=== PATIENT | male | born 1970 | race Caucasian/White ===

== ENCOUNTER 2024-09-27 17:17 | Inpatient (IN) | payer BC, SELFPAY ==
[2024-09-27] VITALS (10 sets, daily range): BP systolic 102–143; BP diastolic 77–104; BMI 28.2
--- NOTE | 2024-09-27 17:26 | HPS.HSE ---
Family Physician
-
Family Physician: Beverley Marsh
Chief Complaint
-
chest pain
History of Present Illness
Pt is a very pleasant 54y/oM with PMH HTN who presented to [facility] yesterday with complaints of chest pain with associated shortness of breath while he was laying down playing with is dog. Upon eval at [facility] pt ruled in for NSTEMI with HS trops of
48-->67. He underwent LHC today which revealed MVCAD (report currently unavailable to me), and noted to have a significantly dilated aortic root. Pt was transferred here for evaluation for VSRR + CABG.
Pt arrived on heparin gtt at 1400u/hr, he is chest pain free, pleasant and conversant. TR band in place on his R radial with 4cc of air.
Medical History
Past Medical History
Past Medical History: Reports HTN
Past Surgical History: Reports None
Social History
Tobacco: Non-smoker (never)
Alcohol: Occasional (1-2/week)
Drug: None
Personal:
Living: With Family
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
Family History
Family History: Other (no sig FH CAD)
Allergies / Home Medications
Allergies reflects when Allergies were last updated in [facility].
Home Medications with original date entered in [facility]
Allergy/Medication List:
NKDA
Home meds:
lisinopril 30mg po daily
acyclolvir prn herpes outbreaks
multivitamin daily
Review of Systems
-
History Source: Patient
Constitutional: Reports No Symptoms
EENT: Reports No Symptoms
Respiratory: Reports Trouble Breathing
Cardiac: Reports Chest Pain; Denies Syncope
Abdomen/GI: Denies Nausea or Vomiting
: Reports No Symptoms
Musculoskeletal: Reports No Symptoms
Skin: Reports No Symptoms
Neurological: Reports No Symptoms
Endocrine: Reports No Symptoms
Hematologic/Lymphatic: Reports No Symptoms
Psych: Reports No Symptoms
Physical Exam
Vital Signs
Vital Signs
Temp Pulse Resp Pulse Ox
98.1 F 79 18 96
09/27/24 17:20 09/27/24 17:20 09/27/24 17:20 09/27/24 17:20
Physical Exam
General: Well Developed, Well Nourished and No Apparent Distress
HEENT: NormoCephalic and Anicteric
Respiratory: Clear; No Wheezes, Rales or Rhonchi
Cardiac: Regular Rhythm; No Murmur, Rub or Peripheral Edema
GI: Soft, Non Tender and Non Distended
Rectal: Deferred by Provider
Genito-urinary: Deferred by me
Musculoskeletal: No Cyanosis and No Edema
Skin: Warm, Dry and IV/Catheter Site (R radial TR band intact; hand warm, good cap refill)
Neuro: Nonfocal/grossly intact
Psych: Calm
Data Reviewed
-
CT Scan: Report Reviewed by me
Lab Data: Labs Reviewed by me
Impression/Plan
-
IMPRESSION:
NSTEMI
MVCAD
aortic root aneurysm with root measuring 5.4cm, mid ascending aorta 4.5cm
HTN
PLAN:
- admit for workup for VSRR + CABG-- US Carotids, panelipse, labs, type & screen-- seen in last few months by regular dentist at [facility]--will contact them tomorrow for clearance.
- consult cardiology for medical management-- will continue heparin protocol.
- pt started on ASA, atorvastatin & metoprolol tartrate at [facility]--will continue those as well. home lisinopril on hold for OR.
- full evaluation by attending to follow
[2024-09-27 18:04] LABS: APTT 75.5 Sec (23.4-35.0)
[2024-09-27] MEDS: LOPRESSOR 25 MG PO (18:04)
[2024-09-27] MEDS: LIPITOR 80 MG PO (18:04)
[2024-09-27] MEDS: HEPARIN 25000 UNITS/250 ML IV (18:05)
[2024-09-27 18:18] LABS: Troponin I 0.099 ng/ml
--- NOTE | 2024-09-27 18:37 | PTCARENOTE ---
Patient received from [facility] in anticipation for CABG workup. NSR via cm, SaO2 @ 96% on RA. R wrist procedural site stable. Family to bedside. Admission information obtained. Heparin gtt re-initiated. BRE Max to bedside during admission. Patient
and family updated to plan of care, in agreement. See work list for full assessment and interventions performed.
--- NOTE | 2024-09-27 20:30 | PTCARENOTE ---
Patient received resting in bed watching television. Family at bedside. Patient A+A+Ox3. No neurological deficits noted. No c/o headache, dizziness or lightheadedness. Patient with no c/o pain or discomfort. Room air. SpO2 95%. Sinus Rhythm.
Heart rate 60-70's. Occasional PAC. Patient with no c/o chest pain, pressure or discomfort. Normoactive bowel sounds. Bowel and bladder within normal limits. Patient ambulating to bathroom by self. IV Heparin infusing per protocol.
Assessment as documented.
--- NOTE | 2024-09-27 22:00 | PTCARENOTE ---
Patient transported by RN to Panelipse study via wheelchair. Patient transported without difficulty. Patient back in room resting in bed watching television. No c/o pain or discomfort. Panelipse - No evidence of Dental Abscess. No further
changes from previous assessment.
[2024-09-27] MEDS: OCEAN, SALINE MIST 1 SPRAYS NASAL (23:49)
[2024-09-28] VITALS (9 sets, daily range): BP systolic 111–149; BP diastolic 81–111; BMI 28.1
--- NOTE | 2024-09-28 00:30 | PTCARENOTE ---
PTT 78.8 - Therapeutic range - No changes - IV Heparin gtt remains at 1400 units/hr (14 ml/hr). Troponin 0.112. Patient NPO after midnight. Patient sleeping without difficulty. Assessment/Interventions as documented.
[2024-09-28 00:31] LABS: APTT 78.8 Sec (23.4-35.0)
[2024-09-28 00:44] LABS: Troponin I 0.112 ng/ml
--- NOTE | 2024-09-28 04:22 | W.PN.CT ---
Today's Communication / Plan
-
Plan:
-Cont. current meds (ASA, heparin gtt, Lopressor, Lipitor)
-Avoid KASSIDY-I/ARBs/CCB at least 48hrs prior to OR
-Cardiology consult
-Ongoing preop workup/evaluation (obtain CTA of chest/abd/pelvis; echo today)
-Dr. Zuñiga to see, for possible Aortic root replacement/CABG/RAHEEM clip
Assessment / Plan
-
Assessment:
-Multivessel CAD
-NSTEMI (High-sensitivity trop 67 @ [facility])
-USA
-Aortic root aneurysm (5.4 cm, mid ascending aorta 4.5 cm)
-HTN
-HLD
-Spermatocele/Hydrocele S/P b/l spermatocelectomies, 05/26/2015
-S/P LHC
-S/P Vasectomy, 2008
Discussed patient care with: Cardiology, Nursing, Respiratory Therapy, Pharmacy and Care Team
Subjective
-
Date of Service: September 28, 2024
No issues overnight. Denies CP/SOB
Objective Data
-
APTT 78.8 Sec (23.4-35.0) H 09/28/24 00:09
Vital Signs
Vital Signs
Temp Pulse Resp BP Pulse Ox
98.2 F 65 16 102/80 96
09/27/24 23:00 09/28/24 04:10 09/27/24 23:00 09/27/24 23:00 09/27/24 23:00
CT Intake/Output/Weight
09/27/24 09/27/24 09/28/24
06:59 18:59 06:59
Intake Total 250 / 870 620 / 870
Balance 250 / 870 620 / 870
SaO2: 96 (RA)
Physical Exam
-
General: Awake, Oriented and AOx3
Cardiovascular: Regular rate & rhythm, No Murmurs and No Gallop
Respiratory: Clear
Extremities: No Edema
Data Reviewed
-
Lab Results: Results Reviewed
Medications: Active Meds Reviewed
Chest X-Ray: Report Reviewed and Image Reviewed
ECG: Report Reviewed and Image Reviewed
--- NOTE | 2024-09-28 04:30 | PTCARENOTE ---
Patient A+A+Ox3. No neurological deficits noted. No c/o headache, dizziness or lightheadedness. IV Heparin gtt infusing without difficulty. Patient back to sleep. Assessment/Interventions as documented.
[2024-09-28 06:13] LABS: Hematocrit 42.1 % (39.0-52.0); Hemoglobin 14.4 g/dL (13.0-18.0); Mean Corp Hgb Conc. 34.2 g/dL (33.0-37.0); Mean Corpuscular Hgb 30.1 pg (27.0-31.0); Mean Corpuscular Volume 88.1 fL (80.0-94.0); Mean Platelet Volume 9.3 fL (7.4-10.4); Platelet Count 286 10^3/uL (130-400); Red Blood Cell Count 4.78 10^6/uL (4.70-6.10); Red Cell Dist. Width 12.7 % (11.5-14.5); White Blood Cell Count 7.9 10^3/uL (4.8-10.8)
[2024-09-28 06:18] LABS: INR 1.06; PT 14.1 Sec (11.4-14.6)
[2024-09-28 06:19] LABS: APTT 78.7 Sec (23.4-35.0)
[2024-09-28 06:39] LABS: ALT (SGPT) 19 U/L (0-50); AST (SGOT) 23 U/L (17-59); Albumin 4.3 g/dl (3.5-5.0); Alkaline Phosphatase 69 U/L (38-126); Blood Urea Nitrogen 23 mg/dl (9-20); Calcium 9.1 mg/dl (8.4-10.2); Carbon Dioxide 24 mmol/L (22-30); Chloride 103 mmol/L (98-107); Estimated Creatinine Clearance 109 ml/min; Glucose 103 mg/dl (70-99); HDL Cholesterol 61 mg/dl; LDL Cholesterol, Calculated 73 mg/dl; Magnesium 1.9 mg/dl (1.6-2.3); Sodium 137 mmol/L (135-145); Total Bilirubin 1.1 mg/dl (0.2-1.3); Total Cholesterol 147 mg/dl (50-199); Total Protein 6.5 g/dl (6.3-8.2); Triglyceride 65 mg/dl (10-149); Very Low Density Lipoprotein 13 mg/dl (0-30); eGFR > 60.00
--- NOTE | 2024-09-28 07:45 | CON.CAR ---
Addendum entered and electronically signed by Ramón Guerrero MD 09/28/24 14:19:
I saw and examined the patient.
The Application Chemist's note was reviewed and I agree with the note.
Comment:
GEN: No distress, awake, Ox3
HEENT: supple, anicteric, mmm
LUNGS: CTA, no wheezes/rales
CV: Reg, S1/S2, / syst LSB, no gallop
ABD: soft, BS+, NT/ND
EXT: No edema
NEURO: Gross non-focal
SKIN: No rash
Plan:
Data reviewed. He is found to have multivessel coronary artery disease and a dilated aortic root. Plan will be for CABG plus aortic root repair in AM.
Continue metoprolol, atorvastatin, aspirin, and heparin.
Check echocardiogram today.
Original Note:
Consultation
Consultation Request
Date/Time Consultation Requested: 09/27/24 at 1656
Date/Time Consultation Performed: 09/28/24 at 0748
Requesting Provider: Dr. Zuñiga
Performing Provider: Dr. Guerrero
Reason for Consultation: Chest pain, MV CAD, aortic root aneurysm
Medical History
-
History of Present Illness:
Patient came to [facility] as a transfer from [facility] yesterday for evaluation from CT surgery team for MV CAD and aortic root aneurysm and cardiology has been consulted. Patient sees his PCP mostly when he is sick, but had a physical within the last year.
Patient with known h/o HTN and takes losartan 25 mg daily. He does not check BP at home on a regular basis. 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 He was working last Friday night into
Friday morning and was taking a break and laying on a sofa when he had sudden onset chest pain that lasted for 10-15 minutes and seemed to get better when he sat up. Pain returned again when he returned home after working and he told his and
they made a plan to go to the hospital. Then, after walking up the stairs in his home the patient had recurrent chest pain that was the most intense pain he had experienced and pain persisted. Patient went to [facility] ER and Troponin was elevated
prompting a cath that revealed MV CAD. Patient had an echo that showed aortic root aneurysm and then patient had CT, but results not available. Patient was transferred to for CT surgery eval last evening.
PMH:
HTN
Past Medical History
Past Medical History: Other (in HPI)
Past Surgical History: None
Social History
Tobacco: Non-Smoker
Alcohol: Occasional (a drink or 2 on a weekend night only)
Drug: None
Personal:
Living: With Family
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
Family History
Family History: Other (younger brother at a young age and patient didn't specify why, patient did not know biological father, no known FH CAD or aneurysm, two children alive and well)
Allergies / Home Medications
Allergy/AdvReac Type Severity Reaction Status Date / Time
No Known Allergies Allergy Unverified 05/26/15 06:37
�Medication �Instructions �Recorded �Confirmed �Type
losartan 25 mg tablet 25 mg PO DAILY 09/27/24 09/27/24 History
Review of Systems
-
History Source: Patient
All other systems: Negative unless noted
Physical Exam
Vital Signs
Temp Pulse Resp BP Pulse Ox
98.6 F 92 16 122/99 96
09/28/24 04:20 09/28/24 06:10 09/28/24 04:20 09/28/24 04:20 09/28/24 04:24
GEN: NAD. AAOx3
HEENT: EOMI, MMM
LUNGS: RA. CTA B/L, no wheezes or rales
CV: SR on tele. Reg, S1/S2, no murmur
ABD: soft, BS+, NT, ND
EXT: No clubbing, cyanosis, lesions or edema B/L
NEURO: Gross non-focal
SKIN: Warm, dry and pink. No rash
Lab Results
09/28/24 05:51
09/28/24 05:51
Troponin I 0.112 ng/ml H* 09/28/24 00:09
Impression / Plan
-
PCP: Dr. Marsh
Cardiology: None prior to admission, seen by Dr. Chavarria at [facility]
Impression:
Admitted to [facility] with chest pain 09/25/[address] for [address] surgical evaluation 09/27/24
MV CAD by cath at [facility] 09/27/24
CAD s/p NSTEMI with peak Troponin 67 at [facility]
Aortic root aneurysm with root measuring 5.4cm, mid ascending aorta 4.5cm by [facility] imaging 09/27/24
HTN
Echo 09/28/24: Study pending
Plan:
-Patient came to [facility] as a transfer from [facility] yesterday for evaluation from CT surgery team for MV CAD and aortic root aneurysm and cardiology has been consulted. Patient sees his PCP mostly when he is sick, but had a physical within the last year.
Patient with known h/o HTN and takes losartan 25 mg daily. He does not check BP at home on a regular basis. 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 He was working last Friday night into
Friday morning and was taking a break and laying on a sofa when he had sudden onset chest pain that lasted for 10-15 minutes and seemed to get better when he sat up. Pain returned again when he returned home after working and he told his and
they made a plan to go to the hospital. Then, after walking up the stairs in his home the patient had recurrent chest pain that was the most intense pain he had experienced and pain persisted. Patient went to [facility] ER and Troponin was elevated
prompting a cath that revealed MV CAD. Patient had an echo that showed aortic root aneurysm and then patient had CT, but results not available. Patient was transferred to for CT surgery eval last evening.
-ECG reviewed by me is SR with nonspecific ST changes.
-Echo at pending
-Initial Troponin was 0.099 and then 0.112. Will check another Troponin in the AM
-No chest pain. Heparin gtt running.
-New to aspirin 81 mg daily
-LDL 73. New to atorvastatin 80 mg daily
-Outpatient dose of losartan 25 mg daily on hold. BP 130/108 this AM and Lopressor increased to 50 mg BID. Patient is new to Lopressor this admission.
[2024-09-28] MEDS: LOPRESSOR 25 MG PO ×2 (08:40→10:00)
[2024-09-28] MEDS: LOW STRENGTH ASPIRIN 81 MG PO (08:40)
[2024-09-28] MEDS: HEPARIN 25000 UNITS/250 ML IV (08:41)
--- NOTE | 2024-09-28 08:45 | PTCARENOTE ---
Assumed care of patient at 0700. Pt is awake, alert, and oriented. No complaints of pain. Pt SR with HR 70's - 80's. BP 149/111 MAP 123, repeat BP 130/[address] PA made aware of BP, Lopressor increased to 50mg. Pulse oximetry 95% on room air.
Pt NPO for CT scan. Voiding in bathroom without issue. Right radial site intact, palpable pulses. Pt remains on Heparin gtt.
[2024-09-28 08:56] LABS: Glycohemoglobin (HgbA1c) 5.6 % (4.0-5.6)
--- NOTE | 2024-09-28 12:15 | PTCARENOTE ---
Carotid US and CT Scan completed. ABO collected. Pt remains SR with HR 60's-70's. BP 130/93 MAP 105. Pulse oximetry 99% on room air. Pt remains on heparin gtt per order.
--- NOTE | 2024-09-28 12:50 | W.PN.UPDATE ---
Update Note
Progress Note Update
STS RISK SCORE
Procedure Type:�CABG + AVR
PERIOPERATIVE OUTCOME ESTIMATE %
Operative Mortality 1.02%
Morbidity & Mortality 6.71%
Stroke 1.39%
Renal Failure 0.869%
Reoperation 3.83%
Prolonged Ventilation 3.25%
Deep Sternal Wound Infection 0.111%
Long Hospital Stay (>14 days) 3.85%
Short Hospital Stay (<6 days)* 59.3%
Clinical Summary
Planned Surgery: CABG + AVR, Urgent, First cardiovascular surgery
Demographics: 54 year old, White, male, 99.7kg, 188cm, BMI: 28.2 kg/m�
Lab Values: Creatinine: 0.9 mg/dL, Hematocrit: 42.1%, WBC Count: 7.9 10�/�L, Platelet Count: 964288 cells/�L
Substance Abuse: Never smoker, Alcohol use: 2-7 drinks/week
Risk Factors / Comorbidities: Hypertension
Cardiac Status: NYHA Class II, Ejection Fraction = 50%
Coronary Artery Disease: 3 vessels diseased, Proximal LAD Stenosis >=70%, Non-ST Elevation NE, NE: 1 to 7 Days
Valve Disease: Mild MR
--- NOTE | 2024-09-28 13:15 | CM ---
Reviewed chart. Met with and Mrs. Fountain and their son to review discharge plans. He states prior to admission he resides with his spouse and son in a two story home with one step to enter. He states he has a to go up a full flight of
steps to get to bedroom/full bathroom. He states he has a powder room on the first floor. He states prior to admission he was independent with ambulation and adls. He states he does not have any DME in the home. He states he has a prescription
plan. He states his spouse will be home to assist in his care if needed. Medical work-up in progress. The discharge plan is to return home with his spouse and son with a home visit by the Transitional Care Nurse Nurse when medically stable.
We reviewed pre=op and post-op routines. Briefly reviewed the shower instructions. Gave him the Cardiothoracic Surgery Educational Booklet. We also reviewed restrictions including sternal precautions and driving restrictions. We discussed a
home visit by the Transitional Care Nurse. He is agreeable to a home visit. The plan is for CABG and AVR on Friday09/29/24.
--- NOTE | 2024-09-28 13:26 | W.PN.UPDATE ---
Update Note
Progress Note Update
I met with Mr. Nova at the bedside. 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 He has significant coronary disease involving the proximal LAD as well as the proximal to mid RCA. He
presented to the hospital with 3 episodes of chest pain and tightness and was found to have an NSTEMI. Additionally he is also newly diagnosed with a significant aortic root aneurysm measuring approximately 5.[address] angiogram. There is a mild
degree of aortic valve insufficiency by visualization but the echocardiogram did not perform a pressure half-time to quantify. His aortic valve appears to be tricuspid with mostly central leakage. We discussed his pathology and the plan going
forward. His STS risk was reviewed. The benefits of surgery were discussed. Shared decision making is to pursue a valve sparing root replacement with possible biological Bentall should the valve not work appropriately afterwards. He also needs
CABG x 2 with CEDILLO to LAD and reverse saphenous vein graft to RCA. Given the extent of his surgery and his NSTEMI, I believe he has an elevated [id number] score and so I will also be managing his left atrial appendage. Plan is for surgery with
me tomorrow. Will need to units of blood and platelets on hold for him. Consent was obtained. All questions were answered to best my ability.
Thank you for involving me in the care of this patient. Please feel free to contact me with any questions or concerns.
Britton Zuñiga MD, MS
Cardiothoracic Surgeon
[facility]
This dictation was created using the [employer] dictation system. Please excuse any grammatical, typographical, or 'sound alike' errors.
[2024-09-28 15:17] LABS: Urine Albumin Trace (Neg - Trace); Urine Bilirubin Negative (Negative); Urine Character Clear (Clear); Urine Color Yellow; Urine Glucose Negative (Negative); Urine Ketone Negative (Negative); Urine Leukocyte Negative (Negative); Urine Nitrite Negative (Negative); Urine Occult Blood Negative (Negative); Urine Specific Gravity 1.015 (<1.030); Urine Urobilinogen 1+ (Neg - 1+)
--- NOTE | 2024-09-28 16:55 | PTCARENOTE ---
Pt with no changes in assessment. Pt remains SR with HR 70's. BP 119/94 MAP 104. Pulse oximetry 99% on room air. Heparin gtt continues.
[2024-09-28] MEDS: LIPITOR 80 MG PO (17:02)
--- NOTE | 2024-09-28 20:00 | PTCARENOTE ---
Assumed care of patient at 1900. Patient found oob in chair at time of assessment. Patient is AOx4, follows commands appropriately, moves all extremities. Lung sounds are clear and equal bilaterally saO2 98% on RA. Heart sounds are audible, patient
is SR with PACs on the monitor, patient has normal palpable pulses and no observable edema. Patient has active BS in all four quadrants and is voiding in bathroom. Patient has R radial puncture from CC that is scabbed over SABINO. Patient has R FA PIV
receiving heparin @1400 units/hr, R AC and L AC PIV. No c/o pain. Call keyes within reach.
[2024-09-28] MEDS: LOPRESSOR 50 MG PO (21:01)
[2024-09-29] VITALS (10 sets, daily range): BP systolic 74–138; BP diastolic 65–97; BMI 28.1
--- NOTE | 2024-09-29 | PTCARENOTE ---
Patient reassessed. VSS. Remains SR on the monitor. Call keyes within reach.
--- NOTE | 2024-09-29 04:00 | PTCARENOTE ---
Patient reassessed. Remains SR on the monitor. AM labs obtained. Preop prep completed. Labs obtained.
[2024-09-29] MEDS: HEPARIN 25000 UNITS/250 ML IV (04:14)
[2024-09-29 04:23] LABS: Hematocrit 40.8 % (39.0-52.0); Hemoglobin 14.3 g/dL (13.0-18.0); Mean Corpuscular Hgb 30.6 pg (27.0-31.0); Mean Corpuscular Volume 87.4 fL (80.0-94.0); Mean Platelet Volume 9.6 fL (7.4-10.4); Platelet Count 293 10^3/uL (130-400); Red Blood Cell Count 4.67 10^6/uL (4.70-6.10); Red Cell Dist. Width 12.7 % (11.5-14.5); White Blood Cell Count 7.9 10^3/uL (4.8-10.8)
[2024-09-29 04:40] LABS: APTT 71.3 Sec (23.4-35.0)
--- NOTE | 2024-09-29 05:58 | W.PN.CT ---
Today's Communication / Plan
-
Plan:
-OR today, 2nd case for Dr. Zuñiga. Aortic root replacement/CABG/RAHEEM clip
-Cont.current meds (ASA, heparin gtt, Lopressor, Lipitor)
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
Assessment / Plan
-
Assessment:
-Multivessel CAD
-NSTEMI (High-sensitivity trop 67 @ [facility])
-USA
-Aortic root aneurysm (5.4 cm, mid ascending aorta 4.5 cm)
-HTN
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
-Spermatocele/Hydrocele S/P b/l spermatocelectomies, 05/26/2015
-S/P LHC
-S/P Vasectomy, 2008
Discussed patient care with: Cardiology, Nursing, Respiratory Therapy, Pharmacy and Care Team
Subjective
-
Date of Service: September 29, 2024
No issues overnight. Denies CP/SOB
Objective Data
-
Lab Results
09/29/24 04:09
09/28/24 05:51
PT 14.1 Sec (11.4-14.6) 09/28/24 05:51
INR 1.06 09/28/24 05:51
APTT 71.3 Sec (23.4-35.0) H 09/29/24 04:09
Vital Signs
Vital Signs
Temp Pulse Resp BP Pulse Ox
98.2 F 69 18 118/81 98
09/28/24 19:39 09/28/24 23:00 09/28/24 19:39 09/28/24 22:51 09/28/24 20:00
CT Intake/Output/Weight
09/28/24 09/28/24 09/29/24
06:59 18:59 06:59
Intake Total 648 / 912 168 / 168
Balance 648 168 / 168
SaO2: 98 (RA)
Physical Exam
-
General: Awake, Oriented and AOx3
Cardiovascular: Regular rate & rhythm and No Murmurs
Extremities: No Edema
Data Reviewed
-
Lab Results: Results Reviewed
Medications: Active Meds Reviewed
Chest X-Ray: Report Reviewed and Image Reviewed
ECG: Report Reviewed and Image Reviewed
--- NOTE | 2024-09-29 07:19 | W.CVOR.SURPR ---
CVOR Surgeon Immed Pre Op
-
I have examined this patient prior to performance of the scheduled procedure.
The patient's condition is unchanged from the time of the dictated/written History and
Physical and the patient is able to undergo the scheduled procedure.
Sternotomy CABG x 2 + VSRR +/- BioBentall + RAHEEM Clip
--- NOTE | 2024-09-29 09:03 | W.PN.UPDATE ---
Update Note
Progress Note Update
Radial arterial line placement
A time-out was completed verifying correct patient, procedure, site, patient positioning, and special equipment. Patient was monitored with continuous bedside EKG, blood pressure, pulse ox readings.
Doc's test was performed to ensure adequate perfusion. The patient's left wrist was prepped and draped in sterile fashion.
1% Lidocaine was used to anesthetize the area. Ultrasound was used in real time to localize the radial artery and guide introducer needle into the arterial lumen. The catheter was threaded over the guide wire and the needle was removed with
appropriate pulsatile blood return. The catheter was then secured in place to the skin and a biopatch and sterile dressing applied.
Perfusion to the extremity distal to the point of catheter insertion was checked and found to be unchanged.
Estimated Blood Loss: 0 mL
The patient tolerated the procedure well and there were no complications.
--- NOTE | 2024-09-29 09:08 | W.PN.UPDATE ---
Update Note
Progress Note Update
A time-out was completed verifying correct patient, procedure, site, patient positioning, and special equipment. Patient was monitored with continuous bedside EKG, blood pressure, pulse ox readings.
The patient was placed in a dependent position appropriate for central line placement based on the vein to be cannulated. The patient's left neck was prepped and draped in sterile fashion using chlorhexidine, maximum barrier precautions, sterile
gloves, Gown drapes and mask.
1% Lidocaine was used to anesthetize the surrounding skin area. Ultrasound was used in real time to localize vein and guide introducer needle. An introducer needle was placed into the left internal jugular vein using ultrasound guidance. A
guidewire was introduced without resistance. Under ultrasound guidance, confirmation of guidewire in vein was performed before dilation. Dilation was done over guidewire without complications. The cordis catheter as then threaded smoothly over the
guide wire and into the central venous system. The guidewire was removed and appropriate blood return was obtained. The catheter was then secured with a suture to the skin and a sterile occlusive dressing with Biopatch applied. An upright chest
film was obtained after the procedure to assess for complications of insertion.
Estimated blood loss: 0 mL
Patient tolerated procedure well. Remains in critical condition.
[2024-09-29] MEDS: LOPRESSOR 25 MG PO (09:16)
[2024-09-29] MEDS: XYLOCAINE 2% MDV 10 ML INFIL (09:16)
[2024-09-29] MEDS: MAGNESIUM OXIDE 500 MG PO (09:16)
[2024-09-29] MEDS: PROTONIX 40 MG PO (09:16)
[2024-09-29] MEDS: BACTROBAN 2% OINTMENT 1 APPLIC NASAL ×2 (09:16→20:25)
--- NOTE | 2024-09-29 09:30 | PTCARENOTE ---
Addendum entered by Balta Mackenzie RN 09/29/24 13:16:
Heparin gtt placed on hold per order prior to Cordis and Zahira placement.
Original Note:
Assumed care of patient at 0700. Pt is awake, alert, and oriented. No complaints of pain. Pt remains SR with HR 70's. BP 138/88 MAP 104 (right arm), 126/97 MAP 106 (left arm). Pulse oximetry 95% on room air. Pt voiding without issue. Pt had bowel
movement this AM. NPO since midnight. 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 CT CAN STRIPER, Zehra, to bedside placed left radial Zahira and right IJ cordis. Pt received pre-op medications. Awaiting OR. Family at bedside.
[2024-09-29] MEDS: LOPRESSOR PO (09:56)
[2024-09-29 11:20] LABS: ACT+ - POC 109 Seconds (82-134)
[2024-09-29 11:58] LABS: Urine Albumin Trace (Neg - Trace); Urine Bilirubin Negative (Negative); Urine Character Clear (Clear); Urine Color Yellow; Urine Glucose Negative (Negative); Urine Ketone Negative (Negative); Urine Leukocyte Negative (Negative); Urine Nitrite Negative (Negative); Urine Occult Blood 4+ (Negative); Urine Urobilinogen Negative (Neg - 1+)
[2024-09-29 12:28] LABS: ACT+ - POC 530 Seconds (82-134)
[2024-09-29 12:48] LABS: B.E. - POC -4.1 mmol/L; Glucose - POC 100 mg/dl (70-99); HCO3 - POC 20 mmol/L (21-28); Hematocrit - POC 41 % PCV (42-52); Hemodilution- POC No; Hemoglobin Calculated - POC 14.1; Ionized Calcium - POC 1.22 mmol/L (1.15-1.33); O2 Saturation %Calculated-POC 99.9 % (94-98); PCO2 - POC 34 mmHg (35-48); PO2 - POC 270 mmHg (83-108); POC Comment CPB; Potassium - POC 3.7 mmol/L (3.5-5.1); Sodium - POC 140 mmol/L (136-145); Specimen Type - POC Arterial; pH - POC 7.38 (7.35-7.45)
[2024-09-29 13:00] LABS: ACT+ - POC 531 Seconds (82-134)
[2024-09-29 13:20] LABS: B.E. - POC 0.8 mmol/L; Glucose - POC 97 mg/dl (70-99); HCO3 - POC 26 mmol/L (21-28); Hematocrit - POC 29 % PCV (42-52); Hemodilution- POC Yes; Hemoglobin Calculated - POC 9.9; Ionized Calcium - POC 1.08 mmol/L (1.15-1.33); O2 Saturation %Calculated-POC 99.9 % (94-98); PCO2 - POC 44 mmHg (35-48); PO2 - POC 326 mmHg (83-108); POC Comment CPB; Sodium - POC 136 mmol/L (136-145); Specimen Type - POC Arterial; pH - POC 7.38 (7.35-7.45)
[2024-09-29 13:29] LABS: ACT+ - POC 464 Seconds (82-134)
[2024-09-29 13:44] LABS: ACT+ - POC 562 Seconds (82-134)
[2024-09-29 13:50] LABS: B.E. - POC 0.8 mmol/L; Glucose - POC 152 mg/dl (70-99); HCO3 - POC 27 mmol/L (21-28); Hematocrit - POC 33 % PCV (42-52); Hemodilution- POC Yes; Hemoglobin Calculated - POC 11.2; Ionized Calcium - POC 1.14 mmol/L (1.15-1.33); O2 Saturation %Calculated-POC 99.4 % (94-98); PCO2 - POC 47 mmHg (35-48); PO2 - POC 163 mmHg (83-108); POC Comment CPB; Potassium - POC 4.9 mmol/L (3.5-5.1); Sodium - POC 136 mmol/L (136-145); Specimen Type - POC Arterial; pH - POC 7.36 (7.35-7.45)
[2024-09-29 13:57] LABS: Urine Bacteria Few (Negative); Urine Red Blood Cell >100 /HPF (0-2)
[2024-09-29 14:17] LABS: B.E. - POC -0.1 mmol/L; Glucose - POC 164 mg/dl (70-99); HCO3 - POC 26 mmol/L (21-28); Hematocrit - POC 33 % PCV (42-52); Hemodilution- POC Yes; Hemoglobin Calculated - POC 11.3; Ionized Calcium - POC 1.16 mmol/L (1.15-1.33); O2 Saturation %Calculated-POC 99.9 % (94-98); PCO2 - POC 46 mmHg (35-48); PO2 - POC 352 mmHg (83-108); POC Comment CPB; Sodium - POC 136 mmol/L (136-145); Specimen Type - POC Arterial; pH - POC 7.36 (7.35-7.45)
[2024-09-29 14:30] LABS: ACT+ - POC 532 Seconds (82-134)
[2024-09-29 15:05] LABS: Glucose - POC 183 mg/dl (70-99); HCO3 - POC 25 mmol/L (21-28); Hematocrit - POC 34 % PCV (42-52); Hemodilution- POC Yes; Hemoglobin Calculated - POC 11.4; Ionized Calcium - POC 1.17 mmol/L (1.15-1.33); O2 Saturation %Calculated-POC 99.9 % (94-98); PCO2 - POC 49 mmHg (35-48); PO2 - POC 294 mmHg (83-108); POC Comment CPB; Potassium - POC 5.2 mmol/L (3.5-5.1); Sodium - POC 135 mmol/L (136-145); Specimen Type - POC Arterial; pH - POC 7.33 (7.35-7.45)
[2024-09-29 15:13] LABS: ACT+ - POC 485 Seconds (82-134)
[2024-09-29 15:30] LABS: ACT+ - POC 618 Seconds (82-134)
[2024-09-29 15:36] LABS: Glucose - POC 140 mg/dl (70-99); HCO3 - POC 24 mmol/L (21-28); Hematocrit - POC 33 % PCV (42-52); Hemodilution- POC Yes; Hemoglobin Calculated - POC 11.4; Ionized Calcium - POC 1.19 mmol/L (1.15-1.33); O2 Saturation %Calculated-POC 99.8 % (94-98); PCO2 - POC 39 mmHg (35-48); PO2 - POC 217 mmHg (83-108); POC Comment CPB; Potassium - POC 4.1 mmol/L (3.5-5.1); Sodium - POC 138 mmol/L (136-145); Specimen Type - POC Arterial; pH - POC 7.39 (7.35-7.45)
--- NOTE | 2024-09-29 16:10 | CM ---
Reviewed chart. Mr. Fountain is in the operating room today. Prior to admission he resides with his spouse and son in a two story home with one step to enter. He has a full flight of steps to get to bedroom/full bathroom. He has a powder room on
the first floor. Prior to admission he was independent with ambulation and adls. He does not have any DME in the home. He has a prescription plan. His spouse will be home to assist in his care if needed. Medical work-up in progress. The
discharge plan is to return home with his spouse and son and a home visit by the Transitional Care Nurse when medically stable.
[2024-09-29 16:12] LABS: ACT+ - POC 486 Seconds (82-134)
[2024-09-29 16:26] LABS: B.E. - POC -3.5 mmol/L; Glucose - POC 121 mg/dl (70-99); HCO3 - POC 21 mmol/L (21-28); Hematocrit - POC 34 % PCV (42-52); Hemodilution- POC Yes; Hemoglobin Calculated - POC 11.4; Ionized Calcium - POC 1.18 mmol/L (1.15-1.33); PCO2 - POC 35 mmHg (35-48); PO2 - POC 373 mmHg (83-108); POC Comment WARM; Sodium - POC 139 mmol/L (136-145); Specimen Type - POC Arterial; pH - POC 7.39 (7.35-7.45)
[2024-09-29 16:29] LABS: ACT+ - POC 118 Seconds (82-134)
--- NOTE | 2024-09-29 17:24 | W.PN.CT.SURG ---
CT Surgery Operative Note
-
CARDIAC SURGERY OPERATIVE REPORT
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
Postoperative Diagnosis: Same
Procedure(s) Performed:
1. Standard sternotomy with aortic and right atrial cannulation
2. CABG x 2 [hamilton CEDILLO in situ to LAD, RSVG to proximal RCA]
3. Valve sparing aortic root replacement with reimplantation of hamilton aortic valve [Gregory Procedure]
4. Reimplantation of left and right coronary buttons into their respective neosinus
5. Left atrial appendage exclusion (35mm clip)
6. Placement of temporary atrial ventricular pacing wires
7. Transesophageal echocardiography
8. Endoscopic harvest of saphenous vein
Date of Surgery: 09/29/2024
Comorbidities:
1. Aortic root aneurysm measuring 5.8 cm
2. Mild aortic valve insufficiency, central
3. Hypertension
4. NSTEMI multivessel coronary artery disease
Attending Surgeon: Britton Zuñiga MD, MS
Assistants: Kadeem Ortiz MD (given the complexity of the case, two attending surgeons were required for the reimplantation of the hamilton aortic valve) & Yina Coreas PA-C (present and necessary to research assistant, retraction, suction, exposure,
suture management, and wound closure under my direction), Britton June PA-C (endo vein harvest)
Anesthesiology: Solomon Carbajal MD and Carly Joyner CRNA
Scrub and Circulating RNs: Tania Grayson RN, Kavin Brenner RN
Customer Support Assistant: Bienvenido Saavedra CCP
Anesthesia: GETA
EBL: per perfusion records
Products: 2 plts 2 ffp (in CVICU)
CPB Time: 218 minutes
Aortic Cross Clamp Time: 192 minutes
Indication(s) for Procedures: This is a 54-year-old male presenting with an NSTEMI with several episodes of chest pain. He was found to have significant proximal LAD disease with collateralization to the right which also diagonal ostial lesion. He
was also incidentally found to have a significant aortic root aneurysm with mild aortic valve insufficiency. His aneurysm measured approximately 5.8 cm from his greatest dimension. Given his NSTEMI, young age, approximately lesion, he is counseled
about surgical revascularization with concomitant management of his aortic root aneurysm.
Aortic Valve Description: Tricuspid aortic valve, no fenestrations, good coaptation height, estimated to be 1cm, no prolapse of the hamilton aortic leaflet tissue with testing the valve
Findings: His left ventricular ejection fraction preoperatively 60% with no significant regional wall motion abnormalities. He does have diastolic dysfunction with thick left ventricle. Following surgery his EF was the same with no significant
regional wall motion abnormalities aside from some paradoxical motion of his septum. He is aortic valve was spared and reimplanted inside of 32 mm cardio root Valsalva graft. This was done with 6 some annular sutures to reinforce his aorta
ventricular junction. His valve was then reimplanted and sewn into place with 5-0 Prolene. His left and right coronary ostia were then reimplanted into her neosinus. Suctioning the LV vent resulted in sealing of the aortic valve which appeared to
be competent. 2 bypasses were performed, in situ CEDILLO to his hamilton LAD and reverse saphenous vein graft to the proximal RCA. This was taken off the distal ascending aorta on hamilton aortic tissue. Following surgery, his AI that was initially mild
and central went to none. He had a mean gradient of 3 across his hamilton aortic valve with a good coaptation height. Due to the long clamp around, he was a little bit sluggish coming off of cardiopulmonary bypass but did not require any inotropic
support. His cardiac index was approximately 1.7 to on just a low-dose Levophed. 2 units of platelets were given intraoperatively and 2 FFP were planned to be given in the CVICU. He was in a junctional rhythm after the surgery and had diffuse ST
changes that are improved over time. I suspect there was some subendocardial ischemia given how thick his ventricle is and the long duration of his surgery. There is no residual flow into the left atrial appendage, and only a small residual stump
was visualized.
Specimen(s): Ascending aorta and aortic sinuses.
Prosthesis:
1. 35 mm clip, serial #[id number]
2. Cardio root Valsalva graft, 32 mm, serial number [id number].
3. Bovine pericardium, serial number [id number]
4. Peripheral leak sealant, serial number [id number]
Description of Procedure: The patient was taken to the operating room. Their identity and procedure to be performed were verified and they were positioned supine on the operating table. Induction via general anesthesia with endotracheal intubation
was performed and central venous access and arterial monitoring were inserted. A preoperative transesophageal echocardiogram was performed to assess cardiac function and valvular function. The patient was then prepped and draped from chin to feet in
a sterile fashion. A preoperative time-out was performed with all members of the team present. A midline chest incision was performed along with median sternotomy. Simultaneous access to the right lower extremity for endoscopic harvest of the
saphenous vein graft was performed. 5000 units of heparin was also given. The Rultract was placed and the left hemisternum was elevated and the mammary was harvested in a skeletonized fashion. This line was then transected and there was good
visual flow. The distal end was then clipped and the mammary was placed into a papaverine soaked Ray-Madiha and replaced back into the left hemithorax. The Rultract retractor was then replaced with a median sternotomy retractor. The innominate vein
was isolated. Full heparinization was given (a total of 65,000 units). We created a pericardial well. The aortic cannulation site was chosen where it was soft, pliable, and free of calcium in the proximal arch. Cannulation was performed with an
arterial cannula and a triple-stage venous cannula through the right atrial appendage. The arterial cannula line had an appropriate bounce and correlating pressures with test dosing. The pulmonary artery was away from the aorta to
facilitate a clamp site and aortotomy. Next, a root vent/antegrade cannula was inserted into the ascending aorta. The ACT was confirmed to be over 400 and retrograde autologous priming was performed before commencing cardiopulmonary bypass. A left
ventricular vent was placed at the right superior pulmonary vein and secured. The aortic cross-clamp was placed after decreasing the flow on the bypass and mean arterial pressure. A total of 1.2L initial dose of antegrade Del-Nido cardioplegia
solution was given and planned for re-dosing every 75 minutes as necessary. There was rapid electro-mechanical arrest of the heart at 400 cc of cardioplegia. The left ventricle was observed for distention on echocardiogram and manual palpation. Cold
slush was placed into a sponge and topically on the RV while we systemically cooled to 34 degrees centigrade. Once the heart was fully arrested, it was rotated medially and the left atrial appendage was sized to a 35 mm clip which was deployed
flush to the base.
I then isolated the proximal RCA and dissected down to the level of coronary. A small coronary arteriotomy was created with an eye knife and enlarged with Han scissors. The vein was then beveled accordingly and end-to-side anastomosis was
created with 7-0 Prolene. Test dosing of antegrade down the vein graft demonstrated excellent flow at 80 cc a minute at a pressure of 80 mmHg. I also confirmed hemostasis. Next the LAD was identified dissected with a [place] blade. A small
coronary arteriotomy was created in a similar fashion and enlarged with Han scissors. The CEDILLO was then retrieved from the left hemithorax after creating a small pericardial window being cognizant of the phrenic nerve course. The distal end of
the CEDILLO graft was beveled accordingly. And a side anastomosis was created with 7-0 Prolene in a running fashion. Removal of the bulldog clamp demonstrated excellent flow in the LAD territory. There was also appropriate hemostasis. The bulldog
was then replaced back on the mammary vessel for the duration of the case.
Carbon dioxide was used to flood the field. The location of both left and right coronary vessels were visualized in the root. The aorta was fully transected above the STJ. I then cut down towards each commissure and placed a 5-0 Prolene pledgeted
suture there for later resuspension. The root was then circumferentially dissected down to the aorta ventricular junction. The right coronary button was then harvested and a retraction stitch was placed at the 12 o'clock position. The left
coronary button was harvested in a similar fashion with also retraction stitch at the 12 o'clock position. I then continued the dissection down deep into the root below each coronary ostia. Next the aortic sinus tissue was then transected leaving
approximately 5 mm of hamilton aortic tissue along the commissures and valve. 6 pledgeted 2 Ethibond sutures were placed at the subvalvular ring 1 at each commissure and 1 in each hitesh of the leaflet. Using the left-non height, I sized the
patient's root to a 32 mm Valsalva graft. The 2 Ethibond sutures were then placed through the lower cuff of the graft and the commissures were brought inside the graft which was then parachuted down over the hamilton aortic valve. The 6 Ethibond
sutures were then tied circumferentially by hand. The commissures were then resuspended accordingly to produce a symmetrical 120/120/120 degree appearing valve. Traction on the commissures yielded good coaptation height of the hamilton aortic valve
leaflets. With the LV vent turned on, there was good sealing of the hamilton aortic tissue with a coaptation height of approximately 1 cm. Starting each hitesh, 5-0 Prolene was used to sew in the aortic valve effectively reimplanting inside of
Valsalva graft. These were secured to the commissural stitches. Once completed, I inspected to make sure there were no folds, any folds were then reinforced with [place] pledgeted 5-0 Prolene in order to flatten out the fold to promote
hemostasis. The left coronary ostia was then reimplanted into the knee of sinus using 5-0 Prolene in a running fashion. The same was done with the right coronary ostia after filling the heart to estimate the appropriate height on the neosinus.
Bovine pericardium was used for both coronary ostia as a gasket. The ascending aorta was then resected and the valved conduit was trimmed accordingly. The distal anastomosis was performed with a running 4-0 Prolene in a single layer using bovine
pericardium as a gasket. Absorbable topical sealant was then placed around the suture lines. We had enough hamilton aortic tissue in order to perform a small aortotomy which was enlarged with a 4.0 millimeter punch. The proximal end of the vein was
then beveled accordingly and with 6-0 Prolene the proximal anastomosis was greater than a running fashion
De-airing maneuvers were performed and temporary bipolar ventricular pacing wires were placed on the base of the right ventricle and temporary atrial pacing wires at the SVC/Atrial junction. The patient was placed in a Trendelenburg position and
flows on bypass were lowered. The aortic cross clamp was removed and flows were slowly brought back up. The suture lines appeared hemostatic. The bulldog clamp was removed off the mammary. A few reinforcement sutures were placed along the distal
aortic anastomosis transesophageal echocardiography revealed no AI and appropriate leaflet coaptation height with a mean gradient of 3 across the hamilton aortic valve. Once de-airing was satisfactory, the left ventricular vent was removed. After
verifying acceptable parameters, we initiated weaning from cardiopulmonary bypass. Once we were off cardiopulmonary bypass, the venous cannula was clamped and removed. A test dose of protamine was administered and the patient was monitored for any
adverse reaction before resuming protamine. Once half of the protamine dose was delivered, pump suckers were turned off and the systolic blood pressure was lowered for aortic decannulation. The aortic cannula was removed and pursestrings were tied
down. All cannulation sites were oversewn with a 4-0 prolene. The suture lines were inspected and hemostasis was confirmed. Mediastinal hemostasis was obtained. Two 24Fr Connor drains were placed within the pericardium with additional 19 [place] Connor
drain placed in the left hemithorax. The sternum was approximated with 4 #7 single and 3 #8 double stainless steel wires. Fascia was approximated with #1 vicryl suture. The subcutaneous, dermis and epidermis were closed in layers in a running
fashion. The skin wound was cleansed and dressed.
All instrument, sponge, and needle counts were confirmed to be correct x 2 at the end of the operation. The patient was transferred to the cardiac intensive care unit in critical but stable condition.
I, Dr. Britton Zuñiga, was present, scrubbed for, and performed all critical elements of this procedure.
Britton Zuñiga MD, MS
Cardiothoracic Surgeon
[facility]
This dictation was created using the [employer] dictation system. Please excuse any grammatical, typographical, or 'sound alike' errors
[2024-09-29 17:31] LABS: B.E. - POC -1.7 mmol/L; Glucose - POC 119 mg/dl (70-99); HCO3 - POC 23 mmol/L (21-28); Hematocrit - POC 32 % PCV (42-52); Hemodilution- POC Yes; Hemoglobin Calculated - POC 10.8; Ionized Calcium - POC 1.37 mmol/L (1.15-1.33); O2 Saturation %Calculated-POC 97.9 % (94-98); PCO2 - POC 39 mmHg (35-48); PO2 - POC 103 mmHg (83-108); POC Comment POST; Sodium - POC 138 mmol/L (136-145); Specimen Type - POC Arterial; pH - POC 7.38 (7.35-7.45)
--- NOTE | 2024-09-29 17:38 | PTCARENOTE ---
Pt received from [facility] intubated and sedated on precedex gtt. POX 100% SIMV 14 550 5/5 40%. Lungs diminished anteriorly. Mediastinal chest tubes x2 y-sited to 1 atrium to -20cm suction draining red fluid. Left pleural chest tube to -20cm suction
draining red fluid. No air leaks tidaling, crepitus noted. Heart sounds audible. SR with frequent PVCs. Bilateral radial pulses palpable. bilateral DP pulses present via doppler. No edema noted. PA pressures 28/18 CVP 14. Epicardial AV wires to box,
turned off. Per, CT SOLDER SPRAYER, not tested and box turned off. Abdomen soft, round, nontender. Hypoactive BS. Maki catheter intact draining pink tinged urine, adequate amounts. Sternal incision approximated with skin glue, SABINO. Right SVG harvest site
covered with KASSIDY-CDI. Right groin puncture site approximated with skin glue, [employer]ARD. Left radial ojssie positional, but appropriate waveform. Right IJ cordis with swan floated to 48cm. All lines flushed, leveled, and zeroed. Right forearm 20g PIV x2.
Left forearm 20g PIV intact.
--- NOTE | 2024-09-29 17:51 | PTCARENOTE ---
Significant amount of ectopy noted. CT [employer], CT PA, and Dr. Zuñiga at bedside. At 175 Attempting to change epicardial A and V polarity of the leads when patient had R on T and went into Torsades. CPR started immediately. Pt defibrillated at 200J x1,
regained SR with pulse but was hypotensive, restarted CPR as per Dr. Zuñiga. BP improved, CPR stopped per Dr. Zuñiga. 175, pt in torsades again, CPR restarted, pt defibrillated at 300J x1. CPR resumed. Pt noted to have rhythm on monitor with pulse.
Meds: 1mg Epi, 300mg Amio & Amio gtt started at 1mg/min, 1g Mag. 100mL Sodium Bicarb. 3g CaCl. 2units FFP administered. All orders per verbal order Dr. Zuñiga, at bedside. Bedside echo performed by anesthesia. ABG ran by perfusion. CXR obtained.
[2024-09-29 17:54] LABS: B.E. -1.7 mmol/L; HCO3 22.1 mmol/L (21-28); Ionized Calcium 1.15 mMOL/L (1.15-1.33); PCO2 34 mmHg (35-48); PO2 91 mmHg (83-108); Potassium 3.8 mMOL/L (3.5-5.1); Sodium 136 mMOL/L (136-145); pH 7.42 (7.35-7.45)
[2024-09-29 17:57] LABS: Glucose - Point of Care 127 mg/dl (70-99)
[2024-09-29 18:04] LABS: Hematocrit 31.2 % (39.0-52.0); Hemoglobin 11.2 g/dL (13.0-18.0); Platelet Count 192 10^3/uL (130-400)
[2024-09-29 18:12] LABS: INR 1.55; PT 19.1 Sec (11.4-14.6)
[2024-09-29 18:13] LABS: APTT 31.2 Sec (23.4-35.0)
[2024-09-29 18:14] LABS: Blood Urea Nitrogen 22 mg/dl (9-20); Estimated Creatinine Clearance 89 ml/min; Glucose 119 mg/dl (70-99); Magnesium 2.6 mg/dl (1.6-2.3)
--- NOTE | 2024-09-29 18:18 | W.PN.ANES ---
Anesthesia Note
- -
09/29/24 18:18
Transesophageal Echo:
Probe placed easily in CVICU while pt still intubated. Findings:
Overall LVEF approx. 55% with mild septal wall motion hypokinesis. This appears better than what it appeared in the OR. Other wall segments appear to move normally. LV cavity is small but appears adequately filled.
No pericardial effusion noted.
Trace MR. Improved from mild in the OR.
TV and PV function normal.
AV function is normal.
No change in the aortic scan.
Small PFO with left to right flow.
[2024-09-29 18:22] LABS: B.E. - POC 1.5 mmol/L; Glucose - POC 184 mg/dl (70-99); HCO3 - POC 26 mmol/L (21-28); Hematocrit - POC 31 % PCV (42-52); Hemodilution- POC Yes; Hemoglobin Calculated - POC 10.6; Ionized Calcium - POC 1.82 mmol/L (1.15-1.33); O2 Saturation %Calculated-POC 90.4 % (94-98); PCO2 - POC 39 mmHg (35-48); PO2 - POC 58 mmHg (83-108); POC Comment POST OP CODE; Potassium - POC 3.6 mmol/L (3.5-5.1); Sodium - POC 142 mmol/L (136-145); Specimen Type - POC Arterial; pH - POC 7.43 (7.35-7.45)
[2024-09-29 18:23] LABS: Glucose - Point of Care 105 mg/dl (70-99)
[2024-09-29] MEDS: DILAUDID 0.5 MG IV (18:31)
[2024-09-29] MEDS: ANCEF 10 IV ×2 (18:33)
[2024-09-29] MEDS: NOVOLOG FLEXPEN SC (18:33)
[2024-09-29] MEDS: NEURONTIN PO ×2 (18:33→22:12)
[2024-09-29] MEDS: TYLENOL PO ×2 (18:33→22:12)
[2024-09-29] MEDS: LIPITOR PO (18:33)
[2024-09-29] MEDS: PACERONE PO ×2 (18:34→22:12)
[2024-09-29] MEDS: CORDARONE 518 MG IV (18:34)
[2024-09-29] MEDS: NSS 500 IV (18:34)
[2024-09-29] MEDS: DEMEROL 12.5 MG IV (18:45)
--- NOTE | 2024-09-29 19:00 | PTCARENOTE ---
bedside report received from previous RN. pt intubated and sedated on precedex gtt @ 0.5mcg. heart tones clear. SR on monitor, HR 70s. bilateral radial and DP pulses palpable. no edema noted. POX 97%, vent set to SIMV 14 550 5/5 40%. bilateral
breath sounds present. CT x3 intact to -20cm wall suction, drainage WNL, no air leak present. Right IJ cordis with swan floated to 48cm, KVOs infusing. PA pressures 30s/20s, CVP ~14. Epicardial AV wires intact, pacer box off. hypoactive bowel sounds
present. Insulin gtt infusing per glycemic protocol. hawkins catheter intact draining pink tinged urine, UO adequate. all surgical sites stable. Left radial jossie positional, but appropriate waveform. Levo gtt infusing @ 10mcg. Amio gtt infusing @
1mg. see worklist for full assessment, VS, and interventions.
[2024-09-29 19:05] LABS: Glucose - Point of Care 160 mg/dl (70-99)
[2024-09-29 19:23] LABS: B.E. 0.5 mmol/L; HCO3 24.6 mmol/L (21-28); Ionized Calcium 1.42 mMOL/L (1.15-1.33); PCO2 37 mmHg (35-48); PO2 106 mmHg (83-108); pH 7.43 (7.35-7.45)
[2024-09-29 20:17] LABS: Glucose - Point of Care 190 mg/dl (70-99)
[2024-09-29] MEDS: SENOKOT-S PO (20:25)
[2024-09-29] MEDS: LR 500 IV (20:52)
[2024-09-29] MEDS: LR 1000 IV (20:52)
[2024-09-29 21:03] LABS: Hematocrit 31.9 % (39.0-52.0); Hemoglobin 11.5 g/dL (13.0-18.0); Platelet Count 239 10^3/uL (130-400)
[2024-09-29 21:08] LABS: Glucose - Point of Care 161 mg/dl (70-99)
[2024-09-29 21:32] LABS: Mixed Venous O2 Saturation 44.3 %
[2024-09-29] MEDS: ALBUMIN 5% 250 IV (21:53)
[2024-09-29] MEDS: ASPIRIN 300 MG RECTAL (21:54)
[2024-09-29 21:57] LABS: Glucose - Point of Care 142 mg/dl (70-99)
[2024-09-29 22:13] LABS: B.E. 0.6 mmol/L; HCO3 24.3 mmol/L (21-28); Ionized Calcium 1.33 mMOL/L (1.15-1.33); O2 Saturation % 99.9 % (94-98); PCO2 35 mmHg (35-48); PO2 135 mmHg (83-108); Potassium 4.1 mMOL/L (3.5-5.1); pH 7.45 (7.35-7.45)
[2024-09-29 22:27] LABS: Magnesium 2.6 mg/dl (1.6-2.3)
[2024-09-29] MEDS: LEVOPHED 250 IV (22:35)
--- NOTE | 2024-09-29 23:00 | PTCARENOTE ---
no acute changes. pt more awake. vent placed on SBT by RT. POX 98%. pt follows commands, COOPER equally. SR on monitor, occasional PVCs, HR 70s. Levo gtt remains @ 10mg. Amio gtt remains @ 1mg. CTPA Tsilina aware of CI and MvO2 values. CT output and UO
WNL. Insulin gtt maintained per protocol. all surgical sites stable. pt resting between care.
[2024-09-29 23:01] LABS: Glucose - Point of Care 133 mg/dl (70-99)
[2024-09-29 23:29] LABS: B.E. 0.8 mmol/L; HCO3 23.6 mmol/L (21-28); PCO2 31 mmHg (35-48); PO2 132 mmHg (83-108); pH 7.49 (7.35-7.45)
[2024-09-29] MEDS: ANCEF 5 IV (23:55)
[2024-09-29] MEDS: OFIRMEV 100 IV (23:55)
[2024-09-30] VITALS (29 sets, daily range): BP systolic 88–114; BP diastolic 58–87; BMI 28.7
--- NOTE | 2024-09-30 | PTCARENOTE ---
pt extubated by RT @ 2345 to 6LNC without incident. no wheezing or stridor present. POX 100%.
[2024-09-30] MEDS: ZOFRAN 4 MG IV ×2 (00:02→13:33)
[2024-09-30 00:36] LABS: Glucose - Point of Care 135 mg/dl (70-99)
[2024-09-30 00:41] LABS: Mixed Venous O2 Saturation 55.3 %
[2024-09-30] MEDS: ALBUMIN 5% 250 IV (01:05)
[2024-09-30] MEDS: DILAUDID 0.5 MG IV ×3 (01:09→09:25)
--- NOTE | 2024-09-30 01:37 | PTCARENOTE ---
pt had run of vtach on monitor. Amio increased back to 1mg from 0.5mg per CT PA.
[2024-09-30 02:02] LABS: Glucose - Point of Care 130 mg/dl (70-99)
[2024-09-30] MEDS: DOBUTREX 500 MG 250 IV (02:37)
--- NOTE | 2024-09-30 03:00 | PTCARENOTE ---
no changes in assessment. SR w PVCs on monitor, HR 70s. Levo gtt infusing @ 12. Amio gtt infusing @ 1mg. Dobut gtt started @ 0230, infusing @ 0.5mcg. CT output and UO WNL. POX 99% on 2LNC. Insulin gtt maintained per protocol. all surgical sites
stable.
[2024-09-30 03:23] LABS: B.E. -0.8 mmol/L; HCO3 23.4 mmol/L (21-28); Ionized Calcium 1.29 mMOL/L (1.15-1.33); O2 Saturation % 98.9 % (94-98); PCO2 36 mmHg (35-48); PO2 121 mmHg (83-108); Potassium 4.2 mMOL/L (3.5-5.1); pH 7.42 (7.35-7.45)
[2024-09-30 03:30] LABS: Mixed Venous O2 Saturation 44.5 %
[2024-09-30 03:48] LABS: Hematocrit 30.4 % (39.0-52.0); Hemoglobin 10.8 g/dL (13.0-18.0); Mean Corp Hgb Conc. 35.5 g/dL (33.0-37.0); Mean Corpuscular Hgb 30.9 pg (27.0-31.0); Mean Corpuscular Volume 87.1 fL (80.0-94.0); Platelet Count 245 10^3/uL (130-400); Red Blood Cell Count 3.49 10^6/uL (4.70-6.10); White Blood Cell Count 14.4 10^3/uL (4.8-10.8)
[2024-09-30 03:57] LABS: Glucose - Point of Care 139 mg/dl (70-99)
[2024-09-30 04:08] LABS: Blood Urea Nitrogen 28 mg/dl (9-20); Calcium 9.3 mg/dl (8.4-10.2); Carbon Dioxide 25 mmol/L (22-30); Chloride 103 mmol/L (98-107); Estimated Creatinine Clearance 82 ml/min; Glucose 134 mg/dl (70-99); Magnesium 2.5 mg/dl (1.6-2.3); Potassium 4.3 mmol/L (3.5-5.1); Sodium 135 mmol/L (135-145); eGFR > 60.00
--- NOTE | 2024-09-30 04:37 | W.PN.CT ---
Documented by User: Vanesa Aguirre PA-C 09/30/24 05:00
Today's Communication / Plan
-
-pod #1
-extubated uneventfully @ 11:45 pm. Pt is A&O x4, follows commands, moves all extremities
-several runs of NSVT upto 13 beats longest and 7-8 beats AIVR overnight (before starting Dobutamine).
-by Indu, CI 1.57, CO 3.55. mVO2 44.5 (measured CI 1.27/CO 2.88, SVR 1943)
-drips: Dobut 0.5, Levo 8, LR 75 cc/hr, Amio 1, Insulin
-CT outputs: L pleur 95/110, 2 meds 185/260 in 12/24 hrs
-will hold BB while on Dobut
-follow Cr - 1.2 today (1.1 yesterday postop and 0.9 preop)
-review ECG with Cardiology
-encourage IS, OOB as able
Assessment / Plan
-
Assessment:
-Multivessel CAD/Ao aneurysm - s/p Valve sparing aortic root replacement with reimplantation of nikolai aortic valve [Gregory Procedure]; Reimplantation of left and right coronary buttons into their respective neosinus; CABG x 2 [nikolai CEDILLO in situ to
LAD, RSVG to proximal RCA]; Left atrial appendage exclusion (35mm clip) by Dr. Zuñiga on 09/29/24, pod #1
-Intraop ROBERTA: LVEF preoperatively 60% with no significant regional wall motion abnormalities. He does have diastolic dysfunction with thick left ventricle. Following surgery his EF was the same with no significant regional wall motion
abnormalities aside from some paradoxical motion of his septum. He is aortic valve was spared and reimplanted inside of 32 mm cardio root Valsalva graft. Following surgery, his AI that was initially mild and central went to none. He had a mean
gradient of 3 across his nikolai aortic valve with a good coaptation height. Due to the long clamp around, he was a little bit sluggish coming off of cardiopulmonary bypass but did not require any inotropic support. His cardiac index was
approximately 1.7 to on just a low-dose Levophed. There is no residual flow into the left atrial appendage, and only a small residual stump was visualized.
-NSTEMI (High-sensitivity trop 67 @ [facility])
-[place]
-Aortic root aneurysm (5.8 cm, mid ascending aorta 4.5 cm)
-HTN
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
-Spermatocele/Hydrocele S/P b/l spermatocelectomies, 05/26/2015
-S/P LHC
-S/P Vasectomy, 2008
-Acute postop ventricular bigeminy/ R on T phenomenon with v-fib arrest X2 - s/p shocks x2, CPR, low-dose Epi, Amio 300 mg bolus and drip- Rosc achieved. Pt woke up post code and followed commands
-Bedside ROBERTA revealed no pericardial effusion, valves ok. Lateral wall had some stunning
-Acute postop hypovolemia
-Acute postop cardiogenic shock
-Acute postop atelectasis
-Acute postop blood loss anemia - stable, no transfusion
-Acute postop coagulopathy - s/p 2 FFPs and 2 unit platelets
-ROBERTA
Discussed patient care with: Nursing and Care Team
Subjective
-
Date of Service: September 30, 2024
Objective Data
-
PT 19.1 Sec (11.4-14.6) H 09/29/24 17:48
INR 1.55 09/29/24 17:48
APTT 31.2 Sec (23.4-35.0) 09/29/24 17:48
Vital Signs
Vital Signs
Temp Pulse Resp BP Pulse Ox
99.2 F 76 25 93/76 99
09/30/24 01:00 09/30/24 01:00 09/30/24 01:00 09/30/24 01:00 09/29/24 23:45
CT Intake/Output/Weight
09/29/24 09/29/24 09/30/24
06:59 18:59 06:59
Intake Total 213.3 / 1824.3 1611.0 / 1824.3
Output Total 195 / 745 550 / 745
Balance 18.3 / 1079.3 1061.0 / 1079.3
SaO2: 99
Physical Exam
-
General: AOx3 and Other (somnolent, easily arousable to voice, follows commands)
Cardiovascular: Regular rate & rhythm, No Murmurs and Rub
Respiratory: Decreased Breath Sounds
Sternum: Stable
Incision: Clean, Dry and Intact
Extremities: No Edema (DPs by Doppler b/l)
Data Reviewed
-
Lab Results: Results Reviewed
Medications: Active Meds Reviewed
Chest X-Ray: Report Reviewed and Image Reviewed
ECG: Report Reviewed and Image Reviewed

Documented by User: Yina Coreas PA-C 09/30/24 15:34
Today's Communication / Plan
-
Response to query:
post operative shock liver, due to acute post operative cardiogenic shock.
-pod #1
-extubated uneventfully @ 11:45 pm. Pt is A&O x4, follows commands, moves all extremities
-several runs of NSVT upto 13 beats longest and 7-8 beats AIVR overnight (before starting Dobutamine).
-by Indu, CI 1.57, CO 3.55. mVO2 44.5 (measured CI 1.27/CO 2.88, SVR 1943)
-drips: Dobut 0.5, Levo 8, LR 75 cc/hr, Amio 1, Insulin
-CT outputs: L pleur 95/110, 2 meds 185/260 in 12/24 hrs
-will hold BB while on Dobut
-follow Cr - 1.2 today (1.1 yesterday postop and 0.9 preop)
-review ECG with Cardiology
-encourage IS, OOB as able
Subjective
-
Date of Service: September 30, 2024
Response to query:
post operative shock liver, due to acute post operative cardiogenic shock.
[2024-09-30 04:48] LABS: Glucose - Point of Care 135 mg/dl (70-99)
[2024-09-30 05:38] LABS: Mixed Venous O2 Saturation 44.1 %
[2024-09-30 06:16] LABS: Glucose - Point of Care 99 mg/dl (70-99)
[2024-09-30] MEDS: TYLENOL PO (06:18)
[2024-09-30 07:05] LABS: Glucose - Point of Care 98 mg/dl (70-99)
--- NOTE | 2024-09-30 07:17 | CON.INTV ---
Consultation
Consultation Request
Date/Time Consultation Requested: 09/29/24
Date/Time Consultation Performed: 09/30/24
Performing Provider: Daria
Reason for Consultation: CVICU
Medical History
-
History of Present Illness:
Patient is a 54-year-old male with previous history of hypertension presenting to [facility] on 09/26/2024 for complaints of chest pain with shortness of breath. He was ruled in for NSTEMI with elevated troponins and underwent left heart
catheterization demonstrating multivessel CAD. He was transferred from [place] to [facility] for evaluation of CABG. He underwent CABG x 2 on 09/29/2024 without complication and perioperatively transferred to CVICU for further management.
Past Medical History
Past Medical History: Other (see list below)
Social History
Tobacco: Non-smoker
Alcohol: None
Drug: None
Family History
Family History: Reviewed & Not Pertinent
Allergies / Home Medications
Allergies
Allergy/AdvReac Type Severity Reaction Status Date / Time
No Known Allergies Allergy Unverified 05/26/15 06:37
Home Medications
�Medication �Instructions �Recorded �Confirmed �Last Taken �Type
losartan 25 mg tablet 25 mg PO DAILY 09/27/24 09/27/24 09/26/24 03:00 History
Review of Systems
-
History Source: Patient
All other systems: Negative unless noted
Vitals / Labs / Diagnostic Testing
Vital Signs
Temp Pulse Resp BP Pulse Ox
97.7 F 76 14 100/81 98
09/30/24 07:00 09/30/24 07:00 09/30/24 07:00 09/30/24 07:00 09/30/24 07:00
Lab Data
09/30/24 03:07
09/30/24 03:07
Laboratory Results
09/29/24 09/29/24 09/29/24
17:48 18:05 19:18
PT 19.1 H
INR 1.55
APTT 31.2
pH 7.42 Cancelled 7.43
pCO2 34 L Cancelled 37
pO2 91 Cancelled 106
HCO3 22.1 Cancelled 24.6
O2 Delivery Level Cancelled
09/29/24 09/29/24 09/30/24
22:06 23:25 03:07
PT
INR
APTT
pH 7.45 7.49 H 7.42
pCO2 35 31 L 36
pO2 135 H 132 H 121 H
HCO3 24.3 23.6 23.4
O2 Delivery Level
Microbiology
09/28/24 12:16 Nose MRSA Screen - Final
No Methicillin Resistant Staphylococcus aureus isolated.
Diagnostic Testing:
Physical Exam
-
HEENT: Normocephalic, Anicteric and Moist Mucous Membranes
Cardiovascular: S1/S2 and Regular Rhythm
Respiratory: Clear, Non-Labored Respirations and Other (chest tube)
GI: Soft, Non Distended and Non Tender
Neurology: Awake, Alert and Oriented
Skin: Warm, Dry and Good Color
General: Comfortable, Poor Appetite (nausea) and Other (NAD)
Assessment
-
Patient is a 54-year-old male with previous history of hypertension presenting to [facility] on 09/26/2024 for complaints of chest pain with shortness of breath. He was ruled in for NSTEMI with elevated troponins and underwent left heart
catheterization demonstrating multivessel CAD. He was transferred from [place] to [facility] for evaluation of CABG. He underwent CABG x 2 on 09/29/2024 without complication and perioperatively transferred to CVICU for further management.
MV CAD status post CABG x 2 09/29/2024
NSTEMI with elevated troponins
Chest pain and shortness of breath
Perioperative mechanical ventilation
Mild anemia, postoperative
Stage II DD on ECHO
Severe conc LVH
Conditions present prior to admission
Hypertension
Plan
S/p CAB POD #1
Titrating off pressors per protocol, still on low dose levo
ECHO reviewed with normal function, stage II DD
PA catheter readings reviewed
Management of chest tubes per primary service
Pain control
RASS goal of 0 to -1
Intubated for procedure, extubated overnight and doing well
ABG(s) reviewed/adequate
CXR with stable postop changes
Maintain supplement oxygen as needed
No prior history of pulmonary disease, nonsmoker
No Prior PFTs for review
Can add nebulizers if needed
Aspiration precautions
Encouraged incentive spirometry, OOB/ambulation/early mobility
Advance diet as tolerated following extubation
Nausea management
GI prophylaxis if indicated for mechanical ventilation >48 hours
Monitor critical I/O's
Maki/chest tube output
Hb/platelets postoperatively stable
Trend CBC for now
Can transfuse if indicated for Hb <7, plt <50 in surgical patients
DVT prophylaxis including SCDs
Insulin protocol initiated and ongoing
Transition to SQ/off as indicated per team
We will follow
Diagnostic Data
Chest X-Ray: 09/29/24- New postoperative changes as detailed above.
Small left pleural effusion with underlying retrocardiac atelectasis
CT Scan: CAP 09/28/24- 1. Ascending aortic aneurysm measuring up to 5.8 cm at the sinotubular junction.
2. Severe atherosclerotic disease of the left anterior descending with high-grade stenosis proximally secondary to probably noncalcified plaque. There is additional calcified plaque within the mid/distal vessel.
3.There is submucosal fatty deposition within the terminal ileum, sigmoid colon and rectum which is nonspecific however can be seen with sequelae of chronic inflammation.
Echo: ROBERTA 09/29/24- Overall LVEF is approximately 55% with no RWMA. Severe concentric left ventricular hypertrophy. Stage II Diastolic dysfunction. Mild mitral regurgitation. Mild aortic insufficiency.
AI jet is central due to ST junction and sinus of Valsalva distortion. Sinus of Valsalva is aneurysmal measuring 4.6 cm. Sinotubular junction measures 4.3 cm. Mid ascending aorta is dilated measuring 4.0 cm at the level of the RPA. Mild sessile
atheroma seen in the descending aorta.
PFT's:
Reports and relevant images were personally reviewed.
Critical Care time 51 mins -- The patient is admitted for acute critical illness for the treatment of vital organ failure and/or prevention of further life-threatening conditions. Total care includes time spent in review of history, physical exam,
medications, hemodynamic/ventilator parameters, laboratory data, imaging and discussion with house staff, pharmacy, respiratory therapy, health care manager, and nursing.
--- NOTE | 2024-09-30 07:19 | W.PN.ANS.POP ---
Anesthesia Post Operative
- Anesthesia Post Op Note
Vital Signs Stable-See Nursing Note: Yes
Airway Patent: Yes
Adequate Pain Control: Yes
Change in Mental Status: No
Current Postoperative Nausea & Vomiting: Yes (Mild on Zofran)
Anesthesia Complications: No
General Anesthetic Recall: No
Unplanned Admission: No
Post Op Hydration Adequate: Yes
--- NOTE | 2024-09-30 07:48 | W.PN.CARDCBS ---
Addendum entered and electronically signed by Ramón Guerrero MD 09/30/24 12:18:
I saw and examined the patient.
The Chair's note was reviewed and I agree with the note.
Comment:
GEN: No distress, awake, Ox3
HEENT: supple, anicteric, mmm
LUNGS: CTA, no wheezes/rales
CV: Reg, S1/S2, 1/6 syst LSB, no rub
ABD: soft, BS+, NT/ND
EXT: No edema
NEURO: Gross non-focal
SKIN: sternotomy
Plan:
Events of yesterday noted. VT has been improved on 1 mg/min of IV amiodarone.
In 6 hours will decrease amiodarone drip to 0.5 while initiating oral amiodarone 200 mg p.o. 3 times daily.
Patient now extubated and on low-dose Levophed. Wean as tolerated.
Continue aspirin and Plavix.
Discussed case with Dr. Zuñiga. Will hold off on further evaluation for coronary ischemia at this time. However if has further VT would be reasonable to consider diagnostic heart cath to look at coronary anatomy.
Check echocardiogram 10/01/2023
Original Note:
Today's Communication / Plan
-
SR on tele now and amio gtt to stay running at 1 mg/min
Impression / Plan
-
PCP: Dr. Marsh
Cardiology: None prior to admission, seen by Dr. Chavarria at [facility]
Impression:
Admitted to [facility] with chest pain 09/25/[address] surgical evaluation 09/27/24
CAD
NSTEMI peak Troponin 67 and MV CAD by cath at [facility] 09/27/24
s/p CABG with CEDILLO to LAD and SVG to prox RCA 09/29/24
h/o aortic root aneurysm
root measuring 5.4cm, mid ascending aorta 4.5cm by [facility] imaging 09/27/24
s/p valve sparing aortic root replacement with reimplantation of [place] aortic valve (Gregory Procedure) 09/29/24
HTN
Acute post-op ventricular bigeminy with R on T and VF arrest x2 09/29/24
treated with successful shock x2, CPR, amio and Epi with ROSC
Intraoperative ROBERTA 09/29/24: Postop findings, EF 50 to 55% with new septal wall hypokinesis, anterior and lateral wall motion appear normal, no AI, the LA appendage has been clipped with a 0.5 cm residual base noted
Bedside ROBERTA 09/29/24: Postop in the room, EF 55% with mild septal wall hypokinesis that appears better than what it appeared in the OR, no pericardial effusion, trace MR, AV function normal
Plan:
-Patient successfully extubated overnight and is AAO x3 09/30/24 AM.
-Amiodarone running at 1 mg/min, nursing reports that when amio gtt rate was lowered to 0.5 mg/min that ectopy burden increased.
-Dobutamine running at 1 mcg/kg/min
-Levophed running at 4 mcg/min
-Tele reviewed by me was SR throughout time in room with patient. Overnight events noted.
-Troponin up to 67 at [facility] prior to transfer
-New to aspirin and Plavix this admission
-LDL 73. New to atorvastatin 80 mg daily
-Outpatient dose of losartan 25 mg daily on hold.
-New to Lopressor earlier this admission, on hold post-op due to hypotension.
HPI: Patient came to [facility] as a transfer from [facility] yesterday for evaluation from CT surgery team for MV CAD and aortic root aneurysm and cardiology has been consulted. Patient sees his PCP mostly when he is sick, but had a physical within the last
year. Patient with known h/o HTN and takes losartan 25 mg daily. He does not check BP at home on a regular basis. 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 He was working last Friday
night into Friday morning and was taking a break and laying on a sofa when he had sudden onset chest pain that lasted for 10-15 minutes and seemed to get better when he sat up. Pain returned again when he returned home after working and he told
his and they made a plan to go to the hospital. Then, after walking up the stairs in his home the patient had recurrent chest pain that was the most intense pain he had experienced and pain persisted. Patient went to [facility] ER and Troponin was
elevated prompting a cath that revealed MV CAD. Patient had an echo that showed aortic root aneurysm and then patient had CT, but results not available. Patient was transferred to for CT surgery eval last evening.
Progress Note - Catcher Helper
Subjective
Date of Service: September 30, 2024
Nauseous 09/30/24 AM, no chest pain
Objective
Labs:
09/30/24 03:07
09/30/24 03:07
Labs
Hgb 10.8 g/dL (13.0-18.0) L 09/30/24 03:07
Hct 30.4 % (39.0-52.0) L 09/30/24 03:07
Plt Count 245 10^3/uL (130-400) 09/30/24 03:07
PT 19.1 Sec (11.4-14.6) H 09/29/24 17:48
INR 1.55 09/29/24 17:48
APTT 31.2 Sec (23.4-35.0) 09/29/24 17:48
Sodium 135 mmol/L (135-145) 09/30/24 03:07
Potassium 4.3 mmol/L (3.5-5.1) 09/30/24 03:07
BUN 28 mg/dl (9-20) H 09/30/24 03:07
Creatinine 1.2 mg/dL (0.7-1.3) 09/30/24 03:07
Glucose 134 mg/dl (70-99) H 09/30/24 03:07
Troponins
09/27/24 09/28/24
17:36 00:09
Troponin I 0.099 H* 0.112 H*
Vital Signs and I&O:
Vital Signs
Temp Pulse Resp BP Pulse Ox
97.7 F 76 14 100/81 98
09/30/24 07:00 09/30/24 07:00 09/30/24 07:00 09/30/24 07:00 09/30/24 07:00
Vital Signs
Temp Pulse Resp BP Pulse Ox
97.7 F 76 14 100/81 98
09/30/24 07:00 09/30/24 07:00 09/30/24 07:00 09/30/24 07:00 09/30/24 07:00
Intake & Output
09/28/24 09/29/24 09/30/24 10/01/24
06:59 06:59 06:59 06:59
Intake Total 898 / 912 168 / 183 3169.3 / 3283.7 114.4 / 114.4
Output Total 1040 / 1080 40 / 40
Balance 898 / 912 168 / 183 2129.3 / 2203.7 74.4 / 74.4
Physical Exam
Physical Exam
GEN: AAOx3
HEENT: MMM
LUNGS: 2 L NC. No audible wheeze
CV: SR on tele. Reg, no murmur
ABD: ND
EXT: No edema B/L
NEURO: Gross non-focal
SKIN: No rash
[2024-09-30] MEDS: FLEXERIL 5 MG PO (07:54)
[2024-09-30] MEDS: REGLAN 10 MG IV ×2 (08:00→15:57)
--- NOTE | 2024-09-30 08:00 | PTCARENOTE ---
patient received from [facility] RN @ 0700. Patient lying in bed with pain 11/01. Patient assessed. VSS BP 96/73 HR 76 POX 96% 2L NC. AOx3, heart NSR AV wires present, unplugged from temp pacer box, but turned on to DDD 50/10, CI 1.29, CT ICT SECURITY SPECIALIST
aware. PA 34/19, CVP 14. Lungs diminished in the bases, Bowel sounds hypoactive in all 4 quadrants, Intermittent nausea noted. Maki voiding clear Thais urine, radial and pedal pulses palpable bilaterally. No edema noted. Left pleural and 2
mediastinal set to -20 mmHg draining serosanguineous fluid WNL. No air leak, tidaling, crepitus noted. RIJ cordis KVO. dobutamine in VIP 3mL/hr, Insulin 1.1 mL/hr right forearm PIV, Amiodarone RIJ cordis 33.3 mL/hr, Levo 15mL/hr in VIP, NSS
10mL/hr VIP KVO. R antecubital IV patent and intact. A-line patent and intact. Right IJ cordis intact with swan floated 52cm. All lines flushed, leveled, zeroed with appropriate waveform. sternal incision approximated with skin glue, SABINO. Chest
tube dressing CDI. Right groin puncture site approximated, TRANSPORT AIRCREWMAN. Right SVG harvest with KASSIDY, CDI.
[2024-09-30 08:08] LABS: B.E. 0.1 mmol/L; HCO3 24.7 mmol/L (21-28); Ionized Calcium 1.29 mMOL/L (1.15-1.33); O2 Saturation % 98.8 % (94-98); PCO2 39 mmHg (35-48); PO2 98 mmHg (83-108); Potassium 4.1 mMOL/L (3.5-5.1); Sodium 137 mMOL/L (136-145); pH 7.41 (7.35-7.45)
[2024-09-30 08:12] LABS: Mixed Venous O2 Saturation 47.2 %
[2024-09-30 08:14] LABS: Lactic Acid 1.8 mmol/L (0.7-2.0)
[2024-09-30 08:15] LABS: Glucose - Point of Care 97 mg/dl (70-99)
[2024-09-30] MEDS: ANCEF 5 IV ×2 (08:49→16:21)
[2024-09-30] MEDS: FLEXBUMIN 100 IV ×2 (08:49→16:21)
[2024-09-30] MEDS: VITAMIN C 500 MG PO (08:51)
[2024-09-30] MEDS: PLAVIX 75 MG PO (08:51)
[2024-09-30] MEDS: MAGNESIUM OXIDE 500 MG PO ×2 (08:51→22:42)
[2024-09-30] MEDS: PROTONIX 40 MG PO (08:51)
[2024-09-30] MEDS: NEURONTIN 100 MG PO ×3 (08:51→21:48)
[2024-09-30] MEDS: SENOKOT-S 1 TABLET PO ×2 (08:51→21:13)
[2024-09-30] MEDS: PACERONE 200 MG PO ×3 (08:52→21:48)
[2024-09-30] MEDS: LOW STRENGTH ASPIRIN 81 MG PO (08:52)
[2024-09-30] MEDS: LIDOCAINE 4% PATCH 1 PATCH TOPICAL ×2 (08:53→10:22)
[2024-09-30] MEDS: ROXICODONE 5 MG PO ×3 (09:08→21:48)
[2024-09-30] MEDS: BACTROBAN 2% OINTMENT 1 APPLIC NASAL ×2 (09:21→21:13)
--- NOTE | 2024-09-30 10:15 | W.PN.UPDATE ---
Update Note
Progress Note Update
Patient was seen at the bedside last evening and discussion with team this morning reviewing the patient's postoperative course and tachyarrhythmias. Discussion with my rounding team, CT surgery team, bedside nursing regarding events of overnight.
Overall ventricular rhythm is have improved over the last 12 hours and mechanism of ventricular tachycardia fibrillation last evening appeared to be a combination of postoperative ischemia and R-on-T phenomenon from the pacing wire. Currently the
epicardial wires remain in place but not plugged into the box and could theoretically be used for acute changes in AV conduction. The AR interval was reviewed dated day and is stable slightly prolonged today at 240 ms. Overall rory of
ventricular rhythm is is improving on IV and p.o. amiodarone with stable conduction. Discussed with CT surgery team continuing IV amiodarone at 1 mg a minute for 6 more hours and then can lowered to 0.5 mg a minute in 6 hours with overlapping p.o.
amiodarone 200 mg 3 times daily as we have to be relatively careful also for AV conduction disease given the patient's recent bruit replacement�CABG.
Will follow with you
Please see full note from our rounding team
[2024-09-30 10:16] LABS: Glucose - Point of Care 156 mg/dl (70-99)
[2024-09-30] MEDS: NOVOLOG FLEXPEN 4 UNITS SC ×2 (10:46→18:54)
[2024-09-30 10:48] LABS: ALT (SGPT) 655 U/L (0-50); AST (SGOT) 1393 U/L (17-59); Albumin 3.7 g/dl (3.5-5.0); Alkaline Phosphatase 51 U/L (38-126); Direct Bilirubin 0.5 mg/dl (0.0-0.4); Total Bilirubin 2.1 mg/dl (0.2-1.3); Total Protein 5.5 g/dl (6.3-8.2)
[2024-09-30 12:14] LABS: Glucose - Point of Care 166 mg/dl (70-99)
[2024-09-30] MEDS: CORDARONE 518 MG IV (12:18)
[2024-09-30 12:27] LABS: B.E. -1.5 mmol/L; HCO3 22.8 mmol/L (21-28); Ionized Calcium 1.27 mMOL/L (1.15-1.33); O2 Saturation % 96.6 % (94-98); PCO2 36 mmHg (35-48); PO2 78 mmHg (83-108); Potassium 3.9 mMOL/L (3.5-5.1); Sodium 135 mMOL/L (136-145); pH 7.41 (7.35-7.45)
[2024-09-30 12:35] LABS: Mixed Venous O2 Saturation 45.4 %
--- NOTE | 2024-09-30 13:00 | PTCARENOTE ---
Assessment unchanged. VSS NSR with PAC and PVC BP 94/70, supported with leovphed HR 92, POX 96% RA. patients pain 5/10, see NOV. Maki draining salvador urine, chest tube output WNL, Insulin 3 units/hr per glycemic protocol, levo at 3 mcg/min.
--- NOTE | 2024-09-30 13:34 | PN.CDI ---
CDI
- -
CDI:
Physician Documentation Request
Admit Date: 09/27/24 17:[address] team,
Please review the following and provide your response in the progress notes.
Clinical Indicators:
Pt admitted with NSTEMI, for CABG, aortic root replacement and RAHEEM clip.
09/30 CT Note: 'Acute postop ventricular bigeminy/ R on T phenomenon with v-fib arrest X2 - s/p shocks x2, CPR, low-dose Epi....
Acute postop hypovolemia-Acute postop cardiogenic shock-ROBERTA.'
Selected Entries
09/29/24
17:47 09/29/24
17:52
Arterial Systolic Pressure 82 61
MAP (S-Sadi-Hkrgkgq Monitor) 61 35
Laboratory Tests
09/28/24 09/30/24
05:51 03:07
AST 23 1393 H*
ALT 19 655 H*
Based on the above, could you clarify in the progress notes, the appropriate diagnosis, if significant, that supports the above abnormalities and additional evaluation, monitoring and/or treatment rendered:
Shock Liver
Elevated LFT's
Other
Use of terms such as suspected, likely, concern for, or probable (associated with a specific diagnosis that is being evaluated, monitored, or treated as if it exists) are acceptable and can be coded in the inpatient setting, when documented at the
time of discharge.
Thank you,
Lauren Garcia RN, BSN
CDI Specialist
Available via [facility] [employer]
Please use your independent medical judgment in providing your response.
[2024-09-30] MEDS: TORADOL 15 MG IV (13:44)
[2024-09-30 14:17] LABS: Glucose - Point of Care 109 mg/dl (70-99)
[2024-09-30] MEDS: FERRLECIT 110 MG IV (14:18)
[2024-09-30] MEDS: TYLENOL 1000 MG PO (14:18)
[2024-09-30] MEDS: NOVOLIN R INSULIN INFUSION 100 IV (15:36)
--- NOTE | 2024-09-30 15:40 | CM ---
Reviewed chart. Briefly met with Mrs. Fountain, Mr. Fountain sleeping most of the day. Will try to see tomorrow to review discharge plans. Prior to admission he resides with his spouse andson in a two story home with one step to enter. He has
a full fight of steps to get to bedroom/full bathroom. He has a powder room on the first floor. Prior to admission he was independent with ambulation and adls. He does not have any DME in the home. His spouse will be home to assist in his care
if needed. Medical work-up in progress. The discharge plan is to return home with his spouse and son and a home visit by the Transitional Care Nurse when medically stable.
[2024-09-30 16:02] LABS: Glucose - Point of Care 109 mg/dl (70-99)
[2024-09-30 16:18] LABS: B.E. -1.9 mmol/L; HCO3 21.9 mmol/L (21-28); Ionized Calcium 1.23 mMOL/L (1.15-1.33); O2 Saturation % 94.9 % (94-98); PCO2 33 mmHg (35-48); PO2 72 mmHg (83-108); Potassium 3.6 mMOL/L (3.5-5.1); Sodium 135 mMOL/L (136-145); pH 7.43 (7.35-7.45)
[2024-09-30] MEDS: NOVOLOG FLEXPEN SC (16:22)
[2024-09-30 16:23] LABS: Mixed Venous O2 Saturation 38.9 %
[2024-09-30 16:29] LABS: Mixed Venous O2 Saturation 38.5 %
[2024-09-30] MEDS: NSS IV (16:29)
--- NOTE | 2024-09-30 17:00 | PTCARENOTE ---
assessment unchanged. NSR occasional PAC's and PVC's VSS BP supported with levo POX 95% RA. Insulin 3 units/hr per glycemic protocol. Amiodarone and dobutamine infusing see Worklist. mediastinal chest tubes draining WNL. Left pleural chest tube
removed, patient tolerating. Intermittent nausea continues. Labs obtained. CT AIR FILLER at bedside which ordered dobutamine to 3 mcg/kg/min. UO 20 per hour and CI 1.52, CT AIR FILLER aware. at bedside
[2024-09-30 18:14] LABS: Glucose - Point of Care 99 mg/dl (70-99)
[2024-09-30] MEDS: LIPITOR 80 MG PO (18:15)
[2024-09-30 18:16] LABS: Mixed Venous O2 Saturation 46.5 %
[2024-09-30 20:21] LABS: Glucose - Point of Care 171 mg/dl (70-99)
[2024-09-30 20:40] LABS: B.E. -1.3 mmol/L; HCO3 22.4 mmol/L (21-28); Ionized Calcium 1.18 mMOL/L (1.15-1.33); O2 Saturation % 98.2 % (94-98); PCO2 33 mmHg (35-48); PO2 96 mmHg (83-108); Potassium 3.4 mMOL/L (3.5-5.1); Sodium 131 mMOL/L (136-145); pH 7.44 (7.35-7.45)
[2024-09-30 20:43] LABS: Mixed Venous O2 Saturation 49.3 %
[2024-09-30 20:52] LABS: Lactic Acid 2.1 mmol/L (0.7-2.0)
--- NOTE | 2024-09-30 21:00 | PTCARENOTE ---
Report received from GALEN Senior. Walking rounds done. Pt awake, alert, oriented x 4. Speech clear. Moves all extremities equally x 4. Pt on room air. Sats 92-93%. O2 at 1L/NC applied. BBS present. Decreased to B bases. CDB encouraged.
Pt in SR, + pericardial rub. Pt on Dobutamine 3 mcg/kg/min, Levophed 1 mcg/min, Amio gtt at 0.5 mg/min, Insulin gtt per glycemic protocol.
CI 1.85. MVO2 49.3, JOCELYNN method calculation 1.8. K 3.4. KCL 20 meQ over 1 hr x 2. Ca Gluconate 2 GM IV given over 1 hr. Magnesium level 2.2. Lactic acid level 2.1. All labs shared with BRE Alexis. Maintaining MAP > 65. AV wires not attached to temp
PM site per instruction of Dr Zuñiga. Yet cables remain of wires for emergency access if needed. Defib pads remain on pt. Attached to defibrillator for emergency precautions. CT x 2 to -20 cm suction. Belly soft, nontender. Hypoactive bs x 4. Maki
draining yellow urine. Sediment noted. Q [address] outputs recorded. Roxicodone 5 mg given for 5/10 sternal pain at 2148.
[2024-09-30] MEDS: KCL 50 IV ×2 (21:12→22:14)
[2024-09-30] MEDS: CALCIUM GLUCONATE 100 IV (21:12)
[2024-09-30 22:02] LABS: Glucose - Point of Care 122 mg/dl (70-99)
[2024-09-30 22:41] LABS: Magnesium 2.2 mg/dl (1.6-2.3)
[2024-10-01] VITALS (39 sets, daily range): BP systolic 75–110; BP diastolic 53–80; PULSE 2–107; BMI 30.4; BMI 30.3
[2024-10-01] MEDS: FLEXBUMIN 100 IV (00:37)
[2024-10-01 00:49] LABS: Glucose - Point of Care 92 mg/dl (70-99)
[2024-10-01 01:00] LABS: B.E. 1.2 mmol/L; HCO3 24.7 mmol/L (21-28); Ionized Calcium 1.24 mMOL/L (1.15-1.33); O2 Saturation % 96.5 % (94-98); PCO2 34 mmHg (35-48); PO2 76 mmHg (83-108); Potassium 3.8 mMOL/L (3.5-5.1); Sodium 132 mMOL/L (136-145); pH 7.47 (7.35-7.45)
--- NOTE | 2024-10-01 01:00 | PTCARENOTE ---
Labs drawn and sent. CI 1.74. Lab results showing MVO2 46.2. Indu method calculated: CI 1.7. All labs shared with BRE Alexis. Pt c/o nausea. Zofran 4 mg IV given (see MAR). Pt c/o pain 5/10 to sternum. Dilaudid 0.25 mg IV given for pain. Dobut
remains at 3 mcg/kg/min. Levo gtt remains at 1 mcg/min. Amio gtt remains at 0.5 mg/min. Pt in SR with occasional PVCs. O2 increased to 2L/NC for pO2 on ABG of 76. Repeat labs at 0400. Ongoing plan of care.
[2024-10-01 01:03] LABS: O2 Therapy nasal cannula
[2024-10-01 01:04] LABS: Mixed Venous O2 Saturation 46.2 %
[2024-10-01] MEDS: ZOFRAN 4 MG IV ×2 (01:12→11:34)
[2024-10-01 01:13] LABS: Lactic Acid 1.7 mmol/L (0.7-2.0)
[2024-10-01] MEDS: DILAUDID 0.25 MG IV ×2 (01:22→04:49)
[2024-10-01 02:14] LABS: Glucose - Point of Care 97 mg/dl (70-99)
[2024-10-01 04:02] LABS: Glucose - Point of Care 138 mg/dl (70-99)
[2024-10-01] MEDS: REGLAN 10 MG IV ×2 (04:05→11:56)
[2024-10-01 04:26] LABS: B.E. -0.1 mmol/L; HCO3 23.5 mmol/L (21-28); Ionized Calcium 1.19 mMOL/L (1.15-1.33); O2 Saturation % 95.8 % (94-98); PCO2 33 mmHg (35-48); PO2 72 mmHg (83-108); Sodium 131 mMOL/L (136-145); pH 7.46 (7.35-7.45)
[2024-10-01] MEDS: ROXICODONE 5 MG PO ×3 (04:32→17:19)
[2024-10-01 04:36] LABS: O2 Therapy nasal cannula
[2024-10-01 04:39] LABS: Mixed Venous O2 Saturation 37.7 %
[2024-10-01 04:47] LABS: Hematocrit 25.3 % (39.0-52.0); Hemoglobin 8.8 g/dL (13.0-18.0); Mean Corp Hgb Conc. 34.8 g/dL (33.0-37.0); Mean Corpuscular Hgb 30.6 pg (27.0-31.0); Mean Corpuscular Volume 87.8 fL (80.0-94.0); Platelet Count 135 10^3/uL (130-400); Red Blood Cell Count 2.88 10^6/uL (4.70-6.10); Red Cell Dist. Width 13.1 % (11.5-14.5); White Blood Cell Count 13.7 10^3/uL (4.8-10.8)
[2024-10-01 04:53] LABS: Lactic Acid 1.8 mmol/L (0.7-2.0)
[2024-10-01 05:00] LABS: Alkaline Phosphatase 58 U/L (38-126); Blood Urea Nitrogen 34 mg/dl (9-20); Carbon Dioxide 23 mmol/L (22-30); Chloride 99 mmol/L (98-107); Direct Bilirubin 0.3 mg/dl (0.0-0.4); Estimated Creatinine Clearance 89 ml/min; Glucose 119 mg/dl (70-99); Magnesium 2.2 mg/dl (1.6-2.3); Potassium 4.1 mmol/L (3.5-5.1); Sodium 132 mmol/L (135-145); Total Bilirubin 1.6 mg/dl (0.2-1.3); Total Protein 5.8 g/dl (6.3-8.2); eGFR > 60.00
--- NOTE | 2024-10-01 05:00 | PTCARENOTE ---
Labs drawn and sent. CI 1.85. MVO2 37.7. Hgb down to 8.8. Orders given to give 1 unit of PRBC. Started at 0540, per protocol on TAR. Pt remains in SR with PVCs. Dobut at 3 mcg, Levo at 1 mcg, Amio at 0.5 mg/min. O2 up to 3L/NC for pO2 72. PA aware
of all labs and hemodynamics, UO and CT output.
[2024-10-01 05:15] LABS: ALT (SGPT) 1005 U/L (0-50); AST (SGOT) 1259 U/L (17-59)
[2024-10-01 05:57] LABS: Glucose - Point of Care 118 mg/dl (70-99)
--- NOTE | 2024-10-01 07:23 | W.PN.CT ---
Today's Communication / Plan
-
-pod #2
-no issues overnight
-nsr with PVCs - repleted K and Ca. Keep K >4 and Mg >2
-by Indu, CI 1.8, CO 4.1. mVO2 37.7
-Hg 8.8 (down from 10.8)- gave 1 pRBC this am
-plan to diurese with 20 iv Lasix after the transfusion
-drips: Dobut 3, Levo 1, Amio 0.5 for PVCs/NSVT, Insulin
-CT outputs: 2 meds 220/470 in 12/24 hrs
-will hold BB while on Dobut
-holding Tylenol d/t elevated LFTs - follow
-follow Cr - 1.1 stable today (1.2 on 09/30, 1.1 on 09/29 and 0.9 preop)
-encourage IS, OOB as able
Assessment / Plan
-
Assessment:
-Multivessel CAD/Ao aneurysm - s/p Valve sparing aortic root replacement with reimplantation of [place] aortic valve [Gregory Procedure]; Reimplantation of left and right coronary buttons into their respective neosinus; CABG x 2 [[place] CEDILLO in situ to
LAD, RSVG to proximal RCA]; Left atrial appendage exclusion (35mm clip) by Dr. Zuñiga on 09/29/24, pod #2
-Intraop ROBERTA: LVEF preoperatively 60% with no significant regional wall motion abnormalities. He does have diastolic dysfunction with thick left ventricle. Following surgery his EF was the same with no significant regional wall motion
abnormalities aside from some paradoxical motion of his septum. He is aortic valve was spared and reimplanted inside of 32 mm cardio root Valsalva graft. Following surgery, his AI that was initially mild and central went to none. He had a mean
gradient of 3 across his [place] aortic valve with a good coaptation height. Due to the long clamp around, he was a little bit sluggish coming off of cardiopulmonary bypass but did not require any inotropic support. His cardiac index was
approximately 1.7 to on just a low-dose Levophed. There is no residual flow into the left atrial appendage, and only a small residual stump was visualized.
-NSTEMI (High-sensitivity trop 67 @ [facility])
-[place]
-Aortic root aneurysm (5.8 cm, mid ascending aorta 4.5 cm)
-HTN
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
-Spermatocele/Hydrocele S/P b/l spermatocelectomies, 05/26/2015
-S/P LHC
-S/P Vasectomy, 2008
-Acute postop ventricular bigeminy/ R on T phenomenon with v-fib arrest X2 - s/p shocks x2, CPR, low-dose Epi, Amio 300 mg bolus and drip- Rosc achieved. Pt woke up post code and followed commands
-NSVTs
-Bedside ROBERTA revealed no pericardial effusion, valves ok. Lateral wall had some stunning
-Acute postop hypovolemia
-Acute postop cardiogenic shock
-Acute postop atelectasis
-Acute postop blood loss anemia - stable, no transfusion
-Acute postop coagulopathy - s/p 2 FFPs and 2 unit platelets
-ROBERTA
-Shock liver - holding Tylenol - follow
Discussed patient care with: Nursing and Care Team
Subjective
-
Date of Service: October 01, 2024
Objective Data
-
PT 19.1 Sec (11.4-14.6) H 09/29/24 17:48
INR 1.55 09/29/24 17:48
APTT 31.2 Sec (23.4-35.0) 09/29/24 17:48
Vital Signs
Vital Signs
Temp Pulse Resp BP Pulse Ox
98.9 F 92 15 89/68 95
10/01/24 01:00 10/01/24 01:00 10/01/24 01:00 10/01/24 01:00 10/01/24 01:00
CT Intake/Output/Weight
09/30/24 09/30/24 10/01/24
06:59 18:59 06:59
Intake Total 2956.0 / 3283.7 1476.4 / 2316.7 840.3 / 2316.7
Output Total 845 / 1080 800 / 1190 390 / 1190
Balance 2111.0 / 2203.7 676.4 / 1126.7 450.3 / 1126.7
SaO2: 95
Physical Exam
-
General: AOx3 and Other (somnolent, easily arousable to voice, follows commands)
Cardiovascular: Regular rate & rhythm, No Murmurs and Rub
Respiratory: Decreased Breath Sounds
Sternum: Stable
Incision: Clean, Dry and Intact
Extremities: No Edema (DPs by Doppler b/l)
Data Reviewed
-
Lab Results: Results Reviewed
Medications: Active Meds Reviewed
Chest X-Ray: Report Reviewed and Image Reviewed
ECG: Report Reviewed and Image Reviewed
--- NOTE | 2024-10-01 07:34 | W.PN.INTV ---
Today's Communication / Plan
Recommendations
Returned to animal laboratory technician, resumed on diuresis
Remains on pressors as well
Follow IOs, follow lactates
Follow labs overnight
Can continue bipap PRN and nightly
Possible impella placement per team
Assessment
-
Patient is a 54-year-old male with previous history of hypertension presenting to [facility] on 09/26/2024 for complaints of chest pain with shortness of breath. He was ruled in for NSTEMI with elevated troponins and underwent left heart
catheterization demonstrating multivessel CAD. He was transferred from [place] to [place] for evaluation of CABG. He underwent CABG x 2 on 09/29/2024 without complication and perioperatively transferred to CVICU for further management.
MV CAD status post CABG x 2 09/29/2024
s/p LHC 10/01/24
NSTEMI with elevated troponins
Chest pain and shortness of breath
Perioperative mechanical ventilation
Mild anemia, postoperative
Stage II DD on ECHO
Severe conc LVH
Conditions present prior to admission
Hypertension
Plan
S/p CAB POD #2
Titrating off pressors per protocol, still on levo/dobutamine gtt
ECHO reviewed with normal function, stage II DD
PA catheter readings reviewed
Management of chest tubes per primary service
Pain control
RASS goal of 0 to -1
Intubated for procedure, extubated overnight and doing well
ABG(s) reviewed/adequate
CXR with stable postop changes
Maintain supplement oxygen as needed, BIPAP PRN
No prior history of pulmonary disease, nonsmoker
No Prior PFTs for review
Can add nebulizers if needed
Aspiration precautions
Encouraged incentive spirometry, OOB/ambulation/early mobility
Advance diet as tolerated following extubation
Nausea management
GI prophylaxis if indicated for mechanical ventilation >48 hours
Monitor critical I/O's
Maki/chest tube output
Hb/platelets postoperatively stable
Trend CBC for now
Can transfuse if indicated for Hb <7, plt <50 in surgical patients
DVT prophylaxis including SCDs
Insulin protocol initiated and ongoing
Transition to SQ/off as indicated per team
Diagnostic Data
Chest X-Ray: 09/29/24- New postoperative changes as detailed above.
Small left pleural effusion with underlying retrocardiac atelectasis
CT Scan: CAP 09/28/24- 1. Ascending aortic aneurysm measuring up to 5.8 cm at the sinotubular junction.
2. Severe atherosclerotic disease of the left anterior descending with high-grade stenosis proximally secondary to probably noncalcified plaque. There is additional calcified plaque within the mid/distal vessel.
3.There is submucosal fatty deposition within the terminal ileum, sigmoid colon and rectum which is nonspecific however can be seen with sequelae of chronic inflammation.
Echo: ROBERTA 09/29/24- Overall LVEF is approximately 55% with no RWMA. Severe concentric left ventricular hypertrophy. Stage II Diastolic dysfunction. Mild mitral regurgitation. Mild aortic insufficiency.
AI jet is central due to ST junction and sinus of Valsalva distortion. Sinus of Valsalva is aneurysmal measuring 4.6 cm. Sinotubular junction measures 4.3 cm. Mid ascending aorta is dilated measuring 4.0 cm at the level of the RPA. Mild sessile
atheroma seen in the descending aorta.
PFT's:
Reports and relevant images were personally reviewed.
Critical Care time 40 mins -- The patient is admitted for acute critical illness for the treatment of vital organ failure and/or prevention of further life-threatening conditions. Total care includes time spent in review of history, physical exam,
medications, hemodynamic/ventilator parameters, laboratory data, imaging and discussion with house staff, pharmacy, respiratory therapy, conductor road freight, and nursing.
Subjective Dataa
Subjective Data
Date of Service:
Date of Service: October 01, 2024
Chief Complaint: Resume Specialist Follow Up
Subjective:
Events this AM noted, on pressors
Returned to cath, which was normal
Remains on pressors now, no new complaints
UO improving
Objective Data
Data Reviewed
Vital Signs / I&O / Oxygen:
Vital Signs
Temp Pulse Resp BP Pulse Ox
99 F 90 15 90/63 96
10/01/24 06:00 10/01/24 06:30 10/01/24 06:30 10/01/24 06:00 10/01/24 06:30
Intake and Output
09/30/24 10/01/24 10/02/24
06:59 06:59 06:59
Intake Total 3169.3 / 3283.7 2618.4 / 2618.4
Output Total 1040 / 1080 1420 / 1420
Balance 2129.3 / 2203.7 1198.4 / 1198.4
SaO2 [SIMV] 99
SaO2 96
Nasal Cannula flow liters per 3
minute
Physical Exam
General: Comfortable and Other (NAD)
HEENT: Normocephalic, Anicteric and Moist Mucous Membranes
Cardiovascular: S1-S2 and Regular Rhythm
Respiratory: Clear, Non-Labored Respirations, Chest Tube and Other (PA Cath in place)
GI: Soft, Non Distended and Non Tender
Neurology: Awake, Alert, Oriented and No Motor Deficits
Skin: Warm and Good Color
Labs/Micro/Reports
Lab Data
10/01/24 03:44
10/01/24 03:44
Laboratory Results
09/30/24 09/30/24 09/30/24
07:51 12:17 16:05
pH 7.41 7.41 7.43
pCO2 39 36 33 L
pO2 98 78 L 72 L
HCO3 24.7 22.8 21.9
O2 Delivery Level
09/30/24 10/01/24 10/01/24
20:20 00:34 03:44
pH 7.44 7.47 H 7.46 H
pCO2 33 L 34 L 33 L
pO2 96 76 L 72 L
HCO3 22.4 24.7 23.5
O2 Delivery Level nasal cannula nasal cannula
Microbiology
09/28/24 12:16 Nose MRSA Screen - Final
No Methicillin Resistant Staphylococcus aureus isolated.
--- NOTE | 2024-10-01 07:44 | PTCARENOTE ---
Report given to GALEN Rubio. Walking rounds done. Blood completed. Documented on TAR.
[2024-10-01] MEDS: DILAUDID 0.5 MG IV ×4 (08:07→22:50)
[2024-10-01] MEDS: LASIX 20 MG IV (08:13)
[2024-10-01 08:31] LABS: Glucose - Point of Care 102 mg/dl (70-99)
[2024-10-01] MEDS: TORADOL 15 MG IV ×2 (08:34→17:46)
[2024-10-01] MEDS: NEURONTIN 100 MG PO ×2 (08:36→17:19)
[2024-10-01] MEDS: SENOKOT-S 1 TABLET PO (08:37)
[2024-10-01] MEDS: PROTONIX 40 MG PO (08:37)
[2024-10-01] MEDS: VITAMIN C 500 MG PO (08:37)
[2024-10-01] MEDS: PACERONE 200 MG PO ×2 (08:37→17:19)
[2024-10-01] MEDS: PLAVIX 75 MG PO (08:37)
[2024-10-01] MEDS: LOW STRENGTH ASPIRIN 81 MG PO (08:37)
[2024-10-01] MEDS: MAGNESIUM OXIDE 500 MG PO (08:38)
[2024-10-01] MEDS: BACTROBAN 2% OINTMENT 1 APPLIC NASAL (08:38)
[2024-10-01 08:41] LABS: B.E. -0.1 mmol/L; HCO3 23.8 mmol/L (21-28); Ionized Calcium 1.21 mMOL/L (1.15-1.33); O2 Saturation % 96.5 % (94-98); PCO2 35 mmHg (35-48); PO2 75 mmHg (83-108); Potassium 3.8 mMOL/L (3.5-5.1); Sodium 131 mMOL/L (136-145); pH 7.44 (7.35-7.45)
[2024-10-01 08:43] LABS: Mixed Venous O2 Saturation 42.4 %
[2024-10-01 10:24] LABS: Glucose - Point of Care 117 mg/dl (70-99)
[2024-10-01] MEDS: KCL 50 IV (10:24)
[2024-10-01 10:48] LABS: Lactic Acid 2.1 mmol/L (0.7-2.0)
--- NOTE | 2024-10-01 11:37 | W.PN.CARDCBS ---
Today's Communication / Plan
-
Echo today pending
Agree with gentle IV diuresis
Increase dobutamine to 2 mcg/kg/min and wean as tolerated
Complete current IV amiodarone and continue oral load of 200 mg 3 times daily
Monitor and trend QT
Impression / Plan
-
PCP: Dr. Marsh
Cardiology: None prior to admission, seen by Dr. Chavarria at [facility]
Impression:
Admitted to [facility] with chest pain 09/25/[address] to for [address] surgical evaluation 09/27/24
CAD
NSTEMI peak Troponin 67 and MV CAD by cath at [facility] 09/27/24
s/p CABG with CEDILLO to LAD and SVG to prox RCA 09/29/24
h/o aortic root aneurysm
root measuring 5.4cm, mid ascending aorta 4.5cm by [facility] imaging 09/27/24
s/p valve sparing aortic root replacement with reimplantation of tazlina aortic valve (Gregory Procedure) 09/29/24
HTN
Acute post-op ventricular bigeminy with R on T and VF arrest x2 09/29/24
treated with successful shock x2, CPR, amio and Epi with ROSC
Abnormal LFTs
Intraoperative ROBERTA 09/29/24: Postop findings, EF 50 to 55% with new septal wall hypokinesis, anterior and lateral wall motion appear normal, no AI, the LA appendage has been clipped with a 0.5 cm residual base noted
Bedside ROBERTA 09/29/24: Postop in the room, EF 55% with mild septal wall hypokinesis that appears better than what it appeared in the OR, no pericardial effusion, trace MR, AV function normal
Echo 10/01/2024: Pending
Plan:
-s/p valve sparing aortic root replacement with reimplantation of tazlina aortic valve (Gregory Procedure) 09/29/24, Dr. Zuñiga
-Status post VF arrest x 2 on 09/29/2024-most likely secondary a combination of postoperative ischemia and R-on-T phenomenon from the pacing wire.
-Per personal review of telemetry ventricular ectopy significantly improved with IV and oral amiodarone. Continue completion of current bag of IV amiodarone at 0.5 mg a minute. Patient also being loaded with amiodarone 200 mg 3 times daily.
-QTc stable at 495 ms
-Blood pressure continues to remain hypotensive. Reduced urine output.
-Dobutamine increased to 2 mcg/kg/min in a.m. of 10/01/2024 with slight increase in urine output. Continue to monitor.
-Levophed has been weaned off
-Weight trending up. Patient did get dose of IV Lasix 20 mg this morning. Continue to monitor and trend response.
-Troponin up to 67 at [facility] prior to transfer; improved to 0.112 here. Repeated morning of 10/01/2024 now found to be 79.6. Most likely secondary to V-fib arrest with shock x 2 and ongoing hypotension/shock requiring inotropes. Echo 10/01/2023 pending
-Continue aspirin and Plavix given NSTEMI
-Prestatin LDL 73. New to atorvastatin 80 mg daily
-Outpatient dose of losartan 25 mg daily remains on hold.
-New to Lopressor earlier this admission, on hold post-op due to hypotension. Eventual resumption when blood pressure improves.
-Pain control and usual postop management per CT surgery
HPI: Patient came to [facility] as a transfer from [facility] yesterday for evaluation from CT surgery team for MV CAD and aortic root aneurysm and cardiology has been consulted. Patient sees his PCP mostly when he is sick, but had a physical within the last
year. Patient with known h/o HTN and takes losartan 25 mg daily. He does not check BP at home on a regular basis. 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 He was working last Friday
night into Friday morning and was taking a break and laying on a sofa when he had sudden onset chest pain that lasted for 10-15 minutes and seemed to get better when he sat up. Pain returned again when he returned home after working and he told
his and they made a plan to go to the hospital. Then, after walking up the stairs in his home the patient had recurrent chest pain that was the most intense pain he had experienced and pain persisted. Patient went to [facility] ER and Troponin was
elevated prompting a cath that revealed MV CAD. Patient had an echo that showed aortic root aneurysm and then patient had CT, but results not available. Patient was transferred to for CT surgery eval last evening.
Progress Note - Photographic Press Screwmaker
Subjective
Date of Service: October 01, 2024
Patient seen and examined. Patient resting comfortably in bed. He does note sternal discomfort and feels very tired/worn out. Does feel some mild abdominal bloating but denies chest pain, shortness of breath, dizziness, orthopnea or PND
Objective
Labs:
10/01/24 03:44
10/01/24 03:44
Labs
Hgb 8.8 g/dL (13.0-18.0) L 10/01/24 03:44
Hct 25.3 % (39.0-52.0) L 10/01/24 03:44
Plt Count 135 10^3/uL (130-400) D 10/01/24 03:44
PT 19.1 Sec (11.4-14.6) H 09/29/24 17:48
INR 1.55 09/29/24 17:48
APTT 31.2 Sec (23.4-35.0) 09/29/24 17:48
Sodium 132 mmol/L (135-145) L 10/01/24 03:44
Potassium 4.1 mmol/L (3.5-5.1) 10/01/24 03:44
BUN 34 mg/dl (9-20) H 10/01/24 03:44
Creatinine 1.1 mg/dL (0.7-1.3) 10/01/24 03:44
Glucose 119 mg/dl (70-99) H 10/01/24 03:44
Troponins
10/01/24
08:23
Troponin I 79.600 H*
Vital Signs and I&O:
Vital Signs
Temp Pulse Resp BP Pulse Ox
98.1 F 101 20 96 94
10/01/24 11:09 10/01/24 11:00 10/01/24 11:09 10/01/24 10:05 10/01/24 10:07
Vital Signs
Temp Pulse Resp BP Pulse Ox
98.1 F 101 20 96 94
10/01/24 11:09 10/01/24 11:00 10/01/24 11:09 10/01/24 10:05 10/01/24 10:07
Intake & Output
09/29/24 09/30/24 10/01/24 10/02/24
06:59 06:59 06:59 06:59
Intake Total 168 / 183 3169.3 / 3283.7 2618.4 / 2618.4 494.8 / 494.8
Output Total 1040 / 1080 1420 / 1420 240 / 240
Balance 168 / 183 2129.3 / 2203.7 1198.4 / 1198.4 254.8 / 254.8
Physical Exam
Physical Exam
GEN: No distress, awake, Ox3, lying in bed
HEENT: supple, anicteric, mmm
Chest: Sternotomy stable and well-approximated
LUNGS: CTA anteriorly, no wheezes/rales; currently wearing oxygen
CV: Reg, S1/S2, 1/6 syst LSB, no murmur
ABD: soft, BS+, NT/ND
: Indwelling Maki
EXT: No edema, clubbing or cyanosis
NEURO: Gross non-focal
SKIN: No rash, warm, dry, pink
[2024-10-01] MEDS: NOVOLOG FLEXPEN SC (12:05)
[2024-10-01 12:17] LABS: Glucose - Point of Care 112 mg/dl (70-99)
[2024-10-01] MEDS: DOBUTREX 500 MG 250 IV (12:23)
[2024-10-01] MEDS: LEVOPHED 250 IV (12:25)
[2024-10-01] MEDS: NOVOLOG FLEXPEN-MODERATE RESISTANCE SC (12:26)
[2024-10-01] MEDS: LIDOCAINE 4% PATCH TOPICAL ×2 (12:26)
--- NOTE | 2024-10-01 12:28 | PTCARENOTE ---
Rec'd pt this shift awake and alert. Pt with Rt IJ swan and left radial jossie. Pt on IV levo at 2mcg/min, Dobutamine at 3 mcg/kg/min, Amiodarone at 0.5mcg/min and Insulin drip. 20mg IV lasix given this am with no increase in urine output. ABG and MV
sent as ordered this am. Pt extremities cold, poor cap refill, difficult to obtain pulse ox. CI 1.6 this am. ECHO done at bedside. TEXTILE MACHINE MAINTENANCE MECHANIC, Zehra aware of urine output. Dobutamine increased to 5mcg/kg/min at 10am. CI increased to 1.9 after Dobutamine
increased. Dilaudid, oxy given for pain. Dr. Zuñiga aware of pts weight this am. Pt reweighed in bed for confirmation. Pt remains on 3l n/c oxygen. Pt denies feeling SOB but feeling some pain in abdomen. Pt stated his abdomen feels more distended than
normal. Pt with hypoactive BS, was tolerating ice chip, sips of water and jello. See worklist for VS/I and O and assessments.
--- NOTE | 2024-10-01 13:30 | PTCARENOTE ---
Pt sent to tanbark laborer at 1300. Levo begun at 2mcg/min to keep SBP >100. Pts family at bedside.
[2024-10-01 15:07] LABS: B.E. -3.8 mmol/L; HCO3 20.4 mmol/L (21-28); Ionized Calcium 1.18 mMOL/L (1.15-1.33); PCO2 33 mmHg (35-48); Potassium 4.2 mMOL/L (3.5-5.1); Sodium 129 mMOL/L (136-145)
[2024-10-01] MEDS: BUMEX 50 IV (15:07)
[2024-10-01 15:08] LABS: Hematocrit 27.4 % (39.0-52.0); Hemoglobin 9.5 g/dL (13.0-18.0); Mean Corp Hgb Conc. 34.7 g/dL (33.0-37.0); Mean Corpuscular Hgb 30.5 pg (27.0-31.0); Mean Corpuscular Volume 88.1 fL (80.0-94.0); Platelet Count 143 10^3/uL (130-400); Red Blood Cell Count 3.11 10^6/uL (4.70-6.10); White Blood Cell Count 18.4 10^3/uL (4.8-10.8)
[2024-10-01 15:09] LABS: PO2 56 mmHg (83-108)
[2024-10-01] MEDS: PRIMACOR 20 MG 100 IV ×2 (15:17→23:31)
[2024-10-01 15:25] LABS: INR 1.99; PT 22.8 Sec (11.4-14.6)
[2024-10-01 15:26] LABS: APTT 37.3 Sec (23.4-35.0)
[2024-10-01 15:28] LABS: Albumin 3.8 g/dl (3.5-5.0); Alkaline Phosphatase 99 U/L (38-126); Blood Urea Nitrogen 38 mg/dl (9-20); Calcium 8.5 mg/dl (8.4-10.2); Carbon Dioxide 20 mmol/L (22-30); Chloride 95 mmol/L (98-107); Estimated Creatinine Clearance 92 ml/min; Glucose 191 mg/dl (70-99); Lactic Acid 3.8 mmol/L (0.7-2.0); Magnesium 2.3 mg/dl (1.6-2.3); Potassium 4.2 mmol/L (3.5-5.1); Sodium 129 mmol/L (135-145); Total Bilirubin 2.5 mg/dl (0.2-1.3); Total Protein 5.5 g/dl (6.3-8.2); eGFR > 60.00
[2024-10-01] MEDS: BUMEX 2 MG IV (15:32)
[2024-10-01] MEDS: FERRLECIT 110 MG IV (15:35)
[2024-10-01 15:44] LABS: ALT (SGPT) 1329 U/L (0-50); AST (SGOT) 1340 U/L (17-59)
--- NOTE | 2024-10-01 16:49 | CM ---
Reviewed chart. Mr. Wheeler went to the Cardiac veterinary laboratory diagnostician today. Briefly met with . Prior to admission he reside with his spouse and son in a two story home two story home with one step to enter. He has a full flight of steps to get
to bedroom/full bathroom. He has a powder room on the first floor. Prior to admission he was independent with ambulation and adls. He does not have any DME in the home. His spouse will be home to assist in his care if needed. Will need to see his
current functional level to see if he will have any skilled care needs. Medical work-up in progress. The discharge plan is to return home with his spouse and son and a home visit by the Transitional Care Nurse when medically stable.
[2024-10-01 16:55] LABS: Glucose - Point of Care 223 mg/dl (70-99)
--- NOTE | 2024-10-01 17:05 | PTCARENOTE ---
Pt returned from quality assurance qa lab technician, awake but sleepy. Pt with Rt groin dsg intact, no bleeding, no hematoma. Bumex 2mg given. Bumex drip begun at 1mg/hr. Milrinone begun at 0.375mcg/kg/min. Dobutamine remains at 5mcg/kg/min and Levo at 2 mcg/min. labs sent
as ordered. Pt NSR-Stach initially. EKG done. Pt converted to Afib. EKG done. Pt placed on BIPAP 15/5. Pt tolerated about an hour and then could not tolerate. Extremities cold and clammy, unable to get pulse ox.
[2024-10-01 17:08] LABS: B.E. 0.5 mmol/L; HCO3 24.3 mmol/L (21-28); Ionized Calcium 1.18 mMOL/L (1.15-1.33); O2 Saturation % 93.4 % (94-98); PCO2 35 mmHg (35-48); PO2 63 mmHg (83-108); Potassium 4.4 mMOL/L (3.5-5.1); Sodium 129 mMOL/L (136-145); pH 7.45 (7.35-7.45)
[2024-10-01] MEDS: NOVOLOG FLEXPEN-MODERATE RESISTANCE 3 UNITS SC (17:11)
[2024-10-01 17:13] LABS: Mixed Venous O2 Saturation 33.4 %
[2024-10-01] MEDS: LIPITOR 80 MG PO (17:19)
[2024-10-01 17:27] LABS: Lactic Acid 3.9 mmol/L (0.7-2.0)
--- NOTE | 2024-10-01 18:07 | PTCARENOTE ---
Pt placed on 1005 High flow N/C at this time. Pulse ox 88%. Levo increaed to 14 mcg/min.
[2024-10-01] MEDS: VELETRI 50 ML INH (18:30)
[2024-10-01] MEDS: VELETRI 50 MCG INH (18:30)
[2024-10-01] MEDS: PITRESSIN 100 IV (18:42)
--- NOTE | 2024-10-01 18:45 | W.PN.UPDATE ---
Update Note
Progress Note Update
Asked to evaluate the patient at the bedside by CT surgical team. Of note he went into atrial fibrillation this afternoon but is relatively rate controlled. He did have a slight dip in his blood pressures with the onset of atrial fibrillation.
Coming up to speed on the events of the day, a trial of diuresis has been entertained given his oxygenation and I reviewed the events of the day at the bedside. Currently his right heart numbers demonstrate a CVP of 22, PA 42/27 without a wedge
pressure, and a cardiac index of 1.7 on dobutamine. I personally reviewed and interpreted his echocardiogram which demonstrates an ejection fraction of 40 to 45% with a relatively stiff and underfilled left ventricle and mild to moderately reduced
right ventricular function and inferior wall motion abnormality on the LV. He is conversant and does not have apparent increased work of breathing despite his 100% FiO2 through nasal prong. I reviewed his chest x-ray which to me does not represent
any overt congestive heart failure from this morning. He has been anuric for approximately 2 hours. ECG demonstrates modest ST elevations with Q wave in the inferior leads and the left heart catheterization results performed today are reviewed.
He is tolerating dobutamine 5 mics with a systemic pressure of 90/50.
Recommendations: His physiology seems consistent with inferior wall infarction with possible RV involvement.
- RV infarcts are typically responsive to inotrope and volume as initial steps and would suggest a volume challenge of 250 to 500 cc as a wide-open bolus as I am hopeful that it would not affect his oxygenation and we can see if his blood pressures
improved with fluid challenge.
-Could consider nephrology consultation as he is starting to become anuric but would defer to primary team.
- I did ask the team to place the patient back on 0.5 mg a minute of IV amiodarone to see if he will chemically convert over a few hours. I would be a little worried with giving sedation for cardioversion as this may vasodilated him and worsen his
RV function acutely despite the potential positive effects of cardioversion.
Discussed recommendations with primary team and are available to help in any way that is needed. Could also consider RV Impella support if medical intervention is not improving the situation but hopefully he will improve day-to-day
[2024-10-01 18:50] LABS: B.E. -7.4 mmol/L; HCO3 17.3 mmol/L (21-28); PCO2 32 mmHg (35-48); PO2 83 mmHg (83-108); pH 7.34 (7.35-7.45)
[2024-10-01 18:54] LABS: O2 Saturation % 95.4 % (94-98)
[2024-10-01] MEDS: NSS IV (19:25)
--- NOTE | 2024-10-01 19:28 | PTCARENOTE ---
250ml LR bolus given. Vasopressin begun at .02 units/hr. Amiodarone resumed at 0.5mcg/min. ABG sent on 100% high flow. Levo increased to 16mcg/min to keep SBP>90.
--- NOTE | 2024-10-01 19:30 | PTCARENOTE ---
ELIER wrote paper orders for Impella VAD and provided them to this RN. RN unable to enter orders into computer. Paper orders will be followed and given to CVICU trouble clerk in AM.
--- NOTE | 2024-10-01 19:33 | ITS.CL.CATH ---
Parking Enforcement Specialist - Catheterization
Cardiac Catheterization
Procedure Report:
LEFT HEART CATHETERIZATION
Date of Procedure: October 01, 2024
Referring: Dr. Britton Zuñiga
PROCEDURES:
1. Left heart catheterization with coronary and single-plane left ventriculography
2. Selective saphenous vein graft and MARLA angiography
INDICATION: This is a 54-year-old gentleman who underwent median sternotomy with coronary artery bypass grafting x 2 with a CEDILLO-LAD and SVG-RCA as well as valve sparing aortic root replacement with reimplantation of the asa'carsarmiut aortic valve and
coronary arteries. A left atrial appendage clip was also placed. His postprocedural course was complicated with ventricular fibrillation requiring shocks x 2 and pressor support. His postoperative electrocardiograms were notable for inferior ST
segment elevation and his troponin this morning returned at 79.6 ng/mL. He continued to require pressor support and is now referred for coronary and graft angiography.
ACCESS: Right common femoral artery, 6 Chadian sheath
HEMODYNAMICS : (mmHg)
AO (s/d) : 96/74
LV (s/d) : 101/20
LVEDP : 30
CORONARY ANGIOGRAPHY
Dominance: Right
LEFT MAIN: The left main was cannulated with a JL 5 diagnostic catheter. Minor irregularities are noted
LEFT ANTERIOR DESCENDING: There is a 95% stenosis at the ostium of the LAD with competitive flow noted from a patent MARLA graft as described below
CIRCUMFLEX: The circumflex is a medium caliber nondominant vessel that supplies a single sizable obtuse marginal branch with only minor luminal irregularities. The OM1 bifurcates distally.
RIGHT CORONARY ARTERY: The asa'carsarmiut right coronary artery was cannulated with an AL-1 diagnostic catheter. The right coronary artery has diffuse luminal irregularities over its course but no focal obstructive stenosis. The PDA is patent. The
saphenous vein graft to the mid right coronary artery is patent as well
GRAFT ANGIOGRAPHY:
1. CEDILLO-LAD: The CEDILLO graft to the mid LAD is widely patent with antegrade and retrograde filling of the LAD. There is a 50% stenosis in the LAD just beyond the MARLA touchdown with KATIE-3 flow distally. There is retrograde filling to the proximal
LAD including a moderate-sized diagonal branch
2. SVG-mid RCA: The saphenous vein graft is anastomosed to the mid RCA. There is an anatomic kink in the mid portion of the vein graft but good distal flow to the distal RCA.
LEFT VENTRICULOGRAPHY: Left ventriculography was performed in ARREAGA projection. The digital single-plane left ventricular ejection fraction is estimated at 60% with focal diaphragmatic inferior hypokinesis
RADIATION SUMMARY: Fluoro Time (min): 8.8, Dose (mGy): 1241, DAP (Gy.cm2) : 92.6
Closure Device: 6 Chadian Angio-Seal RFA
CONCLUSION
1. Patent CEDILLO-LAD and patent asa'carsarmiut RCA and SVG-RCA as described above
2. Preserved LV systolic function
Copy to: Dr. Britton Zuñiga
[2024-10-01 19:38] LABS: Hematocrit 25.9 % (39.0-52.0); Mean Corp Hgb Conc. 34.7 g/dL (33.0-37.0); Mean Corpuscular Hgb 30.6 pg (27.0-31.0); Mean Corpuscular Volume 88.1 fL (80.0-94.0); Mean Platelet Volume 11.3 fL (7.4-10.4); Platelet Count 140 10^3/uL (130-400); Red Blood Cell Count 2.94 10^6/uL (4.70-6.10); Red Cell Dist. Width 13.9 % (11.5-14.5); White Blood Cell Count 19.4 10^3/uL (4.8-10.8)
[2024-10-01 19:48] LABS: Albumin 3.6 g/dl (3.5-5.0); Alkaline Phosphatase 96 U/L (38-126); Blood Urea Nitrogen 39 mg/dl (9-20); Carbon Dioxide 20 mmol/L (22-30); Chloride 95 mmol/L (98-107); Estimated Creatinine Clearance 79 ml/min; Glucose 231 mg/dl (70-99); Magnesium 2.3 mg/dl (1.6-2.3); Potassium 4.3 mmol/L (3.5-5.1); Sodium 129 mmol/L (135-145); Total Bilirubin 2.4 mg/dl (0.2-1.3); Total Protein 5.1 g/dl (6.3-8.2); eGFR 59.73
[2024-10-01 19:58] LABS: ALT (SGPT) 1275 U/L (0-50); AST (SGOT) 1180 U/L (17-59)
--- NOTE | 2024-10-01 19:59 | W.PN.UPDATE ---
Update Note
Progress Note Update
Patient returned from the track laborer. He was started on milrinone at 0.375 mcg/kg/min, continued on dobutamine 5mcg/kg/hr, levophed @ 3mg/hr and was diuresed with 2mg of bumex IVP and gtt at 1mg/hr. Initially his MAP 80s, PAp was 43/26, and CVP 26.
patient responded well to diureses. About an hour later, patient converted to a rate controlled atrial fibrillation in the 80s. Pressor requirements increased to 7mg/hr. The UOP this hour was slightly decreased. Patient continued to be in a rate
controlled afib but patient continued to have increased pressor requirements. Milrinone was decreased to 0.25. Urine output continued to decrease and vasopressin was added for support. Inhaled flolan was also started. Repeat PAP 38/22, CVP 18, Sheng
0.88. Case was discussed with Dr. Zuñiga, cardiology, and interventional cardiology and the decision was made to place an impella RP. Family was updated. Appropriate orders were placed.
[2024-10-01] MEDS: SODIUM BICARBONATE 50 MEQ IV ×3 (20:08→23:35)
[2024-10-01] MEDS: CALCIUM CHLORIDE 10% SYRINGE 1000 MG IV (20:09)
--- NOTE | 2024-10-01 20:30 | PTCARENOTE ---
Received pt from [facility]. pt is s/p Cx3 and post code on 09/29. Pt is resting in bed, complains of 7/10 pain see NOV. pt is AAOx4, moves all extremities. Afib on monitor. heart sounds audible, radial and DP pulses palpable, trace generalized edema,
temp epicardial wire present and unplugged from pacing box. pt is on 100% high flow NC with inhaled Flolan, spo2 96%, lungs diminished at b/l bases, x2 MS CT to -20 wall suction, no air leaks, no tidaling, no crepitus. hypoactive BS x4 quadrants,
abdomen soft non-tender, abdomen round, pt reports passing gas. pt voiding clear yellow urine via hawkins catheter. surgical site maintained. right IJ cordis/swan, left radial A-line, and x2 PIV maintained, leveled, and zeroed. amio, levo, bumex,
milrinone, dobutamine, vaso, and LR infusing. labs drawn. x2 bicarb given and calcium chloride 1000mg given. pt is being taken to parking lot laborer for placement of impella device. report given to parking lot laborer.
--- NOTE | 2024-10-01 21:44 | ITS.CL.CATH ---
Automatic Bandsaw Tender - Catheterization
Cardiac Catheterization
Procedure Report:
RIGHT VENTRICULAR IMPELLA
Date: October 01, 2024
Healthcare Economics Consultant: Dr. Gregory Maddox
Indication: Right ventricular failure with SHARON of 0.8 and increasing pressor demands
Procedure: Right common femoral venous access was obtained using ultrasound guidance with placement of a 6 Fr. femoral venous sheath. The right common femoral vein was serially dilated with 12 Fr and 16 Fr dilators ari a stiff 0.035' wire. The 22
Fr. Impella sheath was then inserted. 5000 units of intravenous heparin were given with a goal ACT of 250 sec. The Impella device was prepared while waiting for the ACT to become therapeutic. The introducer was removed and an ACT returned at 270
seconds.
A 6 Fr. balloon tipped PA catheter was advanced to the pulmonary artery under fluoroscopic guidance. A 0.027' wire was advanced distally in the pulmonary artery. The Impella RP was advanced over the 0.027' wire and into the main pulmonary artery.
The wire was removed and the device activated with improved hemodynamics noted.
RADIATION SUMMARY: Fluoro Time (min): 5.1, Dose (mGy): 149, DAP (Gy.cm2) : 18.4
[2024-10-01 22:31] LABS: ACT-LR - POC 190 Seconds (116-155)
[2024-10-01 22:50] LABS: B.E. -3.8 mmol/L; HCO3 20.6 mmol/L (21-28); Ionized Calcium 1.21 mMOL/L (1.15-1.33); O2 Saturation % 93.4 % (94-98); PCO2 34 mmHg (35-48); PO2 67 mmHg (83-108); Potassium 4.2 mMOL/L (3.5-5.1); Sodium 129 mMOL/L (136-145); pH 7.39 (7.35-7.45)
[2024-10-01 22:57] LABS: % Basophils 0.1 % (0-2); % Eosinophils 0.4 % (0-6); % Immature Granulocytes 0.8 % (0-0.5); % Lymphocytes 5.7 % (20.5-51.1); % Monocytes 8.2 % (1.7-9.3); % Neutrophils 84.8 % (42.2-75.2); Absolute Eosinophils 0.1 10^3/uL (0-0.7); Absolute Immature Granulocytes 0.2 10^3/uL (0-0.05); Absolute Lymphocytes 1.3 10^3/uL (1.2-3.4); Absolute Monocytes 1.9 10^3/uL (0.1-0.6); Absolute Neutrophils 19.3 10^3/uL (1.4-6.5); Hematocrit 26.7 % (39.0-52.0); Hemoglobin 9.2 g/dL (13.0-18.0); Mean Corp Hgb Conc. 34.5 g/dL (33.0-37.0); Mean Corpuscular Hgb 30.1 pg (27.0-31.0); Mean Corpuscular Volume 87.3 fL (80.0-94.0); Mean Platelet Volume 11.4 fL (7.4-10.4); Nucleated Red Blood Cells % 0 % (-); Platelet Count 149 10^3/uL (130-400); Red Blood Cell Count 3.06 10^6/uL (4.70-6.10); Red Cell Dist. Width 13.7 % (11.5-14.5); White Blood Cell Count 22.8 10^3/uL (4.8-10.8)
--- NOTE | 2024-10-01 23:00 | PTCARENOTE ---
Pt returned from chemical lab technician @ 2230 with new impella RV placed in right femoral vein. pt is AAOx4, complains of pain 05/01, see MAR. pt assessment unchanged. Impella rep explained setting. labs drawn and sent, ACT obtained, lines leveled and zeroed, VS
taken, xray obtained.
[2024-10-01 23:08] LABS: Lactic Acid 5.8 mmol/L (0.7-2.0)
[2024-10-01 23:17] LABS: ACT-LR - POC 178 Seconds (116-155)
[2024-10-01 23:23] LABS: INR 2.29; PT 25.3 Sec (11.4-14.6)
[2024-10-01 23:24] LABS: Albumin 3.6 g/dl (3.5-5.0); Alkaline Phosphatase 96 U/L (38-126); Blood Urea Nitrogen 41 mg/dl (9-20); Calcium 8.3 mg/dl (8.4-10.2); Carbon Dioxide 21 mmol/L (22-30); Chloride 95 mmol/L (98-107); Estimated Creatinine Clearance 85 ml/min; Glucose 239 mg/dl (70-99); Magnesium 2.2 mg/dl (1.6-2.3); Potassium 4.1 mmol/L (3.5-5.1); Sodium 128 mmol/L (135-145); Total Bilirubin 2.3 mg/dl (0.2-1.3); Total Protein 5.3 g/dl (6.3-8.2); eGFR > 60.00
[2024-10-01 23:26] LABS: D-Dimer 2.31 ug/mlFEU (0.00-0.50); Fibrinogen 330 MG/DL (199-459)
[2024-10-01] MEDS: MAGNESIUM OXIDE PO (23:32)
[2024-10-01] MEDS: BACTROBAN 2% OINTMENT NASAL (23:32)
[2024-10-01] MEDS: SENOKOT-S PO (23:34)
[2024-10-01] MEDS: NEURONTIN PO (23:35)
[2024-10-01] MEDS: PACERONE PO (23:36)
[2024-10-01 23:38] LABS: APTT 152.6 Sec (23.4-35.0)
[2024-10-01 23:39] LABS: ALT (SGPT) 1362 U/L (0-50); AST (SGOT) 1121 U/L (17-59)
[2024-10-01 23:58] LABS: ACT-LR - POC 158 Seconds (116-155)
[2024-10-02] VITALS (28 sets, daily range): BP systolic 83–144; BP diastolic 64–107; BMI 31.4
[2024-10-02 00:12] LABS: LDH 2123 U/L (120-246)
[2024-10-02] MEDS: ZOFRAN 4 MG IV ×3 (00:30→17:46)
--- NOTE | 2024-10-02 00:30 | PTCARENOTE ---
ACT performed on pt's arrival back to room from label fuser tender. ACT goal is < 160. ACT @2230-190, 2300- 178, 2330- 158. PTT was also drawn and resulted 152.6, heparin protocol and orders followed, see wordlist.
[2024-10-02] MEDS: VELETRI 50 MCG INH ×4 (00:36→16:44)
[2024-10-02] MEDS: VELETRI 50 ML INH ×4 (00:36→16:44)
[2024-10-02 01:09] LABS: Lactic Acid 4.6 mmol/L (0.7-2.0)
[2024-10-02] MEDS: REGLAN 10 MG IV ×2 (01:45→12:03)
[2024-10-02] MEDS: ROXICODONE 5 MG PO ×2 (01:45→23:08)
--- NOTE | 2024-10-02 02:15 | PTCARENOTE ---
at 0158 pt had run of VTach, hr 137. CVPA at bed side. pt AAOx4 during event. pt soon returned to Afib. Impella's numbers did not changed significantly during episode of VTach. BP remained stable. New labs drawn. EKG obtained which showed A-fib.
will continue to monitor.
[2024-10-02 02:27] LABS: Mixed Venous O2 Saturation 43.2 %
[2024-10-02 02:30] LABS: B.E. -1.4 mmol/L; HCO3 22.7 mmol/L (21-28); O2 Saturation % 97.7 % (94-98); PCO2 35 mmHg (35-48); PO2 90 mmHg (83-108); pH 7.42 (7.35-7.45)
[2024-10-02 02:33] LABS: Hematocrit 25.8 % (39.0-52.0); Mean Corp Hgb Conc. 34.9 g/dL (33.0-37.0); Mean Corpuscular Hgb 30.3 pg (27.0-31.0); Mean Corpuscular Volume 86.9 fL (80.0-94.0); Mean Platelet Volume 11.5 fL (7.4-10.4); Platelet Count 133 10^3/uL (130-400); Red Blood Cell Count 2.97 10^6/uL (4.70-6.10); Red Cell Dist. Width 13.7 % (11.5-14.5)
[2024-10-02] MEDS: LEVOPHED 250 IV (02:43)
[2024-10-02 02:48] LABS: Blood Urea Nitrogen 42 mg/dl (9-20); Calcium 8.1 mg/dl (8.4-10.2); Carbon Dioxide 25 mmol/L (22-30); Chloride 94 mmol/L (98-107); Estimated Creatinine Clearance 85 ml/min; Glucose 238 mg/dl (70-99); Magnesium 2.1 mg/dl (1.6-2.3); Potassium 4.4 mmol/L (3.5-5.1); Sodium 130 mmol/L (135-145); eGFR > 60.00
[2024-10-02] MEDS: DOBUTREX 500 MG 250 IV ×2 (02:58→20:58)
--- NOTE | 2024-10-02 03:04 | W.PN.CT ---
Addendum entered and electronically signed by Kadeem Ortiz MD 10/02/24 09:33:
I saw and examined the patient.
The PA's note was reviewed and I agree with the note.
Comment:
Bo Nova
POD 3 s/p CABG, s/p valve-sparing aortic root replacement, s/p ELAA
POD 1 s/p cardiac catheterization; placement of Impella RP
N: intact, intermittent oxy/diludid prn
CV: HR 109 sinus tachcardia w/ PVCs; 86/56; CVP: 12; Impella RP (P-7): 3.3L/min; MvO2: 43.2. GTTS: dobutamine 5, milrinone 0.125, bumex 1 (OFF levo/vaso as of this AM). CT: 260/340mL. Maintain CTs today. Maintain Impella RP today. Continue
heparin gtt. Levo prn for MAPs > 65. Continue milrinone and dobutamine, trend MvO2. Pt. w/ 20 beats on VT overnight; spontaneously converted; resume amiodarone (LFTs unchanged from yesterday).
P: High flow O2 via NC @ 50L/min/flolan. 7.42/35/90/22.7/-1.4. CXR: No effusions, RP in unchanged position, minor pulmonary edema
GI: LFTs stable (AST/ALT: 1203/1494; Tbil 1.9 [down from 2.3]; lactate 3.3 [down from 4.6]
: Creat 1.2 [from 1.3]; UO 1420/2080 - decrease bumex gtt to 0.5
HEME: Hgb 9.2 (9.0 yesterday); check LDH/haptoglobin; PLT 121
ID: WBC 20. Afebrile. No cultures
ENDO: BS, stable on insulin gtt
FEN: Na 131, K 4.1. ADAT
PROPH: protonix, SCDs, heparin gtt
LINES: RIJ cordis/SGC; R CFV RP impella; Radial A-line; hawkins
DISPO: ICU/full code
Original Note:
Today's Communication / Plan
-
-pod #3
-a-fib rate of 80's, amio stopped due to elevated LFT's
-20-30 second run of self-limited v-tach overnight
-Impella at P7
-mVO2 43.2
-Hg 9.2, plts 121, stable
-drips: Dobut 5, Levo 12-16, Vaso 0.02, Milrinone 0.25, Insulin
-CT outputs: 2 meds 260/340 in 12/24 hrs
-will hold BB while on Dobut
-holding Tylenol d/t elevated LFTs - follow
-follow Cr - 1.2 stable today (1.1 on 10/01, 1.2 on 09/30, 1.1 on 09/29 and 0.9 preop)
-Ca repleated
Assessment / Plan
-
Assessment:
-Multivessel CAD/Ao aneurysm - s/p Valve sparing aortic root replacement with reimplantation of [place] aortic valve [Gregory Procedure]; Reimplantation of left and right coronary buttons into their respective neosinus; CABG x 2 [[place] CEDILLO in situ to
LAD, RSVG to proximal RCA]; Left atrial appendage exclusion (35mm clip) by Dr. Zuñiga on 09/29/24, pod #3
-Intraop ROBERTA: LVEF preoperatively 60% with no significant regional wall motion abnormalities. He does have diastolic dysfunction with thick left ventricle. Following surgery his EF was the same with no significant regional wall motion
abnormalities aside from some paradoxical motion of his septum. He is aortic valve was spared and reimplanted inside of 32 mm cardio root Valsalva graft. Following surgery, his AI that was initially mild and central went to none. He had a mean
gradient of 3 across his [place] aortic valve with a good coaptation height. Due to the long clamp around, he was a little bit sluggish coming off of cardiopulmonary bypass but did not require any inotropic support. His cardiac index was
approximately 1.7 to on just a low-dose Levophed. There is no residual flow into the left atrial appendage, and only a small residual stump was visualized.
s/p Impellla RP placed 10/01/24
-NSTEMI (High-sensitivity trop 67 @ [facility])
-[place]
-Aortic root aneurysm (5.8 cm, mid ascending aorta 4.5 cm)
-HTN
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
-Spermatocele/Hydrocele S/P b/l spermatocelectomies, 05/26/2015
-S/P LHC
-S/P Vasectomy, 2008
-Acute postop ventricular bigeminy/ R on T phenomenon with v-fib arrest X2 - s/p shocks x2, CPR, low-dose Epi, Amio 300 mg bolus and drip- Rosc achieved. Pt woke up post code and followed commands
-NSVTs
-Bedside ROBERTA revealed no pericardial effusion, valves ok. Lateral wall had some stunning
-Acute postop hypovolemia
-Acute postop cardiogenic shock
-Acute postop atelectasis
-Acute postop blood loss anemia - stable, no transfusion
-Acute postop coagulopathy - s/p 2 FFPs and 2 unit platelets
-ROBERTA
-Shock liver - holding Tylenol - follow
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
Subjective
-
Date of Service: October 02, 2024
Objective Data
-
Lab Results
10/02/24 05:27
10/02/24 05:27
PT 25.3 Sec (11.4-14.6) H 10/01/24 22:42
INR 2.29 10/01/24 22:42
APTT 43.3 Sec (23.4-35.0) H 10/02/24 05:27
Vital Signs
Vital Signs
Temp Pulse Resp BP Pulse Ox
98.8 F 82 19 110/72 96
10/02/24 02:00 10/02/24 02:00 10/02/24 02:00 10/02/24 02:00 10/02/24 02:00
CT Intake/Output/Weight
10/01/24 10/01/24 10/02/24
06:59 18:59 06:59
Intake Total 1142.0 / 2618.4 1110.2 / 2187.2 1077.0 / 2187.2
Output Total 620 / 1420 740 / 1560 820 / 1560
Balance 522.0 / 1198.4 370.2 / 627.2 257.0 / 627.2
SaO2: 96
Physical Exam
-
General: Awake and AOx3
Cardiovascular: Regular rate & rhythm
Respiratory: Decreased Breath Sounds
Sternum: Stable
Incision: Dressing Intact
[2024-10-02] MEDS: CALCIUM CHLORIDE 10% SYRINGE 1000 MG IV (03:31)
[2024-10-02] MEDS: BUMEX 50 IV (03:33)
[2024-10-02] MEDS: DILAUDID 0.5 MG IV ×5 (05:12→21:13)
[2024-10-02 05:55] LABS: APTT 43.3 Sec (23.4-35.0); Albumin 3.5 g/dl (3.5-5.0); Alkaline Phosphatase 101 U/L (38-126); Blood Urea Nitrogen 40 mg/dl (9-20); Calcium 8.6 mg/dl (8.4-10.2); Carbon Dioxide 29 mmol/L (22-30); Chloride 93 mmol/L (98-107); Direct Bilirubin 0.3 mg/dl (0.0-0.4); Estimated Creatinine Clearance 92 ml/min; Glucose 200 mg/dl (70-99); Potassium 4.1 mmol/L (3.5-5.1); Sodium 131 mmol/L (135-145); Total Bilirubin 1.9 mg/dl (0.2-1.3); Total Protein 5.2 g/dl (6.3-8.2); eGFR > 60.00
[2024-10-02 06:03] LABS: ALT (SGPT) 1494 U/L (0-50); AST (SGOT) 1203 U/L (17-59)
[2024-10-02 06:06] LABS: Hematocrit 26.5 % (39.0-52.0); Hemoglobin 9.2 g/dL (13.0-18.0); Mean Corp Hgb Conc. 34.7 g/dL (33.0-37.0); Mean Corpuscular Hgb 30.7 pg (27.0-31.0); Mean Corpuscular Volume 88.3 fL (80.0-94.0); Mean Platelet Volume 11.6 fL (7.4-10.4); Platelet Count 121 10^3/uL (130-400); Red Cell Dist. Width 13.6 % (11.5-14.5)
[2024-10-02 06:07] LABS: Lactic Acid 3.3 mmol/L (0.7-2.0)
--- NOTE | 2024-10-02 06:30 | PTCARENOTE ---
Pt's urine output has improved. Levo currently at 10mcg/min. per Dr Zuñiga, Milrinone was brought down to 0.125mcg/kg/min. ongoing pain management throughout the night. scant amount of drainage noted on impella dressing. CVPA made aware and drainage
marked with sharpy.
--- NOTE | 2024-10-02 07:24 | W.PN.INTV ---
Today's Communication / Plan
Recommendations
Remains on pressors, ionotropes--CO/CI remains low
PAP appears adequate - can consider weaning down epo/HFNC
Volume overload contributing, check probnp--remains on bumex gtt
Can consider renal eval for CRRT if UO not responsive to efforts
Further postop care per team
Assessment
-
Patient is a 54-year-old male with previous history of hypertension presenting to [facility] on 09/26/2024 for complaints of chest pain with shortness of breath. He was ruled in for NSTEMI with elevated troponins and underwent left heart
catheterization demonstrating multivessel CAD. He was transferred from [place] to [place] for evaluation of CABG. He underwent CABG x 2 on 09/29/2024 without complication and perioperatively transferred to CVICU for further management.
MV CAD status post CABG x 2 09/29/2024
s/p LHC 10/01/24
s/p impelle placement 10/01/24
Cardiogenic shock on pressors/inotropes
NSTEMI with elevated troponins
Chest pain and shortness of breath
Perioperative mechanical ventilation
Mild anemia, postoperative
Stage II DD on ECHO
Severe conc LVH
Conditions present prior to admission
Hypertension
Plan
S/p CAB POD #3
Titrating off pressors per protocol, still on pressors: levo/dobumtamine/milrinone/vasopressin
Other gtts: amio, bumex gtt, epoprostenol, heparin
Weight: 99kg -> 107 -> 110
UO: 1040ml, 1420mL, 2420mL
PAS/D: 35/20, 32/18, 34/19
ECHO reviewed with normal function, stage II DD
PA catheter readings reviewed
Management of chest tubes per primary service
Pain control
RASS goal of 0 to -1
Intubated for procedure, extubated overnight and doing well
HFNC placed for low PaO2: 67 now 90--could start weaning
ABG(s) reviewed/adequate
CXR with stable postop changes
Maintain supplement oxygen as needed, BIPAP PRN
No prior history of pulmonary disease, nonsmoker
No Prior PFTs for review
Can add nebulizers if needed
Aspiration precautions
Encouraged incentive spirometry, OOB/ambulation/early mobility
Advance diet as tolerated following extubation
Nausea management
GI prophylaxis if indicated for mechanical ventilation >48 hours
Monitor critical I/O's
Maki/chest tube output
Volume overload likely the cause, check proBNP
May consider renal consult for early CRRT eval
Hb/platelets postoperatively stable
Trend CBC for now
Can transfuse if indicated for Hb <7, plt <50 in surgical patients
DVT prophylaxis including SCDs
Insulin protocol initiated and ongoing
Transition to SQ/off as indicated per team
Diagnostic Data
Chest X-Ray: 09/29/24- New postoperative changes as detailed above.
Small left pleural effusion with underlying retrocardiac atelectasis
CT Scan: CAP 09/28/24- 1. Ascending aortic aneurysm measuring up to 5.8 cm at the sinotubular junction.
2. Severe atherosclerotic disease of the left anterior descending with high-grade stenosis proximally secondary to probably noncalcified plaque. There is additional calcified plaque within the mid/distal vessel.
3.There is submucosal fatty deposition within the terminal ileum, sigmoid colon and rectum which is nonspecific however can be seen with sequelae of chronic inflammation.
Echo: ROBERTA 09/29/24- Overall LVEF is approximately 55% with no RWMA. Severe concentric left ventricular hypertrophy. Stage II Diastolic dysfunction. Mild mitral regurgitation. Mild aortic insufficiency.
AI jet is central due to ST junction and sinus of Valsalva distortion. Sinus of Valsalva is aneurysmal measuring 4.6 cm. Sinotubular junction measures 4.3 cm. Mid ascending aorta is dilated measuring 4.0 cm at the level of the RPA. Mild sessile
atheroma seen in the descending aorta.
PFT's:
Reports and relevant images were personally reviewed.
Critical Care time 40 mins -- The patient is admitted for acute critical illness for the treatment of vital organ failure and/or prevention of further life-threatening conditions. Total care includes time spent in review of history, physical exam,
medications, hemodynamic/ventilator parameters, laboratory data, imaging and discussion with house staff, pharmacy, respiratory therapy, low altitude air defense officer, and nursing.
Subjective Dataa
Subjective Data
Date of Service:
Date of Service: October 02, 2024
Chief Complaint: Buffer Inflated Pad Follow Up
Subjective:
no new events ON, but placed on HFNC --satting 100%
remains on pressors, amio, bumex gtt, epoprostenol, heparin
s/p impella overnight
Objective Data
Data Reviewed
Vital Signs / I&O / Oxygen:
Vital Signs
Temp Pulse Resp BP Pulse Ox
99.1 F 87 18 113/79 100
10/02/24 05:56 10/02/24 06:00 10/02/24 06:00 10/02/24 06:00 10/02/24 06:37
Intake and Output
10/01/24 10/02/24 10/03/24
06:59 06:59 06:59
Intake Total 2618.4 / 2618.4 2572.4 / 2572.4
Output Total 1420 / 1420 2420 / 2420
Balance 1198.4 / 1198.4 152.4 / 152.4
SaO2 [SIMV] 99
SaO2 100
Nasal Cannula flow liters per 50
minute
Physical Exam
General: Comfortable and Other (NAD)
HEENT: Normocephalic, Anicteric and Moist Mucous Membranes
Cardiovascular: S1-S2 and Regular Rhythm
Respiratory: Clear, Non-Labored Respirations, Chest Tube and Other (PA Cath in place)
GI: Soft, Non Distended and Non Tender
Neurology: Awake, Alert, Oriented and No Motor Deficits
Skin: Warm and Good Color
Labs/Micro/Reports
Lab Data
10/02/24 05:27
10/02/24 05:27
Laboratory Results
10/01/24 10/01/24 10/01/24
08:23 15:00 15:01
PT 22.8 H
INR 1.99
APTT 37.3 H
pH 7.44 7.40
pCO2 35 33 L
pO2 75 L 56 L*
HCO3 23.8 20.4 L
O2 Delivery Level
10/01/24 10/01/24 10/01/24
16:42 18:42 22:42
PT 25.3 H
INR 2.29
APTT 152.6 H*
pH 7.45 7.34 L 7.39
pCO2 35 32 L 34 L
pO2 63 L 83 67 L
HCO3 24.3 17.3 L 20.6 L
O2 Delivery Level
10/02/24 10/02/24 10/02/24
02:04 05:27 10:00
PT
INR
APTT 43.3 H Cancelled
pH 7.42
pCO2 35
pO2 90
HCO3 22.7
O2 Delivery Level
Microbiology
09/28/24 12:16 Nose MRSA Screen - Final
No Methicillin Resistant Staphylococcus aureus isolated.
--- NOTE | 2024-10-02 07:30 | PTCARENOTE ---
Pt received at change of shift, pt s/p rt groin Impella placement last night P-7 With bicarb purge, Rt IJ cordis [place] @52, Lt Radial [place], on multiple gtts, amio/levo/vaso/heparin/bumex/dobut. Pt on HFNC 100% & Flolan sat 100%, aaox4, lethargic,
responsive, AV wires not connect to pacer box, MSCT x2, hawkins.
[2024-10-02 07:55] LABS: Glucose - Point of Care 170 mg/dl (70-99)
[2024-10-02] MEDS: PROTONIX 40 MG PO (08:35)
[2024-10-02] MEDS: NEURONTIN 100 MG PO ×3 (08:35→21:13)
[2024-10-02] MEDS: VITAMIN C 500 MG PO (08:35)
[2024-10-02] MEDS: LOW STRENGTH ASPIRIN 81 MG PO (08:36)
[2024-10-02] MEDS: LIDOCAINE 4% PATCH TOPICAL ×2 (08:36)
[2024-10-02] MEDS: MAGNESIUM OXIDE 500 MG PO ×2 (08:36→20:28)
[2024-10-02] MEDS: SENOKOT-S 1 TABLET PO ×2 (08:36→20:28)
[2024-10-02] MEDS: PLAVIX 75 MG PO (08:36)
[2024-10-02] MEDS: BACTROBAN 2% OINTMENT NASAL (08:37)
[2024-10-02] MEDS: NOVOLOG FLEXPEN-MODERATE RESISTANCE 1 UNITS SC ×2 (08:37→16:23)
--- NOTE | 2024-10-02 09:13 | W.PN.CARDCBS ---
Today's Communication / Plan
-
RV hemodynamic support with Impella
I suspect he will require 24 to 48 hours of offloading given his physiology consistent with RV infarct
Would try to wean to 1 inotrope
Would try to wean Levophed to allow lower SVR and forward flow
He is making urine again which is a positive development and agree with Bumex drip now that he is RV is offloaded
I suspect his liver function should improve with hemodynamic unloading of the right heart
Ideally would want to resume either IV or p.o. amiodarone once liver function improves given his ventricular arrhythmias
Weaning inotrope he should also reduce or mitigate risk for ventricular arrhythmias
Follow labs
Impression / Plan
-
PCP: Dr. Marsh
Cardiology: None prior to admission, seen by Dr. Chavarria at [facility]
Impression:
Admitted to [facility] with chest pain 09/25/[address] to for CT surgical evaluation 09/27/24
CAD
NSTEMI peak Troponin 67 and MV CAD by cath at [facility] 09/27/24
s/p CABG with CEDILLO to LAD and SVG to prox RCA 09/29/24
h/o aortic root aneurysm
root measuring 5.4cm, mid ascending aorta 4.5cm by [facility] imaging 09/27/24
s/p valve sparing aortic root replacement with reimplantation of [place] aortic valve (Gregory Procedure) 09/29/24. A left atrial appendage clip was also placed during surgery
HTN
Acute post-op ventricular bigeminy with R on T and VF arrest x2 09/29/24
treated with successful shock x2, CPR, amio and Epi with ROSC
Abnormal LFTs
Postoperative hypotension
Elevated troponin-likely combination of ischemia and RV strain
Status post RV Impella
Physiology consistent with RV infarction
Inotrope dependent hypotension
Ventricular tachycardia
Postoperative atrial fibrillation
Diminished urine output
Intraoperative ROBERTA 09/29/24: Postop findings, EF 50 to 55% with new septal wall hypokinesis, anterior and lateral wall motion appear normal, no AI, the LA appendage has been clipped with a 0.5 cm residual base noted
Bedside ROBERTA 09/29/24: Postop in the room, EF 55% with mild septal wall hypokinesis that appears better than what it appeared in the OR, no pericardial effusion, trace MR, AV function normal
Echo 10/01/2024: Pending
Plan:
-s/p valve sparing aortic root replacement with reimplantation of [place] aortic valve (Gregory Procedure) 09/29/24, Dr. Zuñiga
-Status post VF arrest x 2 on 09/29/2024-most likely secondary a combination of postoperative ischemia and R-on-T phenomenon from the pacing wire.
-Ideally would like for him to get some amiodarone but understand given his acute liver abnormalities that this could worsen his liver function. If his liver function starts to improve would consider reinitiation of IV amiodarone as he is still
having some ventricular arrhythmias. He does appear to be in sinus tachycardia with PVCs this morning although this morning ECG suggest atrial fibrillation with controlled rates.
-Follow daily ECG
-His hemodynamics appear markedly improved after placement of right ventricular assist last evening. He is now making urine. I would consider trying to get him off one of the vasopressors and leave him on 1 inotrope given the ventricular
arrhythmias. He will respond better to low SVR state for forward flow and should be able to tolerate 1 inotrope only which hopefully will mitigate his risk for ventricular arrhythmias. Would suggest wean dobutamine to off and to attempt weaning of
Levophed if possible.
-IV Bumex drip is noted. Appreciate nephrology input.
-Continue aspirin and Plavix given NSTEMI. With ongoing atrial fibrillation oral anticoagulation at discharge would be recommended and would defer to CT surgery timing and appropriate antiplatelet and oral anticoagulation regimen given increased
risk of bleeding with triple therapy. He also does have a left atrial appendage clip which theoretically should mitigate his risk for stroke.
-Try to avoid any liver toxic medications
-Outpatient antihypertensive are on hold
-Beta-blockers being held due to to be to mean use currently
-Pain control and usual postop management per CT surgery
-Appreciate excellent CT surgery care and on balance he appears better today than he was yesterday.
HPI: Patient came to [facility] a transfer from [facility] yesterday for evaluation from CT surgery team for MV CAD and aortic root aneurysm and cardiology has been consulted. Patient sees his PCP mostly when he is sick, but had a physical within the last
year. Patient with known h/o HTN and takes losartan 25 mg daily. He does not check BP at home on a regular basis. 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 He was working last Friday
night into Friday morning and was taking a break and laying on a sofa when he had sudden onset chest pain that lasted for 10-15 minutes and seemed to get better when he sat up. Pain returned again when he returned home after working and he told
his and they made a plan to go to the hospital. Then, after walking up the stairs in his home the patient had recurrent chest pain that was the most intense pain he had experienced and pain persisted. Patient went to [facility] ER and Troponin was
elevated prompting a cath that revealed MV CAD. Patient had an echo that showed aortic root aneurysm and then patient had CT, but results not available. Patient was transferred to for CT surgery eval last evening.
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
Subjective
Date of Service: October 02, 2024
Events noted
Objective
Labs:
10/02/24 05:27
10/02/24 05:27
Labs
Hgb 9.2 g/dL (13.0-18.0) L 10/02/24 05:27
Hct 26.5 % (39.0-52.0) L 10/02/24 05:27
Plt Count 121 10^3/uL (130-400) L 10/02/24 05:27
PT 25.3 Sec (11.4-14.6) H 10/01/24 22:42
INR 2.29 10/01/24 22:42
APTT Cancelled 10/02/24 10:00
Sodium 131 mmol/L (135-145) L 10/02/24 05:27
Potassium 4.1 mmol/L (3.5-5.1) 10/02/24 05:27
BUN 40 mg/dl (9-20) H 10/02/24 05:27
Creatinine 1.2 mg/dL (0.7-1.3) 10/02/24 05:27
Glucose 200 mg/dl (70-99) H 10/02/24 05:27
Troponins
10/01/24 10/01/24
08:23 13:41
Troponin I 79.600 H* 68.900 H*
Vital Signs and I&O:
Vital Signs
Temp Pulse Resp BP Pulse Ox
99.2 F 110 18 129/86 100
10/02/24 08:00 10/02/24 08:38 10/02/24 08:38 10/02/24 08:38 10/02/24 08:20
Vital Signs
Temp Pulse Resp BP Pulse Ox
99.2 F 110 18 129/86 100
10/02/24 08:00 10/02/24 08:38 10/02/24 08:38 10/02/24 08:38 10/02/24 08:20
Intake & Output
09/30/24 10/01/24 10/02/24 10/03/24
06:59 06:59 06:59 06:59
Intake Total 3169.3 / 3283.7 2618.4 / 2618.4 2572.4 / 2642.0 259.9 / 259.9
Output Total 1040 / 1080 1420 / 1420 2420 / 2770 750 / 750
Balance 2129.3 / 2203.7 1198.4 / 1198.4 152.4 / -128.0 -490.1 / -490.1
Physical Exam
Physical Exam
Physical Exam
General: Mild respiratory distress. Nasal prongs in place. He appears in less distress than yesterday. He appears less mottled than yesterday.
Neck: supple. no meningeal signs. normal psoterior pharynx
Right groin Impella in place
Heart: s1/s2 regular rate and rhythm when examined, no murmur. equal radial pulses.
Lungs: Diminished bilaterally
Abdomen: normal bowel sounds. not tender. no CVAT
Neuro: alert and oriented. no focal neurological deficits
Skin: no rash
Psychiatric: well kept. interactive and cooperative
Extremities: Trace extremity edema
[2024-10-02 10:11] LABS: NT-proBNP 5470 pg/ml
[2024-10-02 12:00] LABS: Glucose - Point of Care 171 mg/dl (70-99)
--- NOTE | 2024-10-02 12:00 | PTCARENOTE ---
Reassessment unchanged from previous, vss, aaox4, HFNC 75% 50L, pt went into afib will give amio bolus and remain on maintance dose, levo restarted due to hypotension, dced milrilone, bumex wean down 1mg--> 0.5mg, vaso off, heparin gtt, rt groin
impella on P7, hawkins continuing great u/o,
[2024-10-02] MEDS: NOVOLOG FLEXPEN-MODERATE RESISTANCE SC (12:05)
[2024-10-02] MEDS: CORDARONE 518 MG IV (12:16)
[2024-10-02 12:25] LABS: APTT 48.2 Sec (23.4-35.0); Lactic Acid 1.8 mmol/L (0.7-2.0)
[2024-10-02] MEDS: CORDARONE 103 MG IV (13:21)
[2024-10-02] MEDS: FERRLECIT 110 MG IV (13:22)
--- NOTE | 2024-10-02 14:11 | PTCARENOTE ---
Stat xray for impella placement, flow number steady decreasing, requiring more pressure support. Placement checked with Impella rep present, advance by 1cm by BRE Baum, repeat Xray post catheter advancement, rep recalibrate and zeroed the impella.
--- NOTE | 2024-10-02 14:16 | PTCARENOTE ---
Pt converted to NSR @ 1330.
--- NOTE | 2024-10-02 14:20 | W.PN.UPDATE ---
Update Note
Progress Note Update
Impella Repositioning Procedure Note
Procedure: Repositioning of a percutaneous right ventricular assist device (Impella RP) under imaging guidance at a separate and distinct session from initial insertion (CPT code 81107)
The patient became acutely hypotensive requiring escalating pressor requirements. CXR showed a suboptimally positioned impella RP. I decided to advance the impella under CXR guidance.
Device unlocked and advanced 2 cm. Repeat CXR confirmed improved positioning of the device. It was again locked and secured. Knee immobilizer placed by RN.
Patient tolerated the procedure well with improvement in hemodynamics. Attending updated.
[2024-10-02 15:13] LABS: Venous Blood Gas B.E. 7.4 mmol/L (-4 to +4); Venous Blood Gas HCO3 31.2 mmol/L (22-27); Venous Blood Gas O2 Sat % 99.9 %; Venous Blood Gas pCO2 40 mmHg (35-48); Venous Blood Gas pO2 270 mmHg (30-50)
[2024-10-02 15:23] LABS: Hematocrit 25.4 % (39.0-52.0); Hemoglobin 8.8 g/dL (13.0-18.0); Mean Corp Hgb Conc. 34.6 g/dL (33.0-37.0); Mean Corpuscular Hgb 30.6 pg (27.0-31.0); Mean Corpuscular Volume 88.2 fL (80.0-94.0); Mean Platelet Volume 11.5 fL (7.4-10.4); Platelet Count 105 10^3/uL (130-400); Red Blood Cell Count 2.88 10^6/uL (4.70-6.10); Red Cell Dist. Width 13.6 % (11.5-14.5); White Blood Cell Count 15.5 10^3/uL (4.8-10.8)
[2024-10-02 15:27] LABS: Mixed Venous O2 Saturation 48.9 %
[2024-10-02 15:34] LABS: Albumin 3.4 g/dl (3.5-5.0); Alkaline Phosphatase 97 U/L (38-126); Blood Urea Nitrogen 36 mg/dl (9-20); Calcium 7.6 mg/dl (8.4-10.2); Carbon Dioxide 32 mmol/L (22-30); Chloride 89 mmol/L (98-107); Estimated Creatinine Clearance 102 ml/min; Glucose 194 mg/dl (70-99); Potassium 3.3 mmol/L (3.5-5.1); Sodium 128 mmol/L (135-145); Total Bilirubin 1.9 mg/dl (0.2-1.3); Total Protein 5.1 g/dl (6.3-8.2); eGFR > 60.00
--- NOTE | 2024-10-02 16:00 | PTCARENOTE ---
Pt reassessment unchanged, pt wean off levo and vaso again, Impella in good placement, remain on bumex/dobut/amio/heparin/flolan/ O2 wean down 70%/50L HFNC, NSR, Lt radial [place], Rt IJ cordis/swan, MSCT x2, hawkins, Rt Groin impella RP Flex @ P7.
[2024-10-02 16:05] LABS: LDH 1917 U/L (120-246)
[2024-10-02 16:10] LABS: ALT (SGPT) 1353 U/L (0-50); AST (SGOT) 1087 U/L (17-59)
[2024-10-02 16:20] LABS: Glucose - Point of Care 193 mg/dl (70-99)
[2024-10-02] MEDS: KCL 50 IV (16:23)
[2024-10-02] MEDS: NSS 500 IV (16:24)
[2024-10-02 16:28] LABS: Ionized Calcium 1.02 mMOL/L (1.15-1.33)
[2024-10-02] MEDS: CALCIUM CHLORIDE 10% SYRINGE 60 MG IV (17:18)
[2024-10-02] MEDS: LIPITOR 80 MG PO (17:47)
[2024-10-02 18:14] LABS: APTT 57.1 Sec (23.4-35.0)
[2024-10-02] MEDS: BACTROBAN 2% OINTMENT 1 APPLIC NASAL (20:27)
--- NOTE | 2024-10-02 21:30 | PTCARENOTE ---
Assumed care of pt from lauryn AARON. Pt AAOx3. Sinus tach on the tele monitor. HR low 100s. Temporary epicardial A/V wires intact and disconnected from box. BP 90-100s/60-70s. B/L radial pulses palpable. B/L pedal pulses weak. Pt on high flow NC at
80% and 40 L. POX 93-98%. Mediastinal CTx2 to -20 suction, no airleak noted at this time, and output WNL. Abdomen round. Hypoactive BS. Pt intermittently nauseous. Maki catheter C/D/I and draining yellow urine. All surgical sites stable. Right PIV
x2 and right IJ cordis w/ swan @52 cm C/D/I. Left radial a-line positional. All lines leveled, zeroed, and flushed. Right groin RP flex Impella at P7 and positioned at 75 cm is intact. Right leg immobilizer in place. Dobutamine, Amio, and heparin
infusing as this time. Pt repositioned in bed. See MAR for pain medication administration. See worklist for full nursing assessment and interventions. Call keyes within reach and pt ringing appropriately.
[2024-10-03] VITALS (29 sets, daily range): BP systolic 79–126; BP diastolic 53–90; BMI 32.2
[2024-10-03] MEDS: REGLAN 10 MG IV ×2 (00:22→13:13)
[2024-10-03] MEDS: DILAUDID 0.5 MG IV ×5 (00:22→19:51)
--- NOTE | 2024-10-03 00:30 | PTCARENOTE ---
Pt reassessed. Pt remains Sinus tach on the tele monitor. HR low 100s. BP stable at 90-100s/60s. PAPs 30-40s/20s. CVP 16-18. Impella RP in place. Impella setting lowered from P-7 to P-6 by CTNP ~2330. Device was frequently showing a suction alarm.
Alarms resolved with lowering of P level. Pt on high flow NC at 50% and 40 L. POX 98%. Mediastinal CT assessment unchanged. Output minimal. Pt experiencing nausea - see MAR. Maki catheter C/D/I and draining yellow urine at well over 30 ml/hr. Right
IJ cordis and [place] C/D/I. All lines leveled, zeroed, and flushed. Dobutamine, heparin, and Amio infusing as ordered. All surgical sites stable. See MAR for pain medication administration. PTT drawn and sent. Call keyes within reach.
[2024-10-03 00:38] LABS: APTT 60.3 Sec (23.4-35.0)
[2024-10-03] MEDS: TYLENOL 650 MG PO ×2 (01:53→08:28)
[2024-10-03 03:45] LABS: B.E. 8.8 mmol/L; HCO3 32.8 mmol/L (21-28); Ionized Calcium 1.09 mMOL/L (1.15-1.33); O2 Saturation % 99.8 % (94-98); O2 Therapy HFNC; PCO2 42 mmHg (35-48); PO2 151 mmHg (83-108)
[2024-10-03 03:47] LABS: Mixed Venous O2 Saturation 53.9 %
[2024-10-03 03:51] LABS: Hemoglobin 8.6 g/dL (13.0-18.0); Mean Corp Hgb Conc. 34.4 g/dL (33.0-37.0); Mean Corpuscular Hgb 30.7 pg (27.0-31.0); Mean Corpuscular Volume 89.3 fL (80.0-94.0); Mean Platelet Volume 11.3 fL (7.4-10.4); Platelet Count 106 10^3/uL (130-400); Red Cell Dist. Width 13.9 % (11.5-14.5); White Blood Cell Count 16.8 10^3/uL (4.8-10.8)
[2024-10-03 04:15] LABS: Lactic Acid 1.7 mmol/L (0.7-2.0)
[2024-10-03] MEDS: CALCIUM GLUCONATE 100 IV (04:23)
[2024-10-03 04:27] LABS: AST (SGOT) 657 U/L (17-59); Albumin 3.2 g/dl (3.5-5.0); Alkaline Phosphatase 106 U/L (38-126); Blood Urea Nitrogen 34 mg/dl (9-20); Calcium 7.6 mg/dl (8.4-10.2); Carbon Dioxide 34 mmol/L (22-30); Chloride 89 mmol/L (98-107); Estimated Creatinine Clearance 112 ml/min; Glucose 133 mg/dl (70-99); Potassium 3.8 mmol/L (3.5-5.1); Sodium 128 mmol/L (135-145); Total Bilirubin 1.9 mg/dl (0.2-1.3); Total Protein 4.9 g/dl (6.3-8.2); eGFR > 60.00
[2024-10-03 04:28] LABS: ALT (SGPT) 1113 U/L (0-50); LDH 1604 U/L (120-246)
--- NOTE | 2024-10-03 04:36 | PTCARENOTE ---
Pt reassessed. Pt SR to sinus tach on the tele monitor. HR 90-100s. BP 90-100s/60s. CVP ~17. PAP 30s/20s. Impella RP intact at P-6. Pt 100% on high flow NC 40L/35%. Mediastinal CTx2 assessment unchanged. Maki catheter C/D/I and draining yellow
urine. All surgical sites stable. All lines leveled, zeroed, and flushed. Labs drawn and sent. EKG obtained. See MAR for pain medication administration. Calcium gluconate hung per protocol. Call keyes within reach.
[2024-10-03] MEDS: ZOFRAN 4 MG IV ×3 (05:16→17:45)
[2024-10-03] MEDS: MAGNESIUM SULFATE 50 IV (05:25)
[2024-10-03] MEDS: KCL 50 IV (05:32)
[2024-10-03] MEDS: XYLOCAINE BOLUS 100 MG IV (05:39)
--- NOTE | 2024-10-03 05:47 | PTCARENOTE ---
Pt going in/out of Vtach on tele monitor. CTNP at bedside. 2 g magnesium sulfate, 100 mg Lidocaine bolus, and dobutamine dropped to 4. Levo required for SBP's in the 70s. Pt awake, alert, and oriented throughout Vtach episodes. Lidocaine drip and
echo ordered. Pt currently SR in the 80s. BP 90s/50s. Low dose levo infusing. CVP 20. PAP 40s/20s. No change in Impella settings.
[2024-10-03] MEDS: VELETRI 50 MCG INH ×3 (06:23→16:42)
[2024-10-03] MEDS: VELETRI 50 ML INH ×3 (06:23→16:42)
--- NOTE | 2024-10-03 06:27 | W.PN.CT ---
Addendum entered and electronically signed by Kadeem Ortiz MD 10/03/24 08:51:
I saw and examined the patient.
The PA's note was reviewed and I agree with the note.
Comment:
[facility] [place] - POD#4 s/p CABG x2, valve sparing aortic root replacement, ELAA; POD#2 s/p Impella RP
Overnight pt w/ suction alarms on Impella RP w/ episodes of wide-complex tachycardia. Impella decreased to P-6, D/C bumex gtt, and decreased dobutamine to 2.5. Pt. w/ hypotension to SBPs in 70s following decrease of dobutamine - subsequently
increased to 4 w/ improvement.
N: Intact
CV: 103 sinus tachycardia; 108/73. 41/26. CVP 19. Impella RP @ P6 w/ 3.3L/min flow. GTTS: dobutamine 4, levophed 5, amiodarone 0.5, flolan, insulin. ECHO this AM w/ underfilled LV w/ normal wall motion, ? slightly improved RV function. Given
suction events overnight and echo in setting of excellent response to diuresis - pt appears intravascularly dry. CT 01/24. - remove CTs today. Trend MvO2.
P: 96% on high-flow NC 70% @ 40L/min. CXR: significantly improved, no effusion, [id number] pulmonary edema, no cardiomegaly, impella in good position
GI: Tolerating PO
: Creat 1.0; 1285/4400 last 24 hours; continue to hold bumex gtt
HEME: Hgb 8.6 - Transfuse 1U PRBC
ID: WBC 16.8 (down from 20 yesterday AM), afebrile, no cultures, no ABX
ENDO: BS controlled on insulin gtt
FEN: stable hypnatremia with Na 128 (128-131), K 3.8 (replace), iCal 1.09 (replace)
LINES: RIJ cordis SGC, radial A-line, hawkins
PROPH: protonix, heparin gtt (last PTT 68)
Original Note:
Today's Communication / Plan
-
-pod #4
Yesterday we were able to stop his vaso, milrinone, and vaso. RP at 7, noted to have acute decompensation 2/2 catheter migration which improved after advancing 2 cm. knee immobilizer in place. Bumex off at change of shift. remained on amio,
heparin, dobutamine at 5. had a low suction alarm later in the evening, noted to void 4.4 L, reduced to P6 with resolution of alarm. This morning he went into a WCT x7 lasting between 30 and 60 seconds. as he already has ~750 mg amio boluses 100
mg IV lidocaine given and gtt started at 1 mcg. WCT resolved, BP dropped and levophed restarted. PCXR obtained, impella inlet in similar position to earlier CXR, heart projection not enlarged compared to prior, no PTX, PA catheter distal tip
slightly migrated. After contacting cardiology and CT surgery attempted to wean dobutamine to 2.5 mg but BP dropped further and pt became nauseated. Currently on levo 5, dobutamine 4, heparin 800, amio 0.5, lidocaine 1, impella flow 3.4 L/min at
P6, BP 96/63, CVP 16, PA 42/23. SvO2 48.9->53.9, repeat after event pending. Shortly after pt went into a rate controlled afib
Plan:
N: pain mgt
CV: stat echo ordered, repeat SvO2, gtts/impella RP as above. 2M CT 5/5 cc out in 12/24 hrs (confirmed with RN). diuresis plan pending. Afib noted.
P: HFNC, keep flow for ventilation 70%/45L, epoprostenol 0.05, ABG this AM 7.5/42/151/32.8
GI: LFTs downtrending, continue to trend, lactate cleared, PRN antiemetics
: Cr stable, UOP 1335/4460 cc out in 12/24 hrs. metabolic alkalosis noted.
Heme: plt stable 106, LDH 1917->1604, hapto pending, heparin gtt continued
ID: no fever
Endo: insulin gtt
Assessment / Plan
-
Assessment:
-Multivessel CAD/Ao aneurysm - s/p Valve sparing aortic root replacement with reimplantation of [place] aortic valve [Gregory Procedure]; Reimplantation of left and right coronary buttons into their respective neosinus; CABG x 2 [hoonah CEDILLO in situ to
LAD, RSVG to proximal RCA]; Left atrial appendage exclusion (35mm clip) by Dr. Zuñiga on 09/29/24, pod #3
-Intraop ROBERTA: LVEF preoperatively 60% with no significant regional wall motion abnormalities. He does have diastolic dysfunction with thick left ventricle. Following surgery his EF was the same with no significant regional wall motion
abnormalities aside from some paradoxical motion of his septum. He is aortic valve was spared and reimplanted inside of 32 mm cardio root Valsalva graft. Following surgery, his AI that was initially mild and central went to none. He had a mean
gradient of 3 across his [place] aortic valve with a good coaptation height. Due to the long clamp around, he was a little bit sluggish coming off of cardiopulmonary bypass but did not require any inotropic support. His cardiac index was
approximately 1.7 to on just a low-dose Levophed. There is no residual flow into the left atrial appendage, and only a small residual stump was visualized.
s/p Impellla RP placed 10/01/24
-NSTEMI (High-sensitivity trop 67 @ [facility])
-[place]
-Aortic root aneurysm (5.8 cm, mid ascending aorta 4.5 cm)
-HTN
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
-Spermatocele/Hydrocele S/P b/l spermatocelectomies, 05/26/2015
-S/P LHC
-S/P Vasectomy, 2008
-Acute postop ventricular bigeminy/ R on T phenomenon with v-fib arrest X2 - s/p shocks x2, CPR, low-dose Epi, Amio 300 mg bolus and drip- Rosc achieved. Pt woke up post code and followed commands
-NSVTs
-Bedside ROBERTA revealed no pericardial effusion, valves ok. Lateral wall had some stunning
-Acute postop hypovolemia
-Acute postop cardiogenic shock
-Acute postop atelectasis
-Acute postop blood loss anemia - stable, no transfusion
-Acute postop coagulopathy - s/p 2 FFPs and 2 unit platelets
-ROBERTA
-Shock liver - holding Tylenol - follow
-postop RV failure, taken to lab rn for angiography (grafts patent), Impella RP placed
Subjective
-
Date of Service: October 03, 2024
Objective Data
-
Lab Results
10/03/24 03:39
10/03/24 03:39
PT 25.3 Sec (11.4-14.6) H 10/01/24 22:42
INR 2.29 10/01/24 22:42
APTT 60.3 Sec (23.4-35.0) H 10/03/24 00:13
Vital Signs
Vital Signs
Temp Pulse Resp BP Pulse Ox
98.9 F 78 14 87/62 99
10/03/24 06:00 10/03/24 06:00 10/03/24 06:00 10/03/24 06:00 10/03/24 06:00
CT Intake/Output/Weight
10/02/24 10/02/24 10/03/24
06:59 18:59 06:59
Intake Total 1462.2 / 2642.0 1783.70 / 2500.90 717.2 / 2500.90
Output Total 1680 / 2770 3000 / 4465 1465 / 4465
Balance -217.8 / -128.0 -1216.30 / -1964.10 -747.8 / -1964.10
SaO2: 99
Physical Exam
-
General: Awake and Oriented
Cardiovascular: Irregular rate & rhythm and Rub
Respiratory: Clear and Decreased Breath Sounds
Sternum: Stable
Incision: Clean, Dry and Intact
Extremities: Edema +1
Data Reviewed
-
Lab Results: Results Reviewed
Medications: Active Meds Reviewed
Chest X-Ray: Report Reviewed
ECG: Report Reviewed
[2024-10-03 06:34] LABS: APTT 68.2 Sec (23.4-35.0)
[2024-10-03 06:53] LABS: Mixed Venous O2 Saturation 40.7 %
[2024-10-03] MEDS: NOVOLOG FLEXPEN-MODERATE RESISTANCE SC ×3 (07:00→16:59)
--- NOTE | 2024-10-03 07:25 | W.PN.INTV ---
Today's Communication / Plan
Recommendations
Remains on pressors, inhaled epo via HFNC, amio/heparin/bumex
Could transition off vasodilators/O2 given paO2 and PH numbers
Transitioned off insulin gtt
Follow UO/daily weights
Chest pain noted, no sign change in imaging this AM
Pain control
Assessment
-
Patient is a 54-year-old male with previous history of hypertension presenting to [facility] on 09/26/2024 for complaints of chest pain with shortness of breath. He was ruled in for NSTEMI with elevated troponins and underwent left heart
catheterization demonstrating multivessel CAD. He was transferred from [place] to [place] for evaluation of CABG. He underwent CABG x 2 on 09/29/2024 without complication and perioperatively transferred to CVICU for further management.
MV CAD status post CABG x 2 09/29/2024
s/p LHC 10/01/24
s/p impelle placement 10/01/24
Cardiogenic shock on pressors/inotropes
NSTEMI with elevated troponins
Chest pain and shortness of breath
Perioperative mechanical ventilation
Mild anemia, postoperative
Stage II DD on ECHO
Severe conc LVH
Conditions present prior to admission
Hypertension
Plan
S/p CAB POD #4
Titrating off pressors per protocol, still on pressors: levo/dobutamine/vasopressin, off milrinone
Other gtts: amio, bumex gtt, heparin, transitioned off insulin IV
Inh: epoprostenol via HFNC
Weight: 99kg -> 107 -> 110
UO: 1040ml, 1420mL, 2420mL
PAS/D: 35/20, 32/18, 34/19
ECHO reviewed with normal function, stage II DD
PA catheter readings reviewed
Management of chest tubes per primary service
Pain control
RASS goal of 0 to -1
Intubated for procedure, extubated overnight and doing well
HFNC placed for low PaO2: 67-> 90 -> 153--could start weaning
ABG(s) reviewed/adequate
CXR with stable postop changes, repeat this AM stable
Maintain supplement oxygen as needed, BIPAP PRN
No prior history of pulmonary disease, nonsmoker
No Prior PFTs for review
Can add nebulizers if needed
Aspiration precautions
Encouraged incentive spirometry, OOB/ambulation/early mobility
Advance diet as tolerated following extubation
Nausea management
GI prophylaxis if indicated for mechanical ventilation >48 hours
Monitor critical I/O's
Maki/chest tube output
Volume overload likely the cause, check proBNP
May consider renal consult for early CRRT eval
Hb/platelets postoperatively stable
Trend CBC for now
Can transfuse if indicated for Hb <7, plt <50 in surgical patients
DVT prophylaxis including SCDs
Insulin protocol weaned to off
Transitioned to SQ as indicated per team
Diagnostic Data
CXR 10/03/24- No significant interval change in lines and tubes. As described, bilateral parenchymal opacities highly suggestive of pulmonary edema pattern. Slight improvement in atelectasis in the medial left base.
Chest X-Ray: 09/29/24- New postoperative changes as detailed above. Small left pleural effusion with underlying retrocardiac atelectasis
CT Scan: CAP 09/28/24- 1. Ascending aortic aneurysm measuring up to 5.8 cm at the sinotubular junction.
2. Severe atherosclerotic disease of the left anterior descending with high-grade stenosis proximally secondary to probably noncalcified plaque. There is additional calcified plaque within the mid/distal vessel.
3.There is submucosal fatty deposition within the terminal ileum, sigmoid colon and rectum which is nonspecific however can be seen with sequelae of chronic inflammation.
Echo: ROBERTA 09/29/24- Overall LVEF is approximately 55% with no RWMA. Severe concentric left ventricular hypertrophy. Stage II Diastolic dysfunction. Mild mitral regurgitation. Mild aortic insufficiency.
AI jet is central due to ST junction and sinus of Valsalva distortion. Sinus of Valsalva is aneurysmal measuring 4.6 cm. Sinotubular junction measures 4.3 cm. Mid ascending aorta is dilated measuring 4.0 cm at the level of the RPA. Mild sessile
atheroma seen in the descending aorta.
PFT's:
Reports and relevant images were personally reviewed.
Critical Care time 38 mins -- The patient is admitted for acute critical illness for the treatment of vital organ failure and/or prevention of further life-threatening conditions. Total care includes time spent in review of history, physical exam,
medications, hemodynamic/ventilator parameters, laboratory data, imaging and discussion with house staff, pharmacy, respiratory therapy, door to door salesman, and nursing.
Subjective Dataa
Subjective Data
Date of Service:
Date of Service: October 03, 2024
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
Subjective:
Having chest pain this AM, feels lousy
Remains on drips/epo/HFNC
Objective Data
Data Reviewed
Vital Signs / I&O / Oxygen:
Vital Signs
Temp Pulse Resp BP Pulse Ox
98.9 F 78 14 87/62 99
10/03/24 06:00 10/03/24 06:00 10/03/24 06:00 10/03/24 06:00 10/03/24 06:41
Intake and Output
10/02/24 10/03/24 10/04/24
06:59 06:59 06:59
Intake Total 2572.4 / 2642.0 2500.90 / 2500.90
Output Total 2420 / 2770 4465 / 4465
Balance 152.4 / -128.0 -1964.10 / -1964.10
SaO2 [SIMV] 99
SaO2 99
Nasal Cannula flow liters per 40
minute
Physical Exam
General: Comfortable and Other (NAD)
HEENT: Normocephalic, Anicteric and Moist Mucous Membranes
Cardiovascular: S1-S2 and Regular Rhythm
Respiratory: Clear, Non-Labored Respirations, Chest Tube and Other (PA Cath in place)
GI: Soft, Non Distended and Non Tender
Neurology: Awake, Alert, Oriented and No Motor Deficits
Skin: Warm and Good Color
Labs/Micro/Reports
Lab Data
10/03/24 03:39
10/03/24 03:39
Laboratory Results
10/02/24 10/02/24 10/03/24
11:58 17:47 00:13
APTT 48.2 H 57.1 H 60.3 H
pH
pCO2
pO2
HCO3
O2 Delivery Level
10/03/24 10/03/24
03:39 06:14
APTT 68.2 H
pH 7.50 H
pCO2 42
pO2 151 H
HCO3 32.8 H
O2 Delivery Level Hfnc
[2024-10-03] MEDS: HEPARIN 25000 UNITS/250 ML IV (07:39)
--- NOTE | 2024-10-03 07:55 | W.PN.CARDCBS ---
Today's Communication / Plan
-
Continue supportive care
He may be dry, would favor IV bolus.
Wean dobutamine as possible.
Can switch amiodarone to oral.
Impression / Plan
-
PCP: Dr. Marsh
Cardiology: None prior to admission, seen by Dr. Chvaarria at [facility]
Impression:
Admitted to [facility] with chest pain 09/25/[address] surgical evaluation 09/27/24
CAD
NSTEMI peak Troponin 67 and MV CAD by cath at [facility] 09/27/24
s/p CABG with CEDILLO to LAD and SVG to prox RCA 09/29/24
h/o aortic root aneurysm
root measuring 5.4cm, mid ascending aorta 4.5cm by [facility] imaging 09/27/24
s/p valve sparing aortic root replacement with reimplantation of barrow aortic valve (Gregory Procedure) 09/29/24. A left atrial appendage clip was also placed during surgery
HTN
Acute post-op ventricular bigeminy with R on T and VF arrest x2 09/29/24
treated with successful shock x2, CPR, amio and Epi with ROSC
Abnormal LFTs
Postoperative hypotension
Elevated troponin-likely combination of ischemia and RV strain
Status post RV Impella
Physiology consistent with RV infarction
Inotrope dependent hypotension
Ventricular tachycardia
Postoperative atrial fibrillation
Diminished urine output
Intraoperative ROBERTA 09/29/24: Postop findings, EF 50 to 55% with new septal wall hypokinesis, anterior and lateral wall motion appear normal, no AI, the LA appendage has been clipped with a 0.5 cm residual base noted
Bedside ROBERTA 09/29/24: Postop in the room, EF 55% with mild septal wall hypokinesis that appears better than what it appeared in the OR, no pericardial effusion, trace MR, AV function normal
Echo 10/01/2024: Pending
Plan:
He remains tenuous with RV Impella in place.
Episodes of nonsustained VT earlier today. He received a lidocaine bolus, now back on amiodarone. If CT surgery agrees, switch to oral amiodarone. I would not restart lidocaine at this time.
His echocardiogram this morning is overall reassuring without obvious mechanical complications of myocardial infarction. His left ventricle is small, implying he may benefit from volume.
Would favor fluid bolus or blood transfusion, but patient may be intravascularly relatively dry. Hemodynamics are difficult to interpret with Impella in place. Cardiac index appears to be low, may respond to volume.
Wean pressors as possible.
HPI: Patient came to [facility] as a transfer from [facility] yesterday for evaluation from CT surgery team for MV CAD and aortic root aneurysm and cardiology has been consulted. Patient sees his PCP mostly when he is sick, but had a physical within the last
year. Patient with known h/o HTN and takes losartan 25 mg daily. He does not check BP at home on a regular basis. 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 He was working last Friday
night into Friday morning and was taking a break and laying on a sofa when he had sudden onset chest pain that lasted for 10-15 minutes and seemed to get better when he sat up. Pain returned again when he returned home after working and he told
his and they made a plan to go to the hospital. Then, after walking up the stairs in his home the patient had recurrent chest pain that was the most intense pain he had experienced and pain persisted. Patient went to [facility] ER and Troponin was
elevated prompting a cath that revealed MV CAD. Patient had an echo that showed aortic root aneurysm and then patient had CT, but results not available. Patient was transferred to for CT surgery eval last evening.
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
Subjective
Date of Service: October 03, 2024:
Patient with several runs of ventricular tachycardia up to 20 beats earlier today. Received a lidocaine bolus, drip ordered but not started. Currently off vasopressin, on dobutamine, norepinephrine recently added, on heparin, on IV amiodarone,
receiving potassium and magnesium. IV Bumex currently on hold. He complains of thirst.
He was in sinus rhythm this morning, with ectopy, may have been in A-fib transiently earlier this morning
RV Impella still in place, intermittent suction alarming, decreased to 6.
Echocardiogram at this time shows relatively preserved LV function, small ventricle, some mitral regurgitation but not severe, pulmonary pressures difficult to measure, no pericardial effusion, uncertain whether there may be some pericardial
thrombus, no obvious mechanical complications of myocardial infarction
Pulmonary artery diastolic in the 20s but uncertain whether this is reliable. Saturations are close to 100%. CVP is 19 chest x-ray shows improvement in aeration in bases, pulmonary vascularity probably modestly improved, still prominent. Heart
size may be smaller.
BUN and creatinine are 34 and 1.0, sodium is 128, potassium is 3.8, hemoglobin is 8.6. LDH is 1600, AST is 657, ALT is 1113, bilirubin is 1.9, lactic acid is 1.7, sodium is 128
EKG this morning was normal sinus rhythm with first-degree AV block, inferior UT, nonspecific ST and T changes
Objective
Labs:
10/03/24 03:39
10/03/24 03:39
Labs
Hgb 8.6 g/dL (13.0-18.0) L 10/03/24 03:39
Hct 25.0 % (39.0-52.0) L 10/03/24 03:39
Plt Count 106 10^3/uL (130-400) L 10/03/24 03:39
PT 25.3 Sec (11.4-14.6) H 10/01/24 22:42
INR 2.29 10/01/24 22:42
APTT 68.2 Sec (23.4-35.0) H 10/03/24 06:14
Sodium 128 mmol/L (135-145) L 10/03/24 03:39
Potassium 3.8 mmol/L (3.5-5.1) 10/03/24 03:39
BUN 34 mg/dl (9-20) H 10/03/24 03:39
Creatinine 1.0 mg/dL (0.7-1.3) 10/03/24 03:39
Glucose 133 mg/dl (70-99) H 10/03/24 03:39
Troponins
10/01/24 10/01/24
08:23 13:41
Troponin I 79.600 H* 68.900 H*
Vital Signs and I&O:
Vital Signs
Temp Pulse Resp BP Pulse Ox
37.0 C 79 22 90/68 99
10/03/24 07:00 10/03/24 07:30 10/03/24 07:30 10/03/24 07:00 10/03/24 06:41
Vital Signs
Temp Pulse Resp BP Pulse Ox
37.0 C 79 22 90/68 99
10/03/24 07:00 10/03/24 07:30 10/03/24 07:30 10/03/24 07:00 10/03/24 06:41
Intake & Output
09/30/24 10/01/24 10/02/24 10/03/24
07:59 07:59 07:59 07:59
Intake Total 3268.7 / 3371.1 2803.1 / 2803.1 2342.9 / 2533.2 2488.90 / 2488.90
Output Total 1080 / 1185 1420 / 1420 2730 / 3130 4175 / 4175
Balance 2188.7 / 2186.1 1383.1 / 1383.1 -387.1 / -596.8 -1686.10 / -1686.10
Physical Exam
Physical Exam
Diminished breath sounds, RV Impella audible, no obvious murmurs, JVD difficult to assess, right leg appears intact, incisions intact
--- NOTE | 2024-10-03 08:00 | PTCARENOTE ---
Resumed care of patient from prev RN. Pt AAOx3. Sinus tach/AFIB on monitor. HR low 70-100s. A/V wires present but disconnected from box. VSS on 6mcg levo. pulses weakly palpable. Trace generalized edema. Limbs cool. CTx2 to -20 wall suction. high
flow on 40% and 40 L. POX 94%. Hypoactive BS. passing gas. reports bloating, and intermittent nausea. Maki catheter and draining yellow urine. All surgical sites stable. All lines leveled, zeroed, and flushed. Impella at P6 and positioned at 75 cm
in R groin. all surgical sites stable. levo, dobut, amio, and hep infusing at ordered rates. will continue to monitor.
[2024-10-03] MEDS: CALCIUM CHLORIDE 10% SYRINGE 60 MG IV (08:28)
[2024-10-03] MEDS: PROTONIX 40 MG PO (08:29)
[2024-10-03] MEDS: PLAVIX 75 MG PO (08:29)
[2024-10-03] MEDS: LOW STRENGTH ASPIRIN 81 MG PO (08:30)
[2024-10-03] MEDS: NEURONTIN 100 MG PO ×3 (08:30→21:21)
[2024-10-03] MEDS: MAGNESIUM OXIDE 500 MG PO ×2 (08:30→19:50)
[2024-10-03] MEDS: LIDOCAINE 4% PATCH 1 PATCH TOPICAL (08:32)
[2024-10-03] MEDS: LIDOCAINE 4% PATCH TOPICAL (08:32)
[2024-10-03] MEDS: SENOKOT-S 1 TABLET PO ×2 (08:33→19:50)
[2024-10-03] MEDS: VITAMIN C 500 MG PO (08:33)
[2024-10-03] MEDS: BACTROBAN 2% OINTMENT 1 APPLIC NASAL (08:37)
[2024-10-03 08:57] LABS: HCO3 29.1 mmol/L (21-28); O2 Saturation % 99.8 % (94-98); PCO2 40 mmHg (35-48); PO2 153 mmHg (83-108); pH 7.47 (7.35-7.45)
[2024-10-03 12:40] LABS: Glucose - Point of Care 107 mg/dl (70-99)
[2024-10-03] MEDS: ROXICODONE 5 MG PO (13:12)
[2024-10-03] MEDS: LEVOPHED 250 IV ×2 (13:54→23:03)
--- NOTE | 2024-10-03 14:00 | PTCARENOTE ---
d/c chest tubes without incident.
[2024-10-03] MEDS: NSS IV (16:01)
[2024-10-03] MEDS: XYLOCAINE 1% WITH EPINEPHRINE 10 ML INFIL (16:14)
[2024-10-03 16:23] LABS: % Basophils 0.1 % (0-2); % Immature Granulocytes 1.5 % (0-0.5); % Lymphocytes 8.5 % (20.5-51.1); % Monocytes 9.5 % (1.7-9.3); % Neutrophils 80.4 % (42.2-75.2); Absolute Immature Granulocytes 0.3 10^3/uL (0-0.05); Absolute Lymphocytes 1.9 10^3/uL (1.2-3.4); Absolute Monocytes 2.2 10^3/uL (0.1-0.6); Absolute Neutrophils 18.2 10^3/uL (1.4-6.5); Hematocrit 27.4 % (39.0-52.0); Hemoglobin 9.4 g/dL (13.0-18.0); Mean Corp Hgb Conc. 34.3 g/dL (33.0-37.0); Mean Corpuscular Hgb 30.5 pg (27.0-31.0); Mean Platelet Volume 12.4 fL (7.4-10.4); Nucleated Red Blood Cells % 3.3 % (-); Platelet Count 100 10^3/uL (130-400); Red Blood Cell Count 3.08 10^6/uL (4.70-6.10); Red Cell Dist. Width 14.2 % (11.5-14.5); White Blood Cell Count 22.7 10^3/uL (4.8-10.8)
--- NOTE | 2024-10-03 16:24 | W.PN.UPDATE ---
Update Note
Progress Note Update
Noted continuous oozing from a previous IV site on the right antecubital fossa. This persisted for an hour despite multiple attempts at holding pressure for 10-15 minutes at a time. Would rather not hold systemic a/c in this high risk bed-ridden
patient on mechanical support unless absolutely necessary.
Area prepped and draped. Infiltrated with 1% lidocaine with epi. Single 2-0 figure of eight stitch placed at the site. Hemostasis achieved. Site monitored for several more minutes for developing hematoma and none was appreciated.
If there is continued oozing from the site later or a hematoma develops, will hold systemic heparin.
Patient tolerated well.
--- NOTE | 2024-10-03 17:00 | PTCARENOTE ---
R AC PIV bleeding profusely. removed iv site and held pressure. redressed with pressure dressing. bled through multiple times. PA made aware and he then applied a stitch to the area when he was unable to stop the bleeding as well. will continue to
monitor.
[2024-10-03] MEDS: LIPITOR 80 MG PO (17:14)
[2024-10-03] MEDS: MYLICON 80 MG PO ×2 (17:46→21:21)
[2024-10-03] MEDS: DOBUTREX 500 MG 250 IV (18:22)
[2024-10-03 19:42] LABS: APTT 56.8 Sec (23.4-35.0)
[2024-10-03] MEDS: CORDARONE 518 MG IV (19:50)
[2024-10-03] MEDS: NSS 500 IV (20:49)
[2024-10-03] MEDS: PITRESSIN 100 IV (21:38)
[2024-10-03 21:40] LABS: B.E. 3.9 mmol/L; HCO3 27.4 mmol/L (21-28); O2 Saturation % 93.6 % (94-98); PCO2 36 mmHg (35-48); PO2 64 mmHg (83-108); pH 7.49 (7.35-7.45)
--- NOTE | 2024-10-03 22:23 | PTCARENOTE ---
Assumed care of pt from dayshift RN. Walking rounds completed. Pt is AAOx3. SR to sinus tach on the tele monitor. HR 90-100s. Pt occasionally in A-fib - when in a-fib HR 60-70s. Temporary epicardial A/V wires intact and insulated. BP 90s/60s. CVP
~25. PAPs 40s/30s. Trace edema. B/L radial pulses palpable. B/L DP pulses weak. Extremities pale and cool. Pt on high flow NC 40L and 40%. Hard to get a POX read. Extremity POX 88-90%. ABG POX 93%. Pt c/o belly pain. Abdomen does not appear
distended and is soft. +BS and gas. CTPA aware - will order xray for AM. Simethicone administered. Pt states some relief. Maki catheter C/D/I and draining yellow urine. All surgical sites stable. CT dressing C/D/I. Right IJ cordis w/ swan and left
radial a-line leveled, zeroed, and flushed. Impella RP secured and set to P-5. Right leg immobilizer in place. Heparin, dobutamine, levo, and Amio infusing upon start of shift. Vaso started for low BPs per CTPA. See worklist for full nursing
assessment and interventions. Call keyes within reach.
[2024-10-03] MEDS: ATIVAN 0.5 MG IV (22:45)
[2024-10-03] MEDS: FLEXBUMIN 100 IV (23:09)
[2024-10-03] MEDS: CORDARONE 103 MG IV (23:10)
[2024-10-03 23:24] LABS: Mixed Venous O2 Saturation 21.4 %
[2024-10-03 23:28] LABS: Ionized Calcium 1.07 mMOL/L (1.15-1.33)
[2024-10-03 23:42] LABS: B.E. -4.5 mmol/L; HCO3 20.2 mmol/L (21-28); O2 Saturation % 88.5 % (94-98); PCO2 35 mmHg (35-48); PO2 60 mmHg (83-108); pH 7.37 (7.35-7.45)
[2024-10-03 23:44] LABS: O2 Therapy high flow 50L 5%
[2024-10-03 23:46] LABS: Lactic Acid 7.6 mmol/L (0.7-2.0)
[2024-10-03 23:53] LABS: Blood Urea Nitrogen 43 mg/dl (9-20); Carbon Dioxide 22 mmol/L (22-30); Chloride 84 mmol/L (98-107); Estimated Creatinine Clearance 71 ml/min; Glucose 164 mg/dl (70-99); Magnesium 2.7 mg/dl (1.6-2.3); Sodium 120 mmol/L (135-145); eGFR 50.88
[2024-10-04] VITALS (21 sets, daily range): BP systolic 40–124; BP diastolic 20–83; BMI 33.0
[2024-10-04] MEDS: SODIUM BICARBONATE 50 MEQ IV
[2024-10-04] MEDS: BUMEX 2 MG IV (00:19)
[2024-10-04] MEDS: VERSED 2 MG IV ×7 (00:24→21:38)
[2024-10-04] MEDS: SUBLIMAZE 100 MCG IV (00:27)
[2024-10-04] MEDS: SUBLIMAZE 100 IV ×4 (00:30→22:29)
--- NOTE | 2024-10-04 00:34 | W.PN.ANESINT ---
Anesthesia Intubation Note
- Intubation Note
Intubation Note:
Diagnosis: respiratory distress
Blade: glidescope 4
Tube Size: 8.0 HiLo
Depth: 23cm
Side Taped: center
Drugs Used: 60g etomidate, 50mg rocuronium
Grade View: grade 1 view
EtCO2 Present: ETCO2 color change present
Atraumatic: atraumatic
Attempts: 1 attempt
Insertion Start and Stop Time:0010 start 0012 end
SaO2 Pre: unable to assess
SaO2 Post: unable to assess
Glidescope Used: glidescope used
Other Airway Adjustments: none required
Pre-Oxygenated: patient was on facemask prior to intubation
Portable Chest X-Ray: ordered
RSI: no
Suctioned: no
Bilateral Breath Sounds Confirmed: bilateral breath sounds confirmed, no sounds over abdomen
Vent Settings:
Settings per __X_Attending Physician
Marylou Roberson CRNA
--- NOTE | 2024-10-04 00:38 | W.PN.UPDATE ---
Update Note
Progress Note Update
CARDIAC SURGERY ATTENDING:
I was called by the covering physician mobile sales assistant and informed that patient's status had acutely worsened with escalating vasoactive infusion requirements and worsening hypotension. I arrived at bedside to find patient's infusions have been
uptitrated to levo @ 18, vaso @ 0.04, dobutamine @ 3. His Impella RP was at P6. Flolan had been weaned throughout the day. By my arrival, his systolic blood pressure had recovered into the 80s/90s, but per report had been transiently down into
the 60s. His pulmonary pressures were in the 50s/30s, and his CVP was also in the high 20s/low 30s.
His work of breathing was notably increased and he was having periods of agitation and confusion. I called for a stat chest x-ray, echocardiographic assessment, and notified the covering MANAGER LINE for the potential need for reintubation. I increased
his dobutamine to 4 and asked for his flolan to be uptitrated. His chest x-ray showed worsening pulmonary edema in the setting of an unchanged Impella position. His cardiomediastinal silhouette was unchanged. He required additional acute IV fluid
boluses to maintain his blood pressure as arrangements were made for airway management. His ABG @ 2336 hrs was 7.3 7/35/60/20 0.2/-4.5/88.5. His mixed venous O2 was 21.4. His lactate had increased to 7.6 from 1.7. His creatinine had increased to
1.6 from 1.0 with concurrent significant decrease in his urine output.
The patient was reintubated at bedside without issue. Post this reintubation, his hemodynamics improved allowing for weaning of his vaso to 0.02 and continued weaning of his levo infusion. His post intubation chest film demonstrated continued
worsening of his bilateral pulmonary edema. IV fluids were limited, a 2mg push of Bumex was administered and a Bumex drip ordered. Preintubation echocardiographic assessment had confirmed no pericardial effusion. A thorough post intubation
echocardiographic assessment demonstrated good/hyperdynamic left ventricular function with a hypokinetic, but functional, right ventricle. He had slightly more TR than prior, but there was no other valvular issues or evidence of new VSD.
Current hemodynamics include a heart rate at 103 bpm alternating between sinus and intermittent atrial fibrillation, 118/82, 55/41, CVP 30. His Impella RP is at P7 and generating 3.3 L/min. He is currently on levo @ 14, vaso @ 0.02, dobutamine @
4. His amiodarone gtt was discontinued. His bumex, fentanyl, and versed gtts are pending.
I telephoned the patient's and updated her on the changes in his clinical status and the need for reintubation. Repeat laboratory assessments are pending.
Thank you.
Kadeem Ortiz M.D.
[phone]
[2024-10-04 00:50] LABS: B.E. -0.8 mmol/L; HCO3 25.3 mmol/L (21-28); O2 Saturation % 90.3 % (94-98); PCO2 48 mmHg (35-48); PO2 65 mmHg (83-108); pH 7.33 (7.35-7.45)
[2024-10-04 00:52] LABS: O2 Therapy VENT
[2024-10-04 01:12] LABS: APTT 50.8 Sec (23.4-35.0)
[2024-10-04] MEDS: SUBLIMAZE 50 MCG IV ×6 (01:12→22:23)
[2024-10-04] MEDS: VERSED 50 IV ×2 (01:47→10:13)
[2024-10-04] MEDS: VELETRI 50 ML INH ×3 (02:07→17:29)
[2024-10-04] MEDS: VELETRI 50 MCG INH ×3 (02:07→17:29)
--- NOTE | 2024-10-04 02:19 | PTCARENOTE ---
~2220 pt into a-fib and became increasingly anxious. CTPA at bedside. Pt tachypneic, disoriented, and BP's decreasing requiring pressor support. Vaso initiated and Levo titrated up. PAP 50s/40s. CVP 30s. Amio bolus and 25% albumin administered - see
NOV. BP's remained low. 1g calcium push and 250 LR bolus. Labs drawn and sent. EKG completed. MVO2 21.4. CT surgeon, anesthesia, cardiology, ICU ELECTRICAL PROSPECTOR, and corporate physical security supervisor made aware of pt's decline and at the bedside. STAT echo/x-ray and Impella RP to P-7.
Pt restless and having trouble breathing. ABG POX 88 and PO2 60. Pt then intubated at the bedside. See worklist for vent settings. Fentanyl/versed initiated - see NOV. UO decreased. Bumex push and drip started - see NOV.
Pt currently intubated and sedated. Pt going between a-fib and sinus tach on the tele monitor. Hr 90-100s. BP 110s/70s. CVP~24. PAPs 40s/30s. Amio infusion paused per Dr. Ortiz. Bumex, versed, fentanyl, levo, vaso, heparin, and dobutamine infusing
at this time. UO improving. Impella RP at P-7. Q2 labwork ordered. Dr. Ortiz updated pt family.
[2024-10-04 02:20] LABS: B.E. 3.3 mmol/L; HCO3 27.8 mmol/L (21-28); O2 Saturation % 99.3 % (94-98); O2 Therapy 100%; PCO2 41 mmHg (35-48); PO2 220 mmHg (83-108); pH 7.44 (7.35-7.45)
[2024-10-04 02:22] LABS: Mixed Venous O2 Saturation 58.2 %
[2024-10-04 02:57] LABS: Lactic Acid 4.1 mmol/L (0.7-2.0)
[2024-10-04] MEDS: LEVOPHED 250 IV ×4 (03:14→20:17)
[2024-10-04] MEDS: FLEXBUMIN 50 IV (03:19)
--- NOTE | 2024-10-04 03:37 | W.PN.CT ---
Today's Communication / Plan
-
POD#4
Prolonged bout of AF which precipitated hypotension and acute decompensation. His Vaso and Levo had been weaned off erarlier in the day, Flolan was down to 0.01, and impella weaned to P5 prior to this event. Support was agein increased as below.
See Dr. Ortiz's note for more details.
N: fentanyl and Versed drips for sedation.
CV: on Levo at 18, Vaso at 0.02, Flolan 0.02, Impella at P7 Afib noted.
P: Intubated, epoprostenol 0.02
GI: LFTs downtrending, continue to trend, lactatte with acute increase and is now coming down again
: Cr bumped, UOP decreased and he was placed back on Bumex drip.
Heme: Hgb 9.4 after PRBC's today, plt stable at 100,heparin gtt continued
ID: no fever
Endo: insulin gtt
Assessment / Plan
-
Assessment:
-Multivessel CAD/Ao aneurysm - s/p Valve sparing aortic root replacement with reimplantation of [place] aortic valve [Gregory Procedure]; Reimplantation of left and right coronary buttons into their respective neosinus; CABG x 2 [[place] CEDILLO in situ to
LAD, RSVG to proximal RCA]; Left atrial appendage exclusion (35mm clip) by Dr. Zuñiga on 09/29/24, pod #5
-Intraop ROBERTA: LVEF preoperatively 60% with no significant regional wall motion abnormalities. He does have diastolic dysfunction with thick left ventricle. Following surgery his EF was the same with no significant regional wall motion
abnormalities aside from some paradoxical motion of his septum. He is aortic valve was spared and reimplanted inside of 32 mm cardio root Valsalva graft. Following surgery, his AI that was initially mild and central went to none. He had a mean
gradient of 3 across his [place] aortic valve with a good coaptation height. Due to the long clamp around, he was a little bit sluggish coming off of cardiopulmonary bypass but did not require any inotropic support. His cardiac index was
approximately 1.7 to on just a low-dose Levophed. There is no residual flow into the left atrial appendage, and only a small residual stump was visualized.
s/p Impellla RP placed 10/01/24
-NSTEMI (High-sensitivity trop 67 @ [facility])
-[place]
-Aortic root aneurysm (5.8 cm, mid ascending aorta 4.5 cm)
-HTN
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
-Spermatocele/Hydrocele S/P b/l spermatocelectomies, 05/26/2015
-S/P LHC
-S/P Vasectomy, 2008
-Acute postop ventricular bigeminy/ R on T phenomenon with v-fib arrest X2 - s/p shocks x2, CPR, low-dose Epi, Amio 300 mg bolus and drip- Rosc achieved. Pt woke up post code and followed commands
-NSVTs
-Bedside ROBERTA revealed no pericardial effusion, valves ok. Lateral wall had some stunning
-Acute postop hypovolemia
-Acute postop cardiogenic shock
-Acute postop atelectasis
-Acute postop blood loss anemia - stable, no transfusion
-Acute postop coagulopathy - s/p 2 FFPs and 2 unit platelets
-ROBERTA
-Shock liver - holding Tylenol - follow
-postop RV failure, taken to lab animal technician for angiography (grafts patent), Impella RP placed
Subjective
Procedure
s/p Valve sparing aortic root replacement with reimplantation of [place] aortic valve [Gregory Procedure]; Reimplantation of left and right coronary buttons into their respective neosinus; CABG x 2 [[place] CEDILLO in situ to LAD, RSVG to proximal RCA];
Left atrial appendage exclusion (35mm clip) by Dr. Zuñiga on 09/29/24
s/p Impellla RP placed 10/01/24
-
Date of Service: October 04, 2024
Objective Data
-
PT 25.3 Sec (11.4-14.6) H 10/01/24 22:42
INR 2.29 10/01/24 22:42
APTT 50.8 Sec (23.4-35.0) H 10/04/24 00:43
Vital Signs
Vital Signs
Temp Pulse Resp BP Pulse Ox
99 F 67 16 79/58 99
10/04/24 03:00 10/04/24 03:30 10/04/24 03:30 10/03/24 23:00 10/04/24 03:00
CT Intake/Output/Weight
10/03/24 10/03/24 10/04/24
06:59 18:59 06:59
Intake Total 717.2 / 2558.50 1161.6 / 2802.3 1640.7 / 2802.3
Output Total 1465 / 4525 520 / 925 405 / 925
Balance -747.8 / -1966.50 641.6 / 1877.3 1235.7 / 1877.3
SaO2: 99
Physical Exam
-
General: Other (Sedated, intubated)
Cardiovascular: Irregular rate & rhythm
Respiratory: Rales
Sternum: Stable
Incision: Clean, Dry and Intact
Extremities: Edema +1
[2024-10-04 04:15] LABS: B.E. 2.8 mmol/L; HCO3 27.2 mmol/L (21-28); O2 Saturation % 99.6 % (94-98); PCO2 40 mmHg (35-48); PO2 233 mmHg (83-108); pH 7.44 (7.35-7.45)
[2024-10-04 04:19] LABS: Mixed Venous O2 Saturation 51.7 %
[2024-10-04 04:25] LABS: O2 Therapy 100%
--- NOTE | 2024-10-04 05:17 | PTCARENOTE ---
Pt reassessed. Pt intubated and sedated. Fentanyl and Versed infusing as ordered. Fent/versed boluses administered as needed. Pt waking up agitated and attempting to remove tube. B/L wrist restraints. Pt going between a-fib and sinus tach. BP's
significantly lower while in a-fib and pt requires more BP support via pressors. Pt is currently Sinus tach. HR 90s. BPs 110s/80s. Levo and vaso infusing. PAPs 40s/30s. CVP ~23. Difficult to get peripheral POX on patient. ABG Q2. Last POX on ABG was
99%. FiO2 100%. See worklist for full vent settings. Maki catheter intact. Urine salvador. UO increased. Bumex drip infusing as ordered. All surgical sites stable. [place] and a-line leveled, zeroed, and flushed. Impella RP remains at P-7. Heparin and
dobutamine infusing as ordered/per protocol. See worklist for full nursing interventions. See MAR for medication administration.
[2024-10-04 06:31] LABS: B.E. 9.9 mmol/L; HCO3 33.3 mmol/L (21-28); O2 Saturation % 99.3 % (94-98); PCO2 39 mmHg (35-48); PO2 238 mmHg (83-108); pH 7.54 (7.35-7.45)
[2024-10-04 06:32] LABS: O2 Therapy 100%
[2024-10-04 06:33] LABS: Hematocrit 22.7 % (39.0-52.0); Hemoglobin 7.8 g/dL (13.0-18.0); Mean Corp Hgb Conc. 34.4 g/dL (33.0-37.0); Mean Corpuscular Hgb 30.6 pg (27.0-31.0); Mean Platelet Volume 12.3 fL (7.4-10.4); Platelet Count 75 10^3/uL (130-400); Red Blood Cell Count 2.55 10^6/uL (4.70-6.10); Red Cell Dist. Width 14.1 % (11.5-14.5); White Blood Cell Count 18.1 10^3/uL (4.8-10.8)
[2024-10-04 06:35] LABS: Mixed Venous O2 Saturation 52.8 %
[2024-10-04] MEDS: BUMEX 50 IV ×2 (06:39→17:34)
[2024-10-04 06:41] LABS: APTT 48.4 Sec (23.4-35.0)
[2024-10-04] MEDS: SOLU-CORTEF 150 MG IV (06:49)
[2024-10-04] MEDS: PITRESSIN 100 IV ×2 (06:55→14:02)
[2024-10-04 06:56] LABS: Lactic Acid 2.9 mmol/L (0.7-2.0)
[2024-10-04 06:58] LABS: Albumin 3.2 g/dl (3.5-5.0); Alkaline Phosphatase 109 U/L (38-126); Blood Urea Nitrogen 43 mg/dl (9-20); Calcium 7.7 mg/dl (8.4-10.2); Carbon Dioxide 30 mmol/L (22-30); Chloride 85 mmol/L (98-107); Estimated Creatinine Clearance 82 ml/min; Glucose 135 mg/dl (70-99); Potassium 4.2 mmol/L (3.5-5.1); Sodium 124 mmol/L (135-145); Total Protein 4.9 g/dl (6.3-8.2); eGFR 59.73
[2024-10-04] MEDS: CALCIUM GLUCONATE 100 IV ×5 (07:28→22:28)
[2024-10-04 07:31] LABS: ALT (SGPT) 3364 U/L (0-50); AST (SGOT) 5416 U/L (17-59); LDH 9523 U/L (120-246)
--- NOTE | 2024-10-04 07:41 | W.PN.INTV ---
Today's Communication / Plan
Recommendations
Ventilator settings reviewed
ABG reviewed-ventilator adjusted
Follow ABG
Wean FiO2
Follow chest x-ray
Diuresis as tolerated
Impella continues
Follow LFTs
Continue pressors and Flolan
Assessment
-
Patient is a 54-year-old male with previous history of hypertension presenting to [facility] on 09/26/2024 for complaints of chest pain with shortness of breath. He was ruled in for NSTEMI with elevated troponins and underwent left heart
catheterization demonstrating multivessel CAD. He was transferred from [place] to [place] for evaluation of CABG. He underwent CABG x 2 on 09/29/2024 without complication and perioperatively transferred to CVICU for further management.
MV CAD status post CABG x 2, status post valve sparing aortic root replacement and reimplantation 09/29/2024-Dr. Zuñiga
s/p LHC 10/01/24-no critical stenosis
s/p impelle placement 10/01/24
Ventilator dependent respiratory failure
Reintubated 10/04/2024
Extubated
RV infarct suspected
Cardiogenic shock on pressors/inotropes
NSTEMI with elevated troponins
Chest pain and shortness of breath
Perioperative mechanical ventilation
Mild anemia, postoperative
Stage II DD on ECHO
Severe conc LVH
Conditions present prior to admission:
Hypertension
Plan
S/p CAB POD #5
Titrating off pressors per protocol, still on pressors: levo/dobutamine/vasopressin, off milrinone
Other gtts: amio, bumex gtt, heparin, transitioned off insulin IV
Inh: epoprostenol via HFNC
Weight: 99kg -> 107 -> 110-now 116 kg
UO: 1040ml, 1420mL, 2420mL
PAS/D: 35/20, 32/18, 34/19
ECHO reviewed with normal function, stage II DD
PA catheter readings reviewed
Management of chest tubes per primary service
Pain control
RASS goal of 0 to -1
Intubated-ventilator settings reviewed
ABG reviewed-decrease minute ventilation-reviewed with critical care nursing and respiratory
VAP prevention protocol
Spontaneous breathing trial once medically stabilized
Follow ABG
Follow chest x-ray
Consider nutrition in the next 24-48 hours
Nausea management
GI prophylaxis is indicated for mechanical ventilation >48 hours-currently on pantoprazole
Monitor critical I/O's
Maki/chest tube output
Diuresis as tolerated
Monitor renal function, electrolytes, intake/output, lower extremity edema and weight
Replace electrolytes as needed
May consider renal consult for early CRRT eval
Follow hemoglobin and platelet count
Transfuse if needed
Monitor blood sugar
Insulin supplementation as needed
DVT prophylaxis-mechanical
GI prophylaxis-on PPI
Nutrition
Bedside range of motion
Critical care statement: A total of 44 minutes of critical care time was provided for this patient today. This includes management of unstable vital signs, evaluation of the patient at bedside, reviewing the patient's pertinent medical records
including radiographs, ventilator management, arterial blood gas management, spontaneous breathing trial management, pressor management, microbiology, laboratory evaluations, and discussion with primary team, consultants, pharmacy, nutrition,
physical therapy, case management, charge nurse, critical care nursing, and respiratory therapy.
Diagnostic Data
CXR 10/03/24- No significant interval change in lines and tubes. As described, bilateral parenchymal opacities highly suggestive of pulmonary edema pattern. Slight improvement in atelectasis in the medial left base.
Chest X-Ray: 09/29/24- New postoperative changes as detailed above. Small left pleural effusion with underlying retrocardiac atelectasis
CT Scan: CAP 09/28/24- 1. Ascending aortic aneurysm measuring up to 5.8 cm at the sinotubular junction.
2. Severe atherosclerotic disease of the left anterior descending with high-grade stenosis proximally secondary to probably noncalcified plaque. There is additional calcified plaque within the mid/distal vessel.
3.There is submucosal fatty deposition within the terminal ileum, sigmoid colon and rectum which is nonspecific however can be seen with sequelae of chronic inflammation.
Echo: ROBERTA 09/29/24- Overall LVEF is approximately 55% with no RWMA. Severe concentric left ventricular hypertrophy. Stage II Diastolic dysfunction. Mild mitral regurgitation. Mild aortic insufficiency.
AI jet is central due to ST junction and sinus of Valsalva distortion. Sinus of Valsalva is aneurysmal measuring 4.6 cm. Sinotubular junction measures 4.3 cm. Mid ascending aorta is dilated measuring 4.0 cm at the level of the RPA. Mild sessile
atheroma seen in the descending aorta.
PFT's:
Reports and relevant images were personally reviewed.
Subjective Dataa
Subjective Data
Date of Service:
Date of Service: October 04, 2024
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
Subjective:
Events overnight noted, intubated, continues on Flolan, Impella, and pressors-sedated on a ventilator and review of systems was unobtainable, no increased secretions
Review of Systems
General: Other (Per HPI)
Objective Data
Data Reviewed
Vital Signs / I&O / Oxygen:
Vital Signs
Temp Pulse Resp BP Pulse Ox
99.1 F 94 16 79/58 99
10/04/24 05:00 10/04/24 06:00 10/04/24 06:00 10/03/24 23:00 10/04/24 05:00
Intake and Output
10/03/24 10/04/24 10/05/24
06:59 06:59 06:59
Intake Total 2500.90 / 2558.50 3201.0 / 3323.9 122.9 / 122.9
Output Total 4465 / 4525 1350 / 1550 200 / 200
Balance -1964.10 / -1966.50 1851.0 / 1773.9 -77.1 / -77.1
SaO2 [A/C] 90
SaO2 [SIMV] 99
SaO2 99
Nasal Cannula flow liters per 50
minute
Physical Exam
General: Respiratory Distress (n), Comfortable and Other (NAD)
HEENT: Normocephalic, Anicteric and Moist Mucous Membranes
Cardiovascular: Regular Rhythm
Respiratory: Clear, Non-Labored Respirations, ET Tube, Chest Tube and Other (PA Cath in place)
GI: Soft, Non Distended and Non Tender
Neurology: No Motor Deficits and Other (Sedated on a ventilator)
Skin: Warm, Good Color and Cyanosis (n)
Labs/Micro/Reports
Lab Data
10/04/24 06:22
10/04/24 06:22
Laboratory Results
10/03/24 10/03/24 10/03/24
08:43 12:29 19:19
APTT 52.0 H 56.8 H
pH 7.47 H
pCO2 40
pO2 153 H
HCO3 29.1 H
O2 Delivery Level
10/03/24 10/03/24 10/04/24
21:34 23:36 00:43
APTT 50.8 H
pH 7.49 H 7.37 7.33 L
pCO2 36 35 48
pO2 64 L 60 L 65 L
HCO3 27.4 20.2 L 25.3
O2 Delivery Level high flow 50l 5% Vent
10/04/24 10/04/24 10/04/24
02:14 04:08 06:14
APTT 48.4 H
pH 7.44 7.44
pCO2 41 40
pO2 220 H 233 H
HCO3 27.8 27.2
O2 Delivery Level 100% 100%
10/04/24
06:22
APTT
pH 7.54 H
pCO2 39
pO2 238 H
HCO3 33.3 H
O2 Delivery Level 100%
[2024-10-04] MEDS: NOVOLOG FLEXPEN-MODERATE RESISTANCE SC ×2 (08:14→12:45)
[2024-10-04] MEDS: SENOKOT-S PO ×2 (08:15→19:45)
[2024-10-04] MEDS: MAGNESIUM OXIDE PO ×2 (08:15→19:45)
[2024-10-04] MEDS: NEURONTIN PO (08:15)
[2024-10-04] MEDS: LIDOCAINE 4% PATCH TOPICAL ×2 (08:15)
[2024-10-04] MEDS: VITAMIN C PO (08:16)
--- NOTE | 2024-10-04 08:23 | W.PN.CARDCBS ---
Addendum entered and electronically signed by Yolanda More PA-C 10/04/24 14:45:
Back in to reassess filling pressures, CO and mechanical support settings. 33 min in critical care time.
Addendum entered and electronically signed by Merissa Jean-Baptiste MD 10/04/24 14:25:
I saw and examined the patient.
The Gynecological Assistant's note was reviewed and I agree with the note.
Comment: Patient seen at bedside midmorning, late entry note. Overnight events noted in regards to A-fib with RVR, hypotension, further decompensation needing increasing pressors, need for reintubation overnight. Limited echocardiogram overnight
with overall stable LV, mildly worsened TR than before. RV Impella support increased to P7 from P5 with addition of IV diuretics.
Overnight patient since the acute events appear stable. Urine output has been steady. Sheng based on bedside pulmonary pressures 0.6-0.7. RV Impella with cardiac output of about 3.3 L/min. RA pressure at 19, PA of 45/33. Lactate at 2.7, ROBERTA and
ALI noted. Continued amiodarone along with Levophed at 12 mcg, vasopressin at 0.04 mcg and dobutamine at 5 mcg along with fentanyl Versed and IV unfractionated heparin drip. Bumex drip at 1 mg. Chest x-ray reviewed showing good placement of RV
Impella. Flolan is also ongoing.
On exam, Patient is intubated and sedated, irregularly irregular heart rhythm, normal S1 and S2, RV Impella in place, abdomen is soft, nontender, nondistended, hypoactive bowel sounds, decreased breath sounds anteriorly, warm extremities without
significant edema.
Recommendations:
1. Continue ongoing cardiac support for likely RV infarction postoperatively. Discussed with CT surgical PA, discussions were had with advanced heart failure/mechanical technician support association at [facility] regarding patient's clinical
status and they agree with current treatment and plan.
2. Continue aggressive IV diuresis as tolerated and trending acute kidney or liver injury. RV Impella support for now with close monitoring for signs and symptoms of hemolysis.
3. Blood transfusion as noted by CT surgery for ongoing anemia.
4. Continue amiodarone drip for now for postoperative atrial fibrillation. Overall well rate controlled.
5. Wean pressors and ventilator as tolerated.
6. Overall, guarded prognosis.
Merissa Jean-Baptiste MD, [facility], [facility]
Original Note:
Today's Communication / Plan
-
Remains on pressors as noted
Amio running at 0.5
LFTs increased
Impella RP at P7
Impression / Plan
-
PCP: Dr. Marsh
Cardiology: None prior to admission, seen by Dr. Chavarria at [facility]
Impression:
Admitted to [facility] with chest pain 09/25/[address] surgical evaluation 09/27/24
CAD
NSTEMI peak Troponin 67 and MV CAD by cath at [facility] 09/27/24
s/p CABG with CEDILLO to LAD and SVG to prox RCA 09/29/24
s/p LHC with widely patent CEDILLO to LAD, 50% stenosis in the LAD just beyond the MARLA touchdown with KATIE III flow distally, retrograde filling of proximal LAD via moderate size diagonal branch, SVG is anastomosed to the mid RCA, anatomic kink in the
midportion of the vein graft but good distal flow to the distal RCA, [place] RCA with diffuse luminal irregularities, but no focal obstructive stenosis 10/01/2024
h/o aortic root aneurysm
root measuring 5.4cm, mid ascending aorta 4.5cm by [facility] imaging 09/27/24
s/p valve sparing aortic root replacement with reimplantation of [place] aortic valve (Gregory Procedure) 09/29/24. A left atrial appendage clip was also placed during surgery
HTN
Acute post-op ventricular bigeminy with R on T and VF arrest x2 09/29/24
treated with successful shock x2, CPR, amio and Epi with ROSC
RV Impella placed 10/01/2024
Physiology consistent with RV infarction
Elevated troponin-likely combination of ischemia and RV strain
Inotrope dependent hypotension
Abnormal LFTs
Postoperative hypotension
Ventricular tachycardia
Postoperative atrial fibrillation
Diminished urine output
Intraoperative ROBERTA 09/29/24: Postop findings, EF 50 to 55% with new septal wall hypokinesis, anterior and lateral wall motion appear normal, no AI, the LA appendage has been clipped with a 0.5 cm residual base noted
Bedside ROBERTA 09/29/24: Postop in the room, EF 55% with mild septal wall hypokinesis that appears better than what it appeared in the OR, no pericardial effusion, trace MR, AV function normal
Echo 10/01/24: EF 40 to 45%, inferior wall and inferoseptum appear hypokinetic from base to midportion, moderate concentric LVH, mild to moderately reduced RV systolic function, mild to moderate MR
Echo 10/03/24: EF 50 to 55%, basal and mid inferior hypokinesis, RV hypokinesis with normal RV size, Impella and [place] catheter in place, mild TR
Plan:
-Overnight events noted. Patient with recurrence of Afib 10/03/24 leading to hypotension with uptitration of pressors. Increasing hypoxia, patient intubated 10/04/24 early AM and remains on the vent with Flolan 0.05 mcg/kg/min.
-Levo at 12
-Dobutamine at 5
-Vaso at 0.04
-Amio at 0.5, ECG from 10/04/24 reviewed by me looks like rate controlled Afib. Heparin gtt running
-Impella RP placed 10/01/24 and running at P7
-Labs reviewed by me. LFTs trending up 10/04/24 AM AST increased from 657 to 5416 and the ALT increased from 1113 to 3364
-Lactic acid level peaked at 7.6 on 1 12:25 PM and is now trending down to 2.5 on 10/04/24 AM
HPI: Patient came to [facility] as a transfer from [facility] yesterday for evaluation from CT surgery team for MV CAD and aortic root aneurysm and cardiology has been consulted. Patient sees his PCP mostly when he is sick, but had a physical within the last
year. Patient with known h/o HTN and takes losartan 25 mg daily. He does not check BP at home on a regular basis. 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 He was working last Friday
night into Friday morning and was taking a break and laying on a sofa when he had sudden onset chest pain that lasted for 10-15 minutes and seemed to get better when he sat up. Pain returned again when he returned home after working and he told
his and they made a plan to go to the hospital. Then, after walking up the stairs in his home the patient had recurrent chest pain that was the most intense pain he had experienced and pain persisted. Patient went to [facility] ER and Troponin was
elevated prompting a cath that revealed MV CAD. Patient had an echo that showed aortic root aneurysm and then patient had CT, but results not available. Patient was transferred to for CT surgery eval last evening.
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
Subjective
Date of Service: October 04, 2024
Intubated and sedated
Objective
Labs:
10/04/24 06:22
10/04/24 06:22
Labs
Hgb 7.8 g/dL (13.0-18.0) L 10/04/24 06:22
Hct 22.7 % (39.0-52.0) L 10/04/24 06:22
Plt Count 75 10^3/uL (130-400) L D 10/04/24 06:22
PT 25.3 Sec (11.4-14.6) H 10/01/24 22:42
INR 2.29 10/01/24 22:42
APTT 48.4 Sec (23.4-35.0) H 10/04/24 06:14
Sodium 124 mmol/L (135-145) L 10/04/24 06:22
Potassium 4.2 mmol/L (3.5-5.1) 10/04/24 06:22
BUN 43 mg/dl (9-20) H 10/04/24 06:22
Creatinine 1.4 mg/dL (0.7-1.3) H 10/04/24 06:22
Glucose 135 mg/dl (70-99) H 10/04/24 06:22
Troponins
10/01/24 10/01/24
08:23 13:41
Troponin I 79.600 H* 68.900 H*
Vital Signs and I&O:
Vital Signs
Temp Pulse Resp BP Pulse Ox
99.6 F 70 16 79/58 100
10/04/24 08:00 10/04/24 08:00 10/04/24 08:00 10/03/24 23:00 10/04/24 08:00
Vital Signs
Temp Pulse Resp BP Pulse Ox
99.6 F 70 16 79/58 100
10/04/24 08:00 10/04/24 08:00 10/04/24 08:00 10/03/24 23:00 10/04/24 08:00
Intake & Output
10/02/24 10/03/24 10/04/24 10/05/24
06:59 06:59 06:59 06:59
Intake Total 2572.4 / 2642.0 2500.90 / 2558.50 3201.0 / 3323.9 232.8 / 232.8
Output Total 2420 / 2770 4465 / 4525 1350 / 1550 310 / 310
Balance 152.4 / -128.0 -1964.10 / -1966.50 1851.0 / 1773.9 -77.2 / -77.2
Physical Exam
Physical Exam
GEN: Intubated and sedated.
HEENT: MMM
LUNGS: Intubated and on the vent with inhaled Flolan. Coarse BS throughout, no wheeze
CV: Afib on tele.
ABD: ND
EXT: No edema B/L
NEURO: Gross non-focal
SKIN: No rash
[2024-10-04 08:24] LABS: B.E. 6.2 mmol/L; HCO3 29.1 mmol/L (21-28); O2 Saturation % 99.5 % (94-98); PCO2 34 mmHg (35-48); PO2 190 mmHg (83-108); pH 7.54 (7.35-7.45)
[2024-10-04 08:30] LABS: Mixed Venous O2 Saturation 46.4 %
[2024-10-04 08:37] LABS: Lactic Acid 2.5 mmol/L (0.7-2.0)
[2024-10-04 08:38] LABS: Direct Bilirubin 1.5 mg/dl (0.0-0.4)
[2024-10-04] MEDS: PROTONIX PO (08:41)
[2024-10-04] MEDS: SODIUM BICARBONATE 1025 MEQ INF CATH (09:06)
[2024-10-04] MEDS: LOW STRENGTH ASPIRIN PO (09:21)
--- NOTE | 2024-10-04 09:52 | PTCARENOTE ---
Patient received from previous shift resting in bed, intubated and sedated. RIJ Cordis/[place] catheter. L radial arterial lines present - leveled, flushed, and calibrated w/good waveforms returned. Afib via cm, SaO2 @ 97% on ventilator, titrating
FiO2 as able. Epicardial A+V wires to pulse generator, noted to be w/out appropriate capture - Dr. Zuñiga to bedside, updated, pacing wire disconnected from box. Impella RP present via R groin at P7. Maki catheter to gravity. All procedural sites
stable. See work list for full assessment, interventions performed, and intravenous infusions and titrations.
[2024-10-04 10:13] LABS: Mixed Venous O2 Saturation 51.8 %
[2024-10-04 10:15] LABS: B.E. 5.4 mmol/L; HCO3 28.7 mmol/L (21-28); O2 Saturation % 99.1 % (94-98); PCO2 36 mmHg (35-48); PO2 184 mmHg (83-108); pH 7.51 (7.35-7.45)
[2024-10-04 10:26] LABS: Hematocrit 24.4 % (39.0-52.0); Hemoglobin 8.3 g/dL (13.0-18.0); Mean Corpuscular Hgb 29.9 pg (27.0-31.0); Mean Corpuscular Volume 87.8 fL (80.0-94.0); Red Blood Cell Count 2.78 10^6/uL (4.70-6.10); Red Cell Dist. Width 14.1 % (11.5-14.5); White Blood Cell Count 19.3 10^3/uL (4.8-10.8)
[2024-10-04 10:37] LABS: Platelet Count 74 10^3/uL (130-400)
[2024-10-04 10:53] LABS: Albumin 3.3 g/dl (3.5-5.0); Alkaline Phosphatase 133 U/L (38-126); Blood Urea Nitrogen 44 mg/dl (9-20); Calcium 7.7 mg/dl (8.4-10.2); Carbon Dioxide 31 mmol/L (22-30); Chloride 85 mmol/L (98-107); Direct Bilirubin 1.6 mg/dl (0.0-0.4); Estimated Creatinine Clearance 95 ml/min; Glucose 138 mg/dl (70-99); Potassium 4.3 mmol/L (3.5-5.1); Sodium 123 mmol/L (135-145); Total Bilirubin 4.5 mg/dl (0.2-1.3); Total Protein 5.1 g/dl (6.3-8.2); eGFR > 60.00
[2024-10-04] MEDS: ASPIRIN 300 MG RECTAL (11:18)
[2024-10-04] MEDS: PLAVIX 75 MG PO (11:18)
[2024-10-04 11:30] LABS: ALT (SGPT) 3579 U/L (0-50); AST (SGOT) 5668 U/L (17-59)
--- NOTE | 2024-10-04 11:42 | W.PN.UPDATE ---
Update Note
Progress Note Update
Radial arterial line placement
A time-out was completed verifying correct patient, procedure, site, patient positioning, and special equipment. Patient was monitored with continuous bedside EKG, blood pressure, pulse ox readings.
Doc's test was performed to ensure adequate perfusion. The patient's right wrist was prepped and draped in sterile fashion.
1% Lidocaine was used to anesthetize the area. Ultrasound was used in real time to localize the radial artery and guide introducer needle into the arterial lumen. The catheter was threaded over the guide wire and the needle was removed with
appropriate pulsatile blood return. The catheter was then secured in place to the skin and a biopatch and sterile dressing applied.
Perfusion to the extremity distal to the point of catheter insertion was checked and found to be unchanged.
Estimated Blood Loss: 0 mL
The patient tolerated the procedure well and there were no complications.
Remains in critical condition.
CPT: 49406
[2024-10-04 12:19] LABS: B.E. 4.4 mmol/L; HCO3 29.2 mmol/L (21-28); O2 Saturation % 99.2 % (94-98); PCO2 44 mmHg (35-48); PO2 119 mmHg (83-108); pH 7.43 (7.35-7.45)
[2024-10-04 12:21] LABS: Mixed Venous O2 Saturation 51.8 %
[2024-10-04 12:27] LABS: Hematocrit 25.1 % (39.0-52.0); Hemoglobin 8.7 g/dL (13.0-18.0); Mean Corp Hgb Conc. 34.7 g/dL (33.0-37.0); Mean Corpuscular Hgb 30.4 pg (27.0-31.0); Mean Corpuscular Volume 87.8 fL (80.0-94.0); Mean Platelet Volume 12.3 fL (7.4-10.4); Platelet Count 77 10^3/uL (130-400); Red Blood Cell Count 2.86 10^6/uL (4.70-6.10); Red Cell Dist. Width 14.4 % (11.5-14.5); White Blood Cell Count 19.8 10^3/uL (4.8-10.8)
[2024-10-04 12:32] LABS: Lactic Acid 2.5 mmol/L (0.7-2.0)
[2024-10-04 12:34] LABS: Albumin 3.3 g/dl (3.5-5.0); Alkaline Phosphatase 132 U/L (38-126); Blood Urea Nitrogen 43 mg/dl (9-20); Calcium 7.8 mg/dl (8.4-10.2); Carbon Dioxide 33 mmol/L (22-30); Chloride 85 mmol/L (98-107); Direct Bilirubin 1.7 mg/dl (0.0-0.4); Estimated Creatinine Clearance 82 ml/min; Glucose 149 mg/dl (70-99); Potassium 4.1 mmol/L (3.5-5.1); Sodium 124 mmol/L (135-145); Total Bilirubin 4.7 mg/dl (0.2-1.3); eGFR 59.73
[2024-10-04 12:37] LABS: INR 2.76; PT 29.2 Sec (11.4-14.6)
[2024-10-04 12:38] LABS: APTT 52.1 Sec (23.4-35.0)
[2024-10-04 13:24] LABS: ALT (SGPT) 3609 U/L (0-50); AST (SGOT) 5866 U/L (17-59)
--- NOTE | 2024-10-04 13:33 | PTCARENOTE ---
Lab results conveyed INR 2.76. Per Dr. Zuñiga, heparin gtt to 1300units/hr, continue with protocol.
[2024-10-04 13:39] LABS: LDH 269 U/L (120-246)
[2024-10-04] MEDS: SOLU-CORTEF 50 MG IV (13:51)
[2024-10-04 14:09] LABS: B.E. 6.4 mmol/L; HCO3 30.5 mmol/L (21-28); O2 Saturation % 99.3 % (94-98); PCO2 41 mmHg (35-48); PO2 161 mmHg (83-108); pH 7.48 (7.35-7.45)
[2024-10-04 14:13] LABS: Mixed Venous O2 Saturation 60.9 %
[2024-10-04 14:24] LABS: Hematocrit 25.1 % (39.0-52.0); Hemoglobin 8.6 g/dL (13.0-18.0); Mean Corp Hgb Conc. 34.3 g/dL (33.0-37.0); Mean Corpuscular Hgb 30.1 pg (27.0-31.0); Mean Corpuscular Volume 87.8 fL (80.0-94.0); Mean Platelet Volume 12.1 fL (7.4-10.4); Platelet Count 86 10^3/uL (130-400); Red Blood Cell Count 2.86 10^6/uL (4.70-6.10); Red Cell Dist. Width 14.5 % (11.5-14.5); White Blood Cell Count 18.8 10^3/uL (4.8-10.8)
[2024-10-04] MEDS: DOBUTREX 500 MG 250 IV (14:36)
--- NOTE | 2024-10-04 14:45 | W.PN.UPDATE ---
Update Note
Progress Note Update
Back in to reassess filling pressures, CO and mechanical support settings. 33 min in critical care time.
[2024-10-04 14:49] LABS: ACT-LR - POC 276 Seconds (116-155)
[2024-10-04 14:49] LABS: Albumin 3.4 g/dl (3.5-5.0); Alkaline Phosphatase 147 U/L (38-126); Blood Urea Nitrogen 43 mg/dl (9-20); Calcium 7.9 mg/dl (8.4-10.2); Carbon Dioxide 33 mmol/L (22-30); Chloride 84 mmol/L (98-107); Direct Bilirubin 1.8 mg/dl (0.0-0.4); Estimated Creatinine Clearance 82 ml/min; Glucose 150 mg/dl (70-99); Lactic Acid 1.9 mmol/L (0.7-2.0); Potassium 4.1 mmol/L (3.5-5.1); Sodium 123 mmol/L (135-145); Total Bilirubin 4.8 mg/dl (0.2-1.3); Total Protein 5.2 g/dl (6.3-8.2); eGFR 59.73
--- NOTE | 2024-10-04 15:17 | CM ---
Reviewed chart. Following his progress. Will need to see his functional level when medically stable. Prior to admission he resides with his spouse and son in a two story home with one step to enter. He has a full flight of steps to get to
bedroom/full bathroom. He has a powder room on the first floor. Prior to admission he was independent with ambulation and adls. He does not have any DME in the home. He has a prescription plan. Medical work-up in progress. The discharge plan is
undetermined at this time.
--- NOTE | 2024-10-04 15:39 | PTCARENOTE ---
JUAN ANTONIO Ravi updated to status - b/l toes appear dusky. DP palp, extremities warm.
[2024-10-04 15:44] LABS: ALT (SGPT) 3617 U/L (0-50); AST (SGOT) 6034 U/L (17-59)
[2024-10-04] MEDS: SOLU-CORTEF IV (15:44)
[2024-10-04 15:46] LABS: LDH 261 U/L (120-246)
[2024-10-04] MEDS: NSS (PRESERVATIVE FREE) 10 ML IV (15:51)
[2024-10-04] MEDS: PROTONIX IV 40 MG IV (15:51)
[2024-10-04 15:55] LABS: Fibrinogen 286 MG/DL (199-459)
[2024-10-04 16:21] LABS: B.E. 6.9 mmol/L; HCO3 31.3 mmol/L (21-28); O2 Saturation % 98.9 % (94-98); PCO2 43 mmHg (35-48); PO2 111 mmHg (83-108); pH 7.47 (7.35-7.45)
[2024-10-04 16:22] LABS: O2 Therapy 100
[2024-10-04 16:23] LABS: Hematocrit 25.1 % (39.0-52.0); Hemoglobin 8.8 g/dL (13.0-18.0); Mean Corp Hgb Conc. 35.1 g/dL (33.0-37.0); Mean Corpuscular Hgb 30.8 pg (27.0-31.0); Mean Corpuscular Volume 87.8 fL (80.0-94.0); Mean Platelet Volume 12.2 fL (7.4-10.4); Platelet Count 90 10^3/uL (130-400); Red Blood Cell Count 2.86 10^6/uL (4.70-6.10); Red Cell Dist. Width 14.5 % (11.5-14.5); White Blood Cell Count 19.4 10^3/uL (4.8-10.8)
[2024-10-04 16:26] LABS: Lactic Acid 1.8 mmol/L (0.7-2.0); Mixed Venous O2 Saturation 57.9 %
[2024-10-04 16:35] LABS: Albumin 3.3 g/dl (3.5-5.0); Alkaline Phosphatase 142 U/L (38-126); Blood Urea Nitrogen 43 mg/dl (9-20); Calcium 7.6 mg/dl (8.4-10.2); Carbon Dioxide 35 mmol/L (22-30); Chloride 83 mmol/L (98-107); Direct Bilirubin 1.9 mg/dl (0.0-0.4); Estimated Creatinine Clearance 82 ml/min; Glucose 152 mg/dl (70-99); Potassium 4.1 mmol/L (3.5-5.1); Sodium 123 mmol/L (135-145); Total Protein 5.1 g/dl (6.3-8.2); eGFR 59.73
[2024-10-04 17:00] LABS: ALT (SGPT) 3415 U/L (0-50)
[2024-10-04 17:05] LABS: AST (SGOT) 5337 U/L (17-59); LDH 7657 U/L (120-246)
[2024-10-04] MEDS: NITRO-BID 1 INCH TOPICAL (17:46)
[2024-10-04 18:10] LABS: Mixed Venous O2 Saturation 54.8 %
[2024-10-04 18:12] LABS: B.E. 6.3 mmol/L; HCO3 30.6 mmol/L (21-28); O2 Saturation % 99.2 % (94-98); PCO2 42 mmHg (35-48); PO2 124 mmHg (83-108); pH 7.47 (7.35-7.45)
[2024-10-04 18:13] LABS: O2 Therapy %Oxygen/Room Air 100
[2024-10-04 18:15] LABS: Hematocrit 25.1 % (39.0-52.0); Hemoglobin 8.7 g/dL (13.0-18.0); Mean Corp Hgb Conc. 34.7 g/dL (33.0-37.0); Mean Corpuscular Hgb 30.5 pg (27.0-31.0); Mean Corpuscular Volume 88.1 fL (80.0-94.0); Mean Platelet Volume 11.4 fL (7.4-10.4); Platelet Count 98 10^3/uL (130-400); Red Blood Cell Count 2.85 10^6/uL (4.70-6.10); Red Cell Dist. Width 14.6 % (11.5-14.5); White Blood Cell Count 19.3 10^3/uL (4.8-10.8)
[2024-10-04] MEDS: NOVOLOG FLEXPEN-MODERATE RESISTANCE 1 UNITS SC (18:19)
[2024-10-04 18:20] LABS: Glucose - Point of Care 165 mg/dl (70-99)
[2024-10-04 18:21] LABS: PT 26.2 Sec (11.4-14.6)
[2024-10-04 18:22] LABS: APTT 50.2 Sec (23.4-35.0)
[2024-10-04 18:28] LABS: Albumin 3.3 g/dl (3.5-5.0); Alkaline Phosphatase 146 U/L (38-126); Blood Urea Nitrogen 43 mg/dl (9-20); Calcium 7.4 mg/dl (8.4-10.2); Carbon Dioxide 35 mmol/L (22-30); Chloride 83 mmol/L (98-107); Direct Bilirubin 1.9 mg/dl (0.0-0.4); Estimated Creatinine Clearance 82 ml/min; Glucose 157 mg/dl (70-99); Potassium 3.9 mmol/L (3.5-5.1); Sodium 123 mmol/L (135-145); eGFR 59.73
--- NOTE | 2024-10-04 18:30 | W.PN.UPDATE ---
Update Note
Progress Note Update
Patient remains with right RP Impella at P7 with flow at 3.7 L minute.
Drips as follows:
Bumex decreased from 1.5 as patient diuresed 2700 cc as of 1730
Now at 100
Versed at 2
Vaso at 0.04
Heparin at 1300 units/h. Plan to keep this dose Per Dr. Zuñiga as INR 2.4 and PTT 50.2 at 1800. Plan to transfuse 1 FFP.
Levophed at 10
Dobutamine at 5
Flow at 0.03
Labs checked every 2 hours throughout the shift. Creatinine remained stable at 1.4. Lactate trending down but total and direct bilirubin levels elevated with normal ultrasound of the abdomen. Fibrinogen levels within normal range. Platelets low
but slowly improving. LDH down x 2, now rising again. Will decrease lab draws to q6h starting @ 1800. Sheng 0.8>1.
[2024-10-04 19:37] LABS: ALT (SGPT) 3410 U/L (0-50)
[2024-10-04 20:24] LABS: AST (SGOT) 5123 U/L (17-59)
--- NOTE | 2024-10-04 20:27 | PTCARENOTE ---
1 u FFP transfused. No s/s of transfusion reaction.
[2024-10-04 20:35] LABS: Haptoglobin 89 mg/dL (30-200)
[2024-10-04 20:39] LABS: LDH 6932 U/L (120-246)
--- NOTE | 2024-10-04 20:44 | PTCARENOTE ---
Assumed care of patient at 1900. Patient found intubated and sedated in bed at time of assessment. Patient is arousable to verbal and tactile stimulation pupils are 3mm sluggish, but equal and reactive to light. Lung sounds have crackles in the
bases, patient is on ventilator with ac settings of 12bpm/550 TV/5 PEEP/40% FiO2 with saO2 at 94%. Patient has 8.0 ETT sitting 23cm on the lip. Heart sounds are audible but irregular apical rate. Patient has normal palpable radial pulses and
dorsalis pedis pulses with +1 generalized anasarca. There is a RP impella device in place accessed via the R femoral vein with flow rate of 3.1. Patient has hypoactive BS throughout all four quadrants of soft nontender abdomen with an NGT in place
with intermittent suction with brown blood tinged drainage. There is a hawkins in place draining clear yellow urine. 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
for impella device, ABD dressing over CT wounds that is CDI and R AC puncture site for previous PIV site with suture present 4x4 dressing with some sanguineous drainage present. Patient has R IJ cordis with swan at 52cm, R FA PIV receiving heparin,
and R upper arm PIV receiving Bumex. Patient has the following additional gtts infusing via the VIP: Fentanyl@125, Levo@10, Dobut@5, Vaso@0.004, Versed@2. The R fem venous sheath is receiving KVO as well as the Cordis/VIP. Vital signs as follows:
T-99.7 P-107 BP-124/83 RR-13 CVP-17 PAP-42/25.
--- NOTE | 2024-10-04 21:55 | PTCARENOTE ---
while performing oral care patient released large amount of bright red blood in ETT and became agitated and restless attempting to pull out tube get oob. Fentanyl and versed bolus administered gtts increased per protocol. Successful sedation. CT PA
and RT at bedside to treat and assess blood in ETT
--- NOTE | 2024-10-04 22:08 | RESPNOTE ---
pt is experiencing hemoptysis, covering physician made aware that veletri is contraindicated
[2024-10-04 22:30] LABS: B.E. 3.6 mmol/L; HCO3 29.5 mmol/L (21-28); Ionized Calcium 1.13 mMOL/L (1.15-1.33); O2 Saturation % 84.5 % (94-98); PCO2 51 mmHg (35-48); pH 7.37 (7.35-7.45)
[2024-10-04] MEDS: HEPARIN 25000 UNITS/250 ML IV (22:31)
[2024-10-04 22:33] LABS: PO2 53 mmHg (83-108)
[2024-10-04 22:34] LABS: Mixed Venous O2 Saturation 40.4 %
[2024-10-04 22:40] LABS: Hematocrit 24.7 % (39.0-52.0); Hemoglobin 8.3 g/dL (13.0-18.0); Mean Corp Hgb Conc. 33.6 g/dL (33.0-37.0); Mean Corpuscular Hgb 30.3 pg (27.0-31.0); Mean Corpuscular Volume 90.1 fL (80.0-94.0); Mean Platelet Volume 12.2 fL (7.4-10.4); Platelet Count 89 10^3/uL (130-400); Red Blood Cell Count 2.74 10^6/uL (4.70-6.10); Red Cell Dist. Width 14.7 % (11.5-14.5); White Blood Cell Count 21.7 10^3/uL (4.8-10.8)
[2024-10-04 22:41] LABS: PT 25.3 Sec (11.4-14.6)
[2024-10-04 22:42] LABS: APTT 52.6 Sec (23.4-35.0)
[2024-10-04 22:46] LABS: Albumin 3.4 g/dl (3.5-5.0); Alkaline Phosphatase 133 U/L (38-126); Blood Urea Nitrogen 44 mg/dl (9-20); Calcium 7.7 mg/dl (8.4-10.2); Carbon Dioxide 34 mmol/L (22-30); Chloride 82 mmol/L (98-107); Direct Bilirubin 1.9 mg/dl (0.0-0.4); Estimated Creatinine Clearance 76 ml/min; Glucose 152 mg/dl (70-99); Lactic Acid 4.8 mmol/L (0.7-2.0); Potassium 3.8 mmol/L (3.5-5.1); Sodium 125 mmol/L (135-145); Total Bilirubin 4.9 mg/dl (0.2-1.3); Total Protein 5.2 g/dl (6.3-8.2); eGFR 54.98
--- NOTE | 2024-10-04 23:01 | PTCARENOTE ---
Labs obtained. pO2 noted to be low and lactic acid elevated. CT PA notified. Flolan to be dc'd by RT. 2u FFP and [address] PA. Pending CXR. FiO2 increased to 60%.
[2024-10-04 23:16] LABS: ALT (SGPT) 3198 U/L (0-50); AST (SGOT) 4255 U/L (17-59)
[2024-10-04 23:46] LABS: LDH 5615 U/L (120-246)
--- NOTE | 2024-10-04 23:48 | PTCARENOTE ---
Patient noted to be hypotensive and continues to have hemoptysis along with low saO2 values 89%. CT PA notified and per PA adjusted FiO2 to 80%, deep suctioning performed, heparin to be shut off, Fentanyl lowered to 125.
[2024-10-05] VITALS (19 sets, daily range): BP systolic 95–115; BP diastolic 63–79; BMI 33.1
[2024-10-05] MEDS: VERSED 50 IV ×2 (00:07→08:16)
[2024-10-05] MEDS: NITRO-BID 1 INCH TOPICAL ×4 (00:28→17:34)
[2024-10-05] MEDS: SOLU-CORTEF 50 MG IV (00:31)
[2024-10-05] MEDS: NOVOLOG FLEXPEN-MODERATE RESISTANCE SC ×4 (00:34→18:04)
[2024-10-05 00:35] LABS: Glucose - Point of Care 148 mg/dl (70-99)
--- NOTE | 2024-10-05 00:49 | PTCARENOTE ---
Due to suspected bleeding in the airway will avoid moving patient and oral care for now until patient's coagulation improves
--- NOTE | 2024-10-05 01:28 | RESPNOTE ---
10/04/2024 23:05, called to bedside for O2 change, and was told the vent circuit was full of blood. PA at bedside suctioning pt at this time as well. Flolan was stopped, Circuit, filters and flow sensor was changed on the vent. Asked the PA if he
was going to contact the surgeon about the amount of blood the he was suctioning, and that the flolan was stopped, he stated he has surgery to do in the A.M. and did not want to wake him, and would let him know in the A.M.
--- NOTE | 2024-10-05 03:46 | W.PN.CT ---
Addendum entered and electronically signed by KIT Jo 10/05/24 14:24:
CDI QUERY RESPONSE
-hyponatremia
Original Note:
Today's Communication / Plan
-
Plan:
-Pt is currently sedated and intubated
-On fentanyl gtt @ 125, Versed gtt @ 2.5, Levophed weaned off, Vasopressin @ 0.04, dobutamine @ 5, Bumex gtt @ 0.5 mg overnight, increased to 1 this AM, Impella is @ P7. Heparin gtt and Flolan weaned off last night @ 2345
-Became agitated with attempt of mouth care by nurse and was noted to have significant amount of bright red blood through ET tube
-Flolan was d/c'd d/t contraindication with hemoptysis
-D/C'd Heparin gtt d/t active bleed through ET tube. Pt required frequent suctioning.
-Pt was coagulopathic with INR of 2.76-> 2.4-> 2.3-> 1.85 this AM. Did received a total of 3u FFPs overnight
-Pt received 1u PRBC last night and currently receiving an additional unit of PRBC now
-Vent settings: A/C, TV 550, R 15, PEEP 8, FIO2 80%. AM ABG improved, will attempt to wean FIO2 and PEEP
-Will consider nutritional intake as Prealbumin is noted to be 8.2 this AM
-Will wean off of Vasopressin
-Monitor PA pressure
-Keep A-line
-Keep hawkins, 24hr u/o 5345 mL
-Continuous to make slow progress
Assessment / Plan
-
Assessment:
-Multivessel CAD/Ao aneurysm - s/p Valve sparing aortic root replacement with reimplantation of united [place]ub[place] aortic valve [Gregory Procedure]; Reimplantation of left and right coronary buttons into their respective neosinus; CABG x 2 [united auburn CEDILLO in situ to
LAD, RSVG to proximal RCA]; Left atrial appendage exclusion (35mm clip) by Dr. Zuñiga on 09/29/24, pod #6
-Intraop ROBERTA: LVEF preoperatively 60% with no significant regional wall motion abnormalities. He does have diastolic dysfunction with thick left ventricle. Following surgery his EF was the same with no significant regional wall motion
abnormalities aside from some paradoxical motion of his septum. He is aortic valve was spared and reimplanted inside of 32 mm cardio root Valsalva graft. Following surgery, his AI that was initially mild and central went to none. He had a mean
gradient of 3 across his united [place] aortic valve with a good coaptation height. Due to the long clamp around, he was a little bit sluggish coming off of cardiopulmonary bypass but did not require any inotropic support. His cardiac index was
approximately 1.7 to on just a low-dose Levophed. There is no residual flow into the left atrial appendage, and only a small residual stump was visualized.
s/p Impellla RP placed 10/01/24
-NSTEMI (High-sensitivity trop 67 @ [facility])
-[place]
-Aortic root aneurysm (5.8 cm, mid ascending aorta 4.5 cm)
-HTN
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
-Spermatocele/Hydrocele S/P b/l spermatocelectomies, 05/26/2015
-S/P LHC
-S/P Vasectomy, 2008
-Acute postop ventricular bigeminy/ R on T phenomenon with v-fib arrest X2 - s/p shocks x2, CPR, low-dose Epi, Amio 300 mg bolus and drip- Rosc achieved. Pt woke up post code and followed commands
-NSVTs
-Bedside ROBERTA revealed no pericardial effusion, valves ok. Lateral wall had some stunning
-Acute postop hypovolemia
-Acute postop cardiogenic shock
-Acute postop atelectasis
-Acute postop blood loss anemia - stable, no transfusion
-Acute postop coagulopathy - s/p 2 FFPs and 2 unit platelets
-ROBERTA
-Shock liver - holding Tylenol - follow
-postop RV failure, taken to crime lab analyst for angiography (grafts patent), Impella RP placed
Discussed patient care with: Cardiology, Nursing, Respiratory Therapy, Pharmacy and Care Team
Subjective
Procedure
s/p Valve sparing aortic root replacement with reimplantation of united [place]ub[place] aortic valve [Gregory Procedure]; Reimplantation of left and right coronary buttons into their respective neosinus; CABG x 2 [united auburn CEDILLO in situ to LAD, RSVG to proximal RCA];
Left atrial appendage exclusion (35mm clip) by Dr. Zuñiga on 09/29/24
s/p Impellla RP placed 10/01/24
-
Date of Service: October 05, 2024
Pt remains intubated and sedated. Became agitated with attempt of mouth care causing hemoptysis
Objective Data
-
Lab Results
10/05/24 00:00
PT 25.3 Sec (11.4-14.6) H 10/04/24 22:21
INR 2.30 10/04/24 22:21
APTT Cancelled 10/05/24 00:01
Vital Signs
Vital Signs
Temp Pulse Resp BP Pulse Ox
99.9 F 107 13 99/69 92
10/05/24 03:34 10/05/24 03:34 10/05/24 03:34 10/05/24 03:34 10/05/24 03:[address]
CT Intake/Output/Weight
10/04/24 10/04/24 10/05/24
06:59 18:59 06:59
Intake Total 2039.4 / 3323.9 1776.3 / 4564.4 2788.1 / 4564.4
Output Total 830 / 1550 2960 / 5000 2040 / 5000
Balance 1209.4 / 1773.9 -1183.7 / -435.6 748.1 / -435.6
SaO2: 92 (A/C, 550, 15, 8, 80% )
Physical Exam
-
General: Other (sedated and intubated )
Cardiovascular: Regular rate & rhythm
Respiratory: Decreased Breath Sounds (coarse)
Sternum: Stable
Incision: Clean, Dry, Intact and Dressing Intact
Extremities: Other (+trace edema)
Data Reviewed
-
Lab Results: Results Reviewed
Medications: Active Meds Reviewed
Chest X-Ray: Report Reviewed and Image Reviewed
ECG: Report Reviewed and Image Reviewed
[2024-10-05 04:02] LABS: B.E. 6.3 mmol/L; HCO3 31.2 mmol/L (21-28); O2 Saturation % 97.9 % (94-98); PCO2 46 mmHg (35-48); PO2 80 mmHg (83-108); pH 7.44 (7.35-7.45)
[2024-10-05 04:06] LABS: Mixed Venous O2 Saturation 39.1 %
[2024-10-05 04:32] LABS: Lactic Acid 1.9 mmol/L (0.7-2.0)
[2024-10-05 04:32] LABS: Albumin 3.4 g/dl (3.5-5.0); Alkaline Phosphatase 142 U/L (38-126); Blood Urea Nitrogen 45 mg/dl (9-20); Calcium 7.6 mg/dl (8.4-10.2); Carbon Dioxide 39 mmol/L (22-30); Chloride 84 mmol/L (98-107); Direct Bilirubin 2.2 mg/dl (0.0-0.4); Estimated Creatinine Clearance 82 ml/min; Glucose 138 mg/dl (70-99); Magnesium 1.9 mg/dl (1.6-2.3); Potassium 3.9 mmol/L (3.5-5.1); Sodium 127 mmol/L (135-145); Total Bilirubin 5.1 mg/dl (0.2-1.3); Total Protein 5.4 g/dl (6.3-8.2); eGFR 59.73
[2024-10-05 04:36] LABS: Hemoglobin 8.2 g/dL (13.0-18.0); Mean Corp Hgb Conc. 34.2 g/dL (33.0-37.0); Mean Corpuscular Hgb 30.3 pg (27.0-31.0); Mean Corpuscular Volume 88.6 fL (80.0-94.0); Mean Platelet Volume 11.6 fL (7.4-10.4); Platelet Count 86 10^3/uL (130-400); Red Blood Cell Count 2.71 10^6/uL (4.70-6.10); Red Cell Dist. Width 14.6 % (11.5-14.5); White Blood Cell Count 16.8 10^3/uL (4.8-10.8)
[2024-10-05 04:38] LABS: Prealbumin (Transthyretin) 8.2 mg/dl (17.6-36.0)
[2024-10-05] MEDS: KCL 50 IV ×7 (04:47→20:50)
--- NOTE | 2024-10-05 04:51 | PTCARENOTE ---
Patient reassessed. Levo tapered to 4. 2 u FFP and 1 u PRBC administered. AM hygiene care provided. AM labs obtained. K and Ca to be repleted. Rass at -3 adequate sedation and pain management per orders.
[2024-10-05 04:56] LABS: ALT (SGPT) 2852 U/L (0-50); AST (SGOT) 3210 U/L (17-59); INR 1.85; PT 21.5 Sec (11.4-14.6)
[2024-10-05 04:57] LABS: APTT 35.9 Sec (23.4-35.0)
[2024-10-05 05:01] LABS: Fibrinogen 320 MG/DL (199-459)
[2024-10-05 05:12] LABS: LDH 3879 U/L (120-246)
[2024-10-05] MEDS: CALCIUM GLUCONATE 290 MG IV (05:44)
--- NOTE | 2024-10-05 06:19 | PTCARENOTE ---
Per Dr. Zuñiga increase Bumex to 1, additional 1 u PRBC to be transfused, PEEP increased to 8
[2024-10-05 06:41] LABS: Glucose - Point of Care 132 mg/dl (70-99)
[2024-10-05] MEDS: DIAMOX 250 MG PO (06:43)
[2024-10-05 07:20] LABS: Mixed Venous O2 Saturation 47.1 %
[2024-10-05] MEDS: DOBUTREX 500 MG 250 IV ×2 (07:22→22:52)
[2024-10-05 07:23] LABS: B.E. 9.1 mmol/L; HCO3 32.7 mmol/L (21-28); O2 Saturation % 99.5 % (94-98); PCO2 40 mmHg (35-48); PO2 163 mmHg (83-108); pH 7.52 (7.35-7.45)
--- NOTE | 2024-10-05 07:42 | W.PN.INTV ---
Today's Communication / Plan
Recommendations
Monitor hemoptysis
Wean FiO2
Consider additional Diamox with contraction alkalosis
Pressors and inotropes continue
Diuresis as tolerated
Assessment
-
Patient is a 54-year-old male with previous history of hypertension presenting to [facility] on 09/26/2024 for complaints of chest pain with shortness of breath. He was ruled in for NSTEMI with elevated troponins and underwent left heart
catheterization demonstrating multivessel CAD. He was transferred from [place] to [place] for evaluation of CABG. He underwent CABG x 2 on 09/29/2024 without complication and perioperatively transferred to CVICU for further management.
MV CAD status post CABG x 2, status post valve sparing aortic root replacement and reimplantation 09/29/2024-Dr. Zuñiga
s/p LHC 10/01/24-no critical stenosis
s/p impelle placement 10/01/24
Ventilator dependent respiratory failure
Reintubated 10/04/2024
Extubated
RV infarct suspected
Cardiogenic shock on pressors/inotropes
NSTEMI with elevated troponins
Chest pain and shortness of breath
Perioperative mechanical ventilation
Mild anemia, postoperative
Stage II DD on ECHO
Severe conc LVH
Conditions present prior to admission:
Hypertension
Plan
Remains critically ill sedated on the ventilator with Impella and pressors
Hemoptysis noted-appears to have resolved-Flolan discontinued due to contraindication with hemoptysis
Monitor hemoptysis
Heparin drip also discontinued
FFP given overnight
S/p CAB POD #6
Titrating off pressors per protocol, still on pressors: levo/dobutamine/vasopressin, off milrinone
Other gtts: amio, bumex gtt, heparin, transitioned off insulin IV
Inh: epoprostenol discontinued
Weight: 99kg -> 107 -> 110-now 116 0.9 kg
UO: 1040ml, 1420mL, 2420mL
PAS/D: 35/20, 32/18, 34/19
ECHO reviewed with normal function, stage II DD
PA catheter readings reviewed
Management of chest tubes per primary service
Pain control
RASS goal of 0 to -1
Intubated-ventilator settings reviewed
ABGs reviewed-oxygenation improved, some alkalosis
Diamox provided once-might require for 48 hours for contraction alkalosis
VAP prevention protocol
Spontaneous breathing trial once medically stabilized
Follow ABG
Follow chest x-ray
Consider nutrition in the next 24 hours
GI prophylaxis is indicated for mechanical ventilation >48 hours-currently on pantoprazole
Monitor critical I/O's
Maki/chest tube output
Diuresis continues as tolerated
Monitor renal function, electrolytes, intake/output, lower extremity edema and weight
Replace electrolytes as needed
May consider renal consult for early CRRT eval
Monitor leukocytosis
Follow temperature curve
Continue to follow hemoglobin and platelet count
Transfuse if needed
Follow blood sugar
Insulin supplementation as needed
DVT [id number]-[id number] discontinued with hemoptysis
GI prophylaxis-on PPI
Nutrition
Bedside range of motion
Critical care statement: A total of 45 minutes of critical care time was provided for this patient today. This includes management of unstable vital signs, evaluation of the patient at bedside, reviewing the patient's pertinent medical records
including radiographs, ventilator management, arterial blood gas management, spontaneous breathing trial management, pressor management, microbiology, laboratory evaluations, and discussion with primary team, consultants, pharmacy, nutrition,
physical therapy, case management, charge nurse, critical care nursing, and respiratory therapy.
Diagnostic Data
CXR 10/03/24- No significant interval change in lines and tubes. As described, bilateral parenchymal opacities highly suggestive of pulmonary edema pattern. Slight improvement in atelectasis in the medial left base.
Chest X-Ray: 09/29/24- New postoperative changes as detailed above. Small left pleural effusion with underlying retrocardiac atelectasis
CT Scan: CAP 09/28/24- 1. Ascending aortic aneurysm measuring up to 5.8 cm at the sinotubular junction.
2. Severe atherosclerotic disease of the left anterior descending with high-grade stenosis proximally secondary to probably noncalcified plaque. There is additional calcified plaque within the mid/distal vessel.
3.There is submucosal fatty deposition within the terminal ileum, sigmoid colon and rectum which is nonspecific however can be seen with sequelae of chronic inflammation.
Echo: ROBERTA 09/29/24- Overall LVEF is approximately 55% with no RWMA. Severe concentric left ventricular hypertrophy. Stage II Diastolic dysfunction. Mild mitral regurgitation. Mild aortic insufficiency.
AI jet is central due to ST junction and sinus of Valsalva distortion. Sinus of Valsalva is aneurysmal measuring 4.6 cm. Sinotubular junction measures 4.3 cm. Mid ascending aorta is dilated measuring 4.0 cm at the level of the RPA. Mild sessile
atheroma seen in the descending aorta.
Reports and relevant images were personally reviewed.
Subjective Dataa
Subjective Data
Date of Service:
Date of Service: October 05, 2024
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
Subjective:
Events from overnight noted, some questionable hemoptysis, currently no bleeding, Flolan discontinued, some alkalosis, currently sedated on fentanyl and Versed and review of systems unobtainable
Review of Systems
General: Other (Per HPI)
Objective Data
Data Reviewed
Vital Signs / I&O / Oxygen:
Vital Signs
Temp Pulse Resp BP Pulse Ox
100.0 F 103 16 115/79 100
10/05/24 07:28 10/05/24 07:28 10/05/24 07:28 10/05/24 07:28 10/05/24 07:28
Intake and Output
10/04/24 10/05/24 10/06/24
06:59 06:59 06:59
Intake Total 3201.0 / 3323.9 5483.1 / 5483.1 250 / 250
Output Total 1350 / 1550 5795 / 5795
Balance 1851.0 / 1773.9 -311.9 / -311.9 250 / 250
SaO2 [A/C] 93
SaO2 [SIMV] 99
SaO2 100
Nasal Cannula flow liters per 50
minute
Physical Exam
General: Respiratory Distress (n), Comfortable and Other (NAD)
HEENT: Normocephalic, Anicteric and Moist Mucous Membranes
Cardiovascular: Regular Rhythm
Respiratory: Clear, Non-Labored Respirations, ET Tube, Chest Tube and Other (PA Cath in place)
GI: Soft, Non Distended and Non Tender
Neurology: No Motor Deficits and Other (Sedated on a ventilator)
Skin: Warm, Good Color and Cyanosis (n)
Labs/Micro/Reports
Lab Data
10/05/24 04:12
10/05/24 03:54
Laboratory Results
10/04/24 10/04/24 10/04/24
08:00 08:12 10:05
PT
INR
APTT
pH Cancelled 7.54 H 7.51 H
pCO2 Cancelled 34 L 36
pO2 Cancelled 190 H 184 H
HCO3 Cancelled 29.1 H 28.7 H
O2 Delivery Level Cancelled
10/04/24 10/04/24 10/04/24
12:00 14:00 16:01
PT 29.2 H
INR 2.76
APTT 52.1 H
pH 7.43 7.48 H 7.47 H
pCO2 44 41 43
pO2 119 H 161 H 111 H
HCO3 29.2 H 30.5 H 31.3 H
O2 Delivery Level 100
10/04/24 10/04/24 10/04/24
18:04 20:00 22:00
PT 26.2 H
INR 2.40
APTT 50.2 H
pH 7.47 H Cancelled Cancelled
pCO2 42 Cancelled Cancelled
pO2 124 H Cancelled Cancelled
HCO3 30.6 H Cancelled Cancelled
O2 Delivery Level %oxygen/room air 100 Cancelled Cancelled
10/04/24 10/04/24 10/05/24
22:20 22:21 00:00
PT 25.3 H
INR 2.30
APTT 52.6 H
pH 7.37 Cancelled
pCO2 51 H Cancelled
pO2 53 L* Cancelled
HCO3 29.5 H Cancelled
O2 Delivery Level Cancelled
10/05/24 10/05/24 10/05/24
00:01 03:52 03:54
PT 21.5 H
INR 1.85
APTT Cancelled 35.9 H
pH 7.44
pCO2 46
pO2 80 L
HCO3 31.2 H
O2 Delivery Level A/c, 550, 15, 5, 80%
10/05/24
07:15
PT
INR
APTT
pH 7.52 H
pCO2 40
pO2 163 H
HCO3 32.7 H
O2 Delivery Level
[2024-10-05] MEDS: PITRESSIN 100 IV ×3 (07:44→22:54)
--- NOTE | 2024-10-05 08:00 | PTCARENOTE ---
Received pt from mold shifter RN; pt intubated and sedated; Pupils 2mm and reactive; A-Fib on monitor and VSS; Epicardial A/V wires in place and box off; Foreign Murray floated to 52, Right A-line and PIV x2, all lines leveled and zeroed; Levo,
Dobutamine, Vaso, Bumex, Fentanyl and Versed infusing see flow sheet for details; Impella tape marking @ 75 via Right groin see flow sheet for details, Dr Zuñiga at bedside and changed settings from P7 pt on P8; Dressing C/D/I; Lungs Coarse and
Diminished; ETT 8 and 23 @ lip; Vent setting A/C 80%/8/550/15; RT at bedside and FiO2 dropped to 60% from new ABG results; Next ABG and mixed venous at 0900; hypoactive bowel sounds; NG tube in right nare draining brown/blood tinged liquid; Maki
catheter draining yellow urine and Maki care given; +1 generalized edema noted; Present Doppler pulses in lower extremities and palpable pulses in radials; all surgical sites C/D/I; B/L wrist restraints on per order; pacing pad in place; see
nursing documentation for further details.
[2024-10-05] MEDS: LIDOCAINE 4% PATCH TOPICAL ×2 (08:17)
[2024-10-05] MEDS: SUBLIMAZE 100 IV ×2 (08:28→17:02)
[2024-10-05] MEDS: PROTONIX IV 40 MG IV (08:33)
[2024-10-05] MEDS: NSS (PRESERVATIVE FREE) 10 ML IV (08:33)
[2024-10-05] MEDS: ASPIRIN 325 MG TUBE (09:13)
[2024-10-05] MEDS: MAGNESIUM OXIDE 500 MG PO ×2 (09:13→22:07)
[2024-10-05] MEDS: VITAMIN C PO (09:13)
[2024-10-05] MEDS: SENOKOT-S PO (09:13)
[2024-10-05 09:16] LABS: Mixed Venous O2 Saturation 52.8 %
[2024-10-05 09:25] LABS: HCO3 33.9 mmol/L (21-28); O2 Saturation % 98.9 % (94-98); PCO2 37 mmHg (35-48); PO2 141 mmHg (83-108); pH 7.57 (7.35-7.45)
--- NOTE | 2024-10-05 11:20 | PTCARENOTE ---
Tube Feedings stated per order; jevity 1.5, 10mls/hr with 25mls/hr water flush.
[2024-10-05] MEDS: BUMEX 50 IV (11:54)
[2024-10-05 12:10] LABS: Glucose - Point of Care 138 mg/dl (70-99)
--- NOTE | 2024-10-05 12:15 | PTCARENOTE ---
Assessment unchanged; A-fib on monitor and VSS; Dobutamine, Vaso, Bumex, Fentanyl and Versed infusing see flow sheet for details; Impella remains see flow sheet for details; Tube feedings infusing without difficulties; labs sent; family at bedside
and updated.
[2024-10-05 12:36] LABS: Hemoglobin 9.2 g/dL (13.0-18.0); Mean Corp Hgb Conc. 35.4 g/dL (33.0-37.0); Mean Corpuscular Hgb 30.6 pg (27.0-31.0); Mean Corpuscular Volume 86.4 fL (80.0-94.0); Mean Platelet Volume 11.9 fL (7.4-10.4); Platelet Count 76 10^3/uL (130-400); Red Blood Cell Count 3.01 10^6/uL (4.70-6.10); Red Cell Dist. Width 15.2 % (11.5-14.5); White Blood Cell Count 14.4 10^3/uL (4.8-10.8)
[2024-10-05 12:36] LABS: Mixed Venous O2 Saturation 57.5 %
[2024-10-05 12:39] LABS: HCO3 33.9 mmol/L (21-28); PCO2 37 mmHg (35-48); PO2 120 mmHg (83-108); pH 7.57 (7.35-7.45)
[2024-10-05 12:39] LABS: INR 1.85; PT 21.5 Sec (11.4-14.6)
[2024-10-05 12:52] LABS: Albumin 3.4 g/dl (3.5-5.0); Alkaline Phosphatase 160 U/L (38-126); Blood Urea Nitrogen 42 mg/dl (9-20); Calcium 8.4 mg/dl (8.4-10.2); Carbon Dioxide 37 mmol/L (22-30); Chloride 84 mmol/L (98-107); Estimated Creatinine Clearance 77 ml/min; Glucose 123 mg/dl (70-99); Sodium 127 mmol/L (135-145); Total Bilirubin 5.8 mg/dl (0.2-1.3); Total Protein 5.4 g/dl (6.3-8.2); eGFR 54.98
[2024-10-05 13:19] LABS: ALT (SGPT) 2430 U/L (0-50); AST (SGOT) 2242 U/L (17-59)
--- NOTE | 2024-10-05 14:13 | PN.CDI ---
CDI
- -
CDI:
Physician Documentation Request
Admit Date: 09/27/24 17:[address] Team,
Please review the following and provide your response in the progress notes.
Clinical Indicators:
Pt admitted for CAD status post CABG x 2, status post valve sparing aortic root replacement and reimplantation.
Laboratory Tests
10/03/24 10/04/24 10/04/24
23:11 10:05 22:20
Sodium 120 L D 123 L 125 L
10/05/24
03:54
Sodium 127 L
Based on the above, could you clarify in the progress notes, the appropriate diagnosis, that supports the above lab abnormalities and additional evaluation, monitoring and/or treatment rendered:
Hyponatremia
Insignificant abnormal lab values
Other
Use of terms such as suspected, likely, concern for, or probable (associated with a specific diagnosis that is being evaluated, monitored, or treated as if it exists) are acceptable and can be coded in the inpatient setting, when documented at the
time of discharge.
Thank you,
Lauren Garcia RN, BSN
CDI Specialist
Available via [place] [employer]
Please use your independent medical judgment in providing your response.
[2024-10-05] MEDS: FLEXBUMIN 50 IV (15:17)
--- NOTE | 2024-10-05 16:04 | CM ---
Reviewed chart. Following Mr. Fountain progress for discharge planning. Prior to admiission he resides withhis spouse and son in a two story home with one step to enter. He has to go up a full flight of steps to get to bedroom/full bathroom. He
has a powder room on the first floor. Prior to admission he was independent with ambulation and adls. He does not have any DME in the home. He has a prescription plan. Will need to see his functinal level to see if he will have any skilled care
needs. Medical work-up in progress. The discahrge plan is undetermined at this time.
[2024-10-05] MEDS: REGLAN 10 MG TUBE (16:26)
--- NOTE | 2024-10-05 16:41 | PTCARENOTE ---
Assessment unchanged and family at bedside; Impella in place see flow sheet for details; Sinus Tachycardia on monitor and VSS: Levo, Dobutamine, Vaso,Fentanyl and Versed infusing see flow sheet for details; pt Q2 turned.
[2024-10-05] MEDS: VERSED 100 IV (16:58)
[2024-10-05 17:27] LABS: Mixed Venous O2 Saturation 48.3 %
[2024-10-05 17:32] LABS: Hematocrit 26.3 % (39.0-52.0); Hemoglobin 8.9 g/dL (13.0-18.0); Mean Corp Hgb Conc. 33.8 g/dL (33.0-37.0); Mean Corpuscular Hgb 29.6 pg (27.0-31.0); Mean Corpuscular Volume 87.4 fL (80.0-94.0); Mean Platelet Volume 10.8 fL (7.4-10.4); Platelet Count 80 10^3/uL (130-400); Red Blood Cell Count 3.01 10^6/uL (4.70-6.10); Red Cell Dist. Width 15.3 % (11.5-14.5); White Blood Cell Count 14.3 10^3/uL (4.8-10.8)
[2024-10-05] MEDS: NSS 500 IV (17:35)
[2024-10-05 17:38] LABS: INR 1.79
[2024-10-05 17:46] LABS: Albumin 3.4 g/dl (3.5-5.0); Alkaline Phosphatase 158 U/L (38-126); Blood Urea Nitrogen 43 mg/dl (9-20); Calcium 8.1 mg/dl (8.4-10.2); Carbon Dioxide 38 mmol/L (22-30); Chloride 85 mmol/L (98-107); Estimated Creatinine Clearance 72 ml/min; Glucose 135 mg/dl (70-99); Potassium 3.7 mmol/L (3.5-5.1); Sodium 127 mmol/L (135-145); Total Bilirubin 6.4 mg/dl (0.2-1.3); Total Protein 5.4 g/dl (6.3-8.2); eGFR 50.88
--- NOTE | 2024-10-05 17:49 | W.PN.CARDCBS ---
Today's Communication / Plan
-
Plan:
-Overnight events noted, patient noted to have a large amount of BRB in the ETT during oral care. Heparin gtt was stopped. Patient was given 2 units of FFP and 1 unit PRBCs.
-Bumex gtt increased to 1 mg an hour 10/05/24 AM
-Levophed stopped at 08 100 on 10/05/2024
-Impella RP increased to P8. As noted above the heparin gtt has been stopped
-Dobutamine gtt at 5
-Vaso at 0.04, being weaned off
-Tube feeds initiated. Lactate has normalized. LFTs and renal function stable/improved. Continues to have good urine output.
-Flolan discontinued in the setting of hemoptysis.
-Continue supportive care. Discussed with nursing and at bedside.
-Patient with recurrence of Afib 10/03/24 leading to hypotension with uptitration of pressors. Increasing hypoxia, patient intubated 10/04/24 early AM and remains on the vent with Flolan 0.05 mcg/kg/min.
Impression / Plan
-
PCP: Dr. Marsh
Cardiology: None prior to admission, seen by Dr. Chavarria at [facility]
Impression:
Admitted to [facility] with chest pain 09/25/[address] for [address] surgical evaluation 09/27/24
CAD
NSTEMI peak Troponin 67 and MV CAD by cath at [facility] 09/27/24
s/p CABG with CEDILLO to LAD and SVG to prox RCA 09/29/24
s/p LHC with widely patent CEDILLO to LAD, 50% stenosis in the LAD just beyond the MARLA touchdown with KATIE III flow distally, retrograde filling of proximal LAD via moderate size diagonal branch, SVG is anastomosed to the mid RCA, anatomic kink in the
midportion of the vein graft but good distal flow to the distal RCA, [place] RCA with diffuse luminal irregularities, but no focal obstructive stenosis 10/01/2024
h/o aortic root aneurysm
root measuring 5.4cm, mid ascending aorta 4.5cm by [facility] imaging 09/27/24
s/p valve sparing aortic root replacement with reimplantation of [place] aortic valve (Gregory Procedure) 09/29/24. A left atrial appendage clip was also placed during surgery
HTN
Acute post-op ventricular bigeminy with R on T and VF arrest x2 09/29/24
treated with successful shock x2, CPR, amio and Epi with ROSC
RV Impella placed 10/01/2024
Physiology consistent with RV infarction
Elevated troponin-likely combination of ischemia and RV strain
Inotrope dependent hypotension
Abnormal LFTs
Postoperative hypotension
Ventricular tachycardia
Postoperative atrial fibrillation
Diminished urine output
Intraoperative ROBERTA 09/29/24: Postop findings, EF 50 to 55% with new septal wall hypokinesis, anterior and lateral wall motion appear normal, no AI, the LA appendage has been clipped with a 0.5 cm residual base noted
Bedside ROBERTA 09/29/24: Postop in the room, EF 55% with mild septal wall hypokinesis that appears better than what it appeared in the OR, no pericardial effusion, trace MR, AV function normal
Echo 10/01/24: EF 40 to 45%, inferior wall and inferoseptum appear hypokinetic from base to midportion, moderate concentric LVH, mild to moderately reduced RV systolic function, mild to moderate MR
Echo 10/03/24: EF 50 to 55%, basal and mid inferior hypokinesis, RV hypokinesis with normal RV size, Impella and Throckmorton-John catheter in place, mild TR
Plan:
-Overnight events noted, patient noted to have a large amount of BRB in the ETT during oral care. Heparin gtt was stopped. Patient was given 2 units of FFP and 1 unit PRBCs.
-Bumex gtt increased to 1 mg an hour 10/05/24 AM
-Levophed stopped at 08 100 on 10/05/2024
-Impella RP increased to P8. As noted above the heparin gtt has been stopped
-Dobutamine gtt at 5
-Vaso at 0.04, being weaned off
-Tube feeds initiated. Lactate has normalized. LFTs and renal function stable/improved. Continues to have good urine output.
-Flolan discontinued in the setting of hemoptysis.
-Continue supportive care. Discussed with nursing and at bedside.
-Patient with recurrence of Afib 10/03/24 leading to hypotension with uptitration of pressors. Increasing hypoxia, patient intubated 10/04/24 early AM and remains on the vent with Flolan 0.05 mcg/kg/min.
HPI: [facility] transfer from [facility] yesterday for evaluation from CT surgery team for MV CAD and aortic root aneurysm and cardiology has been consulted. Patient sees his PCP mostly when he is sick, but had a physical within the last
year. Patient with known h/o HTN and takes losartan 25 mg daily. He does not check BP at home on a regular basis. 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 He was working last Friday
night into Friday morning and was taking a break and laying on a sofa when he had sudden onset chest pain that lasted for 10-15 minutes and seemed to get better when he sat up. Pain returned again when he returned home after working and he told
his and they made a plan to go to the hospital. Then, after walking up the stairs in his home the patient had recurrent chest pain that was the most intense pain he had experienced and pain persisted. Patient went to [facility] ER and Troponin was
elevated prompting a cath that revealed MV CAD. Patient had an echo that showed aortic root aneurysm and then patient had CT, but results not available. Patient was transferred to for CT surgery eval last evening.
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
Subjective
Date of Service: October 05, 2024
Overnight events notes.
Objective
Labs:
10/05/24 17:19
10/05/24 17:19
Labs
Hgb 8.9 g/dL (13.0-18.0) L 10/05/24 17:19
Hct 26.3 % (39.0-52.0) L 10/05/24 17:19
Plt Count 80 10^3/uL (130-400) L 10/05/24 17:19
PT 21.0 Sec (11.4-14.6) H 10/05/24 17:19
INR 1.79 10/05/24 17:19
APTT 35.9 Sec (23.4-35.0) H 10/05/24 03:54
Sodium 127 mmol/L (135-145) L 10/05/24 17:19
Potassium 3.7 mmol/L (3.5-5.1) 10/05/24 17:19
BUN 43 mg/dl (9-20) H 10/05/24 17:19
Creatinine 1.6 mg/dL (0.7-1.3) H 10/05/24 17:19
Glucose 135 mg/dl (70-99) H 10/05/24 17:19
Troponins
10/04/24
16:25
Troponin I 38.400 H*
Vital Signs and I&O:
Vital Signs
Temp Pulse Resp BP Pulse Ox
100 F 112 16 100/68 96
10/05/24 17:00 10/05/24 17:34 10/05/24 17:00 10/05/24 17:34 10/05/24 17:00
Vital Signs
Temp Pulse Resp BP Pulse Ox
100 F 112 16 100/68 96
10/05/24 17:00 10/05/24 17:34 10/05/24 17:00 10/05/24 17:34 10/05/24 17:00
Intake & Output
10/03/24 10/04/24 10/05/24 10/06/24
06:59 06:59 06:59 06:59
Intake Total 2500.90 / 2558.50 3201.0 / 3323.9 5483.1 / 5559.0 1342.4 / 1342.4
Output Total 4465 / 4525 1350 / 1550 5795 / 5795 3900 / 3900
Balance -1964.10 / -1966.50 1851.0 / 1773.9 -311.9 / -236.0 -2557.6 / -2557.6
Physical Exam
Physical Exam
GEN: Intubated and sedated.
HEENT: MMM
LUNGS: Intubated and on the vent with inhaled Flolan. Coarse BS throughout, no wheeze
CV: Afib on tele.
ABD: ND
EXT: No edema B/L
NEURO: Gross non-focal
SKIN: No rash
[2024-10-05 17:57] LABS: ALT (SGPT) 2181 U/L (0-50)
[2024-10-05 18:07] LABS: AST (SGOT) 1866 U/L (17-59)
[2024-10-05] MEDS: MAGNESIUM SULFATE 100 IV (18:49)
[2024-10-05] MEDS: CORDARONE 106 MG IV (19:00)
[2024-10-05 19:01] LABS: Phosphorus 1.6 mg/dl (2.5-4.5)
[2024-10-05] MEDS: CORDARONE 518 MG IV (19:07)
--- NOTE | 2024-10-05 19:30 | PTCARENOTE ---
assumed care of patient @ 1900. received pt laying in bed, Intubated sedated. pupils equal round and reactive. Had runs of VT at change of shift, currently now in ventricular bigeminy. heart tones irregular. BP 100s/60s. PAP 40s/20s. CVP ~ 16. good
pulses, warm extremities, +1 generalized edema. 8.0 ET tube @ 23 present on AC40%, 8 peep, 550 tv, 15 RR. Lungs sound coarse, scattered rhonci anteriorly. Belly round, hypoactive. NGT present in R nare at 62 with Jevity 1.5 infusing. Maki present
draining large amounts of clear yellow urine. Sternum SABINO, R groin impella site covered with dry dressing. R leg SVG covered with leg immobilizer. Lisle at 52, R IJ cordis, R arm piv x2, R a line all patent. central lines zeroed, flushed. RP impella
present in R groin on p8. Told by dayshift not to do any C.I through swan as it is not working/accurate.
Drips
levo 10
dobut 5
vaso 0.04
amio 1
verset 2.5
fent 125
--- NOTE | 2024-10-05 19:45 | PTCARENOTE ---
At 1850 pt had multiple runs of Non-sustained VT, CVNP and CVPA in room with RN; Amiodarone 300mg IV push given; SBP down to 50-60, Calcium 500mg IV push given; Levo titrated; Amiodarone drip received and started; Magnesium IV infusing and
Potassium IV infusing; Currently on monitor Vent Bigeminy and SBPs 100s, MAPS 77; 1 unit PRBC infusing per order; family at bedside and updated; report given to night assistant RN and updates given to CVPA.
[2024-10-05 20:11] LABS: B.E. 10.3 mmol/L; HCO3 34.3 mmol/L (21-28); Ionized Calcium 1.16 mMOL/L (1.15-1.33); PCO2 43 mmHg (35-48); PO2 120 mmHg (83-108); Potassium 3.7 mMOL/L (3.5-5.1); pH 7.51 (7.35-7.45)
[2024-10-05 20:30] LABS: Albumin 3.3 g/dl (3.5-5.0); Alkaline Phosphatase 144 U/L (38-126); Blood Urea Nitrogen 43 mg/dl (9-20); Carbon Dioxide 39 mmol/L (22-30); Chloride 86 mmol/L (98-107); Estimated Creatinine Clearance 77 ml/min; Glucose 147 mg/dl (70-99); Magnesium 2.3 mg/dl (1.6-2.3); Potassium 3.7 mmol/L (3.5-5.1); Sodium 128 mmol/L (135-145); Total Bilirubin 6.8 mg/dl (0.2-1.3); Total Protein 5.2 g/dl (6.3-8.2); eGFR 54.98
[2024-10-05 20:46] LABS: Mixed Venous O2 Saturation 39.3 %
[2024-10-05 20:47] LABS: ALT (SGPT) 2193 U/L (0-50)
[2024-10-05 20:51] LABS: AST (SGOT) 1823 U/L (17-59)
[2024-10-05] MEDS: CALCIUM GLUCONATE 100 IV (20:55)
--- NOTE | 2024-10-05 20:56 | PTCARENOTE ---
ordered labs drawn and sent, CA and K repleted
--- NOTE | 2024-10-05 21:35 | PHA.VAN.IN ---
Assessment
- Assessment
Renal Function: Appears elevated from baseline (10/03/24 BASELINE SCR: 1.0)
Concomitant Antimicrobials: ZOSYN
- Previous Dosing Experience
Previous Regimen: NONE
Plan
- Plan
Initial / Loading Dose: 2GM
Maintenance Regimen: DOSING BY RANDOM LEVELS
Monitoring: RANDOM VANCOMYCIN LEVEL 10/06/24 AM
Pharmacokinetics Vancomycin I
- -
Patient Age: 54
Patient Sex: Male
Vancomycin Day #: 1
Indication: Bacteremia
Requesting Provider: GORGE
Height / Weight:
Height 6 ft 2 in
Actual Weight 116.9 kg
- Vital Signs / Lab Results
Temp Pulse Resp BP Pulse Ox
101.3 F H 102 17 100/68 95
10/05/24 21:00 10/05/24 21:10 10/05/24 21:10 10/05/24 17:34 10/05/24 21:10
Lab Results - Hematology
10/03/24 10/03/24 10/04/24
03:39 16:05 06:22
WBC 16.8 H 22.7 H 18.1 H
10/04/24 10/04/24 10/04/24
10:05 12:00 14:00
WBC 19.3 H 19.8 H 18.8 H
10/04/24 10/04/24 10/04/24
16:01 18:04 20:00
WBC 19.4 H 19.3 H Cancelled
10/04/24 10/04/24 10/05/24
22:00 22:20 00:00
WBC Cancelled 21.7 H Cancelled
10/05/24 10/05/24 10/05/24
04:12 12:07 17:19
WBC 16.8 H 14.4 H 14.3 H
Lab Results - Chemistry
10/03/24 10/03/24 10/04/24
03:39 23:11 06:22
BUN 34 H 43 H 43 H
Creatinine 1.0 1.6 H 1.4 H
Estimated Creat Clear 112 71 82
Albumin 3.2 L 3.2 L
10/04/24 10/04/24 10/04/24
10:05 12:00 14:00
BUN 44 H 43 H 43 H
Creatinine 1.2 1.4 H 1.4 H
Estimated Creat Clear 95 82 82
Albumin 3.3 L 3.3 L 3.4 L
10/04/24 10/04/24 10/04/24
16:01 18:04 20:00
BUN 43 H 43 H Cancelled
Creatinine 1.4 H 1.4 H Cancelled
Estimated Creat Clear 82 82 Cancelled
Albumin 3.3 L 3.3 L Cancelled
10/04/24 10/04/24 10/05/24
22:00 22:20 00:00
BUN Cancelled 44 H Cancelled
Creatinine Cancelled 1.5 H Cancelled
Estimated Creat Clear Cancelled 76 Cancelled
Albumin Cancelled 3.4 L Cancelled
10/05/24 10/05/24 10/05/24
03:54 12:07 17:19
BUN 45 H 42 H 43 H
Creatinine 1.4 H 1.5 H 1.6 H
Estimated Creat Clear 82 77 72
Albumin 3.4 L 3.4 L 3.4 L
10/05/24
20:04
BUN 43 H
Creatinine 1.5 H
Estimated Creat Clear 77
Albumin 3.3 L
10/03/24 10/03/24 10/04/24
03:39 23:11 02:14
Lactic Acid 1.7 7.6 H* 4.1 H*
10/04/24 10/04/24 10/04/24
04:08 06:00 06:22
Lactic Acid 4.0 H* Cancelled 2.9 H
10/04/24 10/04/24 10/04/24
08:00 08:12 12:00
Lactic Acid Cancelled 2.5 H 2.5 H
10/04/24 10/04/24 10/04/24
14:00 16:01 18:00
Lactic Acid 1.9 1.8 Cancelled
10/04/24 10/04/24 10/04/24
20:00 22:00 22:20
Lactic Acid Cancelled Cancelled 4.8 H*
10/05/24
03:53
Lactic Acid 1.9
[2024-10-05] MEDS: ZOSYN 50 IV (21:52)
--- NOTE | 2024-10-05 22:00 | PTCARENOTE ---
p level turned down to p7 by CTPA
[2024-10-05 22:01] LABS: Lactic Acid 2.1 mmol/L (0.7-2.0)
[2024-10-05] MEDS: SENOKOT-S 1 TABLET PO (22:07)
[2024-10-05 22:15] LABS: Procalcitonin 0.97 ng/ml (0.0-0.25)
[2024-10-05] MEDS: VANCOCIN 540 MG IV (22:40)
[2024-10-05] MEDS: DIAMOX 2.5 MG IV (22:43)
[2024-10-05 22:53] LABS: B.E. 10.6 mmol/L; HCO3 34.3 mmol/L (21-28); Ionized Calcium 1.16 mMOL/L (1.15-1.33); O2 Saturation % 98.8 % (94-98); PCO2 41 mmHg (35-48); PO2 86 mmHg (83-108); Potassium 3.7 mMOL/L (3.5-5.1); pH 7.53 (7.35-7.45)
[2024-10-05 22:55] LABS: Mixed Venous O2 Saturation 42.9 %
[2024-10-05 23:08] LABS: Albumin 3.2 g/dl (3.5-5.0); Alkaline Phosphatase 160 U/L (38-126); Blood Urea Nitrogen 43 mg/dl (9-20); Calcium 8.4 mg/dl (8.4-10.2); Carbon Dioxide 35 mmol/L (22-30); Chloride 87 mmol/L (98-107); Estimated Creatinine Clearance 72 ml/min; Glucose 135 mg/dl (70-99); Lactic Acid 1.9 mmol/L (0.7-2.0); Potassium 3.7 mmol/L (3.5-5.1); Sodium 128 mmol/L (135-145); Total Bilirubin 6.9 mg/dl (0.2-1.3); Total Protein 5.3 g/dl (6.3-8.2); eGFR 50.88
[2024-10-05 23:10] LABS: Hematocrit 25.5 % (39.0-52.0); Hemoglobin 8.7 g/dL (13.0-18.0); Mean Corp Hgb Conc. 34.1 g/dL (33.0-37.0); Mean Corpuscular Hgb 29.9 pg (27.0-31.0); Mean Corpuscular Volume 87.6 fL (80.0-94.0); Platelet Count 77 10^3/uL (130-400); Red Blood Cell Count 2.91 10^6/uL (4.70-6.10); Red Cell Dist. Width 15.4 % (11.5-14.5); White Blood Cell Count 14.7 10^3/uL (4.8-10.8)
--- NOTE | 2024-10-05 23:19 | PTCARENOTE ---
PT broke out of bigem into NSR in the low 100s. Having intermittent hiccuping episodes causing ocasional suction alarms. CTPA aware
[2024-10-05 23:31] LABS: ALT (SGPT) 2057 U/L (0-50); AST (SGOT) 1614 U/L (17-59)
[2024-10-06] MEDS: FLEXBUMIN 50 IV ×2 (00:07→07:34)
[2024-10-06] MEDS: NITRO-BID 1 INCH TOPICAL ×4 (00:08→17:42)
[2024-10-06 00:09] LABS: Glucose - Point of Care 138 mg/dl (70-99)
[2024-10-06] MEDS: NOVOLOG FLEXPEN-MODERATE RESISTANCE SC ×4 (00:10→17:43)
[2024-10-06 00:53] LABS: B.E. 9.8 mmol/L; HCO3 33.5 mmol/L (21-28); Ionized Calcium 1.13 mMOL/L (1.15-1.33); O2 Saturation % 99.3 % (94-98); PCO2 41 mmHg (35-48); PO2 136 mmHg (83-108); Potassium 3.3 mMOL/L (3.5-5.1); pH 7.52 (7.35-7.45)
[2024-10-06 00:56] LABS: Mixed Venous O2 Saturation 53.8 %
[2024-10-06] MEDS: CALCIUM GLUCONATE 100 IV ×3 (01:10→20:51)
[2024-10-06] MEDS: KCL 50 IV ×3 (01:10→05:24)
[2024-10-06 01:14] LABS: Lactic Acid 1.5 mmol/L (0.7-2.0)
[2024-10-06] MEDS: SUBLIMAZE 100 IV ×3 (01:48→19:00)
--- NOTE | 2024-10-06 02:00 | PTCARENOTE ---
R upper arm forming bruise, CTPA by to assess
[2024-10-06] MEDS: SUBLIMAZE 50 MCG IV (02:32)
--- NOTE | 2024-10-06 03:52 | PTCARENOTE ---
Addendum entered by Chino Whitehead RN 10/06/24 06:38:
defibrillator pads changed as well
Original Note:
ET tube advanced to 25 cm by RT. pt bathed, sheets changed, Xray by to confirm ET tube placement. Pt in/out of afib, ST, and bigeminy.
[2024-10-06 04:39] LABS: Mixed Venous O2 Saturation 50.5 %
[2024-10-06 04:42] LABS: B.E. 6.9 mmol/L; HCO3 31.3 mmol/L (21-28); Ionized Calcium 1.17 mMOL/L (1.15-1.33); O2 Saturation % 99.3 % (94-98); PCO2 43 mmHg (35-48); PO2 107 mmHg (83-108); Potassium 3.9 mMOL/L (3.5-5.1); pH 7.47 (7.35-7.45)
[2024-10-06 04:51] LABS: Lactic Acid 1.4 mmol/L (0.7-2.0)
[2024-10-06 04:55] LABS: % Basophils 0.1 % (0-2); % Eosinophils 0.5 % (0-6); % Immature Granulocytes 4.4 % (0-0.5); % Lymphocytes 11.1 % (20.5-51.1); % Monocytes 8.7 % (1.7-9.3); % Neutrophils 75.2 % (42.2-75.2); Absolute Eosinophils 0.1 10^3/uL (0-0.7); Absolute Immature Granulocytes 0.7 10^3/uL (0-0.05); Absolute Lymphocytes 1.7 10^3/uL (1.2-3.4); Absolute Monocytes 1.3 10^3/uL (0.1-0.6); Absolute Neutrophils 11.2 10^3/uL (1.4-6.5); Hemoglobin 8.6 g/dL (13.0-18.0); Mean Corp Hgb Conc. 34.4 g/dL (33.0-37.0); Mean Corpuscular Hgb 30.8 pg (27.0-31.0); Mean Corpuscular Volume 89.6 fL (80.0-94.0); Mean Platelet Volume 11.4 fL (7.4-10.4); Nucleated Red Blood Cells % 7.7 % (-); Platelet Count 71 10^3/uL (130-400); Red Blood Cell Count 2.79 10^6/uL (4.70-6.10); Red Cell Dist. Width 15.7 % (11.5-14.5); White Blood Cell Count 14.8 10^3/uL (4.8-10.8)
[2024-10-06 04:58] LABS: INR 1.72; PT 20.4 Sec (11.4-14.6)
[2024-10-06] MEDS: ZOSYN 50 IV ×4 (04:59→22:16)
[2024-10-06 05:09] LABS: Albumin 3.2 g/dl (3.5-5.0); Alkaline Phosphatase 150 U/L (38-126); Blood Urea Nitrogen 41 mg/dl (9-20); Carbon Dioxide 35 mmol/L (22-30); Chloride 89 mmol/L (98-107); Estimated Creatinine Clearance 77 ml/min; Glucose 125 mg/dl (70-99); Potassium 3.7 mmol/L (3.5-5.1); Sodium 130 mmol/L (135-145); Total Bilirubin 7.3 mg/dl (0.2-1.3); Total Protein 5.3 g/dl (6.3-8.2); eGFR 54.98
[2024-10-06 05:13] VITALS: BMI 32.7
[2024-10-06 05:13] LABS: Vancomycin Random 16.1 ug/ml
[2024-10-06 05:25] LABS: ALT (SGPT) 1918 U/L (0-50); AST (SGOT) 1334 U/L (17-59)
[2024-10-06 05:36] LABS: LDH 1851 U/L (120-246)
[2024-10-06 06:00] LABS: Glucose - Point of Care 139 mg/dl (70-99)
--- NOTE | 2024-10-06 06:13 | PTCARENOTE ---
Dr. Zuñiga at bedside - turned impella down to p6. stated if BP takes a hit go back up to p7, otherwise keep at p6 for now.
[2024-10-06] MEDS: LEVOPHED 258 MG IV (06:23)
[2024-10-06] MEDS: PITRESSIN 100 IV ×3 (06:31→21:22)
[2024-10-06] MEDS: LIDOCAINE 4% PATCH TOPICAL ×2 (07:27)
[2024-10-06] MEDS: VITAMIN C PO (07:28)
[2024-10-06] MEDS: NSS (PRESERVATIVE FREE) 10 ML IV (07:33)
[2024-10-06] MEDS: PROTONIX IV 40 MG IV (07:33)
--- NOTE | 2024-10-06 07:33 | W.PN.INTV ---
Today's Communication / Plan
Recommendations
Wean FiO2
Follow ABG
Follow chest x-ray
Antibiotics
Continue diuresis
Impella-slow wean
Replace electrolytes
Repeat echocardiogram
Consider propofol instead of Versed
Assessment
-
Patient is a 54-year-old male with previous history of hypertension presenting to [facility] on 09/26/2024 for complaints of chest pain with shortness of breath. He was ruled in for NSTEMI with elevated troponins and underwent left heart
catheterization demonstrating multivessel CAD. He was transferred from [place] to [place] for evaluation of CABG. He underwent CABG x 2 on 09/29/2024 without complication and perioperatively transferred to CVICU for further management.
MV CAD status post CABG x 2, status post valve sparing aortic root replacement and reimplantation 09/29/2024-Dr. Zuñiga
s/p LHC 10/01/24-no critical stenosis
s/p impelle placement 10/01/24
Ventilator dependent respiratory failure
Reintubated 10/04/2024
Extubated
Aspiration pneumonia
RV infarct suspected
Cardiogenic shock on pressors/inotropes
NSTEMI with elevated troponins
Chest pain and shortness of breath
Perioperative mechanical ventilation
Mild anemia, postoperative
Stage II DD on ECHO
Severe conc LVH
Nonsustained ventricular tachycardia
Paroxysmal atrial fibrillation
Conditions present prior to admission:
Hypertension
Plan
Continues to be critically ill sedated on the ventilator with Impella and pressors
Hemoptysis noted-appears to have resolved-Flolan discontinued due to contraindication with hemoptysis-consider reinstating
Monitor hemoptysis-appears to have resolved
Heparin drip also discontinued-consider reinitiating
FFP given as needed
S/p CAB POD # 7
Titrating off pressors per protocol, still on pressors: levo/dobutamine/vasopressin, off milrinone
Other gtts: amio, bumex gtt, heparin, transitioned off insulin IV
Inh: epoprostenol discontinued
Weight: 99kg -> 107 -> 110-now 116 0.9 kg
UO: 1040ml, 1420mL, 2420mL
PAS/D: 35/20, 32/18, 34/19
ECHO reviewed with normal function, stage II DD
PA catheter readings reviewed
Management of chest tubes per primary service
Intubated-ventilator settings reviewed
ABGs reviewed-oxygenation improved, some alkalosis
Diamox provided once-might require for 48 hours for contraction alkalosis
VAP prevention protocol
Spontaneous breathing trial once medically stabilized
ABG 10/06/2024--47/168/7.44
Chest x-ray 10/06/2024-left PICC line in distal SVC, changes of CHF
Pain control
RASS goal of 0 to -1
Consider changing from Versed to propofol
Monitor for arrhythmias
Nonsustained ventricular tachycardia in the setting of hypokalemia and hypocalcemia-subsequently repleted
Cultures reviewed
Blood cultures negative thus far
Sputum culture 10/06/2024-many WBCs, moderate gram-positive cocci and few gram-negative rods
Procalcitonin noted
Empiric antibiotics-Zosyn and vancomycin-discontinue vancomycin if MRSA screen negative
Infectious disease consultation
Monitor leukocytosis
Follow temperature curve
Consider nutrition in the next 24 hours
GI prophylaxis is indicated for mechanical ventilation >48 hours-currently on pantoprazole
Monitor critical I/O's
Maki/chest tube output
Diuresis continues as tolerated
Monitor renal function, electrolytes, intake/output, lower extremity edema and weight
Replace electrolytes as needed
May consider renal consult for early CRRT eval
Impella-slow wean
Continue to follow hemoglobin and platelet count
Transfuse if needed
Monitor LFTs-shock liver-improving
Follow blood sugar
Insulin supplementation as needed
DVT ybfvkhsdwhh-[id number]-[id number] discontinued with hemoptysis
GI prophylaxis-on PPI
Nutrition
Bedside range of motion
Critical care statement: A total of 43 minutes of critical care time was provided for this patient today. This includes management of unstable vital signs, evaluation of the patient at bedside, reviewing the patient's pertinent medical records
including radiographs, ventilator management, arterial blood gas management, spontaneous breathing trial management, pressor management, microbiology, laboratory evaluations, and discussion with primary team, consultants, pharmacy, nutrition,
physical therapy, case management, charge nurse, critical care nursing, and respiratory therapy.
Diagnostic Data
CXR 10/03/24- No significant interval change in lines and tubes. As described, bilateral parenchymal opacities highly suggestive of pulmonary edema pattern. Slight improvement in atelectasis in the medial left base.
Chest X-Ray: 09/29/24- New postoperative changes as detailed above. Small left pleural effusion with underlying retrocardiac atelectasis
CT Scan: CAP 09/28/24- 1. Ascending aortic aneurysm measuring up to 5.8 cm at the sinotubular junction.
2. Severe atherosclerotic disease of the left anterior descending with high-grade stenosis proximally secondary to probably noncalcified plaque. There is additional calcified plaque within the mid/distal vessel.
3.There is submucosal fatty deposition within the terminal ileum, sigmoid colon and rectum which is nonspecific however can be seen with sequelae of chronic inflammation.
Echo: ROBERTA 09/29/24- Overall LVEF is approximately 55% with no RWMA. Severe concentric left ventricular hypertrophy. Stage II Diastolic dysfunction. Mild mitral regurgitation. Mild aortic insufficiency.
AI jet is central due to ST junction and sinus of Valsalva distortion. Sinus of Valsalva is aneurysmal measuring 4.6 cm. Sinotubular junction measures 4.3 cm. Mid ascending aorta is dilated measuring 4.0 cm at the level of the RPA. Mild sessile
atheroma seen in the descending aorta.
Reports and relevant images were personally reviewed.
Subjective Dataa
Subjective Data
Date of Service:
Date of Service: October 06, 2024
Chief Complaint: [employer] Follow Up, Pulmonary Follow Up and Vent Management Follow Up
Subjective:
Still very tenuous, Impella being weaned, deep sedation, no more hemoptysis, tolerating tube feeds
Review of Systems
General: Unobtainable - Sedation and Other (Per HPI)
Objective Data
Data Reviewed
Vital Signs / I&O / Oxygen:
Vital Signs
Temp Pulse Resp BP Pulse Ox
100.3 F 85 15 100/68 100
10/06/24 07:00 10/06/24 07:10 10/06/24 07:10 10/05/24 17:34 10/06/24 07:10
Intake and Output
10/05/24 10/06/24 10/07/24
06:59 06:59 06:59
Intake Total 5483.1 / 5559.0 3047.7 / 3178.6 130.9 / 130.9
Output Total 5795 / 5795 6825 / 6975 150 / 150
Balance -311.9 / -236.0 -3777.3 / -3796.4 -19.1 / -19.1
SaO2 [A/C] 96
SaO2 [SIMV] 99
SaO2 100
Nasal Cannula flow liters per 50
minute
Physical Exam
General: Respiratory Distress (n), Comfortable and Other (NAD)
HEENT: Normocephalic, Anicteric and Moist Mucous Membranes
Cardiovascular: Regular Rhythm
Respiratory: Clear, Non-Labored Respirations, ET Tube, Chest Tube and Other (PA Cath in place)
GI: Soft, Non Distended and Non Tender
Neurology: No Motor Deficits and Other (Sedated on a ventilator)
Skin: Warm, Good Color and Cyanosis (n)
Labs/Micro/Reports
Lab Data
10/06/24 06:00
10/06/24 04:23
Laboratory Results
10/05/24 10/05/24 10/05/24
09:07 12:07 12:20
PT 21.5 H
INR 1.85
pH 7.57 H Cancelled Cancelled
pCO2 37 Cancelled Cancelled
pO2 141 H Cancelled Cancelled
HCO3 33.9 H Cancelled Cancelled
O2 Delivery Level Cancelled Cancelled
10/05/24 10/05/24 10/05/24
12:26 17:19 20:04
PT 21.0 H
INR 1.79
pH 7.57 H 7.51 H
pCO2 37 43
pO2 120 H 120 H
HCO3 33.9 H 34.3 H
O2 Delivery Level
10/05/24 10/06/24 10/06/24
22:36 00:00 00:43
PT Cancelled
INR Cancelled
pH 7.53 H 7.52 H
pCO2 41 41
pO2 86 136 H
HCO3 34.3 H 33.5 H
O2 Delivery Level Not Reportable 50% fio2, peep 8
10/06/24 10/06/24
04:00 04:23
PT 20.4 H
INR 1.72
pH Cancelled 7.47 H
pCO2 Cancelled 43
pO2 Cancelled 107
HCO3 Cancelled 31.3 H
O2 Delivery Level Cancelled
[2024-10-06] MEDS: ASPIRIN 325 MG TUBE (07:34)
[2024-10-06] MEDS: SENOKOT-S 1 TABLET PO ×2 (07:35→20:52)
--- NOTE | 2024-10-06 07:55 | W.PN.CT ---
Today's Communication / Plan
-
-pod #7
-NSVT runs last night in setting of hypokalemia and hypocalcemia - repleted both several times overnight. Got 300 mg Amio bolus and drip
-rhythm overnight: nsr with ventricular bigeminy, then in and out of a-fib. Currently, in a-fib hr 90s-low 100s
-got 1 pRBC last night 10/05, followed by 250 Diamox and restarted on iv Bumex @ 0.25
-current drips: Bumex 0.25, Amio 0.5, Levo 1, Vaso 0.04, Dobut 5, Versed 2.5, Fentanyl 125
-Tm 101.4, procalcitonin 0.97, wbc with L shift. Sputum and blood cx sent. Started on Zosyn and Vanco (dosed by pharmacy). Ice packs for fever
-double concentrate Levo and Dobut
-Impella at P7 overnight and decreased to P6 around 6:30 am
-LA improved from 2.1 to 1.4. mVO2 is 50.5
-Tylenol and Lipitor held d/t elevated LFTs
-ASA and Plavix held d/t low platelets (71K today)
-Mg and BB held as well (ROBERTA, on pressors/inotrops)
-Tb is trending up (7.3 today). transaminases and LDH are trending down
-UO 2600/6825 in 12/24 hrs
-continue close follow-up
Assessment / Plan
-
Assessment:
-Multivessel CAD/Ao aneurysm - s/p Valve sparing aortic root replacement with reimplantation of [place] aortic valve [Gregory Procedure]; Reimplantation of left and right coronary buttons into their respective neosinus; CABG x 2 [[place] CEDILLO in situ to
LAD, RSVG to proximal RCA]; Left atrial appendage exclusion (35mm clip) by Dr. Zuñiga on 09/29/24, pod #7
-Intraop ROBERTA: LVEF preoperatively 60% with no significant regional wall motion abnormalities. He does have diastolic dysfunction with thick left ventricle. Following surgery his EF was the same with no significant regional wall motion
abnormalities aside from some paradoxical motion of his septum. He is aortic valve was spared and reimplanted inside of 32 mm cardio root Valsalva graft. Following surgery, his AI that was initially mild and central went to none. He had a mean
gradient of 3 across his [place] aortic valve with a good coaptation height. Due to the long clamp around, he was a little bit sluggish coming off of cardiopulmonary bypass but did not require any inotropic support. His cardiac index was
approximately 1.7 to on just a low-dose Levophed. There is no residual flow into the left atrial appendage, and only a small residual stump was visualized.
s/p Impellla RP placed 10/01/24
-NSTEMI (High-sensitivity trop 67 @ [facility])
-[place]
-Aortic root aneurysm (5.8 cm, mid ascending aorta 4.5 cm)
-HTN
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
-Spermatocele/Hydrocele S/P b/l spermatocelectomies, 05/26/2015
-S/P LHC
-S/P Vasectomy, 2008
-Acute postop ventricular bigeminy/ R on T phenomenon with v-fib arrest X2 - s/p shocks x2, CPR, low-dose Epi, Amio 300 mg bolus and drip- Rosc achieved. Pt woke up post code and followed commands
-NSVTs
-Bedside ROBERTA revealed no pericardial effusion, valves ok. Lateral wall had some stunning
-Acute postop hypovolemia
-Acute postop cardiogenic shock
-Acute postop atelectasis
-Acute postop blood loss anemia - stable, no transfusion
-Acute postop coagulopathy - s/p 2 FFPs and 2 unit platelets
-ROBERTA
-Shock liver - holding Tylenol - follow
-Acute postop RV failure, taken to catheter finisher and inspector for angiography (grafts patent), Impella RP placed
-Acute postop paroxysmal a-fib
-Acute postop metabolic alkalosis, likely d/t diuresis
-Acute postop shock liver
-Acute postop fever, procalcitonin 0.97 - blood cx sent and started on Zosyn and Vanco 10/05
Discussed patient care with: Nursing and Care Team
Subjective
Procedure
s/p Valve sparing aortic root replacement with reimplantation of [place] aortic valve [Gregory Procedure]; Reimplantation of left and right coronary buttons into their respective neosinus; CABG x 2 [[place] CEDILLO in situ to LAD, RSVG to proximal RCA];
Left atrial appendage exclusion (35mm clip) by Dr. Zuñiga on 09/29/24
s/p Impellla RP placed 10/01/24
-
Date of Service: October 06, 2024
Objective Data
-
Lab Results
10/06/24 06:00
PT Cancelled 10/06/24 00:00
INR Cancelled 10/06/24 00:00
APTT 35.9 Sec (23.4-35.0) H 10/05/24 03:54
Vital Signs
Vital Signs
Temp Pulse Resp BP Pulse Ox
101.2 F H 103 17 100/68 97
10/06/24 02:00 10/06/24 02:25 10/06/24 02:25 10/05/24 17:34 10/06/24 02:25
CT Intake/Output/Weight
10/05/24 10/05/24 10/06/24
06:59 18:59 06:59
Intake Total 3706.8 / 5559.0 1553.3 / 2665.7 1112.4 / 2665.7
Output Total 2835 / 5795 4225 / 6125 1900 / 6125
Balance 871.8 / -236.0 -2671.7 / -3459.3 -787.6 / -3459.3
SaO2: 97
Physical Exam
-
General: Other (intubated, sedated, appears comfortable)
Cardiovascular: Regular rate & rhythm, No Murmurs and No Rub
Respiratory: Decreased Breath Sounds
Sternum: Stable
Incision: Clean, Dry and Intact
Extremities: Edema +2
Abdomen: soft, nontender, decreased bowel sounds
Data Reviewed
-
Lab Results: Results Reviewed
Medications: Active Meds Reviewed
Chest X-Ray: Report Reviewed and Image Reviewed
ECG: Report Reviewed and Image Reviewed
--- NOTE | 2024-10-06 08:03 | PHA.VAN.FU ---
Vancomycin Assessment / Plan
- Assessment
Renal Function: Stable
WBC's are: Stable
In the past 24 hrs, patient has been: Febrile
Concomitant Antimicrobials: piperacillin/tazobactam
receiving bumetanide drip
- Assessment - Therapeutic Drug Monitoring
Random Level: 16.1 - drawn ~5.5H after 2g loading dose
- Dosing Plan
Dosing by Level: Re-dose today (Vanc 1250mg x1)
- Monitoring Plan
Random Level: 10/07 0600
- Follow Up
Pharmacy will continue to follow.
Vancomycin Follow UP
- -
Patient Age: 54
Patient Sex: Male
Vancomycin Day #: 2
Indication: Bacteremia
Requesting Provider: Ralph Aguirre
Pertinent Antimicrobial Allergies:
NKDA
Height / Weight:
Height 6 ft 2 in
Actual Weight 115.4 kg
Pertinent Past Medical History: BMI ~33, s/p CABG 09/29 and Impella 10/01
- Vital Signs / Lab Results
Temp Pulse Resp BP Pulse Ox
100.3 F 85 15 100/68 100
10/06/24 07:00 10/06/24 07:10 10/06/24 07:10 10/05/24 17:34 10/06/24 07:10
Lab Results - Hematology
10/03/24 10/04/24 10/04/24
16:05 06:22 10:05
WBC 22.7 H 18.1 H 19.3 H
10/04/24 10/04/24 10/04/24
12:00 14:00 16:01
WBC 19.8 H 18.8 H 19.4 H
10/04/24 10/04/24 10/04/24
18:04 20:00 22:00
WBC 19.3 H Cancelled Cancelled
10/04/24 10/05/24 10/05/24
22:20 00:00 04:12
WBC 21.7 H Cancelled 16.8 H
10/05/24 10/05/24 10/05/24
12:07 17:19 22:36
WBC 14.4 H 14.3 H 14.7 H
10/06/24 10/06/24 10/06/24
00:00 04:23 06:00
WBC Cancelled 14.8 H Cancelled
Lab Results - Chemistry
10/03/24 10/04/24 10/04/24
23:11 06:22 10:05
BUN 43 H 43 H 44 H
Creatinine 1.6 H 1.4 H 1.2
Estimated Creat Clear 71 82 95
Albumin 3.2 L 3.3 L
10/04/24 10/04/24 10/04/24
12:00 14:00 16:01
BUN 43 H 43 H 43 H
Creatinine 1.4 H 1.4 H 1.4 H
Estimated Creat Clear 82 82 82
Albumin 3.3 L 3.4 L 3.3 L
10/04/24 10/04/24 10/04/24
18:04 20:00 22:00
BUN 43 H Cancelled Cancelled
Creatinine 1.4 H Cancelled Cancelled
Estimated Creat Clear 82 Cancelled Cancelled
Albumin 3.3 L Cancelled Cancelled
10/04/24 10/05/24 10/05/24
22:20 00:00 03:54
BUN 44 H Cancelled 45 H
Creatinine 1.5 H Cancelled 1.4 H
Estimated Creat Clear 76 Cancelled 82
Albumin 3.4 L Cancelled 3.4 L
10/05/24 10/05/24 10/05/24
12:07 17:19 20:04
BUN 42 H 43 H 43 H
Creatinine 1.5 H 1.6 H 1.5 H
Estimated Creat Clear 77 72 77
Albumin 3.4 L 3.4 L 3.3 L
10/05/24 10/06/24 10/06/24
22:36 00:00 04:23
BUN 43 H Cancelled 41 H
Creatinine 1.6 H Cancelled 1.5 H
Estimated Creat Clear 72 Cancelled 77
Albumin 3.2 L Cancelled 3.2 L
10/03/24 10/04/24 10/04/24
23:11 02:14 04:08
Lactic Acid 7.6 H* 4.1 H* 4.0 H*
10/04/24 10/04/24 10/04/24
06:00 06:22 08:00
Lactic Acid Cancelled 2.9 H Cancelled
10/04/24 10/04/24 10/04/24
08:12 12:00 14:00
Lactic Acid 2.5 H 2.5 H 1.9
10/04/24 10/04/24 10/04/24
16:01 18:00 20:00
Lactic Acid 1.8 Cancelled Cancelled
10/04/24 10/04/24 10/05/24
22:00 22:20 03:53
Lactic Acid Cancelled 4.8 H* 1.9
10/05/24 10/05/24 10/06/24
21:33 22:36 00:43
Lactic Acid 2.1 H 1.9 1.5
10/06/24 10/06/24
04:00 04:23
Lactic Acid Cancelled 1.4
Therapeutic Drug Monitoring
Random Vancomycin 16.1 ug/ml 10/06/24 04:23
--- NOTE | 2024-10-06 08:14 | PTCARENOTE ---
Received pt from clinical writer RN; pt intubated and sedated; Pupils 2mm equal and reactive; Sinus Tachycardia/A-fib on monitor and VSS: Epicardial A/V wires in place and box turned off; Foreign Murray floated to 52, Right A-line and PIVx2, all lines
leveled and zeroed; Levo, Dobutamine, Vaso, Amiodarone, Bumex, Fentanyl, and Versed infusing see flow sheet for details; Impella via Right groin, Dr Zuñiga at bedside with team, Impella decreased to P5; Right Groin site C/D/I; Lungs coarse and
diminished; ETT 8 25 @ lip; vent settings A/C 50%/550/8/15; hypoactive bowels; Right nare NG Tube at 62; Jevity 1.5 infusing at 10 ml/h with 25 H2O flush; palpable pulses throughout; +1 generalized edema; all surgical sites C/D/I; B/L wrist
restraints applied per order see flow sheet for detials; pacing pads in place; see nursing documentation for further details.
[2024-10-06] MEDS: MAGNESIUM OXIDE 500 MG PO ×2 (09:04→20:52)
[2024-10-06] MEDS: DIAMOX 5 MG IV (09:04)
--- NOTE | 2024-10-06 09:05 | CON.ID ---
Addendum entered and electronically signed by Ruth Garcia MD 10/06/24 14:15:
UA, covid ag, influenza swab, MRSA PCR all negative
stopped vancomycin, continue zosyn.
communicated with RN via tiger text - appreciate her help
Original Note:
Consultation
-
Date/Time Consultation Requested: 10/06/24 8:08
Date/Time Consultation Performed: 10/06/23 9:06
Requesting Provider: Ravi ZIMMER
Performing Provider: Dr Garcia
Reason for Consultation: fever/leukocytosis s/p root replacement/cabg w/periop PR on Right Impella
Chief Complaint / Past History
Chief Complaint
chest pain
History of Present Illness
Mr Fountain is a 54 year old male with history notable only for hypertension who initially presented to [facility] for sudden onset of chest pain at rest, orthopnea. Chest pain began while lying down, lasted about 15 minutes and then
resolved. Then walked up a flight of stairs and felt relapse of extreme chest pain that persisted and so presented to [facility]. Patient does see PCP and had a physical exam within the last year. There he was found to have NSTEMI with troponins
increasing from 48 to 67, underwent LHC showing multivessel coronary artery disease and a significantly dilated aortic root (5.8 cm) prompting transfer here for valve sparing root replacement and CABG
Since arrival here on 09/27 initial EKG here with nonspecific changes, initial troponin here 0.099, no chest pain. Underwent ROBERTA showing EF 55%, severe LVH, stage II diastolic dysfunction, mild AI. On 09/29/24 he underwent Sternotomy, CABG, valve
sparing aortic root replacement, reimplantation of sun'aq aortic valve, L atrial appendage exclusion, temp ventricular pacing wires. Post procedure course notable for post operative leukocytosis with WBC 14.4, Vfib requiring shock x2, pressors.
10/01 post procedure echo: LV 40-50%, hypokinetic inferior wall. Has been requiring dobutamine and levophed post op, loaded with amiodarone. extubated to bipap then high flow NC. post op course also notable for a fib. Assessed by cariology as
having possible RV infarct. Taken back to the clinical lab assistant on 10/01 for right femoral approach LHC with ventriculography, saphenous vein graft and MARLA angiography. He had continued a fib , increasing pressor requirement, and impella placed 10/01/24.
10/02 had ongoing low urine output and CRRT was considered. He underwent repositioning of impeclla under imaging guidance - advanced 2 cm. 10/03 repeat echo showed EF 50-55%, moderate LVH, basal and mid inferior hyokinesis. 10/03 developed continuous
oozing from previous IV site in R AC fosa - persisted for a hour despite holding pressure multiple times at 10-15 min/event. Area infiltrated with lidocaine with epi and figue of eight stitch placed at the site, no hematoma developed. 10/04 had
increasing pressor requirement, increased work of breathing, CXR with pulmonary edema - imepella position unchanged, reintubated and hemodynamics improved, post intubation CXR: worsening bilateral pulmonary edema, echo: no pericardial effusion.
Diuresed. 10/05 had large amount of bright red blood in the ETT during oral care - heparin stopped, given 2 units FFP and 1 unit of prbcs. Levophed stopped , vaso being weaned off, dobutamine continued. Today 10/06 overnight noted to become
persistently febrile on core Ts to Tmax of 101.4, had runs of NSVT with hypokalemia and hypocalcemia - both were repleated several times overnight, also had 1 unit of PRBCs. WBC continued a downward trend from peak on 10/04 to the 14s, hgb 9.2, plt
70s-80s, there was no L shift, ABG pH 7.47, pCO2 43, O2 107, HCO3 31.3, Na 130, chloride 89, cr 1.5, lactic acid 1.4, ionized Ca this AM 1.17t bili 7.3 uptrending, AST peaked 10/04 at 6000 today 1300, ALT peaked at 3400 on 10/04 continues trending
down now 1900 sputum and blood cultures sent. urine not evaluated, procalcitonin 0.97. CXR: resolving acute pulmonary edema on my read. Surigcal site healing no erythema, warmth, tenderness or drainage, PIVs, PICC, RIJ/swan and impella sites
functional no erythema/warmth/tenderness/drainage, no sputum in the ETT, discussed with RN and no BM in 8 days, no known sick visitors, RN has turned patient yesterday and no wounds on the backside, patient is currently on vancomycin and zosyn and
ID is consulted for assistance with management.
Past History
Past Medical History: HTN
Additional Past Medical History:
Herpes (PRN oral valacyclovir)
Additional Past Surgical History:
LHC
Spermatocele/Hydrocele S/P b/l spermatocelectomies, 05/26/2015
Vasectomy
Allergy History:
No Known Allergies Allergy (Unverified 05/26/15 06:37)
Medications Reviewed: Yes
Social History
Tobacco: Non-Smoker
Alcohol: Occasional (1-2 drinks per week)
Drug: None
Family History
Family History: Other (younger brother at a young age and patient didn't specify why, patient did not know biological father, no known FH CAD or aneurysm, two children alive and well)
Review of Systems
Review of Systems
General: Fever
All systems: All other systems were reviewed and were negative
Vital Signs
Temp Pulse Resp BP Pulse Ox
100.3 F 91 16 105/71 99
10/06/24 09:00 10/06/24 09:04 10/06/24 09:00 10/06/24 09:04 10/06/24 09:00
Physical Exam
Physical Exam
Constitutional: No Acute Distress and Other (intubated, sedated)
Oral: Other (no secretion in the ETT)
Cardiovascular: Regular Rate and S1/S2; Negative Murmur or Rub
Pulmonary: Clear, Symmetric and Non Labored; Negative Wheezes, Rales or Rhonchi
Gastrointestinal: Soft, Non Tender, Non Distended and Normal Bowel Sounds
Skin: Warm and Dry; Negative Rash or Jaundice
Wound: Other (sternotomy site healing no erythema, warmth, tenderness or drainage; impella at previous cath site, both wrists examined no erythema, warmth, tenderness or drainage)
L PICC (placed today), R arm PIV x2 one with bruising but no erythema, warmth, tenderness or drainage, RIJ + swan: no erythema, warmth, tenderness or drainage, impella site no erythema, warmth, tenderness or drainage; r wrist jossie no erythema,
warmth, tenderness or drainage; left wrist previous a line site no erythema, warmth, tenderness or drainage
Lab / Diagnostic Study Results
Abs Immat Gran (auto) 0.7 10^3/uL (0-0.05) H 10/06/24 04:23
Absolute Neuts (auto) 11.2 10^3/uL (1.4-6.5) H 10/06/24 04:23
Absolute Lymphs (auto) 1.7 10^3/uL (1.2-3.4) 10/06/24 04:23
Absolute Monos (auto) 1.3 10^3/uL (0.1-0.6) H 10/06/24 04:23
Absolute Basos (auto) 0.0 10^3/uL (0-0.2) 10/06/24 04:23
Immature Gran % 4.4 % (0-0.5) H 10/06/24 04:23
Neutrophils % 75.2 % (42.2-75.2) 10/06/24 04:23
Lymphocytes % 11.1 % (20.5-51.1) L 10/06/24 04:23
Monocytes % 8.7 % (1.7-9.3) 10/06/24 04:23
Eosinophils % 0.5 % (0-6) 10/06/24 04:23
Basophils % 0.1 % (0-2) 10/06/24 04:23
PT 20.4 Sec (11.4-14.6) H 10/06/24 04:23
INR 1.72 10/06/24 04:23
Lactic Acid 1.4 mmol/L (0.7-2.0) 10/06/24 04:23
Procalcitonin 0.97 ng/ml (0.0-0.25) H 10/05/24 21:33
Ur Squamous Epith Cells 3-5 /LPF (Few) 09/29/24 11:00
Microbiology Results
Micro:
10/05/24 21:33 Blood Culture - Pending
Blood/Venous
10/05/24 21:33 Blood Culture - Pending
Blood/Venous
10/06/24 04:30 Respiratory Culture - Pending
Endotracheal Gram Stain - Pending
10/05/24 09:59 MRSA Screen - Pending
Nose
09/28/24 12:16 MRSA Screen - Final
Nose No Methicillin Resistant Staphylococcus aureus isolated.
10/04/24 Abd US: mild gallbladder wall thickening, likely reactive, no bile duct dilatation
hepatic steatosis
mild ascites and small bilateral pleural effusions
09/28 CT c/a/p: ascending aorta aneurysm: 5.8 cm. submucosal fatty deposition within the terminal ileum, sigmoid colon and rectum which is nonspecific however can be seen with sequelae of chronic inflammation
Assessment / Plan
Cardiogenic Shock
Multisystem Organ Failure
Resolving Shock liver
Fever via core route - persistent
S/p Valve sparing aortic root replacement with reimplantation of sun'aq aortic valve [Gregory Procedure]; Reimplantation of left and right coronary buttons into their respective neosinus; CABG x 2 [sun'aq CEDILLO in situ to LAD, RSVG to proximal RCA];
Left atrial appendage exclusion (35mm clip) by Dr. Zuñiga on 09/29/24
- note transfusions overnight
- blood cultures x2 in progress- done at the same time - unclear if these were separate draws or not; asked for a third set from PICC which was just placed today
- resp culture in progress - no significant sputum in the ETT
- covid and flu swabs
- send ross SCHMITZ for strict I&Os
- MRSA screen pending, was negative on 10/08
- note mildly elevated procalcitonin in the setting of shock and ROBERTA - not reliable and would not trend
- last bowel movement 09/29 (confirmed 10/20/24/10/05/24 was error with charting RN); 10/04 AXR: for NGT placement, my read partial view of nonobstructive bowel gas pattern
- repeat AXR today
- follow pressor, ventilator requirements, cbc, calcium
- dobutamine 5, norepi overnight as high as 8 now 1, vaso 0.04 since 10/03
- if MRSA PCR remains negative then can stop vancomycin
- agree with zosyn at this time
Patient is critically ill on pressors, ventilator.
Care Review
Plan reviewed with: Nurse and Other Provider ([employer] TECHNICIAN)
[2024-10-06] MEDS: DOBUTREX 250 MG IV (09:14)
--- NOTE | 2024-10-06 10:26 | PTCARENOTE ---
Echo completed; IV team in room to place triple lumen PICC, X ray completed awaiting results.
[2024-10-06 10:29] LABS: B.E. 6.6 mmol/L; HCO3 31.9 mmol/L (21-28); O2 Saturation % 99.2 % (94-98); PCO2 47 mmHg (35-48); PO2 168 mmHg (83-108); pH 7.44 (7.35-7.45)
[2024-10-06 10:31] LABS: Mixed Venous O2 Saturation 61.1 %
[2024-10-06 10:32] LABS: Hematocrit 24.8 % (39.0-52.0); Hemoglobin 8.4 g/dL (13.0-18.0); Mean Corp Hgb Conc. 33.9 g/dL (33.0-37.0); Mean Corpuscular Hgb 30.2 pg (27.0-31.0); Mean Corpuscular Volume 89.2 fL (80.0-94.0); Mean Platelet Volume 10.7 fL (7.4-10.4); Platelet Count 65 10^3/uL (130-400); Red Blood Cell Count 2.78 10^6/uL (4.70-6.10); Red Cell Dist. Width 16.2 % (11.5-14.5)
[2024-10-06 10:41] LABS: Lactic Acid 1.2 mmol/L (0.7-2.0)
[2024-10-06] MEDS: VERSED 100 IV (10:42)
[2024-10-06 10:48] LABS: Blood Urea Nitrogen 42 mg/dl (9-20); Calcium 8.3 mg/dl (8.4-10.2); Carbon Dioxide 34 mmol/L (22-30); Chloride 89 mmol/L (98-107); Estimated Creatinine Clearance 71 ml/min; Glucose 125 mg/dl (70-99); Potassium 3.4 mmol/L (3.5-5.1); Sodium 130 mmol/L (135-145); eGFR 50.88
--- NOTE | 2024-10-06 11:27 | PTCARENOTE ---
Blood cultures, MRSA swab, FLu and Covid swab obtained; Right triple Lumen confirmed with X ray to use; awaiting ultrasound of left arm; A-fib on monitor and vSS; Impella at P5 without issues; assessment unchanged; pt [id number].
[2024-10-06] MEDS: KCL 100 IV ×3 (11:40→21:40)
[2024-10-06 11:55] LABS: Urine Albumin Negative (Neg - Trace); Urine Bilirubin Negative (Negative); Urine Character Clear (Clear); Urine Color Yellow; Urine Glucose Negative (Negative); Urine Ketone Negative (Negative); Urine Leukocyte Negative (Negative); Urine Nitrite Negative (Negative); Urine Occult Blood Negative (Negative); Urine Urobilinogen Negative (Neg - 1+)
[2024-10-06 12:01] LABS: COVID-19 Antigen Negative (Negative)
--- NOTE | 2024-10-06 12:46 | PTCARENOTE ---
1 unit of Platelets started per order.
[2024-10-06] MEDS: BUMEX 50 IV (12:51)
[2024-10-06] MEDS: VANCOCIN 275 MG IV (13:30)
--- NOTE | 2024-10-06 14:30 | PTCARENOTE ---
1 unit PRBCs infusing per order.
[2024-10-06 15:37] LABS: B.E. 5.5 mmol/L; HCO3 29.9 mmol/L (21-28); O2 Saturation % 98.7 % (94-98); PCO2 42 mmHg (35-48); PO2 125 mmHg (83-108); pH 7.46 (7.35-7.45)
[2024-10-06 15:40] LABS: Mixed Venous O2 Saturation 55.4 %
[2024-10-06 15:42] LABS: Hematocrit 26.1 % (39.0-52.0); Hemoglobin 8.6 g/dL (13.0-18.0); Mean Corpuscular Hgb 29.8 pg (27.0-31.0); Mean Corpuscular Volume 90.3 fL (80.0-94.0); Mean Platelet Volume 10.7 fL (7.4-10.4); Platelet Count 81 10^3/uL (130-400); Red Blood Cell Count 2.89 10^6/uL (4.70-6.10); Red Cell Dist. Width 15.9 % (11.5-14.5); White Blood Cell Count 13.7 10^3/uL (4.8-10.8)
--- NOTE | 2024-10-06 15:47 | W.PN.CARDCBS ---
Addendum entered and electronically signed by Merissa Jean-Baptiste MD 10/06/24 17:29:
I saw and examined the patient.
The Intermediate Frame Tender's note was reviewed and I agree with the note.
Comment: Events from last night noted. Patient is currently tolerating weaning of RV Impella to P5 with adequate urine output even with decrease Bumex drip.
Vital signs and lab work reviewed. Patient is sedated/intubated, in no acute distress, regular rate, normal S1 and S2, lungs are clear to auscultation anteriorly, abdomen is soft, nontender, nondistended, right upper extremity edema noted, warm
extremities
Recommendations:
1. Heparin drip has been on hold since episodes of hemoptysis. Plan for ultrasound of the right upper extremity given swelling to rule out any blood clots.
2. Patient has been getting PRBC and platelet transfusions.
3. With new fever, infectious disease was consulted and blood cultures are pending.
4. Continue weaning down of RV Impella, currently on P5. Sheng has improved over the last 2 to 3 days.
5. Continue weaning pressors and ventilator as tolerated.
6. EKG reviewed from this morning with ST-T wave changes noted. Echocardiogram also reviewed by me, with no acute changes.
7. Continue postoperative supportive care.
Merissa Jean-Baptiste MD, [facility], [facility]
Original Note:
Today's Communication / Plan
-
Additional PRBC and platelets now
ID following for fever and blood cultures pending
Impression / Plan
-
PCP: Dr. Marsh
Cardiology: None prior to admission, seen by Dr. Chavarria at [facility]
Impression:
Admitted to [facility] with chest pain 09/25/[address] surgical evaluation 09/27/24
CAD
NSTEMI peak Troponin 67 and MV CAD by cath at [facility] 09/27/24
s/p CABG with CEDILLO to LAD and SVG to prox RCA 09/29/24
s/p LHC with widely patent CEDILLO to LAD, 50% stenosis in the LAD just beyond the MARLA touchdown with KATIE III flow distally, retrograde filling of proximal LAD via moderate size diagonal branch, SVG is anastomosed to the mid RCA, anatomic kink in the
midportion of the vein graft but good distal flow to the distal RCA, cocopah RCA with diffuse luminal irregularities, but no focal obstructive stenosis 10/01/2024
h/o aortic root aneurysm
root measuring 5.4cm, mid ascending aorta 4.5cm by [facility] imaging 09/27/24
s/p valve sparing aortic root replacement with reimplantation of [place] aortic valve (Gregory Procedure) 09/29/24. A left atrial appendage clip was also placed during surgery
HTN
Acute post-op ventricular bigeminy with R on T and VF arrest x2 09/29/24
treated with successful shock x2, CPR, amio and Epi with ROS
CRV Impella placed 10/01/2024
Physiology consistent with RV infarction
Elevated troponin-likely combination of ischemia and RV strain
Inotrope dependent hypotension
Abnormal LFTs
Postoperative hypotension
Ventricular tachycardia
Postoperative atrial fibrillation
Diminished urine output
Intraoperative ROBERTA 09/29/24: Postop findings, EF 50 to 55% with new septal wall hypokinesis, anterior and lateral wall motion appear normal, no AI, the LA appendage has been clipped with a 0.5 cm residual base noted
Bedside ROBERTA 09/29/24: Postop in the room, EF 55% with mild septal wall hypokinesis that appears better than what it appeared in the OR, no pericardial effusion, trace MR, AV function normal
Echo 10/01/24: EF 40 to 45%, inferior wall and inferoseptum appear hypokinetic from base to midportion, moderate concentric LVH, mild to moderately reduced RV systolic function, mild to moderate MR
Echo 10/03/24: EF 50 to 55%, basal and mid inferior hypokinesis, RV hypokinesis with normal RV size, Impella and Mcgregor-John catheter in place, mild TR
Plan:
-Overnight events noted. Increased burden of NSVT and Afib. Amiodarone bolus and then gtt at 0.5 mg/min. Electrolytes repleted.
-1 unit PRBCs given 10/05/24 late night and additional unit ordered for now along with platelets
-Heparin gtt remains off
-Impella RP now running at P6
-Bumex at 0.25 mg/hr
-Levo at 1
-Dobut at 5
-Vaso at 0.04
-Fever overnight up to 101.4 degrees Fahrenheit and ID has been consulted. Blood cultures pending.
-Now on tube feeds.
-Flolan discontinued in the setting of hemoptysis.
HPI: [facility] transfer from [facility] yesterday for evaluation from CT surgery team for MV CAD and aortic root aneurysm and cardiology has been consulted. Patient sees his PCP mostly when he is sick, but had a physical within the last
year. Patient with known h/o HTN and takes losartan 25 mg daily. He does not check BP at home on a regular basis. 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 He was working last Friday
night into Friday morning and was taking a break and laying on a sofa when he had sudden onset chest pain that lasted for 10-15 minutes and seemed to get better when he sat up. Pain returned again when he returned home after working and he told
his and they made a plan to go to the hospital. Then, after walking up the stairs in his home the patient had recurrent chest pain that was the most intense pain he had experienced and pain persisted. Patient went to [facility] ER and Troponin was
elevated prompting a cath that revealed MV CAD. Patient had an echo that showed aortic root aneurysm and then patient had CT, but results not available. Patient was transferred to for CT surgery eval last evening.
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
Subjective
Date of Service: October 06, 2024
Intubated and sedated
Objective
Labs:
10/06/24 15:28
Labs
Hgb 8.6 g/dL (13.0-18.0) L 10/06/24 15:28
Hct 26.1 % (39.0-52.0) L 10/06/24 15:28
Plt Count 81 10^3/uL (130-400) L D 10/06/24 15:28
PT 20.4 Sec (11.4-14.6) H 10/06/24 04:23
INR 1.72 10/06/24 04:23
APTT 35.9 Sec (23.4-35.0) H 10/05/24 03:54
Sodium 130 mmol/L (135-145) L 10/06/24 10:18
Potassium 3.4 mmol/L (3.5-5.1) L 10/06/24 10:18
BUN 42 mg/dl (9-20) H 10/06/24 10:18
Creatinine 1.6 mg/dL (0.7-1.3) H 10/06/24 10:18
Glucose 125 mg/dl (70-99) H 10/06/24 10:18
Troponins
10/04/24
16:25
Troponin I 38.400 H*
Vital Signs and I&O:
Vital Signs
Temp Pulse Resp BP Pulse Ox
100.3 F 90 19 105/70 96
10/06/24 15:00 10/06/24 15:15 10/06/24 15:15 10/06/24 11:42 10/06/24 15:15
Vital Signs
Temp Pulse Resp BP Pulse Ox
100.3 F 90 19 105/70 96
10/06/24 15:00 10/06/24 15:15 10/06/24 15:15 10/06/24 11:42 10/06/24 15:15
Intake & Output
10/04/24 10/05/24 10/06/24 10/07/24
06:59 06:59 06:59 06:59
Intake Total 3201.0 / 3323.9 5483.1 / 5559.0 3047.7 / 3178.6 1990.6 / 1990.6
Output Total 1350 / 1550 5795 / 5795 7783 / 8309 1575 / 1575
Balance 1851.0 / 1773.9 -311.9 / -236.0 -3777.3 / -3796.4 416.6 / 416.6
Physical Exam
Physical Exam
GEN: Intubated and sedated.
HEENT: MMM
LUNGS: Intubated and on the vent.
CV: Sinus tach on tele.
ABD: ND
EXT: No edema B/L
NEURO: Sedated
SKIN: No rash
[2024-10-06 15:49] LABS: APTT 30.6 Sec (23.4-35.0)
[2024-10-06 15:50] LABS: Lactic Acid 1.3 mmol/L (0.7-2.0)
[2024-10-06 15:59] LABS: Blood Urea Nitrogen 42 mg/dl (9-20); Calcium 8.2 mg/dl (8.4-10.2); Carbon Dioxide 33 mmol/L (22-30); Chloride 90 mmol/L (98-107); Estimated Creatinine Clearance 76 ml/min; Glucose 123 mg/dl (70-99); Potassium 3.6 mmol/L (3.5-5.1); Sodium 129 mmol/L (135-145); eGFR 54.98
--- NOTE | 2024-10-06 16:14 | CM ---
Reviewed chart. Mr. Gutierrez is still intubated and with the Impella. Will need to see his functional level when able to see if he will have any skilled care needs. Medical work-up in progress. The discharge plan is some level of inpatient
rehab when medically stable.
[2024-10-06] MEDS: HEPARIN 25000 UNITS/250 ML IV (16:33)
[2024-10-06] MEDS: SODIUM BICARBONATE 1025 MEQ INF CATH (16:41)
[2024-10-06] MEDS: NSS IV (16:47)
--- NOTE | 2024-10-06 17:29 | W.PN.UPDATE ---
Update Note
Progress Note Update
Shift Summary:
Patient received 1 platelet and 1 PRBC for platelet count 65K and hemoglobin 8.4. Hemoglobin increased to 3.6 and platelet count increased to 81K. Ultrasound of right upper extremity for edema showed positive cephalic vein thrombosis. A left
upper extremity PICC line was inserted for additional IV access. Sputum cultures were performed for WBC of 14.8 without fever. Empiric Zosyn and vancomycin were given. ID was consulted and COVID/flu screens were negative. MRSA was negative and
vancomycin DC'd. Zosyn will continue per ID. Diamox 500 mg IV was given and Bumex drip continued at 0.25 mg/hr. Creatinine remained stable at 1.5. Patient diuresed 2 L this shift with resultant drop in weight to 115 kg this morning from 116kg on
10/05/2024. Follow-up was decreased to P4 and hemodynamics remained stable. IV heparin was maintained at 500u/h via right femoral sheath per Dr. Zuiñga new titration is necessary PTT monitoring will continue due to elevated liver function tests.
Abdominal x-ray reported stool in colon and bowel regime with MiraLAX and Colace initiated. Patient continues to tolerate tube feedings at trickle rate of 10 cc/h.
[2024-10-06] MEDS: MIRALAX 17 GRAMS TUBE (17:42)
[2024-10-06 17:53] LABS: Magnesium 2.1 mg/dl (1.6-2.3)
--- NOTE | 2024-10-06 17:59 | PTCARENOTE ---
PRBC x1 finished; assessment unchanged; Impella decreased to P4;mouth care provided; M0Glipas pt; A-fib on monitor and VSS; family at bedside and updated.
--- NOTE | 2024-10-06 19:30 | PTCARENOTE ---
assumed care of patient @ 1900. received pt laying in bed, Intubated sedated. pupils equal round and reactive. Afib on tele 90s-low 100s heart tones irregular. BP 100s/70s. PAP 30s/20s. CVP ~ 17. good pulses, warm extremities, +1 generalized edema,
+3 R upper arm. 8.0 ET tube @ 25 present on AC40%, 5 peep, 550 tv, 15 RR. Lungs sound coarse, scattered rhonci anteriorly. Belly round, hypoactive. NGT present in R nare at 62 with Jevity 1.5 infusing. Maki present draining large amounts of clear
yellow urine. Sternum SABINO, R groin impella site covered with dry dressing. R leg SVG covered with leg immobilizer. [place] at 52, R IJ cordis, L arm PICC, R a line all patent. central lines zeroed, flushed. RP impella present in R groin through venous
sheath on p4. Told by dayshift not to do any C.I through swan as it is not working/accurate.
Drips
levo 1
dobut 5
vaso 0.04
amio 0.5
versed 2
fent 100
Hep 500 through venous sheath
[2024-10-06 20:23] LABS: B.E. 5.3 mmol/L; HCO3 29.9 mmol/L (21-28); Ionized Calcium 1.12 mMOL/L (1.15-1.33); O2 Saturation % 99.2 % (94-98); PCO2 43 mmHg (35-48); PO2 120 mmHg (83-108); Potassium 3.8 mMOL/L (3.5-5.1); pH 7.45 (7.35-7.45)
[2024-10-06 20:26] LABS: Mixed Venous O2 Saturation 47.6 %
[2024-10-06 20:37] LABS: Lactic Acid 1.1 mmol/L (0.7-2.0)
[2024-10-06] MEDS: COLACE LIQUID 100 MG TUBE (20:52)
[2024-10-06] MEDS: CORDARONE 518 MG IV (21:53)
[2024-10-06 22:53] LABS: Hematocrit 28.1 % (39.0-52.0); Hemoglobin 9.4 g/dL (13.0-18.0); Platelet Count 75 10^3/uL (130-400)
[2024-10-06 22:59] LABS: APTT 32.9 Sec (23.4-35.0)
--- NOTE | 2024-10-06 23:52 | PTCARENOTE ---
ordered labs sent, 1U plt ordered and infusing. Pt remains in afib, levo off, BP stable.
[2024-10-07] MEDS: NITRO-BID 1 INCH TOPICAL ×5 (00:51→23:57)
[2024-10-07 00:57] LABS: Mixed Venous O2 Saturation 48.8 %
[2024-10-07 00:59] LABS: B.E. 4.6 mmol/L; HCO3 29.2 mmol/L (21-28); Ionized Calcium 1.18 mMOL/L (1.15-1.33); O2 Saturation % 99.7 % (94-98); PCO2 43 mmHg (35-48); PO2 109 mmHg (83-108); pH 7.44 (7.35-7.45)
[2024-10-07 01:13] LABS: Blood Urea Nitrogen 41 mg/dl (9-20); Calcium 8.4 mg/dl (8.4-10.2); Carbon Dioxide 31 mmol/L (22-30); Chloride 93 mmol/L (98-107); Estimated Creatinine Clearance 76 ml/min; Glucose 121 mg/dl (70-99); Potassium 3.7 mmol/L (3.5-5.1); Sodium 132 mmol/L (135-145); eGFR 54.98
[2024-10-07] MEDS: NOVOLOG FLEXPEN-MODERATE RESISTANCE SC ×5 (01:18→23:00)
[2024-10-07 01:21] LABS: Lactic Acid 1.1 mmol/L (0.7-2.0)
[2024-10-07] MEDS: KCL 50 IV (01:38)
[2024-10-07] MEDS: CALCIUM GLUCONATE 100 IV ×3 (01:40→21:40)
--- NOTE | 2024-10-07 03:00 | PTCARENOTE ---
pt bathed, new chucks, frequent mouth care provided. no other change in assessment .
[2024-10-07 04:24] LABS: Mixed Venous O2 Saturation 50.3 %
[2024-10-07 04:27] LABS: B.E. 4.4 mmol/L; HCO3 28.4 mmol/L (21-28); Ionized Calcium 1.22 mMOL/L (1.15-1.33); O2 Saturation % 99.8 % (94-98); PCO2 39 mmHg (35-48); PO2 137 mmHg (83-108); Potassium 3.7 mMOL/L (3.5-5.1); pH 7.47 (7.35-7.45)
[2024-10-07 04:33] LABS: Hematocrit 27.9 % (39.0-52.0); Hemoglobin 9.2 g/dL (13.0-18.0); Mean Corpuscular Hgb 29.8 pg (27.0-31.0); Mean Corpuscular Volume 90.3 fL (80.0-94.0); Mean Platelet Volume 11.2 fL (7.4-10.4); Platelet Count 68 10^3/uL (130-400); Red Blood Cell Count 3.09 10^6/uL (4.70-6.10); Red Cell Dist. Width 16.3 % (11.5-14.5); White Blood Cell Count 11.4 10^3/uL (4.8-10.8)
[2024-10-07 04:43] LABS: APTT 33.9 Sec (23.4-35.0)
[2024-10-07] MEDS: SUBLIMAZE 50 MCG IV ×4 (04:50→17:31)
[2024-10-07] MEDS: ZOSYN 50 IV ×4 (05:02→21:40)
--- NOTE | 2024-10-07 05:03 | W.PN.CT ---
Today's Communication / Plan
-
-pod#8
-no issues overnight
-Impella @ p4 overnight. mVO2 50.3. Lactic acid nl 1.0
-drips: Levo is off, Vaso 0.03, Dobut 5, Amio 0.5, Bumex 0.25, Versed 2, Fentanyl 100. Heparin 500 through sheath
-platelets 68K this am --gave 1 platelet last night and 1 platelet this am for plat 68K
-tm 100.5
-diuresing well (UO 3750/5950 in 12/24 hrs)
-repleted K and Ca several times overnight
-Cr is 1.4 today (1.5-1.6 past few days)
Assessment / Plan
-
Assessment:
-Multivessel CAD/Ao aneurysm - s/p Valve sparing aortic root replacement with reimplantation of [place] aortic valve [Gregory Procedure]; Reimplantation of left and right coronary buttons into their respective neosinus; CABG x 2 [[place] CEDILLO in situ to
LAD, RSVG to proximal RCA]; Left atrial appendage exclusion (35mm clip) by Dr. Zuñiga on 09/29/24, pod #8
-Intraop ROBERTA: LVEF preoperatively 60% with no significant regional wall motion abnormalities. He does have diastolic dysfunction with thick left ventricle. Following surgery his EF was the same with no significant regional wall motion
abnormalities aside from some paradoxical motion of his septum. He is aortic valve was spared and reimplanted inside of 32 mm cardio root Valsalva graft. Following surgery, his AI that was initially mild and central went to none. He had a mean
gradient of 3 across his [place] aortic valve with a good coaptation height. Due to the long clamp around, he was a little bit sluggish coming off of cardiopulmonary bypass but did not require any inotropic support. His cardiac index was
approximately 1.7 to on just a low-dose Levophed. There is no residual flow into the left atrial appendage, and only a small residual stump was visualized.
s/p Impellla RP placed 10/01/24
-NSTEMI (High-sensitivity trop 67 @ [facility])
-[place]
-Aortic root aneurysm (5.8 cm, mid ascending aorta 4.5 cm)
-HTN
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
-Spermatocele/Hydrocele S/P b/l spermatocelectomies, 05/26/2015
-S/P LHC
-S/P Vasectomy, 2008
-Acute postop ventricular bigeminy/ R on T phenomenon with v-fib arrest X2 - s/p shocks x2, CPR, low-dose Epi, Amio 300 mg bolus and drip- Rosc achieved. Pt woke up post code and followed commands
-NSVTs
-Bedside ROBERTA revealed no pericardial effusion, valves ok. Lateral wall had some stunning
-Acute postop hypovolemia
-Acute postop cardiogenic shock
-Acute postop atelectasis
-Acute postop blood loss anemia - stable, no transfusion
-Acute postop coagulopathy - s/p 2 FFPs and 2 unit platelets
-ROBERTA
-Shock liver - holding Tylenol - follow
-Acute postop RV failure, taken to lab nurse for angiography (grafts patent), Impella RP placed
-Acute postop paroxysmal a-fib
-Acute postop metabolic alkalosis, likely d/t diuresis
-Acute postop shock liver
-Acute postop fever, procalcitonin 0.97 - blood cx sent and started on Zosyn and Vanco 10/05
-Acute postop RUE cephalic vein thrombosis
-LUE picc placement 10/06/24
Discussed patient care with: Nursing and Care Team
Subjective
Procedure
s/p Valve sparing aortic root replacement with reimplantation of [place] aortic valve [Gregory Procedure]; Reimplantation of left and right coronary buttons into their respective neosinus; CABG x 2 [[place] CEDILLO in situ to LAD, RSVG to proximal RCA];
Left atrial appendage exclusion (35mm clip) by Dr. Zuñiga on 09/29/24
s/p Impellla RP placed 10/01/24
-
Date of Service: October 07, 2024
Objective Data
-
PT 20.4 Sec (11.4-14.6) H 10/06/24 04:23
INR 1.72 10/06/24 04:23
APTT 33.9 Sec (23.4-35.0) 10/07/24 04:08
Vital Signs
Vital Signs
Temp Pulse Resp BP Pulse Ox
99.9 F 89 17 115/75 94
10/07/24 04:00 10/07/24 04:20 10/07/24 04:20 10/06/24 17:42 10/07/24 04:25
CT Intake/Output/Weight
10/06/24 10/06/24 10/07/24
06:59 18:59 06:59
Intake Total 1494.4 / 3178.6 2368.6 / 3394.9 1026.3 / 3394.9
Output Total 2600 / 6975 2200 / 5325 3125 / 5325
Balance -1105.6 / -3796.4 168.6 / -1930.1 -2098.7 / -1930.1
SaO2: 94
Physical Exam
-
General: Other (intubated, sedated, appears comfortable)
Cardiovascular: Regular rate & rhythm, No Murmurs and No Rub
Respiratory: Decreased Breath Sounds
Sternum: Stable
Incision: Clean, Dry and Intact
Abdomen: soft, nontender, decreased bowel sounds
Extremities: Edema +2
Data Reviewed
-
Lab Results: Results Reviewed
Medications: Active Meds Reviewed
Chest X-Ray: Report Reviewed and Image Reviewed
ECG: Report Reviewed and Image Reviewed
[2024-10-07 05:04] LABS: Procalcitonin 0.79 ng/ml (0.0-0.25)
[2024-10-07 05:06] VITALS: BMI 32.6
[2024-10-07 05:10] LABS: AST (SGOT) 638 U/L (17-59); Albumin 3.3 g/dl (3.5-5.0); Alkaline Phosphatase 143 U/L (38-126); Blood Urea Nitrogen 39 mg/dl (9-20); Calcium 8.6 mg/dl (8.4-10.2); Carbon Dioxide 32 mmol/L (22-30); Chloride 93 mmol/L (98-107); Estimated Creatinine Clearance 81 ml/min; Glucose 121 mg/dl (70-99); Potassium 3.6 mmol/L (3.5-5.1); Sodium 132 mmol/L (135-145); Total Bilirubin 9.9 mg/dl (0.2-1.3); Total Protein 5.6 g/dl (6.3-8.2); eGFR 59.73
[2024-10-07] MEDS: KCL 100 IV ×3 (05:18→16:47)
[2024-10-07 05:27] LABS: ALT (SGPT) 1518 U/L (0-50)
[2024-10-07 05:38] LABS: LDH 1169 U/L (120-246)
[2024-10-07] MEDS: SUBLIMAZE 100 IV ×2 (05:38→14:42)
--- NOTE | 2024-10-07 06:11 | PTCARENOTE ---
Dr Zuñiga at bedside turned impella down to p3
[2024-10-07] MEDS: PITRESSIN 100 IV ×2 (06:14→22:45)
--- NOTE | 2024-10-07 07:45 | W.PN.INTV ---
Today's Communication / Plan
Recommendations
Stable on the ventilator
Add mucolytic's
Mucomyst continues
Trying to avoid bronchodilators/cardiac irritability
Continue antibiotics
Impella to be removed
Wean pressors and inotropes as needed
Spontaneous breathing trial once medically stable
Sedation vacations
Assessment
-
Patient is a 54-year-old male with previous history of hypertension presenting to [facility] on 09/26/2024 for complaints of chest pain with shortness of breath. He was ruled in for NSTEMI with elevated troponins and underwent left heart
catheterization demonstrating multivessel CAD. He was transferred from [facility] to [facility] for evaluation of CABG. He underwent CABG x 2 on 09/29/2024 without complication and perioperatively transferred to CVICU for further management.
MV CAD status post CABG x 2, status post valve sparing aortic root replacement and reimplantation 09/29/2024-Dr. Zuñiga
s/p LHC 10/01/24-no critical stenosis
s/p impelle placement 10/01/24
Ventilator dependent respiratory failure
Reintubated 10/04/2024
Extubated
Aspiration pneumonia
RV infarct suspected
Cardiogenic shock on pressors/inotropes
NSTEMI with elevated troponins
Chest pain and shortness of breath
Perioperative mechanical ventilation
Mild anemia, postoperative
Stage II DD on ECHO
Severe conc LVH
Nonsustained ventricular tachycardia
Paroxysmal atrial fibrillation
Conditions present prior to admission:
Hypertension
Plan
Continues to be critically ill sedated on the ventilator with pressors and inotropes-Impella to be removed 10/07/2024
Hemoptysis noted-appears to have resolved-Flolan discontinued due to contraindication with hemoptysis-consider reinstating if needed
Monitor hemoptysis-appears to have resolved
Heparin drip also discontinued-reinitiated
FFP given
S/p CAB POD # 8
Titrating off pressors per protocol, still on pressors: levo/dobutamine/vasopressin, off milrinone
Other gtts: amio, bumex gtt, heparin, transitioned off insulin IV
Inh: epoprostenol discontinued
Weight: 99kg -> 107 -> 110-now 115.2 kg
UO: -396
PAS/D: Reviewed
ECHO 10/06/2024 reviewed with normal function, stage II DD, no significant RV dysfunction
PA catheter readings reviewed
Management of chest tubes per primary service
Thick secretions-Mucomyst added
Trying to avoid bronchodilators that might cause cardiac irritability
Robitussin
Check sputum culture
Intubated-ventilator settings reviewed
ABGs reviewed-oxygenation improved, some alkalosis
Diamox provided once-might require for 48 hours for contraction alkalosis
VAP prevention protocol
Spontaneous breathing trial once medically stabilized
Follow ABG
Chest x-ray 10/06/2024-left PICC line in distal SVC, changes of CHF
Chest x-ray 10/07/2024 pending
Pain control
RASS goal of 0 to -1
Consider changing from Versed to propofol
Monitor for arrhythmias
Nonsustained ventricular tachycardia in the setting of hypokalemia and hypocalcemia-subsequently repleted
Cultures reviewed
Blood cultures negative thus far
Sputum culture 10/06/2024-many WBCs, moderate gram-positive cocci and few gram-negative rods
Procalcitonin noted
Empiric antibiotics-Zosyn and vancomycin-discontinue vancomycin if MRSA screen negative
Infectious disease consultation
Monitor leukocytosis
Follow temperature curve
GI prophylaxis is indicated for mechanical ventilation >48 hours-currently on pantoprazole
Monitor critical I/O's
Maki/chest tube output
Diuresis continues as tolerated
Monitor renal function-improving, electrolytes, intake/output, lower extremity edema and weight
Replace electrolytes as needed
Impella-discontinued 10/07/2024
Continue to follow hemoglobin and platelet count
Transfuse if needed
Monitor LFTs-shock liver-improving
Follow blood sugar
Insulin supplementation as needed
DVT izwrbgdkdbp-dzvdqjxxzn-gelokkm discontinued with hemoptysis-now reinitiated
GI prophylaxis-on PPI
Nutrition-tolerating tube feeds
Bedside range of motion
Critical care statement: A total of 40 minutes of critical care time was provided for this patient today. This includes management of unstable vital signs, evaluation of the patient at bedside, reviewing the patient's pertinent medical records
including radiographs, ventilator management, arterial blood gas management, spontaneous breathing trial management, pressor management, microbiology, laboratory evaluations, and discussion with primary team, consultants, pharmacy, nutrition,
physical therapy, case management, charge nurse, critical care nursing, and respiratory therapy.
Diagnostic Data
CXR 10/03/24- No significant interval change in lines and tubes. As described, bilateral parenchymal opacities highly suggestive of pulmonary edema pattern. Slight improvement in atelectasis in the medial left base.
Chest X-Ray: 09/29/24- New postoperative changes as detailed above. Small left pleural effusion with underlying retrocardiac atelectasis
CT Scan: CAP 09/28/24- 1. Ascending aortic aneurysm measuring up to 5.8 cm at the sinotubular junction.
2. Severe atherosclerotic disease of the left anterior descending with high-grade stenosis proximally secondary to probably noncalcified plaque. There is additional calcified plaque within the mid/distal vessel.
3.There is submucosal fatty deposition within the terminal ileum, sigmoid colon and rectum which is nonspecific however can be seen with sequelae of chronic inflammation.
Echo: ROBERTA 09/29/24- Overall LVEF is approximately 55% with no RWMA. Severe concentric left ventricular hypertrophy. Stage II Diastolic dysfunction. Mild mitral regurgitation. Mild aortic insufficiency.
AI jet is central due to ST junction and sinus of Valsalva distortion. Sinus of Valsalva is aneurysmal measuring 4.6 cm. Sinotubular junction measures 4.3 cm. Mid ascending aorta is dilated measuring 4.0 cm at the level of the RPA. Mild sessile
atheroma seen in the descending aorta.
Reports and relevant images were personally reviewed.
Subjective Dataa
Subjective Data
Date of Service:
Date of Service: October 07, 2024
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
Subjective:
Stable on the ventilator, moderate amounts of thick secretions, tolerating tube feeds, sedated on a ventilator
Review of Systems
General: Unobtainable - Sedation
Objective Data
Data Reviewed
Vital Signs / I&O / Oxygen:
Vital Signs
Temp Pulse Resp BP Pulse Ox
99.4 F 100 18 115/75 98
10/07/24 06:00 10/07/24 06:05 10/07/24 06:05 10/06/24 17:42 10/07/24 06:05
Intake and Output
10/06/24 10/07/24 10/08/24
06:59 06:59 06:59
Intake Total 3047.7 / 3178.6 3547.5 / 3547.5
Output Total 6825 / 6975 6650 / 6650
Balance -3777.3 / -3796.4 -3102.5 / -3102.5
SaO2 [A/C] 98
SaO2 [SIMV] 99
SaO2 98
Nasal Cannula flow liters per 50
minute
Physical Exam
General: Respiratory Distress (n), Comfortable and Other (NAD)
HEENT: Normocephalic, Anicteric and Moist Mucous Membranes
Cardiovascular: Regular Rhythm
Respiratory: Clear, Non-Labored Respirations, ET Tube, Chest Tube and Other (PA Cath in place)
GI: Soft, Non Distended and Non Tender
Neurology: No Motor Deficits and Other (Sedated on a ventilator)
Skin: Warm, Good Color and Cyanosis (n)
Labs/Micro/Reports
Laboratory Results
10/06/24 10/06/24 10/06/24
10:18 15:28 20:13
APTT 30.6
pH 7.44 7.46 H 7.45
pCO2 47 42 43
pO2 168 H 125 H 120 H
HCO3 31.9 H 29.9 H 29.9 H
O2 Delivery Level
10/06/24 10/07/24 10/07/24
22:27 00:00 00:46
APTT 32.9 Cancelled
pH 7.44
pCO2 43
pO2 109 H
HCO3 29.2 H
O2 Delivery Level
10/07/24
04:08
APTT 33.9
pH 7.47 H
pCO2 39
pO2 137 H
HCO3 28.4 H
O2 Delivery Level
Microbiology
10/05/24 21:33 Blood/Venous Blood Culture - Preliminary
No Growth in 24 hours- Final report to follow
10/05/24 21:33 Blood/Venous Blood Culture - Preliminary
No Growth in 24 hours- Final report to follow
10/05/24 09:59 Nose MRSA Screen - Final
No Methicillin Resistant Staphylococcus aureus isolated.
10/06/24 11:22 Nose Nasal Screen MRSA (PCR) - Final
MRSA not detected - performed by PCR methodology.
10/06/24 11:22 Nasal Swab Influenza Types A & B (DAVI) - Final
Negative for Influenza A & B, NAAT
Negative results must be combined with clinical observations
and patient history.
Nucleic Acid Amplification test (NAAT)performed on the
[employer] platform.
10/06/24 04:30 Endotracheal Gram Stain - Preliminary
[2024-10-07 08:11] VITALS: BP 118/78
[2024-10-07 08:30] VITALS: BP 123/74
--- NOTE | 2024-10-07 08:35 | W.PN.CARDCBS ---
Addendum entered and electronically signed by Gregory Maddox MD 10/07/24 09:30:
Attending addendum: Patient seen and examined. PA note reviewed and findings confirmed by me. Imeplla RP removed earlier today. Still some oozing at femoral venous access site and low pressure FemoStop placed. He remains intubated and sedated
PA catheter: Ao: 111/75, RA: 20, PA: 43/27,
Rhythm: atrial flutter
RECOMMENDATIONS:
-Resume IV heparin when right venous access site hemostasis
-Slow improvement
-Wean pressors as tolerated only remains on a little dobut
-Statin on hold with elevated LFT's
Original Note:
Today's Communication / Plan
-
Impella removed this AM
Levo off
51 min face to face and coordination of care
Impression / Plan
-
PCP: Dr. Marsh
Cardiology: None prior to admission, seen by Dr. Chavarria at [facility]
Impression:
Admitted to [facility] with chest pain 09/25/[address] surgical evaluation 09/27/24
CAD
NSTEMI peak Troponin 67 and MV CAD by cath at [facility] 09/27/24
s/p CABG with CEDILLO to LAD and SVG to prox RCA 09/29/24
s/p LHC with widely patent CEDILLO to LAD, 50% stenosis in the LAD just beyond the MARLA touchdown with KATIE III flow distally, retrograde filling of proximal LAD via moderate size diagonal branch, SVG is anastomosed to the mid RCA, anatomic kink in the
midportion of the vein graft but good distal flow to the distal RCA, [place] RCA with diffuse luminal irregularities, but no focal obstructive stenosis 10/01/2024
h/o aortic root aneurysm
root measuring 5.4cm, mid ascending aorta 4.5cm by [facility] imaging 09/27/24
s/p valve sparing aortic root replacement with reimplantation of [place] aortic valve (Gregory Procedure) 09/29/24. A left atrial appendage clip was also placed during surgery
HTN
Acute post-op ventricular bigeminy with R on T and VF arrest x2 09/29/24
treated with successful shock x2, CPR, amio and Epi with ROS
CRV Impella placed 10/01/2024
Physiology consistent with RV infarction
Elevated troponin-likely combination of ischemia and RV strain
Inotrope dependent hypotension
Abnormal LFTs
Postoperative hypotension
Ventricular tachycardia
Postoperative atrial fibrillation and typical atrial flutter
Diminished urine output
Intraoperative ROBERTA 09/29/24: Postop findings, EF 50 to 55% with new septal wall hypokinesis, anterior and lateral wall motion appear normal, no AI, the LA appendage has been clipped with a 0.5 cm residual base noted
Bedside ROBERTA 09/29/24: Postop in the room, EF 55% with mild septal wall hypokinesis that appears better than what it appeared in the OR, no pericardial effusion, trace MR, AV function normal
Echo 10/01/24: EF 40 to 45%, inferior wall and inferoseptum appear hypokinetic from base to midportion, moderate concentric LVH, mild to moderately reduced RV systolic function, mild to moderate MR
Echo 10/03/24: EF 50 to 55%, basal and mid inferior hypokinesis, RV hypokinesis with normal RV size, Impella and [place] catheter in place, mild TR
Plan:
-Overnight events outlined by nursing, appreciate their help and input in maintaining continuity of care 10/07/24.
-Levo weaned off as of 10/07/24
-Dobut at 5
-Vaso at 0.03
-Amiodarone running at 0.5 mg/min, increased burden of NSVT and Afib starting again 10/05/24 PM.
-Tele reviewed by me 10/07/24 with atrial flutter and ECG ordered by me for 10/07/24.
-LFTs continue to trend down
-Impella RP removed 10/07/24 AM
-Hgb 9.2 on 10/07/24 after additional PRBCs 10/06/24.
-Plt 68 and additional 2 packs of platelets given 10/07/24 AM
-Tube feeds on hold while supine with sandbag to groin after Impella removed 10/07/24
-Fevers being investigated by ID. Blood cultures pending.
-Flolan previously discontinued in the setting of hemoptysis.
HPI: Patient came to [facility] as a transfer from [facility] yesterday for evaluation from CT surgery team for MV CAD and aortic root aneurysm and cardiology has been consulted. Patient sees his PCP mostly when he is sick, but had a physical within the last
year. Patient with known h/o HTN and takes losartan 25 mg daily. He does not check BP at home on a regular basis. 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 He was working last Friday
night into Friday morning and was taking a break and laying on a sofa when he had sudden onset chest pain that lasted for 10-15 minutes and seemed to get better when he sat up. Pain returned again when he returned home after working and he told
his and they made a plan to go to the hospital. Then, after walking up the stairs in his home the patient had recurrent chest pain that was the most intense pain he had experienced and pain persisted. Patient went to [facility] ER and Troponin was
elevated prompting a cath that revealed MV CAD. Patient had an echo that showed aortic root aneurysm and then patient had CT, but results not available. Patient was transferred to for CT surgery eval last evening.
Progress Note - Assignment Agent
Subjective
Date of Service: October 07, 2024
Remains intubated and sedated
Objective
Labs:
Labs
Hgb 9.2 g/dL (13.0-18.0) L 10/07/24 04:08
Hct 27.9 % (39.0-52.0) L 10/07/24 04:08
Plt Count 68 10^3/uL (130-400) L 10/07/24 04:08
PT 20.4 Sec (11.4-14.6) H 10/06/24 04:23
INR 1.72 10/06/24 04:23
APTT 33.9 Sec (23.4-35.0) 10/07/24 04:08
Sodium 132 mmol/L (135-145) L 10/07/24 04:08
Sodium Cancelled 10/07/24 04:08
Potassium 3.6 mmol/L (3.5-5.1) 10/07/24 04:08
Potassium Cancelled 10/07/24 04:08
BUN 39 mg/dl (9-20) H 10/07/24 04:08
BUN Cancelled 10/07/24 04:08
Creatinine 1.4 mg/dL (0.7-1.3) H 10/07/24 04:08
Creatinine Cancelled 10/07/24 04:08
Glucose 121 mg/dl (70-99) H 10/07/24 04:08
Glucose Cancelled 10/07/24 04:08
Troponins
10/04/24
16:25
Troponin I 38.400 H*
Vital Signs and I&O:
Vital Signs
Temp Pulse Resp BP Pulse Ox
99.2 F 110 17 118/78 97
10/07/24 08:11 10/07/24 08:11 10/07/24 08:11 10/07/24 08:11 10/07/24 08:11
Vital Signs
Temp Pulse Resp BP Pulse Ox
99.2 F 110 17 118/78 97
10/07/24 08:11 10/07/24 08:11 10/07/24 08:11 10/07/24 08:11 10/07/24 08:11
Intake & Output
10/05/24 10/06/24 10/07/24 10/08/24
06:59 06:59 06:59 06:59
Intake Total 5483.1 / 5559.0 3047.7 / 3178.6 3547.5 / 3547.5 103.4 / 103.4
Output Total 5795 / 5795 6825 / 6943 6650 / 6650 500 / 500
Balance -311.9 / -236.0 -3777.3 / -3796.4 -3102.5 / -3102.5 -396.6 / -396.6
Physical Exam
Physical Exam
GEN: Intubated and sedated.
HEENT: MMM
LUNGS: Intubated and on the vent.
CV: Atrial flutter on tele
ABD: ND
EXT: Trace B/L LE edema
NEURO: Sedated
SKIN: No rash
--- NOTE | 2024-10-07 08:36 | PTCARENOTE ---
assumed care of pt from previous shift RN, pupils +2, briskly reactive to light, pt COOPER spontaneously, opens eyes to painful stimuli, + cough, + gag, afib on tele w HR 100's, BP 122/78 via right radial jossie, + peripheral pulses, +2 edema to right
arm, +1 edema to bilateral lower extremities and left arm. Epicardial pacing wires insulated. Right femoral impella removed by CT team ~ 0750am, pressure held to site by CT PA, slight oozing noted, First sandbag applied then fem stop applied. Lungs
course throughout, #8 ETT/ 25cm @ left lip. VENT SETTINGS: A/C 40%/550/14/+5 PEEP, pox 97%. Pt inline suctioned for thick, green[place] and blood tinged secretions. Hypoactive BS, NGT via right nare w trickle feeding as ordered. Maki catheter w copious
amounts of turbulent yellow urine, CTPA made aware, bumex gtt placed on hold at 07:30am. Right IJ cordis w swan floated to 52, s/p impella removal PAP 43/27, CVP 18-20. Right radial jossie leveled and zeroed. MSI and right SVG surgical site w
surgical adhesive intact, meplex on sacrum, arms and legs off loaded.
DRIPS: Dobutamine 5mcg/kg/min
Vaso 0.03 units/min
Amiodarone 0.5 mg/min
Versed 2 mg/hr
Fentanyl 100 mcg/hr
Bumex and heparin ON HOLD
--- NOTE | 2024-10-07 08:48 | W.PN.ID1 ---
Date of Service
Date of Service: October 07, 2024
Today's Communication
- would not trend procalcitonins; can be falsely elevated in ROBERTA and shock. Procalcitonin most useful when considering stopping antibiotics.
- follow respiratory culture
- continue zosyn
Assessment / Plan
Cardiogenic Shock
Multisystem Organ Failure
Resolving Shock liver
Fever via core route - persistent
S/p Valve sparing aortic root replacement with reimplantation of [place] aortic valve [Gregory Procedure]; Reimplantation of left and right coronary buttons into their respective neosinus; CABG x 2 [lummi CEDILLO in situ to LAD, RSVG to proximal RCA];
Left atrial appendage exclusion (35mm clip) by Dr. Zuñiga on 09/29/24
- note further transfusions overnight
- blood cultures x3 no growth to date (first two at the same time, possibly from same stick)
- resp culture in progress, moderate GPCs, few GNR - sputum cultures bloody
- covid and flu swabs - negative
- UA negative
- MRSA screen negative 10/07 and 09/28
- last bowel movement 09/29 (confirmed 10/20/24 - future date - was error with charting RN); tube feeds started 10/05, 10/06 AXR non obstructive pattern and bowel regimen was intensified 10/06
- would not trend procalcitonins unless intent is to decide if stopping antibiotics
- follow pressor, ventilator requirements, cbc
- agree with zosyn at this time
Patient remains critically ill on pressors, ventilator with interval improvement
Chief Complaint
-: Fever and Other (cardiogenic shock)
Subjective / Review of Systems
fever curve notably improved
doubtamine remains at 5mcg/kg/min; norepi weaned off this AM, vaso remains on
impella removed!
remains at FiO2 40%
also on bumx drip
US RUE tthrombosis
diuresed 2L yesterday
bowel regimen increased
bloody secretions in the ETT - present previously per RN
Vital Signs / Physical Exam
Vital Signs
Vital Signs
Temp Pulse Resp BP Pulse Ox
99.2 F 110 17 118/78 97
10/07/24 08:11 10/07/24 08:11 10/07/24 08:11 10/07/24 08:11 10/07/24 08:11
Physical Exam
Constitutional: No Acute Distress and Chronically Ill
Cardiovascular: Regular Rate and S1/S2; Negative Murmur or Rub
Pulmonary: Clear and Symmetric; Negative Wheezes or Rales
Gastrointestinal: Soft, Non Tender, Non Distended and Normal Bowel Sounds
Skin: Warm and Dry; Negative Rash or Jaundice
Wound: Other (chest tube sites no erythema, warmth, tenderness, few ccs of serous drainage noted, no dehiscence; impella site no erythema, warmth, fem-stop in place)
Objective Data
Lab Data
PT 20.4 Sec (11.4-14.6) H 10/06/24 04:23
INR 1.72 10/06/24 04:23
APTT 33.9 Sec (23.4-35.0) 10/07/24 04:08
Estimated Creat Clear 81 ml/min 10/07/24 04:08
Estimated Creat Clear Cancelled 10/07/24 04:08
Lactic Acid 1.0 mmol/L (0.7-2.0) 10/07/24 04:08
Total Bilirubin 9.9 mg/dl (0.2-1.3) H 10/07/24 04:08
Total Bilirubin Cancelled 10/07/24 04:08
AST 638 U/L (17-59) H* 10/07/24 04:08
AST Cancelled 10/07/24 04:08
ALT 1518 U/L (0-50) H* 10/07/24 04:08
ALT Cancelled 10/07/24 04:08
Alkaline Phosphatase 143 U/L (38-126) H 10/07/24 04:08
Alkaline Phosphatase Cancelled 10/07/24 04:08
Most recent labs reviewed.
note improved leukocytosis - nearly noramlized
Cr with possible slight improvement
AST/ALT continued improvement
T bili with ongoing rise
LDH from 1800 to 1200
Micro Results:
10/05/24 21:33 Blood Culture - Preliminary
Blood/Venous No Growth in 24 hours- Final report to follow
10/05/24 21:33 Blood Culture - Preliminary
Blood/Venous No Growth in 24 hours- Final report to follow
10/05/24 09:59 MRSA Screen - Final
Nose No Methicillin Resistant Staphylococcus aureus isolated.
10/06/24 11:22 Nasal Screen MRSA (PCR) - Final
Nose MRSA not detected - performed by PCR methodology.
10/06/24 11:22 Influenza Types A & B (DAVI) - Final
Nasal Swab Negative for Influenza A & B, NAAT
Negative results must be combined with clinical observations
and patient history.
Nucleic Acid Amplification test (NAAT)performed on the
[employer] platform.
10/06/24 11:35 Blood Culture - Pending
Blood/Venous
10/06/24 11:25 Urine Culture - Pending
Urine
10/06/24 11:10 Blood Culture - Pending
Blood/Venous
10/06/24 04:30 Respiratory Culture - Pending
Endotracheal Gram Stain - Preliminary
09/28/24 12:16 MRSA Screen - Final
Nose No Methicillin Resistant Staphylococcus aureus isolated.
10/04/24 Abd US: mild gallbladder wall thickening, likely reactive, no bile duct dilatation
hepatic steatosis
mild ascites and small bilateral pleural effusions
09/28 CT c/a/p: ascending aorta aneurysm: 5.8 cm. submucosal fatty deposition within the terminal ileum, sigmoid colon and rectum which is nonspecific however can be seen with sequelae of chronic inflammation
--- NOTE | 2024-10-07 08:56 | W.PN.CARD.SR ---
Addendum entered and electronically signed by Britton Zuñiga MD 10/07/24 15:49:
I saw and examined the patient.
The PA's note was reviewed and I agree with the note.
Comment:
I was present and performed the procedure, CPT 07390
Original Note:
Sheath/IABP Sheath Removal
Sheath Removal
Right Venous Femoral:
Site appearance prior to sheath removal: Intact
Sheath removed by:: Physician manufacturing assistant
Name of associate removing sheath: Joanne Max PA-C with Dr. Britton Zuñiga
Time of sheath removal: 07:47
Time hemostasis achieved: 08:02
Site appearance post sheath removal: Intact
Method of Hemostasis Post Sheath Removal: Manual Pressure
Dressing dry and intact?: Yes
Comments: RP Impella removed prior to sheath removal by Dr. Kadeem Ortiz; Figure [address] Britton Zuñiga for external compression after venous sheath removal. Pt coughed approx 45 min later with some oozing/near saturation of 4x4
dressing--femoral stop device applied approx 8:50am to 60mmHg.
[2024-10-07 10:06] VITALS: BP 118/71
[2024-10-07] MEDS: VERSED 100 IV (10:34)
[2024-10-07] MEDS: NSS (PRESERVATIVE FREE) 10 ML IV (10:38)
[2024-10-07] MEDS: PROTONIX IV 40 MG IV (10:38)
[2024-10-07] MEDS: MIRALAX 17 GRAMS TUBE (10:38)
[2024-10-07] MEDS: VITAMIN C 500 MG PO (10:39)
[2024-10-07] MEDS: ASPIRIN 325 MG TUBE (10:39)
[2024-10-07] MEDS: SENOKOT-S 1 TABLET PO ×2 (10:39→20:55)
[2024-10-07] MEDS: COLACE LIQUID 100 MG TUBE ×2 (10:39→20:55)
[2024-10-07] MEDS: MAGNESIUM OXIDE 500 MG PO ×2 (10:39→20:55)
--- NOTE | 2024-10-07 11:15 | PTCARENOTE ---
labs drawn and sent as ordered. Vaso restarted at 0.01 unit/min as directed by CT JUAN ANTONIO. Bumex restarted at 0.25 mg/hr.
[2024-10-07] MEDS: KLOR-CON 40 MEQ PO (11:27)
[2024-10-07 11:32] LABS: B.E. 7.7 mmol/L; Ionized Calcium 1.14 mMOL/L (1.15-1.33); PCO2 43 mmHg (35-48); PO2 115 mmHg (83-108); Sodium 131 mMOL/L (136-145); pH 7.48 (7.35-7.45)
[2024-10-07 11:36] LABS: Mixed Venous O2 Saturation 56.9 %
[2024-10-07 11:45] LABS: Hematocrit 28.2 % (39.0-52.0); Hemoglobin 9.3 g/dL (13.0-18.0); Lactic Acid 1.2 mmol/L (0.7-2.0); Mean Corpuscular Hgb 30.1 pg (27.0-31.0); Mean Corpuscular Volume 91.3 fL (80.0-94.0); Mean Platelet Volume 10.6 fL (7.4-10.4); Platelet Count 87 10^3/uL (130-400); Red Blood Cell Count 3.09 10^6/uL (4.70-6.10); Red Cell Dist. Width 16.4 % (11.5-14.5); White Blood Cell Count 10.4 10^3/uL (4.8-10.8)
[2024-10-07 11:46] LABS: APTT 29.2 Sec (23.4-35.0)
[2024-10-07] MEDS: REGLAN 10 MG IV (11:49)
[2024-10-07 12:07] LABS: Blood Urea Nitrogen 39 mg/dl (9-20); Calcium 8.3 mg/dl (8.4-10.2); Carbon Dioxide 34 mmol/L (22-30); Chloride 90 mmol/L (98-107); Estimated Creatinine Clearance 81 ml/min; Glucose 114 mg/dl (70-99); Potassium 3.1 mmol/L (3.5-5.1); Sodium 132 mmol/L (135-145); eGFR 59.73
[2024-10-07] MEDS: DIAMOX 5 MG IV (12:07)
[2024-10-07] MEDS: ROBITUSSIN 200 MG TUBE ×3 (12:11→20:55)
[2024-10-07 12:17] VITALS: BP 108/73
[2024-10-07 12:35] VITALS: BP 114/75
[2024-10-07] MEDS: MUCOMYST 10% 2 ML INH ×2 (13:34→20:47)
[2024-10-07] MEDS: DOBUTREX 250 MG IV (13:50)
--- NOTE | 2024-10-07 14:00 | PTCARENOTE ---
chg bath completed, pt transferred to sport bed, tolerated well.
[2024-10-07 14:01] VITALS: BP 121/82
--- NOTE | 2024-10-07 16:11 | PTCARENOTE ---
repeat labs drawn and sent. EKG completed as ordered. Sedation vacation initiated at 14:55. At ~ 15:50 pt able to open eyes and follow simple commands. CT JUAN ANTONIO made aware, requesting SBT. RT notified. Family at bedside, updated.
--- NOTE | 2024-10-07 16:15 | CM ---
Reviewed chart. He is still intubated. Will need to see his functional level when he is able to see if he will have any skilled care needs. Medical work-up in progress. The discharge plan is some level of inpatient rehab. when medically stable.
[2024-10-07 16:19] LABS: B.E. 7.7 mmol/L; Ionized Calcium 1.19 mMOL/L (1.15-1.33); O2 Saturation % 99.8 % (94-98); PCO2 43 mmHg (35-48); PO2 138 mmHg (83-108); Potassium 3.7 mMOL/L (3.5-5.1); Sodium 131 mMOL/L (136-145); pH 7.48 (7.35-7.45)
--- NOTE | 2024-10-07 16:20 | PTCARENOTE ---
pt did not tolerate SBT.
[2024-10-07 16:22] LABS: Mixed Venous O2 Saturation 61.8 %
[2024-10-07 16:23] LABS: Hematocrit 28.9 % (39.0-52.0); Hemoglobin 9.5 g/dL (13.0-18.0); Mean Corp Hgb Conc. 32.9 g/dL (33.0-37.0); Mean Corpuscular Hgb 29.8 pg (27.0-31.0); Mean Corpuscular Volume 90.6 fL (80.0-94.0); Mean Platelet Volume 10.6 fL (7.4-10.4); Platelet Count 99 10^3/uL (130-400); Red Blood Cell Count 3.19 10^6/uL (4.70-6.10); Red Cell Dist. Width 16.4 % (11.5-14.5); White Blood Cell Count 8.6 10^3/uL (4.8-10.8)
[2024-10-07 16:32] LABS: APTT 30.5 Sec (23.4-35.0)
[2024-10-07] MEDS: NSS 500 IV (16:46)
[2024-10-07 16:53] LABS: Blood Urea Nitrogen 37 mg/dl (9-20); Calcium 8.6 mg/dl (8.4-10.2); Carbon Dioxide 32 mmol/L (22-30); Chloride 92 mmol/L (98-107); Estimated Creatinine Clearance 81 ml/min; Glucose 118 mg/dl (70-99); Potassium 3.7 mmol/L (3.5-5.1); Sodium 131 mmol/L (135-145); eGFR 59.73
[2024-10-07] MEDS: KLOR-CON 40 MEQ TUBE (16:57)
[2024-10-07 17:19] LABS: Magnesium 2.1 mg/dl (1.6-2.3)
[2024-10-07] MEDS: MAGNESIUM SULFATE 50 IV (17:32)
[2024-10-07] MEDS: CORDARONE 103 MG IV (17:32)
[2024-10-07 17:36] LABS: Phosphorus 4.1 mg/dl (2.5-4.5)
--- NOTE | 2024-10-07 17:39 | PTCARENOTE ---
pt in bigeminy, bp dropped into 70's. Levophed restarted, vaso dose increased. CT JUAN ANTONIO at bedside. EKG obtained, Mg rider and amiodarone boluses administered as ordered. Pt returned to afib/aflutter.
[2024-10-07] MEDS: THORAZINE 51 MG IV (17:52)
--- NOTE | 2024-10-07 19:30 | PTCARENOTE ---
assumed care of patient @ 1900. received pt laying in bed, Intubated sedated. pupils equal round and reactive. switching between Afib and ST on tele 90s-low 100s heart tones irregular. BP 110s/80s. PAP 40s/20s. CVP ~ 17. good pulses, warm
extremities, +1 generalized edema, +2 R upper arm. 8.0 ET tube @ 25 present on AC40%, 5 peep, 550 tv, 15 RR. Lungs sound coarse. Belly round, hypoactive. NGT present in R nare at 62 with Jevity 1.5 infusing. Maki present draining large amounts of
clear yellow urine. Sternum SABINO, R groin impella site covered with dry dressing. R leg SVG covered with leg immobilizer. [place] at 52, R IJ cordis, L arm PICC, R a line all patent. central lines zeroed, flushed. Stat chest xray done at change of shift
and dobut turned to 5 per CTPA
Drips
levo 1
dobut 5
vaso 0.03
amio 0.5
versed 2
fent 125
Hep 500
[2024-10-07] MEDS: ALBUMIN 5% 250 IV (19:59)
[2024-10-07] MEDS: XOPENEX 0.63 MG INHALANT SOLUTION INH (20:48)
[2024-10-07] MEDS: PULMICORT 0.5 MG INH (20:48)
[2024-10-07] MEDS: NEURONTIN 100 MG TUBE (20:54)
[2024-10-07 21:20] LABS: B.E. 5.9 mmol/L; HCO3 29.7 mmol/L (21-28); Ionized Calcium 1.14 mMOL/L (1.15-1.33); O2 Saturation % 99.4 % (94-98); PCO2 39 mmHg (35-48); PO2 135 mmHg (83-108); Potassium 4.3 mMOL/L (3.5-5.1); Sodium 132 mMOL/L (136-145); pH 7.49 (7.35-7.45)
[2024-10-07 21:22] LABS: Mixed Venous O2 Saturation 54.5 %
[2024-10-07 21:23] LABS: Hematocrit 26.4 % (39.0-52.0); Hemoglobin 8.8 g/dL (13.0-18.0); Mean Corp Hgb Conc. 33.3 g/dL (33.0-37.0); Mean Corpuscular Hgb 29.9 pg (27.0-31.0); Mean Corpuscular Volume 89.8 fL (80.0-94.0); Mean Platelet Volume 10.9 fL (7.4-10.4); Platelet Count 95 10^3/uL (130-400); Red Blood Cell Count 2.94 10^6/uL (4.70-6.10); Red Cell Dist. Width 16.5 % (11.5-14.5); White Blood Cell Count 8.3 10^3/uL (4.8-10.8)
[2024-10-07 21:32] LABS: APTT 31.7 Sec (23.4-35.0)
[2024-10-07 21:33] LABS: Blood Urea Nitrogen 37 mg/dl (9-20); Calcium 8.1 mg/dl (8.4-10.2); Carbon Dioxide 30 mmol/L (22-30); Chloride 94 mmol/L (98-107); Estimated Creatinine Clearance 81 ml/min; Glucose 124 mg/dl (70-99); Magnesium 2.4 mg/dl (1.6-2.3); Potassium 3.9 mmol/L (3.5-5.1); Sodium 131 mmol/L (135-145); eGFR 59.73
--- NOTE | 2024-10-08 | PTCARENOTE ---
tube feeds stopped per order. lab work sent. Afib in the 90s-100s. no other change in assessment .
[2024-10-08 00:35] LABS: Mixed Venous O2 Saturation 48.8 %
[2024-10-08 00:39] LABS: HCO3 26.5 mmol/L (21-28); Ionized Calcium 1.17 mMOL/L (1.15-1.33); O2 Saturation % 99.6 % (94-98); PCO2 31 mmHg (35-48); PO2 160 mmHg (83-108); Potassium 4.1 mMOL/L (3.5-5.1); pH 7.54 (7.35-7.45)
[2024-10-08] MEDS: SUBLIMAZE 100 IV ×2 (01:07→09:31)
--- NOTE | 2024-10-08 01:25 | PTCARENOTE ---
Dobutamine gtt decreased to 4 mcg/kg/min per order of PA.
[2024-10-08] MEDS: SUBLIMAZE 50 MCG IV (02:02)
[2024-10-08] MEDS: MUCOMYST 10% 2 ML INH ×4 (02:17→19:21)
[2024-10-08] MEDS: XOPENEX 0.63 MG INHALANT SOLUTION INH ×4 (02:17→19:21)
[2024-10-08] MEDS: CALCIUM GLUCONATE 100 IV ×2 (02:30→22:55)
--- NOTE | 2024-10-08 03:00 | PTCARENOTE ---
RR changed from 15 to 13 by RT for ABG results. Pt bathed, turned, new chucks . no other change in assessment .
[2024-10-08 04:55] LABS: B.E. 3.8 mmol/L; HCO3 28.5 mmol/L (21-28); Ionized Calcium 1.27 mMOL/L (1.15-1.33); O2 Saturation % 99.6 % (94-98); PCO2 43 mmHg (35-48); PO2 123 mmHg (83-108); Potassium 3.9 mMOL/L (3.5-5.1); Sodium 133 mMOL/L (136-145); pH 7.43 (7.35-7.45)
[2024-10-08] MEDS: ZOSYN 50 IV ×4 (04:56→22:44)
[2024-10-08 04:58] LABS: Mixed Venous O2 Saturation 53.6 %
[2024-10-08] MEDS: NOVOLOG FLEXPEN-MODERATE RESISTANCE SC ×4 (05:00→18:22)
[2024-10-08 05:10] LABS: Hematocrit 26.8 % (39.0-52.0); Hemoglobin 8.8 g/dL (13.0-18.0); Mean Corp Hgb Conc. 32.8 g/dL (33.0-37.0); Mean Corpuscular Volume 91.5 fL (80.0-94.0); Mean Platelet Volume 11.5 fL (7.4-10.4); Platelet Count 93 10^3/uL (130-400); Red Blood Cell Count 2.93 10^6/uL (4.70-6.10); Red Cell Dist. Width 16.4 % (11.5-14.5); White Blood Cell Count 9.1 10^3/uL (4.8-10.8)
[2024-10-08 05:21] LABS: APTT 32.6 Sec (23.4-35.0)
[2024-10-08 05:24] LABS: Lactic Acid 0.9 mmol/L (0.7-2.0)
[2024-10-08 05:37] LABS: AST (SGOT) 262 U/L (17-59); Albumin 3.1 g/dl (3.5-5.0); Alkaline Phosphatase 115 U/L (38-126); Blood Urea Nitrogen 39 mg/dl (9-20); Calcium 8.3 mg/dl (8.4-10.2); Carbon Dioxide 29 mmol/L (22-30); Chloride 96 mmol/L (98-107); Direct Bilirubin 6.9 mg/dl (0.0-0.4); Estimated Creatinine Clearance 88 ml/min; Glucose 113 mg/dl (70-99); Magnesium 2.3 mg/dl (1.6-2.3); Phosphorus 3.7 mg/dl (2.5-4.5); Potassium 3.7 mmol/L (3.5-5.1); Sodium 133 mmol/L (135-145); Total Bilirubin 10.6 mg/dl (0.2-1.3); Total Protein 5.6 g/dl (6.3-8.2); eGFR > 60.00
[2024-10-08 05:48] LABS: ALT (SGPT) 982 U/L (0-50)
[2024-10-08] MEDS: KCL 100 IV (05:54)
[2024-10-08] MEDS: NITRO-BID 1 INCH TOPICAL ×3 (05:54→18:25)
[2024-10-08 06:00] VITALS: BMI 31.0
[2024-10-08] MEDS: CORDARONE 518 MG IV (06:15)
--- NOTE | 2024-10-08 07:24 | W.PN.CT ---
Today's Communication / Plan
-
-pod#9
-no issues overnight, in a-fib
-Impella removed on 10/07
-drips: Levo is off, Vaso 0.03, Dobut 5, Amio 0.5, Bumex is off, Versed 2, Fentanyl 125, Heparin 500
-mVO2 53.6. LA nl 0.9. PTT 32.6
-respiratory alkalosis overnight, decreased RR
-repleted Ca and K overnight
-NG tube feed held after midnight for possible extubation trial
-Cr is trending down - 1.3 today
-platelets stable 93K
-tm 99.2 - on Zosyn. Follow cxs
Assessment / Plan
-
Assessment:
-Multivessel CAD/Ao aneurysm - s/p Valve sparing aortic root replacement with reimplantation of [place] aortic valve [Gregory Procedure]; Reimplantation of left and right coronary buttons into their respective neosinus; CABG x 2 [[place] CEDILLO in situ to
LAD, RSVG to proximal RCA]; Left atrial appendage exclusion (35mm clip) by Dr. Zuñiga on 09/29/24, pod #9
-Intraop ROBERTA: LVEF preoperatively 60% with no significant regional wall motion abnormalities. He does have diastolic dysfunction with thick left ventricle. Following surgery his EF was the same with no significant regional wall motion
abnormalities aside from some paradoxical motion of his septum. He is aortic valve was spared and reimplanted inside of 32 mm cardio root Valsalva graft. Following surgery, his AI that was initially mild and central went to none. He had a mean
gradient of 3 across his [place] aortic valve with a good coaptation height. Due to the long clamp around, he was a little bit sluggish coming off of cardiopulmonary bypass but did not require any inotropic support. His cardiac index was
approximately 1.7 to on just a low-dose Levophed. There is no residual flow into the left atrial appendage, and only a small residual stump was visualized.
s/p Impellla RP placed 10/01/24 and removed 10/07/24
-NSTEMI (High-sensitivity trop 67 @ [facility])
-[place]
-Aortic root aneurysm (5.8 cm, mid ascending aorta 4.5 cm)
-HTN
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
-Spermatocele/Hydrocele S/P b/l spermatocelectomies, 05/26/2015
-S/P LHC
-S/P Vasectomy, 2008
-Acute postop ventricular bigeminy/ R on T phenomenon with v-fib arrest X2 - s/p shocks x2, CPR, low-dose Epi, Amio 300 mg bolus and drip- Rosc achieved. Pt woke up post code and followed commands
-NSVTs
-Bedside ROBERTA revealed no pericardial effusion, valves ok. Lateral wall had some stunning
-Acute postop hypovolemia
-Acute postop cardiogenic shock
-Acute postop atelectasis
-Acute postop blood loss anemia - stable, no transfusion
-Acute postop coagulopathy - s/p 2 FFPs and 2 unit platelets
-ROBERTA
-Shock liver - holding Tylenol - follow
-Acute postop RV failure, taken to feed mill lab technician for angiography (grafts patent), Impella RP placed
-Acute postop paroxysmal a-fib
-Acute postop metabolic alkalosis, likely d/t diuresis
-Acute postop shock liver
-Acute postop fever, procalcitonin 0.97 - blood cx sent and started on Zosyn and Vanco 10/05
-Acute postop RUE cephalic vein thrombosis
-LUE picc placement 10/06/24
Discussed patient care with: Nursing and Care Team
Subjective
Procedure
s/p Valve sparing aortic root replacement with reimplantation of [place] aortic valve [Gregory Procedure]; Reimplantation of left and right coronary buttons into their respective neosinus; CABG x 2 [[place] CEDILLO in situ to LAD, RSVG to proximal RCA];
Left atrial appendage exclusion (35mm clip) by Dr. Zuñiga on 09/29/24
s/p Impellla RP placed 10/01/24
-
Date of Service: October 08, 2024
Objective Data
-
PT 20.4 Sec (11.4-14.6) H 10/06/24 04:23
INR 1.72 10/06/24 04:23
APTT 32.6 Sec (23.4-35.0) 10/08/24 04:42
Vital Signs
Vital Signs
Temp Pulse Resp BP Pulse Ox
99.1 F 99 14 121/82 98
10/08/24 07:00 10/08/24 07:00 10/08/24 07:00 10/07/24 14:01 10/08/24 07:00
CT Intake/Output/Weight
10/07/24 10/08/24 10/08/24
18:59 06:59 18:59
Intake Total 2449.7 / 3457.3 931.7 / 3457.3 75.9 / 75.9
Output Total 3385 / 5315 1870 / 5315 60 / 60
Balance -935.3 / -1857.7 -938.3 / -1857.7 15.9 / 15.9
SaO2: 98
Physical Exam
-
General: Other (intubated, sedated, appears comfortable)
Cardiovascular: Regular rate & rhythm, No Murmurs and No Rub
Respiratory: Decreased Breath Sounds
Sternum: Stable
Incision: Clean, Dry and Intact
Abdomen: soft, nontender, decreased bowel sounds
Extremities: Edema +2
Data Reviewed
-
Lab Results: Results Reviewed
Medications: Active Meds Reviewed
Chest X-Ray: Report Reviewed and Image Reviewed
ECG: Report Reviewed and Image Reviewed
--- NOTE | 2024-10-08 07:41 | W.PN.INTV ---
Today's Communication / Plan
Recommendations
Diuresis
Change sedation to Precedex
Consider spontaneous breathing trial and possible extubation
Antibiotics per infectious disease
Assessment
-
Patient is a 54-year-old male with previous history of hypertension presenting to [facility] on 09/26/2024 for complaints of chest pain with shortness of breath. He was ruled in for NSTEMI with elevated troponins and underwent left heart
catheterization demonstrating multivessel CAD. He was transferred from [place] to [place] for evaluation of CABG. He underwent CABG x 2 on 09/29/2024 without complication and perioperatively transferred to CVICU for further management.
MV CAD status post CABG x 2, status post valve sparing aortic root replacement and reimplantation 09/29/2024-Dr. Zuñiga
s/p LHC 10/01/24-no critical stenosis
s/p impelle placement 10/01/24
Ventilator dependent respiratory failure
Reintubated 10/04/2024
Extubated
Aspiration pneumonia
RV infarct suspected
Cardiogenic shock on pressors/inotropes
NSTEMI with elevated troponins
Chest pain and shortness of breath
Perioperative mechanical ventilation
Mild anemia, postoperative
Stage II DD on ECHO
Severe conc LVH
Nonsustained ventricular tachycardia
Paroxysmal atrial fibrillation
Conditions present prior to admission:
Hypertension
Plan
Critically ill sedated on the ventilator with pressors and inotropes-Impella removed 10/07/2024
Hemoptysis noted-appears to have resolved-Flolan discontinued due to contraindication with hemoptysis-consider reinstating if needed
Hemoptysis resolved
Heparin drip restarted
S/p CAB POD # 9
Titrating off pressors per protocol, still on pressors: levo/dobutamine/vasopressin, off milrinone
Other gtts: amio, bumex gtt, heparin, transitioned off insulin IV
Inh: epoprostenol discontinued
Weight: 99kg --as high as 117 kg and with ongoing diuresis now 109.5 kg
PAS/D: Reviewed
ECHO 10/06/2024 improved-reviewed with normal function, stage II DD, no significant RV dysfunction
PA catheter readings reviewed
Management of chest tubes per primary service
Thick secretions-Mucomyst added in addition to Robitussin
Xopenex and Pulmicort nebulizers initiated 10/07/2024
Intubated-ventilator settings reviewed
ABGs reviewed-oxygenation improved, some alkalosis
Diamox provided once-might require for 48 hours for contraction alkalosis
VAP prevention protocol
Spontaneous breathing trial may be tried 10/08/2024 after sedation manipulated-placed on Precedex and wean fentanyl/Versed
Follow ABG
Chest x-ray 10/06/2024-left PICC line in distal SVC, changes of CHF
Chest x-ray 10/07/2024-moderate bilateral interstitial airspace disease slightly improved
Chest x-ray 10/08/2024-stable exam, consider advancing endotracheal tube 2 cm
Pain control
RASS goal of 0 to -1
Change to Precedex 10/08/2024
Continue to monitor for arrhythmias
Nonsustained ventricular tachycardia in the setting of hypokalemia and hypocalcemia-subsequently repleted-no recurrence
Cultures reviewed
Blood cultures negative thus far
Sputum culture 10/06/2024-many WBCs, moderate gram-positive cocci and few gram-negative rods
Procalcitonin noted
Empiric antibiotics-Zosyn and vancomycin-discontinued vancomycin as MRSA screen negative
Infectious disease consultation noted-correspondence reviewed
Monitor leukocytosis
Follow temperature curve
GI prophylaxis is indicated for mechanical ventilation >48 hours-currently on pantoprazole
Diuresis continues as tolerated
Monitor renal function-improving, electrolytes, intake/output, lower extremity edema and weight
Replace electrolytes as needed
Impella-discontinued 10/07/2024
Continue to follow hemoglobin and platelet count
Transfuse if needed
Monitor LFTs-shock liver-improving
Follow blood sugar
Insulin supplementation as needed
DVT cmeewyjsykl-kwairnfhhz-[id number] discontinued with hemoptysis-now reinitiated
GI prophylaxis-on PPI
Nutrition-tolerating tube feeds
Bedside range of motion
Critical care statement: A total of 42 minutes of critical care time was provided for this patient today. This includes management of unstable vital signs, evaluation of the patient at bedside, reviewing the patient's pertinent medical records
including radiographs, ventilator management, arterial blood gas management, spontaneous breathing trial management, pressor management, microbiology, laboratory evaluations, and discussion with primary team, consultants, pharmacy, nutrition,
physical therapy, case management, charge nurse, critical care nursing, and respiratory therapy.
Diagnostic Data
CXR 10/03/24- No significant interval change in lines and tubes. As described, bilateral parenchymal opacities highly suggestive of pulmonary edema pattern. Slight improvement in atelectasis in the medial left base.
Chest X-Ray: 09/29/24- New postoperative changes as detailed above. Small left pleural effusion with underlying retrocardiac atelectasis
CT Scan: CAP 09/28/24- 1. Ascending aortic aneurysm measuring up to 5.8 cm at the sinotubular junction.
2. Severe atherosclerotic disease of the left anterior descending with high-grade stenosis proximally secondary to probably noncalcified plaque. There is additional calcified plaque within the mid/distal vessel.
3.There is submucosal fatty deposition within the terminal ileum, sigmoid colon and rectum which is nonspecific however can be seen with sequelae of chronic inflammation.
Echo: ROBERTA 09/29/24- Overall LVEF is approximately 55% with no RWMA. Severe concentric left ventricular hypertrophy. Stage II Diastolic dysfunction. Mild mitral regurgitation. Mild aortic insufficiency.
AI jet is central due to ST junction and sinus of Valsalva distortion. Sinus of Valsalva is aneurysmal measuring 4.6 cm. Sinotubular junction measures 4.3 cm. Mid ascending aorta is dilated measuring 4.0 cm at the level of the RPA. Mild sessile
atheroma seen in the descending aorta.
Reports and relevant images were personally reviewed.
Subjective Dataa
Subjective Data
Date of Service:
Date of Service: October 08, 2024
Chief Complaint: [employer] Follow Up, Pulmonary Follow Up and Vent Management Follow Up
Subjective:
Hemodynamically improved, sedated on the ventilator, no increased secretions, diuresing, no further arrhythmias
Review of Systems
General: Unobtainable - Sedation
Objective Data
Data Reviewed
Vital Signs / I&O / Oxygen:
Vital Signs
Temp Pulse Resp BP Pulse Ox
99.1 F 99 14 121/82 98
10/08/24 07:00 10/08/24 07:00 10/08/24 07:00 10/07/24 14:01 10/08/24 07:33
Intake and Output
10/07/24 10/08/24 10/09/24
06:59 06:59 06:59
Intake Total 3547.5 / 3547.5 3381.4 / 3457.3 75.9 / 75.9
Output Total 6650 / 6650 5255 / 5315 60 / 60
Balance -3102.5 / -3102.5 -1873.6 / -1857.7 15.9 / 15.9
SaO2 [A/C] 98
SaO2 [SIMV] 99
SaO2 98
Nasal Cannula flow liters per 50
minute
Physical Exam
General: Respiratory Distress (n), Comfortable and Other (NAD)
HEENT: Normocephalic, Anicteric and Moist Mucous Membranes
Cardiovascular: Regular Rhythm
Respiratory: Clear, Non-Labored Respirations, ET Tube, Chest Tube and Other (PA Cath in place)
GI: Soft, Non Distended and Non Tender
Neurology: No Motor Deficits and Other (Sedated on a ventilator)
Skin: Warm, Good Color and Cyanosis (n)
Labs/Micro/Reports
Laboratory Results
10/07/24 10/07/24 10/07/24
11:11 16:06 18:00
APTT 29.2 30.5 Cancelled
pH 7.48 H 7.48 H
pCO2 43 43
pO2 115 H 138 H
HCO3 32.0 H 32.0 H
O2 Delivery Level
10/07/24 10/08/24 10/08/24
21:08 00:26 04:42
APTT 31.7 32.6
pH 7.49 H 7.54 H 7.43
pCO2 39 31 L 43
pO2 135 H 160 H 123 H
HCO3 29.7 H 26.5 28.5 H
O2 Delivery Level
Microbiology
10/05/24 21:33 Blood/Venous Blood Culture - Preliminary
No Growth in 48 hours- Final report to follow
10/05/24 21:33 Blood/Venous Blood Culture - Preliminary
No Growth in 48 hours- Final report to follow
10/06/24 04:30 Endotracheal Respiratory Culture - Preliminary
10/06/24 04:30 Endotracheal Gram Stain - Preliminary
10/06/24 11:35 Blood/Venous Blood Culture - Preliminary
No Growth in 24 hours- Final report to follow
10/06/24 11:10 Blood/Venous Blood Culture - Preliminary
No Growth in 24 hours- Final report to follow
10/06/24 11:25 Urine Urine Culture - Preliminary
NO GROWTH
10/05/24 09:59 Nose MRSA Screen - Final
No Methicillin Resistant Staphylococcus aureus isolated.
10/06/24 11:22 Nose Nasal Screen MRSA (PCR) - Final
MRSA not detected - performed by PCR methodology.
10/06/24 11:22 Nasal Swab Influenza Types A & B (DAVI) - Final
Negative for Influenza A & B, NAAT
Negative results must be combined with clinical observations
and patient history.
Nucleic Acid Amplification test (NAAT)performed on the
[employer] platform.
[2024-10-08] MEDS: NSS (PRESERVATIVE FREE) 10 ML IV (07:52)
[2024-10-08] MEDS: PROTONIX IV 40 MG IV (07:52)
[2024-10-08] MEDS: MIRALAX 17 GRAMS TUBE (07:53)
[2024-10-08] MEDS: SENOKOT-S 1 TABLET PO ×2 (07:53→21:16)
[2024-10-08] MEDS: MAGNESIUM OXIDE 500 MG PO ×2 (07:53→21:14)
[2024-10-08] MEDS: ROBITUSSIN 200 MG TUBE ×4 (07:53→21:16)
[2024-10-08] MEDS: VITAMIN C 500 MG PO (07:53)
[2024-10-08] MEDS: COLACE LIQUID 100 MG TUBE ×2 (07:53→21:14)
[2024-10-08] MEDS: ASPIRIN 325 MG TUBE (07:53)
[2024-10-08] MEDS: NEURONTIN 100 MG TUBE ×2 (07:58→21:15)
[2024-10-08] MEDS: DULCOLAX 10 MG RECTAL (08:00)
[2024-10-08 08:29] LABS: Magnesium 2.3 mg/dl (1.6-2.3)
--- NOTE | 2024-10-08 08:30 | PTCARENOTE ---
Received pt from human service technician RN; pt intubated and sedated; Pupils 2mm equal and reactive; Sinus Tachycardia/A-fib on monitor and VSS; Epicardial A/V wires insulated; Foreign Murray floated to 52, Right A-line and Left Triple Lumen PICC; all lines
leveled and zeroed; Heparin, Vaso, Dobutamine, Amiodarone, Fentanyl and Versed infusing see flow sheet for details; Lungs diminished and coarse; ETT 8 25 @lip; vent settings A/C 40%/550/5/13; suctioning pt for thick greenwood secretions; hypoactive bowel
sounds; NG tube in Right Nare; Maki catheter draining yellow urine; palpable pulses throughout; +1 generalized edema and +2 right upper arm edema; all surgical sites C/D/I; Dr Zuñiga and team at bedside Bumex restarted and plan is to discontinue
Fentanyl and Versed, will start Precedex for possible extubation today; see nursing documentation for further details.
[2024-10-08] MEDS: PULMICORT 0.5 MG INH (08:32)
[2024-10-08] MEDS: PRECEDEX 100 IV ×2 (08:58→20:18)
[2024-10-08] MEDS: BUMEX 50 IV (09:13)
--- NOTE | 2024-10-08 09:20 | PTCARENOTE ---
Precedex drip started at 0.3 mcg/kg/hr per order and Heparin increased to 1100 units/hr per order; Maki care provided; C0xyficp pt, SCD in place and on and mouth care provided.
[2024-10-08] MEDS: PITRESSIN 100 IV (09:55)
[2024-10-08 10:09] LABS: B.E. 3.8 mmol/L; HCO3 27.7 mmol/L (21-28); Hemoglobin 8.9 g/dL (13.0-18.0); Ionized Calcium 1.21 mMOL/L (1.15-1.33); Mean Corpuscular Hgb 30.2 pg (27.0-31.0); Mean Corpuscular Volume 91.5 fL (80.0-94.0); Mean Platelet Volume 11.9 fL (7.4-10.4); O2 Saturation % 99.7 % (94-98); PCO2 38 mmHg (35-48); PO2 147 mmHg (83-108); Platelet Count 94 10^3/uL (130-400); Potassium 4.8 mMOL/L (3.5-5.1); Red Blood Cell Count 2.95 10^6/uL (4.70-6.10); Red Cell Dist. Width 16.8 % (11.5-14.5); Sodium 131 mMOL/L (136-145); White Blood Cell Count 9.1 10^3/uL (4.8-10.8); pH 7.47 (7.35-7.45)
[2024-10-08 10:12] LABS: Mixed Venous O2 Saturation 51.9 %
--- NOTE | 2024-10-08 10:18 | W.PN.CARDCBS ---
Addendum entered and electronically signed by Cuong Elizabeth MD 10/08/24 15:07:
I saw and examined the patient.
The Airplane Patroller's note was reviewed and I agree with the note.
Comment: Briefly, 54-year-old man who presented to [facility] with NSTEMI and was subsequently transferred to [place] for surgical evaluation
Underwent CABG and valve sparing aortic root replacement on 09/29/2024
Unfortunately postoperative course was complicated by VF arrest and RV failure requiring Impella RP placement
Impella has been removed but still requiring inotrope and pressor support
Cont Bumex drip - filling pressures are elevated based on invasive hemodynamics
Remains in atrial flutter with controlled ventricular response on amiodarone gtt
Heparin gtt for cardioembolic prophylaxis
Agree with aspirin and high intensity statin
Beta-bertha on hold due to tenuous hemodynamics
We will continue to follow with you
Original Note:
Today's Communication / Plan
-
-cont supportive care
-attempt extubation trial
-afib rate controlled, on heparin and Amio
Impression / Plan
-
PCP: Dr. Marsh
Cardiology: None prior to admission, seen by Dr. Chavarria at [facility]
Impression:
Admitted to [facility] with chest pain 09/25/[address] surgical evaluation 09/27/24
CAD
NSTEMI peak Troponin 67 and MV CAD by cath at [facility] 09/27/24
s/p CABG with CEDILLO to LAD and SVG to prox RCA 09/29/24
s/p LHC with widely patent CEDILLO to LAD, 50% stenosis in the LAD just beyond the MARLA touchdown with KATIE III flow distally, retrograde filling of proximal LAD via moderate size diagonal branch, SVG is anastomosed to the mid RCA, anatomic kink in the
midportion of the vein graft but good distal flow to the distal RCA, [place] pass RCA with diffuse luminal irregularities, but no focal obstructive stenosis 10/01/2024
h/o aortic root aneurysm
root measuring 5.4cm, mid ascending aorta 4.5cm by [facility] imaging 09/27/24
s/p valve sparing aortic root replacement with reimplantation of [place] pass aortic valve (Gregory Procedure) 09/29/24. A left atrial appendage clip was also placed during surgery
HTN
Acute post-op ventricular bigeminy with R on T and VF arrest x2 09/29/24
treated with successful shock x2, CPR, amio and Epi with ROS
CRV Impella placed 10/01/2024
Physiology consistent with RV infarction
Elevated troponin-likely combination of ischemia and RV strain
Inotrope dependent hypotension
Abnormal LFTs
Postoperative hypotension
Ventricular tachycardia
Postoperative atrial fibrillation and typical atrial flutter
Diminished urine output
Intraoperative ROBERTA 09/29/24: Postop findings, EF 50 to 55% with new septal wall hypokinesis, anterior and lateral wall motion appear normal, no AI, the LA appendage has been clipped with a 0.5 cm residual base noted
Bedside ROBERTA 09/29/24: Postop in the room, EF 55% with mild septal wall hypokinesis that appears better than what it appeared in the OR, no pericardial effusion, trace MR, AV function normal
Echo 10/01/24: EF 40 to 45%, inferior wall and inferoseptum appear hypokinetic from base to midportion, moderate concentric LVH, mild to moderately reduced RV systolic function, mild to moderate MR
Echo 10/03/24: EF 50 to 55%, basal and mid inferior hypokinesis, RV hypokinesis with normal RV size, Impella and [place] catheter in place, mild TR
Plan:
-Levo weaned off as of 10/07/24
-Dobut at 5
-Vaso at 0.03
-Amiodarone running at 0.5 mg/min, increased burden of NSVT and Afib starting again 10/05/24 PM.
-Tele reviewed by me 10/08/24 with atrial fib and flutter, rate controlled
EKG 10/08/2024: atrial flutter, inferior infarct, QTc 480msec
-LFTs remain elevated but trending down, statin on hold
-Impella RP removed 10/07/24 AM
-Hgb 8.9 , trended down from 9.5 on 10/07/24 after additional PRBCs 10/06/24, Hgb stable 8.8-8.9 over past 12 hrs
-Plt 94, trending up. Rec'd 2 packs of platelets given 10/07/24 AM
-Tube feeds remain on hold for possible extubation trial today
-Fevers being investigated by ID. Blood cultures pending.
-Flolan previously discontinued in the setting of hemoptysis.
HPI: Patient came to [facility] as a transfer from [facility] yesterday for evaluation from CT surgery team for MV CAD and aortic root aneurysm and cardiology has been consulted. Patient sees his PCP mostly when he is sick, but had a physical within the last
year. Patient with known h/o HTN and takes losartan 25 mg daily. He does not check BP at home on a regular basis. 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 He was working last Friday
night into Friday morning and was taking a break and laying on a sofa when he had sudden onset chest pain that lasted for 10-15 minutes and seemed to get better when he sat up. Pain returned again when he returned home after working and he told
his and they made a plan to go to the hospital. Then, after walking up the stairs in his home the patient had recurrent chest pain that was the most intense pain he had experienced and pain persisted. Patient went to [facility] ER and Troponin was
elevated prompting a cath that revealed MV CAD. Patient had an echo that showed aortic root aneurysm and then patient had CT, but results not available. Patient was transferred to for CT surgery eval last evening.
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
Subjective
Date of Service: October 08, 2024
plan to attempt extubation today
remains on Dobut 5, Vasopressin 0.03, Amio 0.5, Bumex, Heparin
telem: rate controlled aflutter/afib HRs 90s
Objective
Labs:
Labs
Hgb 8.9 g/dL (13.0-18.0) L 10/08/24 09:49
Hct 27.0 % (39.0-52.0) L 10/08/24 09:49
Plt Count 94 10^3/uL (130-400) L 10/08/24 09:49
PT 20.4 Sec (11.4-14.6) H 10/06/24 04:23
INR 1.72 10/06/24 04:23
APTT 32.6 Sec (23.4-35.0) 10/08/24 04:42
Sodium 133 mmol/L (135-145) L 10/08/24 04:42
Potassium 3.7 mmol/L (3.5-5.1) 10/08/24 04:42
BUN 39 mg/dl (9-20) H 10/08/24 04:42
Creatinine 1.3 mg/dL (0.7-1.3) 10/08/24 04:42
Glucose 113 mg/dl (70-99) H 10/08/24 04:42
Vital Signs and I&O:
Vital Signs
Temp Pulse Resp BP Pulse Ox
99.9 F 90 13 121/82 98
10/08/24 10:00 10/08/24 10:00 10/08/24 10:00 10/07/24 14:01 10/08/24 10:00
Vital Signs
Temp Pulse Resp BP Pulse Ox
99.9 F 90 13 121/82 98
10/08/24 10:00 10/08/24 10:00 10/08/24 10:00 10/07/24 14:01 10/08/24 10:00
Intake & Output
10/06/24 10/07/24 10/08/24 10/09/24
06:59 06:59 06:59 06:59
Intake Total 3047.7 / 3178.6 3547.5 / 3547.5 3381.4 / 3457.3 315.8 / 315.8
Output Total 6825 / 6975 6650 / 6650 5255 / 5315 215 / 215
Balance -3777.3 / -3796.4 -3102.5 / -3102.5 -1873.6 / -1857.7 100.8 / 100.8
Physical Exam
Physical Exam
GEN: intubated, sedated
HEENT: [place] in place
LUNGS: coarse BS
CV: irreg, irreg
ABD: soft, BS+, NT/ND
EXT: trace edema, LEs warm, 2+ pulses
NEURO: Gross non-focal
SKIN: No rash
[2024-10-08 10:24] LABS: Blood Urea Nitrogen 41 mg/dl (9-20); Calcium 8.2 mg/dl (8.4-10.2); Carbon Dioxide 29 mmol/L (22-30); Chloride 97 mmol/L (98-107); Estimated Creatinine Clearance 79 ml/min; Glucose 114 mg/dl (70-99); Potassium 4.6 mmol/L (3.5-5.1); Sodium 133 mmol/L (135-145); eGFR 59.73
--- NOTE | 2024-10-08 10:59 | W.PN.ID1 ---
Date of Service
Date of Service: October 08, 2024
Today's Communication
- Repeat blood cx's, sputum cx
- Continue zosyn for now.
Assessment / Plan
Fever via core route - recurrence today
Cardiogenic Shock
Multisystem Organ Failure
Resolving Shock liver
S/p Valve sparing aortic root replacement with reimplantation of [place] aortic valve [Gregory Procedure]; Reimplantation of left and right coronary buttons into their respective neosinus; CABG x 2 [[place] CEDILLO in situ to LAD, RSVG to proximal RCA];
Left atrial appendage exclusion (35mm clip) by Dr. Zuñiga on 09/29/24
- note further transfusions yesterday
- blood cultures x3 no growth to date
- resp culture: resp americo
- covid and flu swabs - negative
- UA negative
- MRSA screen negative 10/07 and 09/28
- last bowel movement 09/29 (confirmed 10/20/24 - future date - was error with charting RN); tube feeds started 10/05, 10/06 AXR non obstructive pattern and bowel regimen was intensified 10/06
- would not trend procalcitonin unless intent is to decide if stopping antibiotics
- follow pressor, ventilator requirements, cbc
- Repeat blood cx's, sputum cx
- Continue zosyn (d4) for now.
Patient remains critically ill on pressors, ventilator with interval improvement
Chief Complaint
-: Fever and Other (cardiogenic shock)
Subjective / Review of Systems
Remains on vent.
Vital Signs / Physical Exam
Vital Signs
Vital Signs
Temp Pulse Resp BP Pulse Ox
99.9 F 90 13 121/82 97
10/08/24 10:00 10/08/24 10:00 10/08/24 10:00 10/07/24 14:01 10/08/24 10:21
Selected Entries
10/08/24
12:00
Temp 100.9 F H
Physical Exam
Constitutional: Acutely Ill
Cardiovascular: Regular Rate
Pulmonary: Clear (anteriorly)
Gastrointestinal: Soft, Non Tender, Non Distended and Normal Bowel Sounds
Extremities: Edema
Wound: Other (chest tube sites no erythema, warmth, tenderness, few ccs of serous drainage noted, no dehiscence; previous impella site no erythema, warmth, fem-stop in place)
Objective Data
Lab Data
PT 20.4 Sec (11.4-14.6) H 10/06/24 04:23
INR 1.72 10/06/24 04:23
APTT 32.6 Sec (23.4-35.0) 10/08/24 04:42
Estimated Creat Clear 79 ml/min 10/08/24 09:49
Lactic Acid Cancelled 10/08/24 16:00
Total Bilirubin 10.6 mg/dl (0.2-1.3) H 10/08/24 04:42
Total Bilirubin Cancelled 10/08/24 04:42
AST 262 U/L (17-59) H 10/08/24 04:42
AST Cancelled 10/08/24 04:42
ALT 982 U/L (0-50) H* 10/08/24 04:42
ALT Cancelled 10/08/24 04:42
Alkaline Phosphatase 115 U/L (38-126) 10/08/24 04:42
Alkaline Phosphatase Cancelled 10/08/24 04:42
Most recent labs reviewed.
Micro Results:
10/06/24 11:25 Urine Culture - Final
Urine NO GROWTH
10/06/24 04:30 Respiratory Culture - Final
Endotracheal Gram Stain - Final
10/05/24 21:33 Blood Culture - Preliminary
Blood/Venous No Growth in 48 hours- Final report to follow
10/05/24 21:33 Blood Culture - Preliminary
Blood/Venous No Growth in 48 hours- Final report to follow
10/06/24 11:35 Blood Culture - Preliminary
Blood/Venous No Growth in 24 hours- Final report to follow
10/06/24 11:10 Blood Culture - Preliminary
Blood/Venous No Growth in 24 hours- Final report to follow
10/05/24 09:59 MRSA Screen - Final
Nose No Methicillin Resistant Staphylococcus aureus isolated.
10/06/24 11:22 Nasal Screen MRSA (PCR) - Final
Nose MRSA not detected - performed by PCR methodology.
10/06/24 11:22 Influenza Types A & B (DAVI) - Final
Nasal Swab Negative for Influenza A & B, NAAT
Negative results must be combined with clinical observations
and patient history.
Nucleic Acid Amplification test (NAAT)performed on the
[employer] platform.
09/28/24 12:16 MRSA Screen - Final
Nose No Methicillin Resistant Staphylococcus aureus isolated.
10/08/24 CXR: Relatively stable examination. Persistent pulmonary parenchymal process, as described.
10/04/24 Abd US: mild gallbladder wall thickening, likely reactive, no bile duct dilatation
hepatic steatosis. mild ascites and small bilateral pleural effusions
09/28 CT c/a/p: ascending aorta aneurysm: 5.8 cm. submucosal fatty deposition within the terminal ileum, sigmoid colon and rectum which is nonspecific however can be seen with sequelae of chronic inflammation
[2024-10-08] MEDS: DIAMOX 2.5 MG IV (11:55)
[2024-10-08 12:03] LABS: Glucose - Point of Care 126 mg/dl (70-99)
--- NOTE | 2024-10-08 12:23 | PTCARENOTE ---
Assessment unchanged; Afib on monitor and VSS; Fentanyl and Versed titrated off and Precedex remains; Heparin, Amiodarone, Vaso and Dobutamine infusing see flow sheet for details; pt remains intubated; CHG bath provided and Q 2 turned; update
via phone.
[2024-10-08] MEDS: HEPARIN 25000 UNITS/250 ML IV (12:54)
--- NOTE | 2024-10-08 13:42 | PTCARENOTE ---
Precedex turned off for spontaneous awakening trial; Family at bedside and update.
--- NOTE | 2024-10-08 14:34 | PTCARENOTE ---
Dr Zuñiga and Dr Marsh at bedside with cVNP and RN; pt coughing on vent; RT at bedside and place pt on a spontaneous breathing trial; pt passed vent setting currently CPAP/PSV (CpAP with Pressure Support Ventilation) 04/26; 98% pulse Ox; Precedex
remains off.
[2024-10-08] MEDS: FLEET PHOSPHATE ENEMA-ADULT 135 ML RECTAL (14:40)
[2024-10-08 15:04] LABS: APTT 36.2 Sec (23.4-35.0)
[2024-10-08 15:37] LABS: Ammonia 13 umol/L (9-30)
[2024-10-08] MEDS: DOBUTREX 250 MG IV (15:56)
[2024-10-08] MEDS: CITROMA 300 ML PO (15:56)
[2024-10-08 16:06] LABS: Hematocrit 28.1 % (39.0-52.0); Mean Corpuscular Hgb 29.3 pg (27.0-31.0); Mean Corpuscular Volume 91.5 fL (80.0-94.0); Mean Platelet Volume 11.3 fL (7.4-10.4); Platelet Count 100 10^3/uL (130-400); Red Blood Cell Count 3.07 10^6/uL (4.70-6.10); Red Cell Dist. Width 17.2 % (11.5-14.5); White Blood Cell Count 10.8 10^3/uL (4.8-10.8)
[2024-10-08 16:11] VITALS: BP_SYST 118
[2024-10-08 16:11] LABS: B.E. 1.3 mmol/L; HCO3 25.9 mmol/L (21-28); Ionized Calcium 1.18 mMOL/L (1.15-1.33); O2 Saturation % 99.2 % (94-98); PCO2 40 mmHg (35-48); PO2 133 mmHg (83-108); Potassium 3.8 mMOL/L (3.5-5.1); Sodium 134 mMOL/L (136-145); pH 7.42 (7.35-7.45)
[2024-10-08 16:13] LABS: Mixed Venous O2 Saturation 57.3 %
[2024-10-08 16:25] LABS: Magnesium 2.3 mg/dl (1.6-2.3)
[2024-10-08 16:26] LABS: Blood Urea Nitrogen 41 mg/dl (9-20); Calcium 8.1 mg/dl (8.4-10.2); Carbon Dioxide 26 mmol/L (22-30); Chloride 97 mmol/L (98-107); Estimated Creatinine Clearance 74 ml/min; Glucose 113 mg/dl (70-99); Sodium 133 mmol/L (135-145); eGFR 54.98
--- NOTE | 2024-10-08 16:26 | CM ---
Reviewed chart. Case management is still following for discharge planning. He will need to see his functional level when he is ready for therapies. Medical work-up in progress. He will need pre-cert for inpatient The discharge plan is for
inpatient rehab. when medically stable.
--- NOTE | 2024-10-08 16:35 | PTCARENOTE ---
Pt woke and followed commands (opened eyes, squeezed hand and wiggles toes); Sinus Tachycardia on monitor and VSSS; Amio, Vaso, Heparin, Dobutamine and Bumex all infusing see flow sheet for details; pt remain on CPAP via vent; enema given per order;
family at bedside and update.
[2024-10-08] MEDS: KCL 50 IV ×2 (16:40→22:55)
[2024-10-08] MEDS: NSS IV (17:32)
--- NOTE | 2024-10-08 17:42 | PTCARENOTE ---
Pt tolerated CPAP since 1430; RT at bedside and placed pt back on SIMV 40%/550/13/5; Precedex infusing per protocol see flow sheet for details; family at bedside.
[2024-10-08] MEDS: VERSED 1 MG IV ×3 (18:35→22:04)
[2024-10-08] MEDS: FLOVENT 110 MCG INHALER 4 PUFF INH (19:22)
--- NOTE | 2024-10-08 20:00 | PTCARENOTE ---
Report received from GALEN Hamilton at 1800. RT into repositioned ETT titus. ETT moved to center of lip. Pt given additional Versed 1 mg IV during procedure. Precedex at 0.5 mcg/kg/hr, increased to 0.7 mcg for sedation due to tachypnea, and biting ett.
Pt will attempt to open eyes to voice. Does not follow commands at this time. Moves all extremities equally x 4.
Pt on vent: 40% FiO2, SIMV, rate 13, peep 5, TV 550. BBS present. Scattered rhonchi to B anterior lobes. Suctioned for thick, greenwood sputum. Sats 97-99%.
Audible heart tones. Pt in SR. Normotensive, on Vasopressin gtt 0.02 units/hr. Dobutamine at 5 mcg/kg/min. CI checked at ~ 1900 and is 2.02. Amiodarone gtt remains at 0.5 mg/min. heparin gtt at 1500 unit/hr. For pulse and wound assessments, see
flowsheets.
Belly soft, round. Hypoactive bowel sounds x 4. NGT to R nare. Placement verified to LUQ with 30 mls air. Jevity 1.5 tube feed at 10 mls/hr with 25 mls/hr Sterile water flushes. (started at 1900, to run until MN). Pt cleaned for small amount of
liquid, brown stool.
Maki to gravity drain. Q1 hr outputs recorded. Bumex gtt stopped at ~ 1900 per order of LABOR UNION BUSINESS REPRESENTATIVE.
To obtain PTT and other lab work at 2114.
at bedside and updated on all procedures/interventions. Ongoing plan of care.
[2024-10-08] MEDS: MINERAL OIL 30 ML PO (21:15)
[2024-10-08 21:53] LABS: B.E. 1.2 mmol/L; HCO3 24.9 mmol/L (21-28); Ionized Calcium 1.06 mMOL/L (1.15-1.33); O2 Saturation % 99.4 % (94-98); PCO2 35 mmHg (35-48); PO2 127 mmHg (83-108); Potassium 3.4 mMOL/L (3.5-5.1); Sodium 132 mMOL/L (136-145); pH 7.46 (7.35-7.45)
[2024-10-08 21:56] LABS: Hematocrit 28.8 % (39.0-52.0); Hemoglobin 9.4 g/dL (13.0-18.0); Mean Corp Hgb Conc. 32.6 g/dL (33.0-37.0); Mean Corpuscular Hgb 29.7 pg (27.0-31.0); Mean Corpuscular Volume 91.1 fL (80.0-94.0); Mean Platelet Volume 11.2 fL (7.4-10.4); Platelet Count 113 10^3/uL (130-400); Red Blood Cell Count 3.16 10^6/uL (4.70-6.10); Red Cell Dist. Width 17.2 % (11.5-14.5); White Blood Cell Count 13.6 10^3/uL (4.8-10.8)
[2024-10-08 21:59] LABS: Mixed Venous O2 Saturation 49.3 %
[2024-10-08 22:04] LABS: APTT 44.8 Sec (23.4-35.0)
[2024-10-08 22:11] LABS: Blood Urea Nitrogen 37 mg/dl (9-20); Calcium 7.5 mg/dl (8.4-10.2); Carbon Dioxide 25 mmol/L (22-30); Chloride 96 mmol/L (98-107); Estimated Creatinine Clearance 79 ml/min; Glucose 123 mg/dl (70-99); Magnesium 2.3 mg/dl (1.6-2.3); Potassium 3.5 mmol/L (3.5-5.1); Sodium 134 mmol/L (135-145); eGFR 59.73
[2024-10-08] MEDS: REGLAN 10 MG IV (22:54)
--- NOTE | 2024-10-08 23:00 | PTCARENOTE ---
Lab results returned. Heparin gtt increased to 1700 units/hr. Ca Gluconate 2 GM IV x 2 (per protocol) given for iCa 1.06. KCL 20 meq IV x 2 per orders for k 3.5. Vasopressin gtt off per order of PA. PA made aware of 300 mls gastric residual to NGT.
Tube feeds off at 2230 per order. Reglan 10 mg IV x 1 (see MAR). Bowel regimen given (mineral oil, colace, sennokot) as ordered through NGT. CI [id number] and is 2.09. Last MVO2 49.3. PA aware of all labs.
[2024-10-09] MEDS: CALCIUM GLUCONATE 100 IV ×3 (00:04→22:41)
[2024-10-09] MEDS: KCL 50 IV ×2 (00:06→11:32)
[2024-10-09] MEDS: NOVOLOG FLEXPEN-MODERATE RESISTANCE SC ×4 (00:30→17:47)
[2024-10-09 01:00] LABS: Glucose - Point of Care 107 mg/dl (70-99)
[2024-10-09] MEDS: PRECEDEX 100 IV ×3 (01:09→21:34)
[2024-10-09] MEDS: NITRO-BID 1 INCH TOPICAL ×4 (01:10→17:44)
[2024-10-09] MEDS: OFIRMEV 100 IV (01:29)
--- NOTE | 2024-10-09 01:40 | PTCARENOTE ---
Dobutamine gtt decreased to 4 mcg/kg/min per order of PA. Temp remains 102-102.1. Discussed with PA. Offirmev 1 GM IV given. Ice packs intermittently to axilla.
[2024-10-09] MEDS: XOPENEX 0.63 MG INHALANT SOLUTION INH ×4 (01:44→20:57)
[2024-10-09] MEDS: MUCOMYST 10% 2 ML INH ×4 (01:44→20:57)
--- NOTE | 2024-10-09 03:15 | PTCARENOTE ---
Repeat CI on Dobutamine gtt at 4 mcg/kg/min is 1.96. Pt remains in SR. Sats 97% on 40% FiO2 vent. Vasopressin and levophed gtts remain off. Precedex titrated downwards to 0.5 mcg/kg/hr.
--- NOTE | 2024-10-09 03:20 | W.PN.CT ---
Today's Communication / Plan
-
-No major issues overnight. Hemodynamically intact
-Weaned off Vasopressin gtt overnight. Weaning off Precedex gtt, on Amiodarone gtt @ 0.5, Dobutamine weaned from 5 to 4 overnight. Bumex gtt d/c'd yesterday @ ~ 6pm
-Also on heparin gtt for postop a-fib with RVR, monitor PTT
-MVO2 54%, CI 1.96. 24hrs u/o 3630 mL
-Was receiving tube feed, Jevity @ 10 mL/hr. Placed on hold to attempt CPAP trial
-LFTs improving
-Plts improving, 116K today, was 113K yesterday
-Creatinine improving, 1.4
-Noted to be febrile with Leukocytosis (TM 102.1, WBC 13.6) yesterday, on Zosyn. Fever likely d/t initiation of Precedex
-Wean off ventilator/extubate: ABGs this AM 7.46/35/123/24.9/99.3
-Wean off dobutamine as tolerated
-Increase tube feed as tolerated. HD BM this AM
-Keep hawkins catheter
-Maintain a-line while on dobutamine
-Diuresis as warranted
-Replete electrolytes
Assessment / Plan
-
Assessment:
-Multivessel CAD/Ao aneurysm - s/p Valve sparing aortic root replacement with reimplantation of [place] aortic valve [Gregory Procedure]; Reimplantation of left and right coronary buttons into their respective neosinus; CABG x 2 [[place] CEDILLO in situ to
LAD, RSVG to proximal RCA]; Left atrial appendage exclusion (35mm clip) by Dr. Zuñiga on 09/29/24, pod #10
-Intraop ROBERTA: LVEF preoperatively 60% with no significant regional wall motion abnormalities. He does have diastolic dysfunction with thick left ventricle. Following surgery his EF was the same with no significant regional wall motion
abnormalities aside from some paradoxical motion of his septum. He is aortic valve was spared and reimplanted inside of 32 mm cardio root Valsalva graft. Following surgery, his AI that was initially mild and central went to none. He had a mean
gradient of 3 across his [place] aortic valve with a good coaptation height. Due to the long clamp around, he was a little bit sluggish coming off of cardiopulmonary bypass but did not require any inotropic support. His cardiac index was
approximately 1.7 to on just a low-dose Levophed. There is no residual flow into the left atrial appendage, and only a small residual stump was visualized.
s/p Impellla RP placed 10/01/24 and removed 10/07/24
-NSTEMI (High-sensitivity trop 67 @ [facility])
-[place]
-Aortic root aneurysm (5.8 cm, mid ascending aorta 4.5 cm)
-HTN
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
-Spermatocele/Hydrocele S/P b/l spermatocelectomies, 05/26/2015
-S/P LHC
-S/P Vasectomy, 2008
-Acute postop ventricular bigeminy/ R on T phenomenon with v-fib arrest X2 - s/p shocks x2, CPR, low-dose Epi, Amio 300 mg bolus and drip- Rosc achieved. Pt woke up post code and followed commands
-NSVTs
-Bedside ROBERTA revealed no pericardial effusion, valves ok. Lateral wall had some stunning
-Acute postop hypovolemia
-Acute postop cardiogenic shock
-Acute postop atelectasis
-Acute postop blood loss anemia - transfused 7u PRBCs
-Acute postop coagulopathy - s/p 2 FFPs and 2 unit platelets
-ROBERTA
-Shock liver - holding Tylenol - follow
-Acute postop RV failure, taken to label drier for angiography (grafts patent), Impella RP placed
-Acute postop paroxysmal a-fib
-Acute postop metabolic alkalosis, likely d/t diuresis
-Acute postop shock liver
-Acute postop fever, procalcitonin 0.97 - blood cx sent and started on Zosyn and Vanco 10/05
-Acute postop RUE cephalic vein thrombosis
-LUE picc placement 10/06/24
-Acute postop VDRF, required reintubation
Discussed patient care with: Cardiology, Nursing, Respiratory Therapy, Pharmacy and Care Team
Subjective
Procedure
s/p Valve sparing aortic root replacement with reimplantation of [place] aortic valve [Gregory Procedure]; Reimplantation of left and right coronary buttons into their respective neosinus; CABG x 2 [[place] CEDILLO in situ to LAD, RSVG to proximal RCA];
Left atrial appendage exclusion (35mm clip) by Dr. Zuñiga on 09/29/24
s/p Impellla RP placed 10/01/24
-
Date of Service: October 09, 2024
Pt sedated overnight on Precedex, will wean off and attempt CPAP trials
Objective Data
-
Lab Results
10/08/24 21:23
PT 20.4 Sec (11.4-14.6) H 10/06/24 04:23
INR 1.72 10/06/24 04:23
APTT 44.8 Sec (23.4-35.0) H 10/08/24 21:23
Vital Signs
Vital Signs
Temp Pulse Resp BP Pulse Ox
101.5 F H 98 26 139/88 98
10/09/24 03:02 10/09/24 03:02 10/09/24 03:02 10/09/24 01:10 10/09/24 03:02
CT Intake/Output/Weight
10/08/24 10/08/24 10/09/24
06:59 18:59 06:59
Intake Total 931.7 / 3457.3 1148.8 / 2522.8 1374.0 / 2522.8
Output Total 1870 / 5315 1890 / 3310 1420 / 3310
Balance -938.3 / -1857.7 -741.2 / -787.2 -46.0 / -787.2
SaO2: 98 (SIMV/550/13/5/.40 )
Physical Exam
-
General: Other (still a bit drowsy, weaning off Precedex)
Cardiovascular: Regular rate & rhythm, No Murmurs, No Rub and No Gallop
Respiratory: Decreased Breath Sounds
Sternum: Stable
Incision: Clean, Dry, Intact and Dressing Intact
Extremities: Edema +1
Data Reviewed
-
Lab Results: Results Reviewed
Medications: Active Meds Reviewed
Chest X-Ray: Report Reviewed and Image Reviewed
CT Scan: Report Reviewed and Image Reviewed
ECG: Report Reviewed and Image Reviewed
[2024-10-09] MEDS: HEPARIN 25000 UNITS/250 ML IV ×2 (04:53→19:06)
[2024-10-09] MEDS: ZOSYN 50 IV ×4 (04:54→21:51)
[2024-10-09] MEDS: MINERAL OIL 30 ML PO (04:55)
[2024-10-09 04:57] LABS: B.E. 1.2 mmol/L; HCO3 24.9 mmol/L (21-28); Ionized Calcium 1.16 mMOL/L (1.15-1.33); O2 Saturation % 99.3 % (94-98); PCO2 35 mmHg (35-48); PO2 123 mmHg (83-108); pH 7.46 (7.35-7.45)
[2024-10-09] MEDS: VERSED 1 MG IV ×2 (05:06→06:50)
[2024-10-09 05:13] LABS: Hematocrit 28.7 % (39.0-52.0); Hemoglobin 9.4 g/dL (13.0-18.0); Mean Corp Hgb Conc. 32.8 g/dL (33.0-37.0); Mean Corpuscular Hgb 29.7 pg (27.0-31.0); Mean Corpuscular Volume 90.8 fL (80.0-94.0); Mean Platelet Volume 10.9 fL (7.4-10.4); Platelet Count 116 10^3/uL (130-400); Red Blood Cell Count 3.16 10^6/uL (4.70-6.10); Red Cell Dist. Width 17.2 % (11.5-14.5); White Blood Cell Count 12.8 10^3/uL (4.8-10.8)
[2024-10-09 05:25] LABS: INR 1.46; PT 17.9 Sec (11.4-14.6)
[2024-10-09 05:26] LABS: APTT 57.6 Sec (23.4-35.0)
[2024-10-09 05:37] LABS: Lactic Acid 1.1 mmol/L (0.7-2.0)
[2024-10-09 05:43] LABS: ALT (SGPT) 744 U/L (0-50); AST (SGOT) 140 U/L (17-59); Albumin 3.3 g/dl (3.5-5.0); Alkaline Phosphatase 127 U/L (38-126); Blood Urea Nitrogen 37 mg/dl (9-20); Calcium 8.1 mg/dl (8.4-10.2); Carbon Dioxide 28 mmol/L (22-30); Chloride 98 mmol/L (98-107); Direct Bilirubin 6.7 mg/dl (0.0-0.4); Estimated Creatinine Clearance 79 ml/min; Glucose 113 mg/dl (70-99); Magnesium 2.4 mg/dl (1.6-2.3); Potassium 3.7 mmol/L (3.5-5.1); Sodium 136 mmol/L (135-145); Total Bilirubin 9.7 mg/dl (0.2-1.3); Total Protein 5.9 g/dl (6.3-8.2); eGFR 59.73
[2024-10-09 06:00] VITALS: BMI 30.6
--- NOTE | 2024-10-09 07:15 | PTCARENOTE ---
Pt labs drawn and sent this am. Repeat CI 1.96 on dibut at 4 mcg/kg/min. Pt with medium, liquid stool. Pt given CHG bath and pericare. Linen and gown changed. CXR and EKG done. PA with lab results and EKG/CXR results. Versed 1 mg at ~ 0500 with
turning. Precedex completely titrated off by 0630. Versed 1 mg IV at 0650 for restlessness/agitation. Report to GALEN Morris this am at bedside.
--- NOTE | 2024-10-09 08:00 | PTCARENOTE ---
Patient received from informatics pharmacist resting in bed, intubated. Arousable to voice, COOPER, follows simple commands. RIJ Cordis/Strawberry-John catheter, R radial arterial lines present - leveled, flushed, and calibrated w/good waveforms returned. Epicardial
A+V pacing wires, insulated to chest wall. ETT 8.0, 25cm @ R lip, SaO2 95% on FiO2 40%. LUE triple lumen PICC present. All procedural sites stable. R nare NGT, clamped. Maki catheter to gravity. See work list for full assessment, interventions
performed, and intravenous infusions and titrations.
--- NOTE | 2024-10-09 08:17 | W.PN.INTV ---
Today's Communication / Plan
Recommendations
Diuresis as tolerated
Precedex, weaning if possible to see if this improves his fever; can raise seroqeul dose to help with this
Aspiration precautions
Antibiotics per infectious disease
Continue dobutamine and wean off as tolerated while trending MVO2
Wean down supplemental O2 flow rate while keeping SpO2 >90%
Assessment
-
Patient is a 54-year-old male with previous history of hypertension presenting to [facility] on 09/26/2024 for complaints of chest pain with shortness of breath. He was ruled in for NSTEMI with elevated troponins and underwent left heart
catheterization demonstrating multivessel CAD. He was transferred from [place] to [place] for evaluation of CABG. He underwent CABG x 2 on 09/29/2024 without complication and perioperatively transferred to CVICU for further management.
MV CAD status post CABG x 2, status post valve sparing aortic root replacement and reimplantation 09/29/2024-Dr. Zuñiga
s/p LHC 10/01/24-no critical stenosis
s/p impella placement 10/01/24
Ventilator dependent respiratory failure
Reintubated 10/04/2024
Extubated 10/09/2024
Aspiration pneumonia with gram-negative rods seen on respiratory culture from 10/08/2024
RV infarct suspected
Cardiogenic shock on inotropes
NSTEMI
Chest pain and shortness of breath
Perioperative mechanical ventilation
Mild anemia, postoperative
Stage II DD on ECHO
Severe conc LVH
Nonsustained ventricular tachycardia
Paroxysmal atrial fibrillation
Conditions present prior to admission:
Hypertension
Plan
Critically ill and extubated this morning, although remains on dobutamine + Precedex; of note, Impella removed 10/07/2024
Hemoptysis noted-appears to have resolved-Flolan discontinued due to contraindication with hemoptysis-consider reinstating if needed
Heparin drip restarted
Titrate off dobutamine as tolerated while trending MVO2
Inh: epoprostenol discontinued
Weight: 99kg --as high as 117 kg and with ongoing diuresis now 108.1 kg
PAS/D: Reviewed
ECHO 10/06/2024 improved-reviewed with normal function, stage II DD, no significant RV dysfunction
PA catheter readings reviewed
Chest tubes removed on 10/03/2024
Thick secrebudestions-Mucomyst added in addition to Robitussin
Pulmicort nebulizers initiated 10/07/2024 - stopped on 10/08 and now on flovent; xopenex is prn
Patient extubated this morning
Continue with supplemental oxygen and titrate down flow rate as tolerated while keeping SpO2 >90-94%
Pain control
Continue Precedex and try to wean off if possible; could consider raising seroquel to help wean him off faster as his fevers could be medication related
Continue to monitor for arrhythmias
Nonsustained ventricular tachycardia in the setting of hypokalemia and hypocalcemia-subsequently repleted-no recurrence
Cultures reviewed
Blood cultures negative thus far
Sputum culture 10/06/2024-many WBCs, moderate gram-positive cocci and few gram-negative rods
Repeat sputum culture on 10/08/2024 shows gram-negative rods � follow-up species and sensitivities
Procalcitonin noted (0.97 on 10/05/2024, decreasing to 0.79 on 10/07/2024)
Empiric antibiotics-Zosyn and vancomycin-discontinued vancomycin as MRSA screen negative
Infectious disease consultation noted-correspondence reviewed
Monitor leukocytosis
Follow temperature curve
GI prophylaxis: PPI given he remains on inotropes
Diuresis as tolerated; bumex gtt now on hold
Monitor renal function-improving, electrolytes, intake/output, lower extremity edema and weight
Replace electrolytes as needed
Impella-discontinued 10/07/2024
Continue to follow hemoglobin and platelet count
Transfuse if needed
Monitor LFTs-shock liver-improving
Follow blood sugar with goal 140-180mg/dL
Insulin supplementation as needed
DVT prophylaxis-heparin gtt
GI prophylaxis-on PPI
Nutrition-TF on hold due to high residuals; using NGT to give meds
Bedside range of motion
Critical care statement: A total of 37 minutes of critical care time was provided for this patient today. This includes management of unstable vital signs, evaluation of the patient at bedside, reviewing the patient's pertinent medical records
including radiographs, ventilator management, arterial blood gas management, spontaneous breathing trial management, pressor management, microbiology, laboratory evaluations, and discussion with primary team, consultants, pharmacy, nutrition,
physical therapy, case management, charge nurse, critical care nursing, and respiratory therapy.
Diagnostic Data
CXR 10/03/24- No significant interval change in lines and tubes. As described, bilateral parenchymal opacities highly suggestive of pulmonary edema pattern. Slight improvement in atelectasis in the medial left base.
Chest X-Ray: 09/29/24- New postoperative changes as detailed above. Small left pleural effusion with underlying retrocardiac atelectasis
CT Scan: CAP 09/28/24- 1. Ascending aortic aneurysm measuring up to 5.8 cm at the sinotubular junction.
2. Severe atherosclerotic disease of the left anterior descending with high-grade stenosis proximally secondary to probably noncalcified plaque. There is additional calcified plaque within the mid/distal vessel.
3.There is submucosal fatty deposition within the terminal ileum, sigmoid colon and rectum which is nonspecific however can be seen with sequelae of chronic inflammation.
Echo: ROBERTA 09/29/24- Overall LVEF is approximately 55% with no RWMA. Severe concentric left ventricular hypertrophy. Stage II Diastolic dysfunction. Mild mitral regurgitation. Mild aortic insufficiency.
AI jet is central due to ST junction and sinus of Valsalva distortion. Sinus of Valsalva is aneurysmal measuring 4.6 cm. Sinotubular junction measures 4.3 cm. Mid ascending aorta is dilated measuring 4.0 cm at the level of the RPA. Mild sessile
atheroma seen in the descending aorta.
Reports and relevant images were personally reviewed.
Subjective Dataa
Subjective Data
Date of Service:
Date of Service: October 09, 2024
Chief Complaint: Electrotype Molder Follow Up and Pulmonary Follow Up
Subjective:
Patient seen and evaluated today at bedside. Remains lethargic and confused. Patient's , Tania, at bedside and all questions were answered. Currently on dobutamine at 4mcg/kg/min and Precedex at 0.3mcg/kg/hr. BP 102/61 via A-line, heart rate
99, PAP: 32/17, and CO/CI: 4.48/1.98. Currently on 6 L/min nasal cannula and saturating 95%. Continues to spike fevers with Tmax overnight to 102.1 �F.
Review of Systems
General: Other (Unable to obtain given patient's acute clinical status)
Objective Data
Data Reviewed
Vital Signs / I&O / Oxygen:
Vital Signs
Temp Pulse Resp BP Pulse Ox
100.2 F 100 33 129/81 98
10/09/24 09:00 10/09/24 09:29 10/09/24 09:29 10/09/24 06:42 10/09/24 09:29
Intake and Output
10/08/24 10/09/24 10/10/24
06:59 06:59 06:59
Intake Total 3381.4 / 3457.3 2745.7 / 2806.3 262.8 / 262.8
Output Total 5255 / 5315 3630 / 3755 305 / 305
Balance -1873.6 / -1857.7 -884.3 / -948.7 -42.2 / -42.2
SaO2 [CPAP/PSV] 98
SaO2 [A/C] 100
SaO2 [SIMV] 99
SaO2 98
Nasal Cannula flow liters per 50
minute
Physical Exam
General: Respiratory Distress (n), Comfortable and Other (NAD)
HEENT: Normocephalic, Anicteric, Moist Mucous Membranes and Other (R-IJ PAC in place)
Cardiovascular: S1-S2 and Peripheral Edema (+1 lower extremity edema)
Respiratory: Wheeze (R-IJ PAC in place), Rhonchi (Bilateral) and Non-Labored Respirations
GI: Soft, Non Distended, Non Tender and Normal Bowel Sounds
Neurology: Tremors (R-IJ PAC in place) and Lethargic (confused)
Skin: Warm, Dry, Cyanosis (n) and Jaundice (n)
Labs/Micro/Reports
Lab Data
10/09/24 04:46
10/09/24 04:27
Laboratory Results
10/08/24 10/08/24 10/08/24
09:49 14:45 15:53
PT
INR
APTT 36.2 H
pH 7.47 H 7.42
pCO2 38 40
pO2 147 H 133 H
HCO3 27.7 25.9
O2 Delivery Level
10/08/24 10/09/24
21:23 04:27
PT 17.9 H
INR 1.46
APTT 44.8 H 57.6 H
pH 7.46 H 7.46 H
pCO2 35 35
pO2 127 H 123 H
HCO3 24.9 24.9
O2 Delivery Level Not Reportable
Microbiology
10/08/24 14:09 Endotracheal Respiratory Culture - Preliminary
Gram negative bacilli
10/08/24 14:09 Endotracheal Gram Stain - Preliminary
10/05/24 21:33 Blood/Venous Blood Culture - Preliminary
No Growth in 72 hours- Final report to follow
10/05/24 21:33 Blood/Venous Blood Culture - Preliminary
No Growth in 72 hours- Final report to follow
10/06/24 11:35 Blood/Venous Blood Culture - Preliminary
No Growth in 48 hours- Final report to follow
10/06/24 11:10 Blood/Venous Blood Culture - Preliminary
No Growth in 48 hours- Final report to follow
10/06/24 11:25 Urine Urine Culture - Final
NO GROWTH
10/06/24 04:30 Endotracheal Respiratory Culture - Final
10/06/24 04:30 Endotracheal Gram Stain - Final
10/05/24 09:59 Nose MRSA Screen - Final
No Methicillin Resistant Staphylococcus aureus isolated.
10/06/24 11:22 Nose Nasal Screen MRSA (PCR) - Final
MRSA not detected - performed by PCR methodology.
10/06/24 11:22 Nasal Swab Influenza Types A & B (DAVI) - Final
Negative for Influenza A & B, NAAT
Negative results must be combined with clinical observations
and patient history.
Nucleic Acid Amplification test (NAAT)performed on the
[employer] platform.
[2024-10-09] MEDS: FLOVENT 110 MCG INHALER 4 PUFF INH (08:41)
[2024-10-09 08:51] VITALS: BP_SYST 117
[2024-10-09] MEDS: KCL 100 IV (08:54)
[2024-10-09] MEDS: PROTONIX IV 40 MG IV (09:09)
[2024-10-09] MEDS: NSS (PRESERVATIVE FREE) 10 ML IV (09:10)
[2024-10-09 09:14] VITALS: BP_SYST 123
[2024-10-09 09:16] VITALS: BP_SYST 122
[2024-10-09] MEDS: SENOKOT-S 1 TABLET PO ×2 (09:22→20:58)
[2024-10-09] MEDS: ROBITUSSIN 200 MG TUBE ×4 (09:23→21:52)
[2024-10-09] MEDS: MIRALAX 17 GRAMS TUBE (09:24)
[2024-10-09] MEDS: VITAMIN C 500 MG PO (09:24)
[2024-10-09] MEDS: NEURONTIN 100 MG TUBE ×2 (09:24→20:56)
[2024-10-09 09:29] VITALS: BP_SYST 133
[2024-10-09] MEDS: COLACE LIQUID 100 MG TUBE ×2 (09:29→20:56)
[2024-10-09 09:48] VITALS: BP_SYST 122
[2024-10-09] MEDS: SUBLIMAZE 50 MCG IV (09:48)
[2024-10-09 09:57] LABS: B.E. 1.9 mmol/L; HCO3 25.5 mmol/L (21-28); Ionized Calcium 1.14 mMOL/L (1.15-1.33); O2 Therapy VENT; PCO2 35 mmHg (35-48); PO2 147 mmHg (83-108); Potassium 4.1 mMOL/L (3.5-5.1); Sodium 136 mMOL/L (136-145); pH 7.47 (7.35-7.45)
[2024-10-09] MEDS: LOW STRENGTH ASPIRIN 81 MG TUBE (10:03)
[2024-10-09] MEDS: ASPIRIN TUBE (10:03)
[2024-10-09] MEDS: BUMEX 1 MG IV (10:03)
--- NOTE | 2024-10-09 10:18 | W.PN.ID1 ---
Date of Service
Date of Service: October 09, 2024
Today's Communication
Continue antibiotics.
Assessment / Plan
Fever via core route - recurrence today
Cardiogenic Shock
Multisystem Organ Failure
Resolving Shock liver
S/p Valve sparing aortic root replacement with reimplantation of [place] aortic valve [Gregory Procedure]; Reimplantation of left and right coronary buttons into their respective neosinus; CABG x 2 [[place] CEDILLO in situ to LAD, RSVG to proximal RCA];
Left atrial appendage exclusion (35mm clip) by Dr. Zuñiga on 09/29/24
- note further transfusions yesterday
- blood cultures x3 no growth to date
- resp culture: resp americo
- covid and flu swabs - negative
- UA negative
- MRSA screen negative 10/07 and 09/28
- last bowel movement 09/29 (confirmed 10/20/24 - future date - was error with charting RN); tube feeds started 10/05, 10/06 AXR non obstructive pattern and bowel regimen was intensified 10/06
- would not trend procalcitonin unless intent is to decide if stopping antibiotics
- Fevers noted to be ongoing. There may be a component of drug fever (?Precedex, ?other). Will continue to trend.
- follow pressor, ventilator requirements, cbc
- Repeat blood cx's, sputum cx. Current endotracheal culture with GNR's, although may be colonization. Await final culture results.
- Continue zosyn (d#5) for now.
Patient remains critically ill in CVICU, on ventilator with interval improvement
Chief Complaint
-: Fever and Other (cardiogenic shock)
Subjective / Review of Systems
Patient seen and examined. Remains on vent at this time, although weaning trial in place.
Vital Signs / Physical Exam
Vital Signs
Vital Signs
Temp Pulse Resp BP Pulse Ox
100.2 F 99 32 113/69 98
10/09/24 09:00 10/09/24 10:03 10/09/24 09:48 10/09/24 10:03 10/09/24 09:48
Physical Exam
Constitutional: Acutely Ill
Head: Other (ET tube in place.)
Cardiovascular: Regular Rate and S1/S2; Negative S3/S4
Pulmonary: Clear (anteriorly)
Gastrointestinal: Soft, Non Tender, Non Distended and Normal Bowel Sounds
Genito-Urinary: Maki; Negative Hematuria
Extremities: Edema
Wound: Other (chest tube sites no erythema, warmth, tenderness, few ccs of serous drainage noted, no dehiscence; previous impella site no erythema, warmth, fem-stop in place)
Lines: PICC, CVP (Right IJ cordis in place with Kermit-John. ) and Other (Right radial A-line in place)
Objective Data
Lab Data
Lab Results
10/09/24 04:46
10/09/24 04:27
PT 17.9 Sec (11.4-14.6) H 10/09/24 04:27
INR 1.46 10/09/24 04:27
APTT 57.6 Sec (23.4-35.0) H 10/09/24 04:27
Estimated Creat Clear 79 ml/min 10/09/24 04:27
Lactic Acid 1.1 mmol/L (0.7-2.0) 10/09/24 04:27
Total Bilirubin 9.7 mg/dl (0.2-1.3) H 10/09/24 04:27
AST 140 U/L (17-59) H 10/09/24 04:27
ALT 744 U/L (0-50) H* 10/09/24 04:27
Alkaline Phosphatase 127 U/L (38-126) H 10/09/24 04:27
Most recent labs reviewed.
Micro Results:
10/08/24 14:09 Respiratory Culture - Preliminary
Endotracheal Gram negative bacilli
Gram Stain - Preliminary
10/05/24 21:33 Blood Culture - Preliminary
Blood/Venous No Growth in 72 hours- Final report to follow
10/05/24 21:33 Blood Culture - Preliminary
Blood/Venous No Growth in 72 hours- Final report to follow
10/08/24 13:59 Blood Culture - Pending
Blood/Venous
10/08/24 13:29 Blood Culture - Pending
Blood/Venous
10/06/24 11:35 Blood Culture - Preliminary
Blood/Venous No Growth in 48 hours- Final report to follow
10/06/24 11:10 Blood Culture - Preliminary
Blood/Venous No Growth in 48 hours- Final report to follow
10/06/24 11:25 Urine Culture - Final
Urine NO GROWTH
10/06/24 04:30 Respiratory Culture - Final
Endotracheal Gram Stain - Final
10/05/24 09:59 MRSA Screen - Final
Nose No Methicillin Resistant Staphylococcus aureus isolated.
10/06/24 11:22 Nasal Screen MRSA (PCR) - Final
Nose MRSA not detected - performed by PCR methodology.
10/06/24 11:22 Influenza Types A & B (DAVI) - Final
Nasal Swab Negative for Influenza A & B, NAAT
Negative results must be combined with clinical observations
and patient history.
Nucleic Acid Amplification test (NAAT)performed on the
[employer] platform.
09/28/24 12:16 MRSA Screen - Final
Nose No Methicillin Resistant Staphylococcus aureus isolated.
10/08/24 CXR: Relatively stable examination. Persistent pulmonary parenchymal process, as described.
10/04/24 Abd US: mild gallbladder wall thickening, likely reactive, no bile duct dilatation
hepatic steatosis. mild ascites and small bilateral pleural effusions
09/28 CT c/a/p: ascending aorta aneurysm: 5.8 cm. submucosal fatty deposition within the terminal ileum, sigmoid colon and rectum which is nonspecific however can be seen with sequelae of chronic inflammation
[2024-10-09 10:32] LABS: Mixed Venous O2 Saturation 38.7 %
[2024-10-09 10:41] LABS: APTT 67.8 Sec (23.4-35.0)
[2024-10-09 10:46] VITALS: BP_SYST 116
--- NOTE | 2024-10-09 11:14 | PTCARENOTE ---
ABG obtained, results conveyed to JUAN ANTONIO Krysta. Advised by physician to extubate patient. Patient extubated to 6lnc w/out incident, SaO2 @ 97%. Patient able to COOPER, follow simple commands.
[2024-10-09 11:23] LABS: B.E. 1.2 mmol/L; HCO3 23.9 mmol/L (21-28); Ionized Calcium 1.08 mMOL/L (1.15-1.33); O2 Saturation % 99.5 % (94-98); PCO2 30 mmHg (35-48); PO2 95 mmHg (83-108); Potassium 3.8 mMOL/L (3.5-5.1); Sodium 134 mMOL/L (136-145); pH 7.51 (7.35-7.45)
[2024-10-09 12:38] LABS: Glucose - Point of Care 120 mg/dl (70-99)
[2024-10-09] MEDS: MINERAL OIL PO (12:40)
[2024-10-09 12:44] LABS: B.E. 1.9 mmol/L; HCO3 25.5 mmol/L (21-28); PCO2 35 mmHg (35-48); PO2 120 mmHg (83-108); Sodium 136 mMOL/L (136-145); pH 7.47 (7.35-7.45)
[2024-10-09 12:47] LABS: Mixed Venous O2 Saturation 48.8 %
[2024-10-09] MEDS: CALCIUM GLUCONATE 1000 MG IV (12:49)
[2024-10-09] MEDS: REGLAN 10 MG IV ×2 (12:54→17:43)
--- NOTE | 2024-10-09 13:39 | W.PN.CARDCBS ---
Today's Communication / Plan
-
Maintain amiodarone (currently in 2-1 atrial tachycardia and hemodynamically stable)
Maintain IV heparin and eventual transition to oral anticoagulation for atrial fibrillation related thromboembolic risk reduction
Impression / Plan
-
PCP: Dr. Marsh
Cardiology: None prior to admission, seen by Dr. Chavarria at [facility]
Impression:
Admitted to [facility] with chest pain 09/25/[address] to for [address] surgical evaluation 09/27/24
CAD
NSTEMI peak Troponin 67 and MV CAD by cath at [facility] 09/27/24
s/p CABG with CEDILLO to LAD and SVG to prox RCA 09/29/24
s/p LHC with widely patent CEDILLO to LAD, 50% stenosis in the LAD just beyond the MARLA touchdown with KATIE III flow distally, retrograde filling of proximal LAD via moderate size diagonal branch, SVG is anastomosed to the mid RCA, anatomic kink in the
midportion of the vein graft but good distal flow to the distal RCA, creek RCA with diffuse luminal irregularities, but no focal obstructive stenosis 10/01/2024
h/o aortic root aneurysm
root measuring 5.4cm, mid ascending aorta 4.5cm by [facility] imaging 09/27/24
s/p valve sparing aortic root replacement with reimplantation of creek aortic valve (Gregory Procedure) 09/29/24. A left atrial appendage clip was also placed during surgery
HTN
Acute post-op ventricular bigeminy with R on T and VF arrest x2 09/29/24
treated with successful shock x2, CPR, amio and Epi with ROS
CRV Impella placed 10/01/2024
Physiology consistent with RV infarction
Elevated troponin-likely combination of ischemia and RV strain
Inotrope dependent hypotension
Abnormal LFTs
Postoperative hypotension
Ventricular tachycardia
Postoperative atrial fibrillation and typical atrial flutter
Diminished urine output
Intraoperative ROBERTA 09/29/24: Postop findings, EF 50 to 55% with new septal wall hypokinesis, anterior and lateral wall motion appear normal, no AI, the LA appendage has been clipped with a 0.5 cm residual base noted
Bedside ROBERTA 09/29/24: Postop in the room, EF 55% with mild septal wall hypokinesis that appears better than what it appeared in the OR, no pericardial effusion, trace MR, AV function normal
Echo 10/01/24: EF 40 to 45%, inferior wall and inferoseptum appear hypokinetic from base to midportion, moderate concentric LVH, mild to moderately reduced RV systolic function, mild to moderate MR
Echo 10/03/24: EF 50 to 55%, basal and mid inferior hypokinesis, RV hypokinesis with normal RV size, Impella and [place] catheter in place, mild TR
Plan:
-Levo weaned off as of 10/07/24, vasopressin weaned off, Impella RP removed 10/07/24 AM
-Dobut weaned from 5 to 4
-Maintain amiodarone IV for paroxysmal atrial fibrillation'atrial flutter, rate controlled
EKG 10/09/2024: Is atrial tachycardia with 2-1 AV conduction at a rate of 100 bpm
-On IV heparin with eventual transition to oral anticoagulation
-LFTs remain elevated but trending down, statin on hold and still on amio as LFTs improving
-Fevers being investigated by ID. Blood cultures pending and remains on empiric antibiotics.
Discussed with CVICU nursing and also patient's at bedside
HPI: Patient came to [facility] as a transfer from [facility] yesterday for evaluation from CT surgery team for MV CAD and aortic root aneurysm and cardiology has been consulted. Patient sees his PCP mostly when he is sick, but had a physical within the last
year. Patient with known h/o HTN and takes losartan 25 mg daily. He does not check BP at home on a regular basis. 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 He was working last Friday
night into Friday morning and was taking a break and laying on a sofa when he had sudden onset chest pain that lasted for 10-15 minutes and seemed to get better when he sat up. Pain returned again when he returned home after working and he told
his and they made a plan to go to the hospital. Then, after walking up the stairs in his home the patient had recurrent chest pain that was the most intense pain he had experienced and pain persisted. Patient went to [facility] ER and Troponin was
elevated prompting a cath that revealed MV CAD. Patient had an echo that showed aortic root aneurysm and then patient had CT, but results not available. Patient was transferred to for CT surgery eval last evening.
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
Subjective
Date of Service: October 09, 2024
Recently extubated this morning. Awake and alert.
Objective
Labs:
10/09/24 04:46
10/09/24 04:27
Labs
Hgb 9.4 g/dL (13.0-18.0) L 10/09/24 04:46
Hct 28.7 % (39.0-52.0) L 10/09/24 04:46
Plt Count 116 10^3/uL (130-400) L 10/09/24 04:46
PT 17.9 Sec (11.4-14.6) H 10/09/24 04:27
INR 1.46 10/09/24 04:27
APTT 67.8 Sec (23.4-35.0) H 10/09/24 10:19
Sodium 136 mmol/L (135-145) 10/09/24 04:27
Potassium 3.7 mmol/L (3.5-5.1) 10/09/24 04:27
BUN 37 mg/dl (9-20) H 10/09/24 04:27
Creatinine 1.4 mg/dL (0.7-1.3) H 10/09/24 04:27
Glucose 113 mg/dl (70-99) H 10/09/24 04:27
Vital Signs and I&O:
Vital Signs
Temp Pulse Resp BP Pulse Ox
101.1 F H 101 30 109/68 95
01/18/25 13:00 10/09/24 13:18 10/09/24 13:18 10/09/24 12:52 10/09/24 13:18
Vital Signs
Temp Pulse Resp BP Pulse Ox
101.1 F H 101 30 109/68 95
10/09/24 13:00 10/09/24 13:18 10/09/24 13:18 10/09/24 12:52 10/09/24 13:18
Intake & Output
10/07/24 10/08/24 10/09/24 10/10/24
06:59 06:59 06:59 06:59
Intake Total 3547.5 / 3547.5 3381.4 / 3457.3 2745.7 / 2806.3 565.8 / 565.8
Output Total 6650 / 6650 5255 / 5315 3630 / 3755 1035 / 1035
Balance -3102.5 / -3102.5 -1873.6 / -1857.7 -884.3 / -948.7 -469.2 / -469.2
Physical Exam
Physical Exam
Appears comfortable
Regular rate and rhythm with normal S1 and S2, no S3 no S4 there is a grade 1/6 apical holosystolic murmur, there is no rub
Lungs with coarse breath sounds bilaterally
Abdomen is soft and nontender there are bowel sounds
Extremities with +1 pitting lower extremity edema bilaterally
[2024-10-09] MEDS: FLEXBUMIN 100 IV ×2 (13:47→21:49)
[2024-10-09] MEDS: FERRLECIT 110 MG IV (13:50)
[2024-10-09] MEDS: NSS IV (15:07)
[2024-10-09 16:18] LABS: B.E. 1.2 mmol/L; HCO3 23.9 mmol/L (21-28); O2 Saturation % 99.5 % (94-98); PCO2 30 mmHg (35-48); PO2 133 mmHg (83-108); Potassium 3.5 mMOL/L (3.5-5.1); Sodium 135 mMOL/L (136-145); pH 7.51 (7.35-7.45)
[2024-10-09] MEDS: SEROQUEL 25 MG TUBE (16:23)
[2024-10-09 16:30] LABS: APTT 117.9 Sec (23.4-35.0)
--- NOTE | 2024-10-09 16:30 | PTCARENOTE ---
VS remain stable, assessment unchanged. at bedside. Patient able to COOPER, follow simple commands. Remains confused as to place and time. JUAN ANTONIO, physician aware.
[2024-10-09] MEDS: KLOR-CON 40 MEQ PO (16:57)
[2024-10-09 17:48] LABS: Glucose - Point of Care 96 mg/dl (70-99)
--- NOTE | 2024-10-09 20:00 | PTCARENOTE ---
Report received from GALEN Morris. Walking rounds done. Pt repositioned in bed. Pt on Precedex 0.3 mcg. Oriented to name and intermittently to year. Will intermittently follow commands, manager wound care and moves legs, wiggles toes with equal strength. Restless
at times. Attempts to pull at NGT, Maki, attempts to touch insulated pacing wires. Restrains to BUE, 4 side rails up per protocol. Video monitoring at bedside.
Pt on 6L/NC/humidified O2. Sats 96-98%. BBS present. Few scattered rhonchi anteriorly. Decreased bibasilarly. Pt with productive cough, greenwood, slightly blood-tinged. Labs drawn: ABG with lytes, MVO2.
Audible heart tones. Pt in SR-ST with PACs. Intermittently in AF today. For pulse, wound, and edema assessments, see flowsheets. AV wires insulated to chest. CI done: 2.07. Dobutamine at 4 mcg/kg/min. heparin at 1600 units/hr. To recheck PTT at
2245.
Belly soft, nontender. Passing flatus. Hypoactive bowel sounds x 4. NGT to R nare. No tube feeds at present due to recently extubated. Gastric aspirate 10 mls. NPO. Mouth swabs for mouth care and comfort, given.
Maki to drain. Clear, salvador urine. Hourly UO recorded. Ongoing plan of care. Ed, PA in to assess pt. updated on pt status on phone this evening.
[2024-10-09 20:42] LABS: B.E. 0.5 mmol/L; HCO3 22.9 mmol/L (21-28); Ionized Calcium 1.15 mMOL/L (1.15-1.33); O2 Saturation % 99.3 % (94-98); PCO2 28 mmHg (35-48); PO2 93 mmHg (83-108); Potassium 4.1 mMOL/L (3.5-5.1); Sodium 137 mMOL/L (136-145); pH 7.52 (7.35-7.45)
[2024-10-09 20:43] LABS: O2 Therapy nasal cannula
[2024-10-09 20:46] LABS: Mixed Venous O2 Saturation 41.7 %
[2024-10-09] MEDS: FLOVENT 110 MCG INHALER 2 PUFF INH (21:23)
[2024-10-09] MEDS: FLOVENT 110 MCG INHALER INH (21:27)
--- NOTE | 2024-10-09 23:15 | PTCARENOTE ---
Dobutamine gtt decreased to 3 mcg/kg/min per PA order. Pt primarily in AF. Rate will temporarily increase to 120-130 bpm, the 90-100's. Pt remains normotensive. Sats remain 96-99% on 6L/NC. PA with all lab results. CI done and is 2.1
[2024-10-09 23:17] LABS: APTT 99.5 Sec (23.4-35.0)
[2024-10-10] MEDS: SEROQUEL 50 MG TUBE ×2 (00:14→08:15)
[2024-10-10] MEDS: NOVOLOG FLEXPEN-MODERATE RESISTANCE SC ×3 (00:30→12:57)
[2024-10-10] MEDS: REGLAN 10 MG IV ×2 (00:42→06:29)
[2024-10-10] MEDS: NITRO-BID 1 INCH TOPICAL ×2 (00:42→06:29)
--- NOTE | 2024-10-10 01:00 | PTCARENOTE ---
Seroquel 50 mg po down NGT given (see mAR). Precedex gtt off per order of PA. Remains with confused conversation, intermittently oriented to name, year. Intermittently follows commands. Lights off. Pt encouraged to sleep for evening. Sats 96-98% on
6L/NC/O2. Remains in AF. Heparin gtt decreased to 1550 units/hr based on PTT 99.7. Discussed with PA.
[2024-10-10 01:05] LABS: Glucose - Point of Care 109 mg/dl (70-99)
[2024-10-10] MEDS: XOPENEX 0.63 MG INHALANT SOLUTION INH ×2 (01:26→09:13)
[2024-10-10] MEDS: MUCOMYST 10% 2 ML INH ×2 (01:26→09:13)
[2024-10-10] MEDS: ZOSYN 50 IV (04:18)
[2024-10-10] MEDS: DOBUTREX 250 MG IV (04:19)
--- NOTE | 2024-10-10 05:00 | PTCARENOTE ---
AM labs drawn and sent. AM EKG completed. Portable CXR done. CI done at ~ 0300: 2.3 on Dobutamine 3 mcg/kg/min. Pt noted to have more blood-tinged sputum. PA made aware and at bedside to assess. Pt's mouth is also very dry. Frequent moist swabs used
to mouth. Sats remain 97-98%. Pt in ST, rate low 100's. Normotensive. called into unit and updated on pt status. Pt remains on sport bed rotation. Ongoing plan of care.
[2024-10-10 05:31] LABS: B.E. -0.8 mmol/L; HCO3 22.3 mmol/L (21-28); Ionized Calcium 1.16 mMOL/L (1.15-1.33); O2 Saturation % 99.7 % (94-98); O2 Therapy NC; PCO2 30 mmHg (35-48); PO2 122 mmHg (83-108); Potassium 3.8 mMOL/L (3.5-5.1); Sodium 137 mMOL/L (136-145); pH 7.48 (7.35-7.45)
[2024-10-10 05:33] LABS: Mixed Venous O2 Saturation 47.2 %
--- NOTE | 2024-10-10 05:38 | W.PN.CT ---
Today's Communication / Plan
-
-No major issues overnight. Hemodynamically intact
-Neurologically impulsive at times but otherwise alert and oriented x 2 (not fully oriented to place, thinks he's in [facility])
-Was a bit calmer after receiving Seroquel, we were able to d/c Precedex after, temp is trending down after d/c of Precedex, 100.8 this AM
-ID was consulted and following
-Successfully extubated yesterday 10/09/24 and did well after, currently on 6L NC, O2 sats 99%, some respiratory alkalosis on ABG but PaO2 120's
-Weaned Dobutamine from 4 to 3 last night d/t episodes of SVT (HR 130's). MVO2 47.2, CI 2.38
-On Heparin gtt @ 1550 units/hr, PTT 83.8
-LFTs improving
-Plts improving, 122K, was 116K yesterday
-Creatinine improving, 1.2 was 1.4 yesterday
-Keep hawkins catheter
-Maintain a-line while on dobutamine
-Diuresis as warranted
-Replete electrolytes
Assessment / Plan
-
Assessment:
-Multivessel CAD/Ao aneurysm - s/p Valve sparing aortic root replacement with reimplantation of [place] aortic valve [Gregory Procedure]; Reimplantation of left and right coronary buttons into their respective neosinus; CABG x 2 [[place] CEDILLO in situ to
LAD, RSVG to proximal RCA]; Left atrial appendage exclusion (35mm clip) by Dr. Zuñiga on 09/29/24, pod #11
-Intraop ROBERTA: LVEF preoperatively 60% with no significant regional wall motion abnormalities. He does have diastolic dysfunction with thick left ventricle. Following surgery his EF was the same with no significant regional wall motion
abnormalities aside from some paradoxical motion of his septum. He is aortic valve was spared and reimplanted inside of 32 mm cardio root Valsalva graft. Following surgery, his AI that was initially mild and central went to none. He had a mean
gradient of 3 across his [place] aortic valve with a good coaptation height. Due to the long clamp around, he was a little bit sluggish coming off of cardiopulmonary bypass but did not require any inotropic support. His cardiac index was
approximately 1.7 to on just a low-dose Levophed. There is no residual flow into the left atrial appendage, and only a small residual stump was visualized.
s/p Impellla RP placed 10/01/24 and removed 10/07/24
-NSTEMI (High-sensitivity trop 67 @ [facility])
-[place]
-Aortic root aneurysm (5.8 cm, mid ascending aorta 4.5 cm)
-HTN
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
-Spermatocele/Hydrocele S/P b/l spermatocelectomies, 05/26/2015
-S/P LHC
-S/P Vasectomy, 2008
-Acute postop ventricular bigeminy/ R on T phenomenon with v-fib arrest X2 - s/p shocks x2, CPR, low-dose Epi, Amio 300 mg bolus and drip- Rosc achieved. Pt woke up post code and followed commands
-NSVTs
-Bedside ROBERTA revealed no pericardial effusion, valves ok. Lateral wall had some stunning
-Acute postop hypovolemia
-Acute postop cardiogenic shock
-Acute postop atelectasis
-Acute postop blood loss anemia - transfused 7u PRBCs
-Acute postop coagulopathy - s/p 2 FFPs and 2 unit platelets
-ROBERTA
-Shock liver - holding Tylenol - follow
-Acute postop RV failure, taken to chemical lab supervisor for angiography (grafts patent), Impella RP placed
-Acute postop paroxysmal a-fib
-Acute postop metabolic alkalosis, likely d/t diuresis
-Acute postop shock liver
-Acute postop fever, procalcitonin 0.97 - blood cx sent and started on Zosyn and Vanco 10/05
-Acute postop RUE cephalic vein thrombosis
-LUE picc placement 10/06/24
-Acute postop VDRF, required reintubation
Discussed patient care with: Cardiology, Nursing, Respiratory Therapy, Pharmacy and Care Team
Subjective
Procedure
s/p Valve sparing aortic root replacement with reimplantation of [place] aortic valve [Gregory Procedure]; Reimplantation of left and right coronary buttons into their respective neosinus; CABG x 2 [[place]way CEDILLO in situ to LAD, RSVG to proximal RCA];
Left atrial appendage exclusion (35mm clip) by Dr. Zuñiga on 09/29/24
s/p Impellla RP placed 10/01/24
-
Date of Service: October 10, 2024
Pt extubated yesterday, impulsive at times, otherwise alert and oriented x 2 (not fully oriented to place, thinks he's in [facility])
Objective Data
-
PT 17.9 Sec (11.4-14.6) H 10/09/24 04:27
INR 1.46 10/09/24 04:27
APTT 99.5 Sec (23.4-35.0) H 10/09/24 22:52
Vital Signs
Vital Signs
Temp Pulse Resp BP Pulse Ox
100.8 F H 108 34 111/67 97
10/10/24 04:00 10/10/24 04:15 10/10/24 04:15 10/10/24 00:42 10/10/24 04:15
CT Intake/Output/Weight
10/09/24 10/09/24 10/10/24
06:59 18:59 06:59
Intake Total 1596.9 / 2806.3 1098.3 / 1993.3 896.0 / 1994.3
Output Total 2040 / 4055 1615 / 2370 755 / 2370
Balance -443.1 / -1248.7 -516.7 / -375.7 141.0 / -375.7
SaO2: 97 (6L)
Physical Exam
-
General: Awake, Oriented and AOx3
Cardiovascular: Regular rate & rhythm, No Murmurs, No Rub and No Gallop
Respiratory: Decreased Breath Sounds
Sternum: Stable
Incision: Clean, Dry, Intact and Dressing Intact
Extremities: Edema +1
Data Reviewed
-
Lab Results: Results Reviewed
Medications: Active Meds Reviewed
Chest X-Ray: Report Reviewed and Image Reviewed
ECG: Report Reviewed and Image Reviewed
[2024-10-10 05:53] LABS: APTT 83.8 Sec (23.4-35.0)
[2024-10-10 06:00] VITALS: BMI 30.4
[2024-10-10 06:03] LABS: Hemoglobin 8.1 g/dL (13.0-18.0); Mean Corp Hgb Conc. 32.4 g/dL (33.0-37.0); Mean Corpuscular Hgb 30.3 pg (27.0-31.0); Mean Corpuscular Volume 93.6 fL (80.0-94.0); Mean Platelet Volume 11.3 fL (7.4-10.4); Platelet Count 122 10^3/uL (130-400); Red Blood Cell Count 2.67 10^6/uL (4.70-6.10); Red Cell Dist. Width 18.6 % (11.5-14.5); White Blood Cell Count 13.6 10^3/uL (4.8-10.8)
[2024-10-10 06:17] LABS: ALT (SGPT) 512 U/L (0-50); AST (SGOT) 147 U/L (17-59); Albumin 3.5 g/dl (3.5-5.0); Alkaline Phosphatase 118 U/L (38-126); Blood Urea Nitrogen 31 mg/dl (9-20); Calcium 8.4 mg/dl (8.4-10.2); Carbon Dioxide 22 mmol/L (22-30); Chloride 105 mmol/L (98-107); Direct Bilirubin 7.3 mg/dl (0.0-0.4); Estimated Creatinine Clearance 92 ml/min; Glucose 108 mg/dl (70-99); Magnesium 2.5 mg/dl (1.6-2.3); Potassium 3.9 mmol/L (3.5-5.1); Sodium 139 mmol/L (135-145); Total Bilirubin 10.3 mg/dl (0.2-1.3); eGFR > 60.00
[2024-10-10] MEDS: FLEXBUMIN 100 IV (06:30)
--- NOTE | 2024-10-10 07:15 | PTCARENOTE ---
Report to GALEN Ross. Walking rounds done.
--- NOTE | 2024-10-10 08:00 | PTCARENOTE ---
Pt received from outgoing RN, pt aaox2 confuse with time and place, follow commands, cooperative, ST, Tachypenic, VSS, on dobutamine @ 3mcg, heparin gtt @ 1550units, resume bumex gtt @ 1mg, dced hawkins, condom cath placed, 6Lnc speech therapy to eval
swallowing, rt IJ swan and cordis, LUE TLP, rt radial Zahira. 1 unit of PRBC this AM.
--- NOTE | 2024-10-10 08:13 | W.PN.ID1 ---
Date of Service
Date of Service: October 10, 2024
Today's Communication
Continue antibiotics. Change Zosyn to meropenem. Continue to trend temperature curve and white count.
Assessment / Plan
Fevers (via core measurement)
- persistent
Cardiogenic Shock
Multisystem Organ Failure
Resolving Shock liver
S/p Valve sparing aortic root replacement with reimplantation of [place] aortic valve [Gregory Procedure]; Reimplantation of left and right coronary buttons into their respective neosinus; CABG x 2 [kalisp[place] CEDILLO in situ to LAD, RSVG to proximal RCA];
Left atrial appendage exclusion (35mm clip) by Dr. Zuñiga on 09/29/24
Recommendations:
- note further transfusions yesterday
- blood cultures x3 no growth to date
- resp culture: GNR's (ID pending)
- covid and flu swabs - negative
- UA negative
- MRSA screen negative 10/07 and 09/28
- Fevers noted to be ongoing. Question whether there may be a component of drug fever. Precedex has previously been discontinued without effect.
- Transition Zosyn to meropenem.
- Repeat blood cx's, sputum cx. Current endotracheal culture with GNR's, although may be colonization. Await final culture results.
����������������������������������������������������������
Chief Complaint
-: Fever and Other (cardiogenic shock)
Subjective / Review of Systems
Patient seen and examined. Since yesterday has been extubated. Fevers ongoing and persistent.
Vital Signs / Physical Exam
Vital Signs
Vital Signs
Temp Pulse Resp BP Pulse Ox
100.8 F H 109 32 107/68 97
10/10/24 06:00 10/10/24 07:38 10/10/24 07:38 10/10/24 06:29 10/10/24 07:38
Physical Exam
Constitutional: Acutely Ill and Non-toxic
Cardiovascular: Regular Rate and S1/S2; Negative S3/S4
Pulmonary: Clear (anteriorly) and Non Labored
Gastrointestinal: Soft, Non Tender, Non Distended and Normal Bowel Sounds
Genito-Urinary: Maki; Negative Hematuria
Extremities: Edema and Other (Ecchymosis posterior proximal right thigh)
Wound: Other (chest tube sites no erythema, warmth, tenderness, few ccs of serous drainage noted, no dehiscence; previous impella site no erythema, warmth, fem-stop in place)
Lines: PICC (LUE), CVP (Right IJ cordis in place with [place]. ) and Other (Right radial A-line in place)
Objective Data
Lab Data
Lab Results
10/10/24 06:54
10/10/24 05:07
PT 17.9 Sec (11.4-14.6) H 10/09/24 04:27
INR 1.46 10/09/24 04:27
APTT 83.8 Sec (23.4-35.0) H 10/10/24 05:07
Estimated Creat Clear 92 ml/min 10/10/24 05:07
Lactic Acid 1.1 mmol/L (0.7-2.0) 10/09/24 04:27
Total Bilirubin 10.3 mg/dl (0.2-1.3) H 10/10/24 05:07
AST 147 U/L (17-59) H 10/10/24 05:07
ALT 512 U/L (0-50) H* 10/10/24 05:07
Alkaline Phosphatase 118 U/L (38-126) 10/10/24 05:07
Most recent labs reviewed.
Micro Results:
10/08/24 14:09 Respiratory Culture - Preliminary
Endotracheal Gram negative bacilli
Gram Stain - Preliminary
10/05/24 21:33 Blood Culture - Preliminary
Blood/Venous No Growth in 4 days- Final report to follow
10/05/24 21:33 Blood Culture - Preliminary
Blood/Venous No Growth in 4 days- Final report to follow
10/08/24 13:59 Blood Culture - Preliminary
Blood/Venous No Growth in 24 hours- Final report to follow
10/08/24 13:29 Blood Culture - Preliminary
Blood/Venous No Growth in 24 hours- Final report to follow
10/06/24 11:35 Blood Culture - Preliminary
Blood/Venous No Growth in 72 hours- Final report to follow
10/06/24 11:10 Blood Culture - Preliminary
Blood/Venous No Growth in 72 hours- Final report to follow
10/06/24 11:25 Urine Culture - Final
Urine NO GROWTH
10/06/24 04:30 Respiratory Culture - Final
Endotracheal Gram Stain - Final
10/05/24 09:59 MRSA Screen - Final
Nose No Methicillin Resistant Staphylococcus aureus isolated.
10/06/24 11:22 Nasal Screen MRSA (PCR) - Final
Nose MRSA not detected - performed by PCR methodology.
10/06/24 11:22 Influenza Types A & B (DAVI) - Final
Nasal Swab Negative for Influenza A & B, NAAT
Negative results must be combined with clinical observations
and patient history.
Nucleic Acid Amplification test (NAAT)performed on the
[employer] platform.
09/28/24 12:16 MRSA Screen - Final
Nose No Methicillin Resistant Staphylococcus aureus isolated.
10/08/24 CXR: Relatively stable examination. Persistent pulmonary parenchymal process, as described.
10/04/24 Abd US: mild gallbladder wall thickening, likely reactive, no bile duct dilatation
hepatic steatosis. mild ascites and small bilateral pleural effusions
09/28 CT c/a/p: ascending aorta aneurysm: 5.8 cm. submucosal fatty deposition within the terminal ileum, sigmoid colon and rectum which is nonspecific however can be seen with sequelae of chronic inflammation
Care Review
Plan reviewed with: Physician (CT Sx.)
[2024-10-10] MEDS: BUMEX 50 IV (08:14)
[2024-10-10] MEDS: VITAMIN C 500 MG PO (08:15)
[2024-10-10] MEDS: COLACE LIQUID 100 MG TUBE (08:15)
[2024-10-10] MEDS: MIRALAX 17 GRAMS TUBE (08:15)
[2024-10-10] MEDS: LOW STRENGTH ASPIRIN 81 MG TUBE (08:15)
[2024-10-10] MEDS: SENOKOT-S 1 TABLET PO (08:15)
[2024-10-10] MEDS: ROBITUSSIN 200 MG TUBE ×4 (08:15→22:30)
[2024-10-10] MEDS: NEURONTIN 100 MG TUBE (08:15)
[2024-10-10] MEDS: PROTONIX IV 40 MG IV (08:15)
[2024-10-10] MEDS: NSS (PRESERVATIVE FREE) 10 ML IV (08:16)
--- NOTE | 2024-10-10 08:31 | W.PN.INTV ---
Today's Communication / Plan
Recommendations
Diuresis as tolerated - chest x-ray today looks worse in terms of interstitial/alveolar edema
Precedex now off; continue seroqeul
Aspiration precautions
Antibiotics per ID
Continue dobutamine and wean off as tolerated while trending MVO2
Wean down supplemental O2 flow rate while keeping SpO2 >90%
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
Manager Of Financial Planning services will continue to follow along
Assessment
-
Patient is a 54-year-old male with previous history of hypertension presenting to [facility] on 09/26/2024 for complaints of chest pain with shortness of breath. He was ruled in for NSTEMI with elevated troponins and underwent left heart
catheterization demonstrating multivessel CAD. He was transferred from [place] to [place] for evaluation of CABG. He underwent CABG x 2 on 09/29/2024 without complication and perioperatively transferred to CVICU for further management.
Impression:
MV CAD status post CABG x 2, status post valve sparing aortic root replacement and reimplantation 09/29/2024-Dr. Zuñiga
s/p LHC 10/01/24-no critical stenosis
s/p impella placement 10/01/24
Ventilator dependent respiratory failure
Reintubated 10/04/2024
Extubated 10/09/2024
Aspiration pneumonia with Klebsiella oxytoca seen on respiratory culture from 10/08/2024
RV infarct suspected
Cardiogenic shock on inotropes
NSTEMI
Chest pain and shortness of breath
Perioperative mechanical ventilation
Mild anemia, postoperative
Stage II DD on ECHO
Severe conc LVH
Nonsustained ventricular tachycardia
Paroxysmal atrial fibrillation
Physical deconditioning
Conditions present prior to admission:
Hypertension
Plan
Critically ill and extubated yesterday morning, although remains on dobutamine; now off Precedex; of note, Impella removed 10/07/2024
Hemoptysis noted-appears to have resolved-Flolan discontinued due to contraindication with hemoptysis-consider reinstating if needed
Remains on heparin drip
Titrate off dobutamine as tolerated while trending MVO2
Inh: epoprostenol discontinued
Weight: 99kg --as high as 117 kg and with ongoing diuresis now 107.2 kg
Zoe-John/Cordis removed this morning (10/10/2024)
ECHO 10/06/2024 improved-reviewed with normal function, stage II DD, no significant RV dysfunction
Chest tubes removed on 10/03/2024
Thick secretions - Mucomyst added in addition to Robitussin
Pulmicort nebulizers initiated 10/07/2024 - stopped on 10/08 and now on flovent BID; xopenex is prn
Patient extubated yesterday AM (10/09/2024)
Continue with supplemental oxygen and titrate down flow rate as tolerated while keeping SpO2 >90-94%
Pain control
Now off Precedex; continue to trend fever curve now that he is off
Continue with Seroquel 50 mg PO q8hr
Continue to monitor for arrhythmias
Nonsustained ventricular tachycardia in the setting of hypokalemia and hypocalcemia-subsequently repleted-no recurrence
Cultures reviewed
Blood cultures negative thus far
Sputum culture 10/06/2024-many WBCs, moderate gram-positive cocci and few gram-negative rods
Repeat sputum culture on 10/08/2024 grew Klebsiella oxytoca (resistant to ampicillin + cefazolin)
Procalcitonin noted (0.97 on 10/05/2024, decreasing to 0.79 on 10/07/2024)
Empiric antibiotics - now on meropenem s/p Zosyn and vancomycin-discontinued vancomycin as MRSA screen negative
Infectious disease consultation noted-correspondence reviewed
Trend leukocytosis
Follow temperature curve
GI prophylaxis: PPI given he remains on inotropes
Diuresis as tolerated; bumex gtt resumed
Cr improving
Monitor renal function, electrolytes, intake/output, lower extremity edema and weight
Replace electrolytes as needed
Impella-discontinued 10/07/2024
Continue to follow hemoglobin and platelet count
Transfuse if needed to keep Hb>7-8g/dL, plt>50k (given post-operative status)
Monitor LFTs (shock liver)
Follow blood sugar with goal 140-180mg/dL
Insulin supplementation as needed with ISS q6hr
DVT prophylaxis-heparin gtt
GI prophylaxis-on PPI
Nutrition-TF on hold due to recently high residuals and vomited this AM; using NGT to give meds
Bedside range of motion
Critical care statement: A total of 39 minutes of critical care time was provided for this patient today. This includes management of unstable vital signs, evaluation of the patient at bedside, reviewing the patient's pertinent medical records
including radiographs, ventilator management, arterial blood gas management, spontaneous breathing trial management, pressor management, microbiology, laboratory evaluations, and discussion with primary team, consultants, pharmacy, nutrition,
physical therapy, case management, charge nurse, critical care nursing, and respiratory therapy.
Diagnostic Data
CXR 10/03/24- No significant interval change in lines and tubes. As described, bilateral parenchymal opacities highly suggestive of pulmonary edema pattern. Slight improvement in atelectasis in the medial left base.
Chest X-Ray: 09/29/24- New postoperative changes as detailed above. Small left pleural effusion with underlying retrocardiac atelectasis
CT Scan: CAP 09/28/24- 1. Ascending aortic aneurysm measuring up to 5.8 cm at the sinotubular junction.
2. Severe atherosclerotic disease of the left anterior descending with high-grade stenosis proximally secondary to probably noncalcified plaque. There is additional calcified plaque within the mid/distal vessel.
3.There is submucosal fatty deposition within the terminal ileum, sigmoid colon and rectum which is nonspecific however can be seen with sequelae of chronic inflammation.
Echo: ROBERTA 09/29/24- Overall LVEF is approximately 55% with no RWMA. Severe concentric left ventricular hypertrophy. Stage II Diastolic dysfunction. Mild mitral regurgitation. Mild aortic insufficiency.
AI jet is central due to ST junction and sinus of Valsalva distortion. Sinus of Valsalva is aneurysmal measuring 4.6 cm. Sinotubular junction measures 4.3 cm. Mid ascending aorta is dilated measuring 4.0 cm at the level of the RPA. Mild sessile
atheroma seen in the descending aorta.
Reports and relevant images were personally reviewed.
Subjective Dataa
Subjective Data
Date of Service:
Date of Service: October 10, 2024
Chief Complaint: Manager Of Financial Planning Follow Up and Pulmonary Follow Up
Subjective:
Patient seen and evaluated today at bedside. Currently on Bumex drip at 1mg/hr, and dobutamine at 3mcg/kg/min. at bedside and all questions were answered. Current heart rate 109, BP via A-line: 121/74, and saturating 93% on 6 L/min. He
vomited this morning (non-bloody). NGT in place. Currently clamped. He still is confused, although not as much as yesterday. Off Precedex.
Review of Systems
General: Other (Unable to obtain given patient's acute clinical status/confusion)
Objective Data
Data Reviewed
Vital Signs / I&O / Oxygen:
Vital Signs
Temp Pulse Resp BP Pulse Ox
100.8 F H 109 32 107/68 97
10/10/24 06:00 10/10/24 07:38 10/10/24 07:38 10/10/24 06:29 10/10/24 07:38
Intake and Output
10/09/24 10/10/24 10/11/24
06:59 06:59 06:59
Intake Total 2745.7 / 2806.3 2075.7 / 2206.4 130.7 / 130.7
Output Total 3930 / 4055 2530 / 2590 60 / 60
Balance -1184.3 / -1248.7 -454.3 / -383.6 70.7 / 70.7
SaO2 [CPAP/PSV] 98
SaO2 [A/C] 100
SaO2 [SIMV] 99
SaO2 97
Nasal Cannula flow liters per 6
minute
Physical Exam
General: Respiratory Distress (n), Comfortable and Other (NAD)
HEENT: Normocephalic, Anicteric, Moist Mucous Membranes and Other (R-IJ PAC in place)
Cardiovascular: S1-S2, Rub and Peripheral Edema (+1 lower extremity edema)
Respiratory: Wheeze (negative), Rhonchi (Bilateral), Non-Labored Respirations, Stridor (negative) and Other (Coarse BS heard bilaterally)
GI: Soft, Distended (Abdominal obesity), Non Tender and Normal Bowel Sounds
Neurology: Awake, Tremors (negative) and Lethargic (confused (improving))
Skin: Warm, Dry, Cyanosis (n) and Jaundice (n)
Labs/Micro/Reports
Lab Data
10/10/24 06:54
10/10/24 05:07
Laboratory Results
10/09/24 10/09/24 10/09/24
09:44 10:19 11:17
APTT 67.8 H
pH 7.47 H 7.51 H
pCO2 35 30 L
pO2 147 H 95
HCO3 25.5 23.9
O2 Delivery Level Vent
10/09/24 10/09/24 10/09/24
12:30 16:08 20:16
APTT 117.9 H
pH 7.47 H 7.51 H 7.52 H
pCO2 35 30 L 28 L
pO2 120 H 133 H 93
HCO3 25.5 23.9 22.9
O2 Delivery Level nasal cannula
10/09/24 10/10/24
22:52 05:07
APTT 99.5 H 83.8 H
pH 7.48 H
pCO2 30 L
pO2 122 H
HCO3 22.3
O2 Delivery Level Nc
Microbiology
10/08/24 14:09 Endotracheal Respiratory Culture - Final
Klebsiella oxytoca
10/08/24 14:09 Endotracheal Gram Stain - Final
10/05/24 21:33 Blood/Venous Blood Culture - Preliminary
No Growth in 4 days- Final report to follow
10/05/24 21:33 Blood/Venous Blood Culture - Preliminary
No Growth in 4 days- Final report to follow
10/08/24 13:59 Blood/Venous Blood Culture - Preliminary
No Growth in 24 hours- Final report to follow
10/08/24 13:29 Blood/Venous Blood Culture - Preliminary
No Growth in 24 hours- Final report to follow
10/06/24 11:35 Blood/Venous Blood Culture - Preliminary
No Growth in 72 hours- Final report to follow
10/06/24 11:10 Blood/Venous Blood Culture - Preliminary
No Growth in 72 hours- Final report to follow
10/06/24 11:25 Urine Urine Culture - Final
NO GROWTH
10/06/24 04:30 Endotracheal Respiratory Culture - Final
10/06/24 04:30 Endotracheal Gram Stain - Final
[2024-10-10 08:58] LABS: Mixed Venous O2 Saturation 48.8 %
[2024-10-10] MEDS: FLOVENT 110 MCG INHALER 2 PUFF INH ×2 (09:13→20:19)
[2024-10-10 09:29] LABS: Mixed Venous O2 Saturation 46.5 %
[2024-10-10] MEDS: CALCIUM GLUCONATE 120 MG IV (10:17)
[2024-10-10] MEDS: MERREM 500 MG IV ×3 (10:17→22:29)
[2024-10-10] MEDS: STERILE WATER FOR INJECTION 10 ML IV ×3 (10:17→22:29)
--- NOTE | 2024-10-10 10:17 | PTOTSP ---
Speech Therapy
Presentation: Patient was oriented and willing to participate. Patient appeared slightly confused but able to be redirected. Patient's speech and language appeared to be WNL.
Swallowing Function: Patient was observed with several ice chips, tsp of thins, straw sips of thins, puree tsp, and mechanical soft via tsp in which patient appeared to tolerate all of the presentations as he did not exhibit any overt clinical s/sx
of aspiration. Patient did, of note, demonstrate increased RR (37-40) with mechanical soft solids. Patient also demonstrated inconsistent dry coughs in the absence of PO. During all presentations, patient's vocal quality was assessed and did not
appear to be changed or wet.
Given patient's complex history, recommend trial of IDDSI 4 and thin liquids with VSE to r/o silent aspiration and/or retention which could cause a delayed cough response.
Recommendations:
1) Trial of IDDSI 4 ; puree and thin liquids
2) Aspiration precautions (especially small, single bites and sips)
3) Medications as tolerated
4) Assistance and supervision with PO
5) PO only when alert
6) VSE
Plan: TRIMMER AND REINFORCER will continue to follow; pending hospitalization.
[2024-10-10 11:22] LABS: APTT 62.5 Sec (23.4-35.0)
--- NOTE | 2024-10-10 12:16 | PTCARENOTE ---
Pt reassessment improved from prior, aaox3 still forgetful at times, calm, cooperative, follow commands, move all 4 ext, speech clear for thin/pureed, dced swan/cordis, bumex gtt voiding using condom cath, rt radial jossie, dobutamine decreased to
2mcg, 6lnc, keep ngt till pt tolerate po intake.
[2024-10-10 12:27] LABS: Glucose - Point of Care 113 mg/dl (70-99)
[2024-10-10] MEDS: NSS IV (12:58)
[2024-10-10 13:30] VITALS: BP 101/62; BP 128/78; PULSE 108; O2SAT 100
[2024-10-10] MEDS: FERRLECIT 110 MG IV (13:58)
[2024-10-10] MEDS: ZOFRAN 4 MG IV (14:28)
--- NOTE | 2024-10-10 16:04 | PTCARENOTE ---
pt reassessment unchanged from previous, mental status continue to improve, bumex/heparin/dobuatmine gtt, vss, 2lnc, dced cordis/swan, rt radial jossie, condom cath, pureed/thin diet.
[2024-10-10] MEDS: SEROQUEL 50 MG PO ×2 (16:16→23:32)
[2024-10-10 16:33] LABS: Mixed Venous O2 Saturation 56.6 %
[2024-10-10 16:40] LABS: Hematocrit 28.6 % (39.0-52.0); Hemoglobin 9.3 g/dL (13.0-18.0); Mean Corp Hgb Conc. 32.5 g/dL (33.0-37.0); Mean Corpuscular Volume 92.3 fL (80.0-94.0); Mean Platelet Volume 11.1 fL (7.4-10.4); Platelet Count 148 10^3/uL (130-400); Red Cell Dist. Width 19.6 % (11.5-14.5); White Blood Cell Count 15.8 10^3/uL (4.8-10.8)
[2024-10-10 16:48] LABS: Blood Urea Nitrogen 30 mg/dl (9-20); Calcium 7.9 mg/dl (8.4-10.2); Carbon Dioxide 26 mmol/L (22-30); Chloride 99 mmol/L (98-107); Estimated Creatinine Clearance 100 ml/min; Glucose 195 mg/dl (70-99); Magnesium 2.3 mg/dl (1.6-2.3); Phosphorus 2.9 mg/dl (2.5-4.5); Sodium 139 mmol/L (135-145); eGFR > 60.00
[2024-10-10 17:00] VITALS: PULSE 132
[2024-10-10] MEDS: KCL 100 IV (17:16)
[2024-10-10] MEDS: KCL 40 MEQ PO (17:16)
[2024-10-10] MEDS: CALCIUM GLUCONATE 1000 MG IV (17:23)
[2024-10-10 17:41] LABS: Glucose - Point of Care 202 mg/dl (70-99)
[2024-10-10] MEDS: NOVOLOG FLEXPEN-MODERATE RESISTANCE 300 UNITS SC (17:44)
[2024-10-10 18:48] LABS: Mixed Venous O2 Saturation 45.9 %
--- NOTE | 2024-10-10 20:00 | PTCARENOTE ---
Report received from GALEN Ross. Walking rounds done. Pt assessed, VS recorded. Oriented to person, place, purpose, intermittently to month, knows year. Speech clear. Has generalized weakness, yet strength equal x 4. Able to recall birthday,
family's names. Pt on 2L/NC. BBS present. Diminished to B bases and anteriorly. CDB encouraged. Chest Percussion therapy on bed for 5 minutes. Sats 96-98%. Expectorating thick, greenwood sputum. Audible heart sounds. Pt in ST, rate 120-130 bpm. R radial A
line with normotensive measurements. Heparin at 1550 units/hr. Dobutamine gtt off at 1900 per order of Neha Chaparro NP. For pulse and wound assessments, see flowsheets. Belly soft, round. Normoactive bowel sounds x 4. Pt with loose stool, moderate
in size, cleaned and pericare performed, barrier cream applied. Stool softener held at 2000 after discussion with PA. Pt voids in urinal, clear, salvador urine. PA at bedside to assess pt.
Pt given CHG bath, face washed, linens changed. Dressing changed to former CT sites, and R arm (skin tear).
called into unit and updated on pt status.
Ongoing plan of care.
[2024-10-10] MEDS: CALCIUM GLUCONATE 100 IV (20:17)
[2024-10-10] MEDS: COLACE PO ×2 (20:31→22:31)
[2024-10-10] MEDS: NEURONTIN 100 MG PO (20:31)
[2024-10-10] MEDS: SENOKOT-S PO ×2 (20:31→22:31)
[2024-10-10 22:25] VITALS: BP 118/86
[2024-10-10] MEDS: TOPROL XL 12.5 MG PO (22:29)
[2024-10-10 23:40] LABS: Glucose - Point of Care 164 mg/dl (70-99)
[2024-10-10] MEDS: NOVOLOG FLEXPEN-MODERATE RESISTANCE 1 UNITS SC (23:40)
[2024-10-11] VITALS (14 sets, daily range): BP systolic 110–177; BP diastolic 74–137; PULSE 125–138; O2SAT 94–95; BMI 29.0
--- NOTE | 2024-10-11 | PTCARENOTE ---
Pt cleaned for small, loose BM. Barrier ointment applied. Pt given Seroquel 50 mg po given as ordered. Pt attempting to go to sleep.
--- NOTE | 2024-10-11 02:00 | PTCARENOTE ---
Pt asleep. Rhythm appears AF/flutter at times. Occasional PVCs. BP 84-90's/60's, MAP 70's. Ed, PA called and notified. Ca Gluconate 2 gm IV ordered and given per protocol. See VS.
[2024-10-11] MEDS: CALCIUM GLUCONATE 10% INJECTION 120 MG IV (02:30)
[2024-10-11] MEDS: STERILE WATER FOR INJECTION 10 ML IV ×4 (03:51→22:24)
[2024-10-11] MEDS: MERREM 500 MG IV ×4 (03:52→22:25)
[2024-10-11 03:53] LABS: B.E. 1.9 mmol/L; HCO3 25.5 mmol/L (21-28); Ionized Calcium 1.24 mMOL/L (1.15-1.33); O2 Saturation % 98.9 % (94-98); PCO2 35 mmHg (35-48); PO2 83 mmHg (83-108); Potassium 3.7 mMOL/L (3.5-5.1); Sodium 140 mMOL/L (136-145); pH 7.47 (7.35-7.45)
[2024-10-11 03:54] LABS: O2 Therapy NC
[2024-10-11 04:06] LABS: Hematocrit 27.7 % (39.0-52.0); Hemoglobin 9.1 g/dL (13.0-18.0); Mean Corp Hgb Conc. 32.9 g/dL (33.0-37.0); Mean Corpuscular Hgb 29.9 pg (27.0-31.0); Mean Corpuscular Volume 91.1 fL (80.0-94.0); Mean Platelet Volume 11.4 fL (7.4-10.4); Platelet Count 159 10^3/uL (130-400); Red Blood Cell Count 3.04 10^6/uL (4.70-6.10); Red Cell Dist. Width 19.7 % (11.5-14.5); White Blood Cell Count 14.4 10^3/uL (4.8-10.8)
--- NOTE | 2024-10-11 04:06 | W.PN.CT ---
Today's Communication / Plan
-
Plan:
-No major issues overnight. Hemodynamically intact and neurologically intact, making a remarkable progress
-Pt calmer now, no longer as impulsive. Alert and oriented x 3. Moving all extremities appropriately, appears deconditioned
-Successfully extubated 10/09/24, currently on 2L NC with O2sats 95-99%
-Weaned off dobutamine gtt yesterday 10/10. Currently off all drips but Heparin @ 1600 units/hr. Did receive Bumex gtt @ 1mg/hr yesterday, 24hr u/o 6,065 mL
-Beeson and hawkins d/c'd yesterday, 10/10. Pt voiding spontaneously, 6L urine output/24hrs
-Tolerating dysphagia 4 (puree/thin liquid) diet, Speech and swallow following, eventual VSE, advance diet as tolerated
-PT/OT following as pt noted to be deconditioned
-On Meropenem for Klebsiella from sputum culture, ID following. TM 100.6, wbc 14.4
-HR noted to be sinus in 130's, resumed Toprol XL 12.5 mg BID, will discuss adding Amiodarone in light of improved liver enzymes
-LFTs improved, trending down daily
-Thrombocytopenia has resolved, 159K today
-H/H stable after 1u PRBC yesterday, 9.1/27.7, may need additional 1u prbc today to improve hgb to 10, diurese after transfusion
-Replete electrolytes
-Postop ROBERTA has resolved, cr 1.1
-D/C A-line
-OOB into chair/Ambulate/PT/OT f/u
-Eventual rehab placement
Assessment / Plan
-
Assessment:
-Multivessel CAD/Ao aneurysm - s/p Valve sparing aortic root replacement with reimplantation of [place] aortic valve [Gregory Procedure]; Reimplantation of left and right coronary buttons into their respective neosinus; CABG x 2 [[place] CEDILLO in situ to
LAD, RSVG to proximal RCA]; Left atrial appendage exclusion (35mm clip) by Dr. Zuñiga on 09/29/24, pod #12
-Intraop ROBERTA: LVEF preoperatively 60% with no significant regional wall motion abnormalities. He does have diastolic dysfunction with thick left ventricle. Following surgery his EF was the same with no significant regional wall motion
abnormalities aside from some paradoxical motion of his septum. He is aortic valve was spared and reimplanted inside of 32 mm cardio root Valsalva graft. Following surgery, his AI that was initially mild and central went to none. He had a mean
gradient of 3 across his [place] aortic valve with a good coaptation height. Due to the long clamp around, he was a little bit sluggish coming off of cardiopulmonary bypass but did not require any inotropic support. His cardiac index was
approximately 1.7 to on just a low-dose Levophed. There is no residual flow into the left atrial appendage, and only a small residual stump was visualized.
s/p Impellla RP placed 10/01/24 and removed 10/07/24
-NSTEMI (High-sensitivity trop 67 @ [facility])
-[place]
-Aortic root aneurysm (5.8 cm, mid ascending aorta 4.5 cm)
-HTN
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
-Spermatocele/Hydrocele S/P b/l spermatocelectomies, 05/26/2015
-S/P LHC
-S/P Vasectomy, 2008
-Acute postop ventricular bigeminy/ R on T phenomenon with v-fib arrest X2 - s/p shocks x2, CPR, low-dose Epi, Amio 300 mg bolus and drip- Rosc achieved. Pt woke up post code and followed commands
-NSVTs
-Bedside ROBERTA revealed no pericardial effusion, valves ok. Lateral wall had some stunning
-Acute postop hypovolemia
-Acute postop cardiogenic shock
-Acute postop atelectasis
-Acute postop blood loss anemia - transfused 7u PRBCs
-Acute postop coagulopathy - s/p 2 FFPs and 2 unit platelets
-ROBERTA
-Shock liver - holding Tylenol - follow
-Acute postop RV failure, taken to porcel[facility] lab[facility] for angiography (grafts patent), Impella RP placed
-Acute postop paroxysmal a-fib
-Acute postop metabolic alkalosis, likely d/t diuresis
-Acute postop shock liver
-Acute postop fever, procalcitonin 0.97 - blood cx sent and started on Zosyn and Vanco 10/05
-Acute postop RUE cephalic vein thrombosis
-LUE picc placement 10/06/24
-Acute postop VDRF, required reintubation
Discussed patient care with: Cardiology, Nursing, Respiratory Therapy, Pharmacy and Care Team
Subjective
Procedure
s/p Valve sparing aortic root replacement with reimplantation of [place] aortic valve [Gregory Procedure]; Reimplantation of left and right coronary buttons into their respective neosinus; CABG x 2 [[place] CEDILLO in situ to LAD, RSVG to proximal RCA];
Left atrial appendage exclusion (35mm clip) by Dr. Zuñiga on 09/29/24
s/p Impellla RP placed 10/01/24
-
Date of Service: October 11, 2024
Pt calmer, alert and oriented x 3
Objective Data
-
PT 17.9 Sec (11.4-14.6) H 10/09/24 04:27
INR 1.46 10/09/24 04:27
APTT 62.5 Sec (23.4-35.0) H 10/10/24 11:01
Vital Signs
Vital Signs
Temp Pulse Resp BP Pulse Ox
99.9 F 131 28 117/81 100
10/11/24 02:00 10/11/24 04:00 10/11/24 04:00 10/10/24 22:29 10/11/24 04:00
CT Intake/Output/Weight
10/10/24 10/10/24 10/11/24
06:59 18:59 06:59
Intake Total 977.4 / 2206.4 1907.2 / 2131.2 224.0 / 2131.2
Output Total 915 / 2590 4710 / 6235 1525 / 6235
Balance 62.4 / -383.6 -2802.8 / -4103.8 -1301.0 / -4103.8
SaO2: 100 (2L)
Physical Exam
-
General: Awake, Oriented, AOx3 and Other (calmer, had been impulsive previously )
Cardiovascular: Regular rate & rhythm (sinus tachycardia/SVT 130's)
Respiratory: Decreased Breath Sounds
Sternum: Stable
Incision: Clean, Dry, Intact and Dressing Intact
Extremities: Other (+trace edema)
Data Reviewed
-
Lab Results: Results Reviewed
Medications: Active Meds Reviewed
Chest X-Ray: Report Reviewed and Image Reviewed
CT Scan: Report Reviewed and Image Reviewed
ECG: Report Reviewed and Image Reviewed
[2024-10-11 04:15] LABS: APTT 58.4 Sec (23.4-35.0)
[2024-10-11 04:29] LABS: ALT (SGPT) 441 U/L (0-50); AST (SGOT) 127 U/L (17-59); Albumin 3.7 g/dl (3.5-5.0); Alkaline Phosphatase 135 U/L (38-126); Blood Urea Nitrogen 29 mg/dl (9-20); Calcium 8.8 mg/dl (8.4-10.2); Carbon Dioxide 28 mmol/L (22-30); Chloride 103 mmol/L (98-107); Direct Bilirubin 6.4 mg/dl (0.0-0.4); Estimated Creatinine Clearance 100 ml/min; Glucose 119 mg/dl (70-99); Magnesium 2.4 mg/dl (1.6-2.3); Potassium 3.9 mmol/L (3.5-5.1); Sodium 141 mmol/L (135-145); Total Bilirubin 9.3 mg/dl (0.2-1.3); Total Protein 6.2 g/dl (6.3-8.2); eGFR > 60.00
--- NOTE | 2024-10-11 05:00 | ECGCV ---
BRE Pabon notified of ECG critical value identified by electronic interpretation on ECG completed on 10/11/24, at 0456.
[2024-10-11] MEDS: HEPARIN 25000 UNITS/250 ML IV (05:11)
--- NOTE | 2024-10-11 05:15 | PTCARENOTE ---
Labs drawn and sent. CXR done. PA into see pt this am. KCL 20 meQ given to pt. Pt weighed on bed scale. Heparin gtt increased to 1600 units/hr per provider order. Pt sleeping intermittently. No change in orientation assessment. Pt is calm.
[2024-10-11] MEDS: KCL 50 IV (05:30)
[2024-10-11] MEDS: NOVOLOG FLEXPEN-MODERATE RESISTANCE SC ×2 (05:30→14:14)
[2024-10-11] MEDS: REGLAN 10 MG IV (07:25)
[2024-10-11 08:18] LABS: Mixed Venous O2 Saturation 46.1 %
--- NOTE | 2024-10-11 08:28 | W.PN.INTV ---
Today's Communication / Plan
Recommendations
Diuresis as tolerated - chest x-ray today looks better in terms of interstitial/alveolar edema
Precedex now off; continue Seroquel (now lowered to nighttime)
Dobutamine and bumex drips now off
Aspiration precautions
Antibiotics per ID
Keep SpO2 >90%
PT/OT; diet as per CHIEF PROGRAM OFFICER
Patient doing well and now downgraded to CVICU�telemetry status. No additional recommendations at this time. Demolition Hammer Operator/Pulmonary service will now sign off. Please reconsult if there are any additional questions/concerns, or if patient's
respiratory status deteriorates.
Assessment
-
Patient is a 54-year-old male with previous history of hypertension presenting to [facility] on 09/26/2024 for complaints of chest pain with shortness of breath. He was ruled in for NSTEMI with elevated troponins and underwent left heart
catheterization demonstrating multivessel CAD. He was transferred from [place] to [place] for evaluation of CABG. He underwent CABG x 2 on 09/29/2024 without complication and perioperatively transferred to CVICU for further management.
Impression:
MV CAD status post CABG x 2, status post valve sparing aortic root replacement and reimplantation 09/29/2024-Dr. Zuñiga
s/p LHC 10/01/24-no critical stenosis
s/p impella placement 10/01/24
Ventilator dependent respiratory failure
Reintubated 10/04/2024
Extubated 10/09/2024
Aspiration pneumonia with Klebsiella oxytoca seen on respiratory culture from 10/08/2024
RV infarct suspected
Transaminitis with hyperbilirubinemia and jaundice
Cardiogenic shock requiring inotropes - now off dobutamine
NSTEMI
Chest pain and shortness of breath
Perioperative mechanical ventilation
Mild anemia, postoperative
Stage II DD on ECHO
Severe conc LVH
Nonsustained ventricular tachycardia
Paroxysmal atrial fibrillation
Physical deconditioning
Conditions present prior to admission:
Hypertension
Plan
Markedly improved, much more awake and alert today. Off dobutamine and off Precedex. Of note, Impella removed 10/07/2024
Hemoptysis resolved-Flolan discontinued due to contraindication with hemoptysis-consider reinstating if needed
Heparin drip changed to Eliquis
Gambrills-John/Cordis removed morning of 10/10/2024
ECHO 10/06/2024 improved-reviewed with normal function, stage II DD, no significant RV dysfunction
Chest tubes removed on 10/03/2024
Thick secretions - Mucomyst added in addition to Robitussin
Pulmicort nebulizers initiated 10/07/2024 - stopped on 10/08 and now on flovent BID; xopenex is prn
Patient extubated on AM of 10/09/2024
Keep SpO2 >90-94%
Pain control
Now off Precedex; continue to trend fever curve now that he is off (no fevers since yesterday at 4 PM)
Continue with Seroquel 50 mg PO --> lower from q8hr to once nightly
Continue to monitor for arrhythmias
Nonsustained ventricular tachycardia in the setting of hypokalemia and hypocalcemia-subsequently repleted-no recurrence
Cultures reviewed
Blood cultures negative thus far
Sputum culture 10/06/2024-many WBCs, moderate gram-positive cocci and few gram-negative rods
Repeat sputum culture on 10/08/2024 grew Klebsiella oxytoca (resistant to ampicillin + cefazolin)
Procalcitonin noted (0.97 on 10/05/2024, decreasing to 0.79 on 10/07/2024)
Empiric antibiotics - now on meropenem s/p Zosyn and vancomycin-discontinued vancomycin as MRSA screen negative
Infectious disease consultation noted-correspondence reviewed
Trend leukocytosis
Follow temperature curve
GI prophylaxis: PPI can be stopped now that he is off inotropes
Now off bumex gtt � still with pulmonary vascular congestion on CXR this morning but much improved compared to yesterday
Cr stable
Monitor renal function, electrolytes, intake/output, lower extremity edema and weight
Replace electrolytes as needed with K>4, Mg>2
Impella-discontinued 10/07/2024
Continue to follow hemoglobin and platelet count
Transfuse if needed to keep Hb>7-8g/dL, plt>50k (given post-operative status)
Monitor LFTs (shock liver and improving except ALP slightly greater today)
Follow blood sugar with goal 140-180mg/dL
Insulin supplementation as needed with ISS q6hr
DVT prophylaxis-Eliquis
GI prophylaxis-on PPI
Nutrition-cholesterol lowering diet started/CHIEF PROGRAM OFFICER following; NGT removed
PT/OT
Patient doing well and now downgraded to CVICU�telemetry status. No additional recommendations at this time. Demolition Hammer Operator/Pulmonary service will now sign off. Thank you for allowing us to be involved in the care of this patient. Please reconsult
if there are any additional questions/concerns, or if patient's respiratory status deteriorates.
Diagnostic Data
CXR 10/03/24- No significant interval change in lines and tubes. As described, bilateral parenchymal opacities highly suggestive of pulmonary edema pattern. Slight improvement in atelectasis in the medial left base.
Chest X-Ray: 09/29/24- New postoperative changes as detailed above. Small left pleural effusion with underlying retrocardiac atelectasis
CT Scan: CAP 09/28/24- 1. Ascending aortic aneurysm measuring up to 5.8 cm at the sinotubular junction.
2. Severe atherosclerotic disease of the left anterior descending with high-grade stenosis proximally secondary to probably noncalcified plaque. There is additional calcified plaque within the mid/distal vessel.
3.There is submucosal fatty deposition within the terminal ileum, sigmoid colon and rectum which is nonspecific however can be seen with sequelae of chronic inflammation.
Echo: ROBERTA 09/29/24- Overall LVEF is approximately 55% with no RWMA. Severe concentric left ventricular hypertrophy. Stage II Diastolic dysfunction. Mild mitral regurgitation. Mild aortic insufficiency.
AI jet is central due to ST junction and sinus of Valsalva distortion. Sinus of Valsalva is aneurysmal measuring 4.6 cm. Sinotubular junction measures 4.3 cm. Mid ascending aorta is dilated measuring 4.0 cm at the level of the RPA. Mild sessile
atheroma seen in the descending aorta.
Reports and relevant images were personally reviewed.
Total time spent today was 56 minutes for this encounter. Time includes reviewing laboratory test/imaging results, reviewing pertinent medical records, obtaining and reviewing medical history, performing an appropriate exam, ordering medications,
tests and procedures. Time also includes documentation of this encounter, coordinating patient care and communicating with other healthcare professionals. Total time does not include separately billed tests performed on this date of service.
Subjective Dataa
Subjective Data
Date of Service:
Date of Service: October 11, 2024
Chief Complaint: Demolition Hammer Operator Follow Up and Pulmonary Follow Up
Subjective:
Seen and evaluated today at bedside. BP 191/171, heart rate 130 and saturating 96% on room air. No shortness of breath this morning although he did feel short of breath after standing up and going to the chair. He appears more jaundiced today.
LFTs are continuing to improve. at bedside and all questions were answered.
Review of Systems
General: Other (Negative unless mentioned above)
Objective Data
Data Reviewed
Vital Signs / I&O / Oxygen:
Vital Signs
Temp Pulse Resp BP Pulse Ox
98.4 F 134 29 117/81 96
10/11/24 05:00 10/11/24 06:15 10/11/24 06:15 10/10/24 22:29 10/11/24 05:00
Intake and Output
10/10/24 10/11/24 10/12/24
06:59 06:59 06:59
Intake Total 2075.7 / 2206.4 2728.2 / 2728.2
Output Total 2530 / 2590 6235 / 6235
Balance -454.3 / -383.6 -3506.8 / -3506.8
SaO2 [CPAP/PSV] 98
SaO2 [A/C] 100
SaO2 [SIMV] 99
SaO2 96
Nasal Cannula flow liters per 2
minute
Physical Exam
General: Respiratory Distress (n), Comfortable and Other (NAD)
HEENT: Normocephalic, Anicteric, Moist Mucous Membranes and Other (R-IJ PAC in place)
Cardiovascular: Irregular Rhythm, Peripheral Edema (negative) and Other (Tachycardic)
Respiratory: Wheeze (negative), Crackles (Bilateral), Rhonchi (negative), Non-Labored Respirations and Stridor (negative)
GI: Soft, Distended (Abdominal obesity), Non Tender and Normal Bowel Sounds
Neurology: Awake, Alert, Oriented and Tremors (negative)
Skin: Warm, Dry, Cyanosis (n) and Jaundice (n)
Labs/Micro/Reports
Lab Data
10/11/24 03:45
10/11/24 03:45
Laboratory Results
10/10/24 10/11/24
11: 03:45
APTT 62.5 H 58.4 H
pH 7.47 H
pCO2 35
pO2 83
HCO3 25.5
O2 Delivery Level Nc
Microbiology
10/05/24 21:33 Blood/Venous Blood Culture - Final
No Growth - Final Report
10/05/24 21:33 Blood/Venous Blood Culture - Final
No Growth - Final Report
10/08/24 13:59 Blood/Venous Blood Culture - Preliminary
No Growth in 48 hours- Final report to follow
10/08/24 13:29 Blood/Venous Blood Culture - Preliminary
No Growth in 48 hours- Final report to follow
10/06/24 11:35 Blood/Venous Blood Culture - Preliminary
No Growth in 4 days- Final report to follow
10/06/24 11:10 Blood/Venous Blood Culture - Preliminary
No Growth in 4 days- Final report to follow
10/08/24 14:09 Endotracheal Respiratory Culture - Final
Klebsiella oxytoca
10/08/24 14:09 Endotracheal Gram Stain - Final
10/06/24 11:25 Urine Urine Culture - Final
NO GROWTH
10/06/24 04:30 Endotracheal Respiratory Culture - Final
10/06/24 04:30 Endotracheal Gram Stain - Final
[2024-10-11] MEDS: ROBITUSSIN 200 MG TUBE ×4 (08:41→22:25)
[2024-10-11] MEDS: COLACE 100 MG PO (08:42)
[2024-10-11] MEDS: PROTONIX 40 MG PO (08:50)
[2024-10-11] MEDS: VITAMIN C 500 MG PO (08:50)
[2024-10-11] MEDS: NEURONTIN 100 MG PO ×2 (08:50→20:16)
[2024-10-11] MEDS: SENOKOT-S PO ×2 (08:50→20:17)
[2024-10-11] MEDS: MIRALAX 17 GRAMS PO (08:51)
[2024-10-11] MEDS: TOPROL XL 12.5 MG PO ×3 (08:51→12:10)
[2024-10-11] MEDS: LOW STRENGTH ASPIRIN 81 MG PO (08:52)
[2024-10-11 09:06] LABS: Glucose - Point of Care 104 mg/dl (70-99)
--- NOTE | 2024-10-11 09:07 | W.PN.ID1 ---
Date of Service
Date of Service: October 11, 2024
Today's Communication
Continue meropenem for now.
Assessment / Plan
Fevers (via core measurement)
- trending down
Cardiogenic Shock
Multisystem Organ Failure, improving. Extubated.
Resolving Shock liver
S/p Valve sparing aortic root replacement with reimplantation of [place] aortic valve [Gregory Procedure]; Reimplantation of left and right coronary buttons into their respective neosinus; CABG x 2 [[place] CEDILLO in situ to LAD, RSVG to proximal RCA];
Left atrial appendage exclusion (35mm clip) by Dr. Zuñiga on 09/29/24
Recommendations:
- covid and flu swabs - negative
- Repeat blood cultures x2 no growth to date
- Repeat resp culture: Klebsiella oxytoca
- UA negative
- MRSA screen negative 10/07 and 09/28
- Possible drug fever from Precedex, dc'd 10/10/24 at 01:00 -> fever resolving
- s/p 5d Zosyn
- Continue empiric meropenem(d2).
- Follow temps/wbc.
����������������������������������������������������������
Chief Complaint
-: Fever and Other (cardiogenic shock)
Subjective / Review of Systems
Doing well. Feels well.
No BM yet.
Vital Signs / Physical Exam
Vital Signs
Vital Signs
Temp Pulse Resp BP Pulse Ox
98.4 F 136 29 146/95 96
10/11/24 05:00 10/11/24 08:51 10/11/24 06:15 10/11/24 08:51 10/11/24 05:00
Physical Exam
Constitutional: No Acute Distress and Non-toxic
Eyes: No Conjunctival Hemorrhage and Sclera Anicteric
Cardiovascular: S1/S2 and Other (tachycardic)
Pulmonary: Clear (anteriorly)
Gastrointestinal: Soft, Non Tender, Non Distended and Normal Bowel Sounds
Extremities: Negative Edema
Neurological: AO x 3
Lines: PICC
Objective Data
Lab Data
Lab Results
10/11/24 03:45
10/11/24 03:45
PT 17.9 Sec (11.4-14.6) H 10/09/24 04:27
INR 1.46 10/09/24 04:27
APTT 58.4 Sec (23.4-35.0) H 10/11/24 03:45
Estimated Creat Clear 100 ml/min 10/11/24 03:45
Lactic Acid 1.1 mmol/L (0.7-2.0) 10/09/24 04:27
Total Bilirubin 9.3 mg/dl (0.2-1.3) H 10/11/24 03:45
AST 127 U/L (17-59) H 10/11/24 03:45
ALT 441 U/L (0-50) H 10/11/24 03:45
Alkaline Phosphatase 135 U/L (38-126) H 10/11/24 03:45
Most recent labs reviewed.
Micro Results:
10/05/24 21:33 Blood Culture - Final
Blood/Venous No Growth - Final Report
10/05/24 21:33 Blood Culture - Final
Blood/Venous No Growth - Final Report
10/08/24 13:59 Blood Culture - Preliminary
Blood/Venous No Growth in 48 hours- Final report to follow
10/08/24 13:29 Blood Culture - Preliminary
Blood/Venous No Growth in 48 hours- Final report to follow
10/06/24 11:35 Blood Culture - Preliminary
Blood/Venous No Growth in 4 days- Final report to follow
10/06/24 11:10 Blood Culture - Preliminary
Blood/Venous No Growth in 4 days- Final report to follow
10/08/24 14:09 Respiratory Culture - Final
Endotracheal Klebsiella oxytoca
Gram Stain - Final
10/06/24 11:25 Urine Culture - Final
Urine NO GROWTH
10/06/24 04:30 Respiratory Culture - Final
Endotracheal Gram Stain - Final
10/05/24 09:59 MRSA Screen - Final
Nose No Methicillin Resistant Staphylococcus aureus isolated.
10/06/24 11:22 Nasal Screen MRSA (PCR) - Final
Nose MRSA not detected - performed by PCR methodology.
10/06/24 11:22 Influenza Types A & B (DAVI) - Final
Nasal Swab Negative for Influenza A & B, NAAT
Negative results must be combined with clinical observations
and patient history.
Nucleic Acid Amplification test (NAAT)performed on the
[employer] platform.
09/28/24 12:16 MRSA Screen - Final
Nose No Methicillin Resistant Staphylococcus aureus isolated.
10/08/24 CXR: Relatively stable examination. Persistent pulmonary parenchymal process, as described.
10/04/24 Abd US: mild gallbladder wall thickening, likely reactive, no bile duct dilatation
hepatic steatosis. mild ascites and small bilateral pleural effusions
09/28 CT c/a/p: ascending aorta aneurysm: 5.8 cm. submucosal fatty deposition within the terminal ileum, sigmoid colon and rectum which is nonspecific however can be seen with sequelae of chronic inflammation
[2024-10-11] MEDS: SEROQUEL PO (09:15)
[2024-10-11] MEDS: PROTONIX IV IV (09:15)
[2024-10-11] MEDS: NSS (PRESERVATIVE FREE) IV (09:15)
--- NOTE | 2024-10-11 09:15 | PTCARENOTE ---
Received pt from material handler 2nd shift RN; pt AAOx3 and resting comfortably in bed; Sinus Tachycardia on monitor and VSS; Right A-line and Left triple lumen PICC patent, A-line leveled and zeroed; Heparin infusing see flow sheet for details; A/V epicardial
wires insulated; Lungs diminished; IS to 1250; pt coughing up greenwood sputum; Chest PT performed and pt tolerated; positive bowel sounds; pt voiding salvador/yellow urine; palpable pulses throughout; trace generalized edema noted; all surgical sites C/D/I;
see nursing documentation for further details.
[2024-10-11] MEDS: FLOVENT 110 MCG INHALER 2 PUFF INH ×2 (09:17→19:10)
--- NOTE | 2024-10-11 11:14 | PTCARENOTE ---
A-line removed per CVNP order; speech therapy at bedside and cleared pt for diet.
[2024-10-11] MEDS: ELIQUIS 5 MG PO ×2 (11:25→20:16)
[2024-10-11] MEDS: PACERONE 200 MG PO ×2 (11:25→20:16)
[2024-10-11 12:01] LABS: APTT 199.8 Sec (23.4-35.0)
--- NOTE | 2024-10-11 12:20 | CM ---
Chart reviewed. Patient is independent of ADLS, lives with his and son in a 2 [address], 1 JAHAIRA, 0 DME. Patient with a complicated course. PT evaluation recommending Acute Rehab. Referral sent to [facility]. Patient is agreeable. Plan is for the
patient to go to Acute Rehab when medically stable. Patient will need insurance authorization. CM to follow
--- NOTE | 2024-10-11 12:24 | PTCARENOTE ---
Sinus Tachycardia on monitor and VSS; PT/OT at bedside and pt nirav lifted to chair; Heparin drip discontinued per CVNP order and Eliquis given; at bedside and updated; assessment unchanged.
--- NOTE | 2024-10-11 12:26 | CM ---
Addendum entered by Ysabel Perea RN 10/11/24 14:04:
Patient is agreeable
Original Note:
Pricing on Eliquis is covered through the patient's prescription plan at $60 for a 30 day supply. Patient qualifies for the $10 copay card. I will place it in the patient's red discharge folder.
--- NOTE | 2024-10-11 13:44 | PTOTSP ---
Dysphagia Therapy
Impression: No overt signs of oral/pharyngeal dysphagia based on clinical bedside swallowing re-assessment. Cannot rule out silent aspiration or determine pharyngeal swallow function bedside.
Recommend:
1. Regular, Thin Liquids
2. Medications as best tolerated
3. Strategies: upright to 90 degrees, small single sips/bites, slow rate, liquid wash as needed
4. Brief dysphagia f/u for education and to determine if further imaging warranted
[2024-10-11] MEDS: FERRLECIT 110 MG IV (14:07)
[2024-10-11 14:14] LABS: Glucose - Point of Care 105 mg/dl (70-99)
--- NOTE | 2024-10-11 15:16 | W.PN.CARDCBS ---
Addendum entered and electronically signed by Gregory Lim MD 10/11/24 18:23:
Patient feeling better, still requires [place] lift to get from chair to bed but able to stand earlier today. Offers no complaints.
Medications: Reviewed. Eliquis has been started, heparin has been stopped, still receiving antibiotics, off dobutamine, on metoprolol and amiodarone. Receiving aspirin.
Rhythm is atrial fibrillation with rapid ventricular response, blood pressure 126/91 current heart rate approximately 100, up to the 120s, weight is 102.4 kg, if accurate down 7 kg, diminished breath sounds in bases, incisions intact, regular rate
and rhythm without obvious murmurs or rubs, abdomen benign, extremities 1-2+ pitting edema
Chest x-ray no active disease
White count 14.4, hemoglobin 9.1, platelets 159, blood gas today 7.47, BUN/creatinine 29 and 1.1. Total bilirubin is 9.3, AST is 127, ALT is 441, peak had been in excess of 2000
Impression: See below
Plan:
He is improving on all fronts, major issue now is to increase ambulation patient to focus on rehab.
Continue supportive care.
Original Note:
Today's Communication / Plan
-
Off all gtts
Start Toprol 25 mg BID and uptitrate as needed for tachycardia and HTN
Off heparin and Eliquis 5 mg BID started
PT/OT/IS encouraged
Continue meropenem per ID
Impression / Plan
-
PCP: Dr. Marsh
Cardiology: None prior to admission, seen by Dr. Chavarria at [facility]
Impression:
Admitted to [facility] with chest pain 09/25/[address] for [address] surgical evaluation 09/27/24
CAD
NSTEMI peak Troponin 67 and MV CAD by cath at [facility] 09/27/24
s/p CABG with CEDILLO to LAD and SVG to prox RCA 09/29/24
s/p LHC with widely patent CEDILLO to LAD, 50% stenosis in the LAD just beyond the MARLA touchdown with KATIE III flow distally, retrograde filling of proximal LAD via moderate size diagonal branch, SVG is anastomosed to the mid RCA, anatomic kink in the
midportion of the vein graft but good distal flow to the distal RCA, [place] RCA with diffuse luminal irregularities, but no focal obstructive stenosis 10/01/2024
h/o aortic root aneurysm
root measuring 5.4cm, mid ascending aorta 4.5cm by [facility] imaging 09/27/24
s/p valve sparing aortic root replacement with reimplantation of [place] aortic valve (Gregory Procedure) 09/29/24. A left atrial appendage clip was also placed during surgery
HTN
Acute post-op ventricular bigeminy with R on T and VF arrest x2 09/29/24
treated with successful shock x2, CPR, amio and Epi with ROS
cardiogenic shock
CRV Impella placed 10/01/2024, removed 10/07/2024
Physiology consistent with RV infarction
Elevated troponin-likely combination of ischemia and RV strain
Inotrope dependent hypotension, weaned off
Abnormal LFTs secondary to cardiogenic shock
Aspiration pneumonia
Ventricular tachycardia
Postoperative atrial fibrillation and typical atrial flutter
Diminished urine output, improved
Intraoperative ROBERTA 09/29/24: Postop findings, EF 50 to 55% with new septal wall hypokinesis, anterior and lateral wall motion appear normal, no AI, the LA appendage has been clipped with a 0.5 cm residual base noted
Bedside ROBERTA 09/29/24: Postop in the room, EF 55% with mild septal wall hypokinesis that appears better than what it appeared in the OR, no pericardial effusion, trace MR, AV function normal
Echo 10/01/24: EF 40 to 45%, inferior wall and inferoseptum appear hypokinetic from base to midportion, moderate concentric LVH, mild to moderately reduced RV systolic function, mild to moderate MR
Echo 10/03/24: EF 50 to 55%, basal and mid inferior hypokinesis, RV hypokinesis with normal RV size, Impella and Gaylord-John catheter in place, mild TR
Plan:
-Patient sitting up in chair able to carry on conversation. Reports feels generalized weakness and deconditioning. Was able to stand with assistance twice but had difficulty walking.
-Now off all drips (Levo weaned off as of 10/07/24, off vasopressin, dobutamine weaned off 10/10, Impella RP removed 10/07/24 AM).
-Extubated 10/09/2023. Weaning oxygen as tolerated.
-Per review of telemetry patient continues to have 2-1 atrial tachycardia and NSVT
-Keep K+>4, mag >2
-Patient previously loaded on multiple occasions with IV amiodarone. Now back on oral amiodarone 200 mg daily. Maintain amiodarone for paroxysmal atrial fibrillation/ flutter, rate controlled and history of VT/VF arrest
-Started on Toprol 10/11/2024 with plan of 25 mg twice daily. Uptitrate as heart rate and blood pressure allow
-Heparin discontinued 10/11/2024 and now on oral anticoagulation with Eliquis 5 mg twice daily
-Slightly jaundice, LFTs remain elevated but continue to improve and trend down. Remains on amiodarone but statin on hold since 10/03. Eventual resumption of statin
-Aspiration pneumonia with Klebsiella oxytoca seen on respiratory culture from 10/08/2024. Continue meropenem. Blood cultures negative x 72 hours. ID following.
-PT/OT, IS
Discussed with CVICU nursing and also patient's at bedside
HPI: Patient came to [facility] as a transfer from [facility] yesterday for evaluation from CT surgery team for MV CAD and aortic root aneurysm and cardiology has been consulted. Patient sees his PCP mostly when he is sick, but had a physical within the last
year. Patient with known h/o HTN and takes losartan 25 mg daily. He does not check BP at home on a regular basis. 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 He was working last Friday
night into Friday morning and was taking a break and laying on a sofa when he had sudden onset chest pain that lasted for 10-15 minutes and seemed to get better when he sat up. Pain returned again when he returned home after working and he told
his and they made a plan to go to the hospital. Then, after walking up the stairs in his home the patient had recurrent chest pain that was the most intense pain he had experienced and pain persisted. Patient went to [facility] ER and Troponin was
elevated prompting a cath that revealed MV CAD. Patient had an echo that showed aortic root aneurysm and then patient had CT, but results not available. Patient was transferred to for CT surgery eval last evening.
Progress Note - Sausage Stuffer
Subjective
Date of Service: October 11, 2024
Patient seen and examined. Patient's at bedside. Patient sitting up in chair able to carry on conversation. Reports feels generalized weakness and deconditioning.
Objective
Labs:
10/11/24 03:45
10/11/24 03:45
Labs
Hgb 9.1 g/dL (13.0-18.0) L 10/11/24 03:45
Hct 27.7 % (39.0-52.0) L 10/11/24 03:45
Plt Count 159 10^3/uL (130-400) 10/11/24 03:45
PT 17.9 Sec (11.4-14.6) H 10/09/24 04:27
INR 1.46 10/09/24 04:27
APTT 199.8 Sec (23.4-35.0) H* 10/11/24 10:59
Sodium 141 mmol/L (135-145) 10/11/24 03:45
Potassium 3.9 mmol/L (3.5-5.1) D 10/11/24 03:45
BUN 29 mg/dl (9-20) H 10/11/24 03:45
Creatinine 1.1 mg/dL (0.7-1.3) 10/11/24 03:45
Glucose 119 mg/dl (70-99) H 10/11/24 03:45
Vital Signs and I&O:
Vital Signs
Temp Pulse Resp BP Pulse Ox
99.1 F 124 24 137/74 96
10/11/24 12:14 10/11/24 13:45 10/11/24 12:14 10/11/24 12:51 10/11/24 12:14
Vital Signs
Temp Pulse Resp BP Pulse Ox
99.1 F 124 24 137/74 96
10/11/24 12:14 10/11/24 13:45 10/11/24 12:14 10/11/24 12:51 10/11/24 12:14
Intake & Output
10/09/24 10/10/24 10/11/24 10/12/24
06:59 06:59 06:59 06:59
Intake Total 2745.7 / 2806.3 2075.7 / 2206.4 2728.2 / 2728.2 48 / 48
Output Total 3930 / 4055 2530 / 2590 6235 / 6235 500 / 500
Balance -1184.3 / -1248.7 -454.3 / -383.6 -3506.8 / -3506.8 -452 / -452
Physical Exam
Physical Exam
GEN: No distress, awake, Ox3, sitting in chair and able to carry on conversation
HEENT: supple, sclera icterus, mmm
LUNGS: Bilateral crackles at bases otherwise CTA, no wheezes/rales; on O2 via N/C
CV: Irreg, tachycardic, S1/S2, no murmur, rub or gallop
ABD: soft, BS+, NT/ND
EXT: No edema
NEURO: Gross non-focal
SKIN: Jaundice, no rash
--- NOTE | 2024-10-11 16:11 | PTCARENOTE ---
Assessment unchanged; Sinus Tachycardia on monitor and VSS; family at bedside and pt resting comfortably back in bed.
--- NOTE | 2024-10-11 16:52 | PTCARENOTE ---
A/V wires cut by ELIER.
[2024-10-11] MEDS: LIPITOR 80 MG PO (17:05)
[2024-10-11 17:14] LABS: Glucose - Point of Care 186 mg/dl (70-99)
[2024-10-11] MEDS: NOVOLOG FLEXPEN-MODERATE RESISTANCE 1 UNITS SC (18:03)
[2024-10-11] MEDS: XOPENEX 0.63 MG INHALANT SOLUTION INH (19:12)
[2024-10-11] MEDS: TOPROL XL 25 MG PO (20:16)
--- NOTE | 2024-10-11 21:00 | PTCARENOTE ---
Assumed care of pt from dayshift RN. Walking rounds completed. Pt oriented to person, place, and time. Afebrile. Pt is sinus tach w/ PVCs. HR 100-110s. BP 143/91. Palpable pulses throughout. Trace edema. Pt placed on 2 L NC. POX 97%. Lung sounds
diminished. Pt w/ frequent productive cough. Deep breathing and IS encouraged. CT sites SABINO. Abdomen round. +BS. Voiding spontaneously. Thais urine. All surgical sites stable. Right femoral site w/ suture intact. Left upper arm triple lumen PICC
C/D/I. BP's obtained from left calf. Pt repositioned in bed. Denies pain at this time. See worklist for full nursing assessment and interventions. Call keyes within reach and pt ringing appropriately.
[2024-10-11 22:25] LABS: Blood Urea Nitrogen 30 mg/dl (9-20); Calcium 7.9 mg/dl (8.4-10.2); Carbon Dioxide 25 mmol/L (22-30); Chloride 99 mmol/L (98-107); Estimated Creatinine Clearance 98 ml/min; Glucose 134 mg/dl (70-99); Potassium 3.9 mmol/L (3.5-5.1); Sodium 137 mmol/L (135-145); eGFR > 60.00
[2024-10-11] MEDS: SEROQUEL 50 MG PO (22:25)
[2024-10-11] MEDS: KCL 100 IV (22:36)
[2024-10-11 22:44] LABS: Magnesium 2.4 mg/dl (1.6-2.3)
[2024-10-11] MEDS: CORDARONE 103 MG IV (23:15)
[2024-10-12] VITALS (57 sets, daily range): BP systolic 51–166; BP diastolic 24–154; BMI 29.9
--- NOTE | 2024-10-12 00:11 | PTCARENOTE ---
Pt w/ frequent runs of PVC's. HR 100-120s. BP stable. POX 100% on 2 L NC. CTPA aware. BMP w/ mag sent. 40 KCL and amio bolus - see NOV.
[2024-10-12] MEDS: CORDARONE 518 MG IV ×2 (01:01→16:34)
[2024-10-12] MEDS: MERREM 500 MG IV ×4 (03:43→22:52)
[2024-10-12] MEDS: STERILE WATER FOR INJECTION 10 ML IV ×4 (03:43→22:52)
[2024-10-12 04:00] LABS: Ionized Calcium 1.04 mMOL/L (1.15-1.33)
[2024-10-12 04:07] LABS: Hematocrit 29.3 % (39.0-52.0); Hemoglobin 9.3 g/dL (13.0-18.0); Mean Corp Hgb Conc. 31.7 g/dL (33.0-37.0); Mean Corpuscular Volume 94.5 fL (80.0-94.0); Mean Platelet Volume 11.2 fL (7.4-10.4); Platelet Count 230 10^3/uL (130-400); Red Cell Dist. Width 20.9 % (11.5-14.5); White Blood Cell Count 18.4 10^3/uL (4.8-10.8)
[2024-10-12] MEDS: ZOFRAN 4 MG IV (04:16)
[2024-10-12 04:25] LABS: ALT (SGPT) 368 U/L (0-50); AST (SGOT) 104 U/L (17-59); Albumin 3.8 g/dl (3.5-5.0); Alkaline Phosphatase 169 U/L (38-126); Blood Urea Nitrogen 32 mg/dl (9-20); Calcium 7.9 mg/dl (8.4-10.2); Carbon Dioxide 22 mmol/L (22-30); Chloride 99 mmol/L (98-107); Direct Bilirubin 5.4 mg/dl (0.0-0.4); Estimated Creatinine Clearance 98 ml/min; Glucose 146 mg/dl (70-99); Magnesium 2.4 mg/dl (1.6-2.3); Potassium 4.1 mmol/L (3.5-5.1); Sodium 136 mmol/L (135-145); Total Bilirubin 8.3 mg/dl (0.2-1.3); Total Protein 6.4 g/dl (6.3-8.2); eGFR > 60.00
--- NOTE | 2024-10-12 04:38 | W.PN.CT ---
Today's Communication / Plan
-
Plan:
-No major issues overnight. Hemodynamically intact and neurologically intact, making a remarkable progress
-Pt is calm, alert and oriented x 3. Moving all extremities appropriately, appears deconditioned
-Successfully extubated 10/09/24, currently on 2L NC with O2sats 95-99%
-Weaned off dobutamine gtt off 10/10. Currently off all drips but Amiodarone gtt. Heparin gtt switched to Eliquis for postop a-fib/dvt prophylaxis
-Pt noted to be in a-fib/flutter with frequent PVCs which progressed to NSVT and then to stable sustained VT overnight (rate 110, SBP 120's, O2sat 99%), prompting administration of
Amiodarone bolus x 1, followed by Amiodarone gtt. Currently appears to be in a-fib/flutter @ 116 bpm with less frequent PVC's
-Toprol XL increased to 25 mg BID
-Lactic acid noted to be elevated (4.0) this AM, may benefit from volume repletion
-H/H stable @ 9.3/29.3, plts 230K
-Foreign and ross d/c'd, 10/10. Pt voiding spontaneously, 24hr u/o 1200 mL
-Passed swallowing eval and tolerating regular diet
-PT/OT following as pt noted to be deconditioned
-On Meropenem for Klebsiella from sputum culture, ID following. TM 99.1, wbc 18.4 up from 14.4 yesterday
-LFTs improved, trending down daily
-Thrombocytopenia has resolved, 230K today
-Replete electrolytes
-Postop ROBERTA has resolved, cr 1.0, peaked @ 1.6
-D/C'd A-line yesterday 10/11
-OOB into chair/Ambulate/PT/OT f/u
-Eventual rehab placement
Assessment / Plan
-
Assessment:
-Multivessel CAD/Ao aneurysm - s/p Valve sparing aortic root replacement with reimplantation of kenaitze aortic valve [Gregory Procedure]; Reimplantation of left and right coronary buttons into their respective neosinus; CABG x 2 [kenaitze CEDILLO in situ to
LAD, RSVG to proximal RCA]; Left atrial appendage exclusion (35mm clip) by Dr. Zuñiga on 09/29/24, pod #13
-Intraop ROBERTA: LVEF preoperatively 60% with no significant regional wall motion abnormalities. He does have diastolic dysfunction with thick left ventricle. Following surgery his EF was the same with no significant regional wall motion
abnormalities aside from some paradoxical motion of his septum. He is aortic valve was spared and reimplanted inside of 32 mm cardio root Valsalva graft. Following surgery, his AI that was initially mild and central went to none. He had a mean
gradient of 3 across his kenaitze aortic valve with a good coaptation height. Due to the long clamp around, he was a little bit sluggish coming off of cardiopulmonary bypass but did not require any inotropic support. His cardiac index was
approximately 1.7 to on just a low-dose Levophed. There is no residual flow into the left atrial appendage, and only a small residual stump was visualized.
s/p Impellla RP placed 10/01/24 and removed 10/07/24
-NSTEMI (High-sensitivity trop 67 @ [facility])
-[place]
-Aortic root aneurysm (5.8 cm, mid ascending aorta 4.5 cm)
-HTN
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
-Spermatocele/Hydrocele S/P b/l spermatocelectomies, 05/26/2015
-S/P LHC
-S/P Vasectomy, 2008
-Acute postop ventricular bigeminy/ R on T phenomenon with v-fib arrest X2 - s/p shocks x2, CPR, low-dose Epi, Amio 300 mg bolus and drip- Rosc achieved. Pt woke up post code and followed commands
-NSVTs
-Bedside ROBERTA revealed no pericardial effusion, valves ok. Lateral wall had some stunning
-Acute postop hypovolemia
-Acute postop cardiogenic shock
-Acute postop atelectasis
-Acute postop blood loss anemia - transfused 7u PRBCs
-Acute postop coagulopathy - s/p 2 FFPs and 2 unit platelets
-ROBERTA
-Shock liver - holding Tylenol - follow
-Acute postop RV failure, taken to cath lab nurse for angiography (grafts patent), Impella RP placed
-Acute postop paroxysmal a-fib
-Acute postop metabolic alkalosis, likely d/t diuresis
-Acute postop shock liver
-Acute postop fever, procalcitonin 0.97 - blood cx sent and started on Zosyn and Vanco 10/05
-Acute postop RUE cephalic vein thrombosis
-LUE picc placement 10/06/24
-Acute postop VDRF, required reintubation
Discussed patient care with: Cardiology, Nursing, Respiratory Therapy, Pharmacy and Care Team
Subjective
Procedure
s/p Valve sparing aortic root replacement with reimplantation of kenaitze aortic valve [Gregory Procedure]; Reimplantation of left and right coronary buttons into their respective neosinus; CABG x 2 [kenaitze CEDILLO in situ to LAD, RSVG to proximal RCA];
Left atrial appendage exclusion (35mm clip) by Dr. Zuñiga on 09/29/24
s/p Impellla RP placed 10/01/24
-
Date of Service: October 12, 2024
Pt making a remarkable progress, denies CP/SOB
Objective Data
-
Lab Results
10/12/24 03:51
10/12/24 03:51
PT 17.9 Sec (11.4-14.6) H 10/09/24 04:27
INR 1.46 10/09/24 04:27
APTT Cancelled 10/12/24 06:00
Vital Signs
Vital Signs
Temp Pulse Resp BP Pulse Ox
97.7 F 117 20 138/90 97
10/12/24 03:42 10/12/24 03:40 10/12/24 03:42 10/12/24 03:40 10/12/24 03:42
CT Intake/Output/Weight
10/11/24 10/11/24 10/12/24
06:59 18:59 06:59
Intake Total 821.0 / 2728.2 158 / 158
Output Total 1525 / 6235 950 / 1200 250 / 1200
Balance -704.0 / -3506.8 -792 / -1042 -250 / -1042
SaO2: 97 (2L)
Physical Exam
-
General: Awake, Oriented and AOx3
Cardiovascular: Regular rate & rhythm, No Murmurs, No Rub and No Gallop
Respiratory: Decreased Breath Sounds (at bases, otherwise clear)
Sternum: Stable
Incision: Clean, Dry, Intact and Dressing Intact
Extremities: Edema +1
Data Reviewed
-
Lab Results: Results Reviewed
Medications: Active Meds Reviewed
Chest X-Ray: Report Reviewed and Image Reviewed
CT Scan: Report Reviewed and Image Reviewed
ECG: Report Reviewed and Image Reviewed
--- NOTE | 2024-10-12 04:45 | PTCARENOTE ---
Pt reassessed. Remains AAOx3. Sinus tach to a-fib on the tele monitor w/ long runs of PVCs. HR 100-120s. BP stable. Pt 93-98% on 2 L NC. Frequent productive cough. All surgical sites stable. Amio drip infusing as ordered. EKG obtained. Labs drawn
and sent. Pt denies CP. Voiding. +BM. Pt turned and repositioned. Call keyes within reach.
[2024-10-12] MEDS: CALCIUM GLUCONATE 290 MG IV (05:39)
[2024-10-12] MEDS: ALBUMIN 5% 250 IV (06:26)
[2024-10-12] MEDS: FLOVENT 110 MCG INHALER 2 PUFF INH ×2 (07:08→19:36)
--- NOTE | 2024-10-12 08:29 | PTCARENOTE ---
Received pt from apprentice lineman third step RN; pt AAOx3 and resting comfortably in bed; Sinus Tachycardia 1st Degree AVB on monitor and VSS; Right Triple Lumen PICC patent; Amiodarone infusing see flow sheet for details; Lungs diminished; IS to 1250; pt bringing
up greenwood sputum; positive bowel sounds; pt voiding salvador urine; Doppler pulses present in lower extremities with dusky nail beds and present pulses in radials with dusky nail beds CVNP updated and in to see pt; trace generalized edema noted; all
surgical sites C/D/I; see nursing documentation for further details.
[2024-10-12] MEDS: PROTONIX 40 MG PO (08:33)
[2024-10-12] MEDS: LOW STRENGTH ASPIRIN 81 MG PO (08:33)
[2024-10-12] MEDS: PACERONE 400 MG PO (08:33)
[2024-10-12] MEDS: VITAMIN C 500 MG PO (08:33)
[2024-10-12] MEDS: NEURONTIN 100 MG PO (08:33)
[2024-10-12] MEDS: ELIQUIS 5 MG PO (08:34)
[2024-10-12] MEDS: ROBITUSSIN 200 MG TUBE ×2 (08:34→17:34)
[2024-10-12] MEDS: TOPROL XL 50 MG PO (08:34)
[2024-10-12] MEDS: SENOKOT-S PO ×2 (08:35→22:45)
[2024-10-12] MEDS: NOVOLOG FLEXPEN-MODERATE RESISTANCE SC ×3 (08:35→18:03)
[2024-10-12] MEDS: MIRALAX 17 GRAMS PO (08:35)
--- NOTE | 2024-10-12 08:37 | W.PN.CARDCBS ---
Today's Communication / Plan
-
Overall doing well
Still in atrial flutter, transesophageal echo and cardioversion in a.m.
Impression / Plan
-
PCP: Dr. Marsh
Cardiology: None prior to admission, seen by Dr. Chavarria at [facility]
Impression:
Admitted to [facility] with chest pain 09/25/[address] surgical evaluation 09/27/24
CAD
NSTEMI peak Troponin 67 and MV CAD by cath at [facility] 09/27/24
s/p CABG with CEDILLO to LAD and SVG to prox RCA 09/29/24
s/p LHC with widely patent CEDILLO to LAD, 50% stenosis in the LAD just beyond the MARLA touchdown with KATIE III flow distally, retrograde filling of proximal LAD via moderate size diagonal branch, SVG is anastomosed to the mid RCA, anatomic kink in the
midportion of the vein graft but good distal flow to the distal RCA, kalispel RCA with diffuse luminal irregularities, but no focal obstructive stenosis 10/01/2024
h/o aortic root aneurysm
root measuring 5.4cm, mid ascending aorta 4.5cm by [facility] imaging 09/27/24
s/p valve sparing aortic root replacement with reimplantation of kalispel aortic valve (Gregory Procedure) 09/29/24. A left atrial appendage clip was also placed during surgery
HTN
Acute post-op ventricular bigeminy with R on T and VF arrest x2 09/29/24
treated with successful shock x2, CPR, amio and Epi with ROS
cardiogenic shock
CRV Impella placed 10/01/2024, removed 10/07/2024
Physiology consistent with RV infarction
Elevated troponin-likely combination of ischemia and RV strain
Inotrope dependent hypotension, weaned off
Abnormal LFTs secondary to cardiogenic shock
Aspiration pneumonia
Ventricular tachycardia
Postoperative atrial fibrillation and typical atrial flutter
Diminished urine output, improved
Intraoperative ROBERTA 09/29/24: Postop findings, EF 50 to 55% with new septal wall hypokinesis, anterior and lateral wall motion appear normal, no AI, the LA appendage has been clipped with a 0.5 cm residual base noted
Bedside ROBERTA 09/29/24: Postop in the room, EF 55% with mild septal wall hypokinesis that appears better than what it appeared in the OR, no pericardial effusion, trace MR, AV function normal
Echo 10/01/24: EF 40 to 45%, inferior wall and inferoseptum appear hypokinetic from base to midportion, moderate concentric LVH, mild to moderately reduced RV systolic function, mild to moderate MR
Echo 10/03/24: EF 50 to 55%, basal and mid inferior hypokinesis, RV hypokinesis with normal RV size, Impella and Beaufort-John catheter in place, mild TR
Plan:
He continues to improve, now off dobutamine and other inotropes/pressors. He remains on IV amiodarone. He is in atrial flutter with 2-1 conduction, rate is around 120, and he has an intermittent rate related bundle branch block.
Now on Eliquis.
LFTs continue to improve. Creatinine is pending.
He is still very weak but seems brighter and stronger day by day.
Discussed with CT surgery. If they agree, would favor baptism of sinus rhythm in a.m. with transesophageal echo and cardioversion. His anticoagulation has been reasonable but not airtight and so transesophageal echo is prudent.
Will make patient n.p.o. In anticipation of transesophageal echo and cardioversion.
HPI: Patient came to [facility] as a transfer from [facility] yesterday for evaluation from CT surgery team for MV CAD and aortic root aneurysm and cardiology has been consulted. Patient sees his PCP mostly when he is sick, but had a physical within the last
year. Patient with known h/o HTN and takes losartan 25 mg daily. He does not check BP at home on a regular basis. 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 He was working last Friday
night into Friday morning and was taking a break and laying on a sofa when he had sudden onset chest pain that lasted for 10-15 minutes and seemed to get better when he sat up. Pain returned again when he returned home after working and he told
his and they made a plan to go to the hospital. Then, after walking up the stairs in his home the patient had recurrent chest pain that was the most intense pain he had experienced and pain persisted. Patient went to [facility] ER and Troponin was
elevated prompting a cath that revealed MV CAD. Patient had an echo that showed aortic root aneurysm and then patient had CT, but results not available. Patient was transferred to for CT surgery eval last evening.
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
Subjective
Date of Service: October 12, 2024:
Medications: Reviewed
138/90, heart rate 109 120, respiratory 24, afebrile, intake and output -1.2 L,, still jaundiced, lungs are relatively clear, head neck exam unremarkable regular rate and rhythm, tachycardic without murmurs, JVD okay, abdomen benign extremities
without clubbing cyanosis or edema
chest x-ray today, prominent interstitial markings
Hemoglobin 9.3, platelets 230, BUN and creatinine are 32 and 1, potassium is 4.1, INR is 1.46
Objective
Labs:
10/12/24 03:51
Labs
Hgb 9.3 g/dL (13.0-18.0) L 10/12/24 03:51
Hct 29.3 % (39.0-52.0) L 10/12/24 03:51
Plt Count 230 10^3/uL (130-400) D 10/12/24 03:51
PT 17.9 Sec (11.4-14.6) H 10/09/24 04:27
INR 1.46 10/09/24 04:27
APTT Cancelled 10/12/24 06:00
Sodium 136 mmol/L (135-145) 10/12/24 03:51
Potassium 4.1 mmol/L (3.5-5.1) 10/12/24 03:51
BUN 32 mg/dl (9-20) H 10/12/24 03:51
Creatinine 1.0 mg/dL (0.7-1.3) 10/12/24 03:51
Glucose 146 mg/dl (70-99) H 10/12/24 03:51
Vital Signs and I&O:
Vital Signs
Temp Pulse Resp BP Pulse Ox
36.5 C 109 24 138/90 93
10/12/24 03:42 10/12/24 07:17 10/12/24 07:17 10/12/24 03:40 10/12/24 07:17
Vital Signs
Temp Pulse Resp BP Pulse Ox
36.5 C 109 24 138/90 93
10/12/24 03:42 10/12/24 07:17 10/12/24 07:17 10/12/24 03:40 10/12/24 07:17
Intake & Output
10/10/24 10/11/24 10/12/24 10/13/24
07:59 07:59 07:59 07:59
Intake Total 2145.8 / 2190.5 2597.5 / 2645.5 291.2 / 291.2
Output Total 2465 / 2565 6175 / 6175 1450 / 1450
Balance -319.2 / -374.5 -3577.5 / -3529.5 -1158.8 / -1158.8
Physical Exam
Physical Exam
See above
[2024-10-12 08:45] LABS: Glucose - Point of Care 82 mg/dl (70-99)
--- NOTE | 2024-10-12 08:45 | PTCARENOTE ---
Received pt from overnight houseperson RN; pt AAOx3 and resting comfortably in bed; Sinus Tachycardia 1st Degree AVB on monitor and VSS; Right Triple Lumen PICC patent; Amiodarone infusing see flow sheet for details; Lungs diminished; IS to 1250; pt bringing
up greenwood sputum; positive bowel sounds; pt voiding salvador urine; palpable pulses throughout; trace generalized edema noted; all surgical sites C/D/I; see nursing documentation for further details.
--- NOTE | 2024-10-12 08:47 | W.PN.ID1 ---
Date of Service
Date of Service: October 12, 2024
Today's Communication
- the indication to check lactic acid in patient without shock unclear to me - defer management to ordering team, could consider nephrology input
check differential on cbc
continue meropenem for now
Assessment / Plan
Fevers (via core measurement)
- trending down
Cardiogenic Shock - resolved
Pneumonia due to K oxytoca
S/p Valve sparing aortic root replacement with reimplantation of havasupai aortic valve; Reimplantation of left and right coronary buttons; CABG x 2 [havasupai CEDILLO in situ to LAD, RSVG to proximal RCA]; Left atrial appendage exclusion, Dr. Zuñiga on 09/29/24
Recommendations:
- the indication to check lactic acid in patient without shock unclear to me - defer management to ordering team, could consider nephrology input
- progressive leukocytosis, L shift is noted
- resp culture 10/08 - moderate K oxytoca - sensitive to both zosyn and meropenem
- 10/08 blood cultures x2 no growth to date
- Possible drug fever from Precedex, dc'd 10/10/24 at 01:00 -> fever resolving
s/p 5d Zosyn,
- Continue meropenem for now (d3).
- Follow temps/wbc.
����������������������������������������������������������
Chief Complaint
-: Fever and Other (cardiogenic shock)
Subjective / Review of Systems
fever curve improved
vasopressors off since 10/10
frequent PVCs
frequent productive cough
for ROBERTA and cardioversion in AM
had a BM last night - formed
endoreses improving cough, now with minimal sputum production
no headaches, sore throat, nausea, vomiting, diarrhea, dysuria, new rashes, new joint pains, new wounds, tenderness over PIVs
Vital Signs / Physical Exam
Vital Signs
Vital Signs
Temp Pulse Resp BP Pulse Ox
97.7 F 109 24 138/90 93
10/12/24 03:42 10/12/24 07:17 10/12/24 07:17 10/12/24 03:40 10/12/24 07:17
Physical Exam
Constitutional: No Acute Distress
Cardiovascular: Regular Rate and S1/S2; Negative Murmur or Rub
Pulmonary: Clear and Symmetric; Negative Wheezes or Rales
Gastrointestinal: Soft, Non Tender, Non Distended and Normal Bowel Sounds
Skin: Warm and Dry; Negative Rash or Jaundice
Wound: Other (sternal wound - healing, no erythema, warmth, tenderness or drainage)
Neurological: Awake
Lines: PICC (no erythema, warmth, tenderness or drainage) and Other (groin line site - healing no erythema, warmth, tenderness or drainage)
Objective Data
Lab Data
Lab Results
10/12/24 03:51
PT 17.9 Sec (11.4-14.6) H 10/09/24 04:27
INR 1.46 10/09/24 04:27
APTT Cancelled 10/12/24 06:00
Estimated Creat Clear 98 ml/min 10/12/24 03:51
Lactic Acid 4.0 mmol/L (0.7-2.0) H* 10/12/24 04:44
Total Bilirubin 8.3 mg/dl (0.2-1.3) H 10/12/24 03:51
AST 104 U/L (17-59) H 10/12/24 03:51
ALT 368 U/L (0-50) H 10/12/24 03:51
Alkaline Phosphatase 169 U/L (38-126) H 10/12/24 03:51
Most recent labs reviewed.
L shift without eosinophilia noted
Respiratory Culture Final 10/10/24-0853
Moderate Klebsiella oxytoca
Few Usual Respiratory Zainab
Organism 1 Klebsiella oxytoca
1. Klebsiella oxytoca
M.I.C. RX
--------- ---
Amoxicillin/Potas. Clavulanate <=8/4 S
Ampicillin >16 R
Ampicillin/Sulbactam <=4/2 S
Aztreonam <=4 S
Cefazolin 8 R
Cefepime <=2 S
Ceftazidime <=1 S
Ceftriaxone <=1 S
Ertapenem <=0.5 S
Ciprofloxacin <=0.25 S
Gentamicin <=2 S
Meropenem <=1 S
Piperacillin/Tazobactam <=8 S
Tetracycline <=4 S
Tobramycin <=2 S
Trimethoprim/Sulfamethoxazole <=2/38 S
Micro Results:
10/08/24 13:59 Blood Culture - Preliminary
Blood/Venous No Growth in 72 hours- Final report to follow
10/08/24 13:29 Blood Culture - Preliminary
Blood/Venous No Growth in 72 hours- Final report to follow
10/06/24 11:35 Blood Culture - Final
Blood/Venous No Growth - Final Report
10/06/24 11:10 Blood Culture - Final
Blood/Venous No Growth - Final Report
10/05/24 21:33 Blood Culture - Final
Blood/Venous No Growth - Final Report
10/05/24 21:33 Blood Culture - Final
Blood/Venous No Growth - Final Report
10/08/24 14:09 Respiratory Culture - Final
Endotracheal Klebsiella oxytoca
Gram Stain - Final
10/06/24 11:25 Urine Culture - Final
Urine NO GROWTH
10/06/24 04:30 Respiratory Culture - Final
Endotracheal Gram Stain - Final
10/05/24 09:59 MRSA Screen - Final
Nose No Methicillin Resistant Staphylococcus aureus isolated.
10/06/24 11:22 Nasal Screen MRSA (PCR) - Final
Nose MRSA not detected - performed by PCR methodology.
10/06/24 11:22 Influenza Types A & B (DAVI) - Final
Nasal Swab Negative for Influenza A & B, NAAT
Negative results must be combined with clinical observations
and patient history.
Nucleic Acid Amplification test (NAAT)performed on the
[employer] platform.
09/28/24 12:16 MRSA Screen - Final
Nose No Methicillin Resistant Staphylococcus aureus isolated.
10/08/24 CXR: Relatively stable examination. Persistent pulmonary parenchymal process, as described.
10/04/24 Abd US: mild gallbladder wall thickening, likely reactive, no bile duct dilatation
hepatic steatosis. mild ascites and small bilateral pleural effusions
09/28 CT c/a/p: ascending aorta aneurysm: 5.8 cm. submucosal fatty deposition within the terminal ileum, sigmoid colon and rectum which is nonspecific however can be seen with sequelae of chronic inflammation
[2024-10-12 09:31] LABS: % Basophils 0.3 % (0-2); % Eosinophils 0.6 % (0-6); % Immature Granulocytes 1.2 % (0-0.5); % Lymphocytes 7.8 % (20.5-51.1); % Monocytes 5.2 % (1.7-9.3); % Neutrophils 84.9 % (42.2-75.2); Absolute Basophils 0.1 10^3/uL (0-0.2); Absolute Eosinophils 0.1 10^3/uL (0-0.7); Absolute Immature Granulocytes 0.2 10^3/uL (0-0.05); Absolute Lymphocytes 1.4 10^3/uL (1.2-3.4); Absolute Monocytes 0.9 10^3/uL (0.1-0.6); Nucleated Red Blood Cells % 2.9 % (-)
[2024-10-12 10:34] LABS: Ionized Calcium 1.14 mMOL/L (1.15-1.33)
[2024-10-12 10:44] LABS: Lactic Acid 6.5 mmol/L (0.7-2.0)
--- NOTE | 2024-10-12 11:00 | PTCARENOTE ---
At 1000 pt confused and pulling at dressings; RN in room with patient, on monitor pt in a Sinus Tachycardia, EKG performed and resulted Wide complex with a Right Bundle Branch Block; Dr JHONATHAN Lim notified and at bedside; BP stable; Per cards leave pt
in bed and reassess at 1200.
[2024-10-12 11:23] LABS: Blood Urea Nitrogen 33 mg/dl (9-20); Calcium 8.5 mg/dl (8.4-10.2); Carbon Dioxide 19 mmol/L (22-30); Chloride 98 mmol/L (98-107); Estimated Creatinine Clearance 89 ml/min; Glucose 128 mg/dl (70-99); Magnesium 2.3 mg/dl (1.6-2.3); Potassium 4.5 mmol/L (3.5-5.1); eGFR > 60.00
[2024-10-12] MEDS: LR 500 IV (11:25)
[2024-10-12 11:30] LABS: Sodium 135 mmol/L (135-145)
--- NOTE | 2024-10-12 11:33 | PTCARENOTE ---
STAT Echo at bedside and Dr Zuñiga at bedside; LR 500ml bolus infusing now.
[2024-10-12] MEDS: CALCIUM GLUCONATE 100 IV (11:41)
[2024-10-12 11:52] LABS: TSH 2.76 uIU/ml (0.47-4.68)
[2024-10-12] MEDS: DOBUTREX 250 MG IV (12:07)
--- NOTE | 2024-10-12 12:07 | CM ---
Chart reviewed. Patient is independent of ADLS, lives with his in a 2 [address], 1 JAHAIRA, 0 DME. PT evaluation recommending Acute Rehab. Patient is agreeable. Plan is for the patient to go to [facility] when medically stable. CM to follow
--- NOTE | 2024-10-12 12:10 | PTCARENOTE ---
Dobutamine started per order.
[2024-10-12 12:30] LABS: APTT 28.5 Sec (23.4-35.0); INR 3.63; PT 35.9 Sec (11.4-14.6)
--- NOTE | 2024-10-12 12:45 | PTCARENOTE ---
Pt NPO for EP lab; at bedside and updated.
[2024-10-12] MEDS: ROBITUSSIN TUBE ×2 (13:23→22:46)
[2024-10-12 13:24] LABS: Lactic Acid 8.3 mmol/L (0.7-2.0)
[2024-10-12] MEDS: SODIUM BICARBONATE 100 MEQ IV ×2 (13:39→19:30)
--- NOTE | 2024-10-12 14:01 | PTCARENOTE ---
Pt sent to EP lab with cardiac cath technologist RNs.
[2024-10-12] MEDS: CORDARONE 103 MG IV (16:20)
--- NOTE | 2024-10-12 16:35 | ITS.CL.PACE ---
[employer] - Pacemaker Implant
Pacemaker Implant
Procedure Report:
Date of Procedure: October 12, 2024
Patient : 1970
Procedure: Pacemaker Implantation.
Indication: Need for atrial pacing support due to sinus bradycardia, and need for overdrive suppression of ventricular tachycardia
Implants:
Pulse Generator: Medtronic; Model# W1 DR 01; SN: [id number]
RA Lead: Medtronic; Model# 4574; SN: [id number]
RV Lead: Medtronic; Model# 4074; SN: [id number]
Technique: A time out was performed. The procedure site was identified. A peripheral IV was placed in the left forearm to make sure that the subclavian was patent. Known clot in the upper right extremity and need for atrial pacing lead and as such
despite the triple-lumen PICC in the left arm we utilized the left deltopectoral groove and also placed at the end of the procedure and antibiotic pouch in the pocket. Reference number CMR [id number] Lot number [id number] for the antibiotic pouch. The
patient was anesthetized by the anesthesia service. Preoperative sedation was administered. The patient was prepped and draped in the usual fashion. Local anesthetic was applied to the left prepectoral subcutaneous tissue. A 3 inch incision was made
2.5 inches below the left clavicle. A subcutaneous pocket was created with blunt and sharp dissection and hemostasis controlled with Bovie cautery. The left axillary vein was accessed within the pocket without difficulty. Hemostasis was excellent.
The leads were introduced with 7 Fr hemostatic peel away introducer sheaths. The ventricular lead was placed at the right ventricular apex with a slightly higher threshold but adequate sensing. The atrial lead was placed
in multiple positions of the right atrium with recent cannulation and we were able to achieve a stable position in the lateral right atrial appendage with stable sensing with a P wave of 2.1 and a threshold of 3.25 V at 1.5 ms. The underlying
rhythm at baseline was atrial flutter cycle length 280 ms. In multiple other areas of the atrium there was noncapture of the atrial lead and standard positions. 10 volt pacing did not capture the diaphragm.
We then performed cardioversion to underlying sinus rhythm with APD's in the atrium and he was noted to be in ventricular tachycardia�AIVR at 110 bpm demonstrating V greater than a in the atrial and ventricular channels of the pacing leads and we
were able to pace terminate the ventricular tachycardia with pacing at 130 bpm but this was only transient and VT would reinitiate. We answered the ventricular tachycardia with IV amiodarone bolus 150 mg and a milligram per minute drip. Once we
are able to find a stable atrial lead position I was able to suppress the patient's ventricular tachycardia with pacing in the atrium at 120 bpm which maintained sinus tachycardia with relative atrial flutter suppression and ventricular tachycardia
suppression.
The leads were secured to the pectoralis muscle and fascia. The leads were appropriately attached to the device. The pocket was irrigated with antibiotic solution. The device and leads were placed in the pocket. The incision was closed in three
layers with absorbable suture. The estimated blood loss was minimal. There were no complications.��Communication at the bedside with Dr. Zuñiga regarding arrhythmia management and will plan to continue amiodarone drip at 1 mg/min and he appears
greater than 90% suppressed with atrial pacing at a high 90 bpm. High output was placed on the atrial lead given elevated thresholds of the implant. I suspect some of this is from his metabolic abnormalities and postsurgical state. If he has
further ventricular arrhythmias could consider IV lidocaine although I suspect his inotrope he with dobutamine may be causing some of this and asked the primary team to consider weaning dobutamine as soon as hemodynamically stable.
Lead Analysis:
RA lead: P: 2.1 mV; Threshold: 3.25 V @1.5�ms; Impedance: 399 ohms.
RV lead: R: 4.5 mV; Threshold: 2.5 V @ 0.5��ms; Impedance: 950 ohms.
Final Programming: AAI lower rate 125 bpm upper tracking rate 130 bpm
�
Conclusion: Uncomplicated Medtronic pacemaker implant.
Recommendation: Routine post pacemaker care.
[2024-10-12] MEDS: XYLOCAINE 2 GRAM 500 IV (16:37)
[2024-10-12] MEDS: BUMEX 50 IV (16:43)
[2024-10-12 16:53] LABS: Lactic Acid 5.2 mmol/L (0.7-2.0)
--- NOTE | 2024-10-12 17:00 | PTCARENOTE ---
Pt returned from EP lab via bed; 100% A paced on monitor and VSS; Lido, Amiodarone, Bumex and dobutamine infusing see flow sheet for details.
[2024-10-12] MEDS: FERRLECIT 110 MG IV (17:16)
[2024-10-12] MEDS: LIPITOR 80 MG PO (17:34)
[2024-10-12 17:57] LABS: Glucose - Point of Care 137 mg/dl (70-99)
[2024-10-12] MEDS: XYLOCAINE BOLUS 100 MG IV (18:02)
--- NOTE | 2024-10-12 18:36 | W.PN.UPDATE ---
Addendum entered and electronically signed by Howard Mike DO 10/12/24 18:44:
addendum:
During device interrogation, while in WCT, patient reported improved but present dyspnea; no CP or palpitations. While APVS at 120 (AAI 120), patient reported improved breathing, no cp or palpitations.
Original Note:
Update Note
Progress Note Update
Patient seen at bedside at 1800. Noted by nursing, CTSx team patient in sustained wide complex rhythm. Device interrogation shows stable impedance/sensing values. Review of rhythm strip from device showed atrial tachycardia/AFL and likely VT (vs
aberrant conduction). Patient reported significant improvement but appeared dyspneic and reported feeling warm. Patient was given IV lidocaine as previously ordered by CTSx team. Rhythm change noted to APVS with brief NSVT (in what appears to be
wenckebach phenomenon; when AVWB occurs, ventricular automaticity starts). This suppressed to APVS. Device pacing threshold stable. Patient changed to AAI 120 (at high output pacing) with appropriate capture. Device rhythm strip showed APVS with 1:1
conduction at [address] As discussed with Dr Martinez and CTSx team, continue to wean dobutamine; continue IV antiarrhythmic medical therapy, monitor urine output, and correct underlying electrolyte abnormalities. Discussed with patient, patient's
family, Dr Martinez, nursing, and CTSx team.
[2024-10-12 18:51] LABS: Hematocrit 28.5 % (39.0-52.0); Hemoglobin 9.2 g/dL (13.0-18.0); Mean Corp Hgb Conc. 32.3 g/dL (33.0-37.0); Mean Corpuscular Hgb 31.5 pg (27.0-31.0); Mean Corpuscular Volume 97.6 fL (80.0-94.0); Mean Platelet Volume 11.4 fL (7.4-10.4); Platelet Count 264 10^3/uL (130-400); Red Blood Cell Count 2.92 10^6/uL (4.70-6.10)
--- NOTE | 2024-10-12 18:58 | PTCARENOTE ---
Pt confused and restless; family at bedside; A- paced/ V tach on monitor and VSS; pt complaining of being 'hot'; CVNP made aware, labs drawn and awaiting FFP from lab.
[2024-10-12 19:05] LABS: Lactic Acid 10.2 mmol/L (0.7-2.0)
[2024-10-12 19:11] LABS: Blood Urea Nitrogen 38 mg/dl (9-20); Calcium 8.1 mg/dl (8.4-10.2); Carbon Dioxide 15 mmol/L (22-30); Chloride 94 mmol/L (98-107); Estimated Creatinine Clearance 89 ml/min; Glucose 257 mg/dl (70-99); Potassium 4.5 mmol/L (3.5-5.1); Sodium 133 mmol/L (135-145); eGFR > 60.00
[2024-10-12 19:19] LABS: B.E. -10.9 mmol/L; O2 Saturation % 97.2 % (94-98); PO2 81 mmHg (83-108); pH 7.42 (7.35-7.45)
[2024-10-12 19:22] LABS: HCO3 11.7 mmol/L (21-28); PCO2 18 mmHg (35-48)
[2024-10-12 19:52] LABS: INR 2.47; PT 26.8 Sec (11.4-14.6)
[2024-10-12 19:53] LABS: APTT 36.4 Sec (23.4-35.0)
--- NOTE | 2024-10-12 20:00 | PTCARENOTE ---
Pt confused and restless; labs drawn and resulted; CVNP/CVPA at bedside and Sodium bicarb x3 given per CVNP/CVPA order; SBP in the 60-70s, Levo started; CVPA on the phone with Dr Zuñiga, per Dr Zara MASON calling in team for bedside ECMO; RNs, , CVPA
and CVNPs anesthesia, RT and perfusion at bedside; ECMO initiated see MD note for further details.
[2024-10-12 20:30] LABS: ACT-LR - POC 269 Seconds (116-155)
--- NOTE | 2024-10-12 20:37 | W.PN.ANESINT ---
Anesthesia Intubation Note
- Intubation Note
Intubation Note:
Diagnosis: Pt placed on ECMO intubated as per Surgeon request--
Blade: Glidescope
Tube Size: 8.0
Depth: 24 cm@lip
Side Taped: right
Drugs Used: propofol-60 mg, SUccs- 100mg, Zemuron- 50mg
Grade View: 1
EtCO2 Present: yes
Atraumatic: yes
Attempts: 1
Insertion Start and Stop Time: 20:12-20:14
SaO2 Pre: not registered
SaO2 Post: 80
Glidescope Used: yes
Other Airway Adjustments: none
Pre-Oxygenated: yes
Portable Chest X-Ray: yes
RSI: yes
Suctioned: no
Bilateral Breath Sounds Confirmed: yes
Vent Settings:
Settings per ___Attending Physician
[2024-10-12] MEDS: VERSED 1 MG IV ×2 (20:56→21:29)
[2024-10-12] MEDS: VERSED 50 IV (21:00)
[2024-10-12] MEDS: LEVOPHED 250 IV (21:00)
[2024-10-12 21:04] LABS: ACT-LR - POC 253 Seconds (116-155)
[2024-10-12 21:09] LABS: B.E. - POC -3.5 mmol/L; Glucose - POC 130 mg/dl (70-99); HCO3 - POC 19 mmol/L (21-28); Hematocrit - POC 30 % PCV (42-52); Hemodilution- POC Yes; Hemoglobin Calculated - POC 10.2; Ionized Calcium - POC 1.12 mmol/L (1.15-1.33); PCO2 - POC 26 mmHg (35-48); PO2 - POC 353 mmHg (83-108); POC Comment ECMO; Potassium - POC 3.9 mmol/L (3.5-5.1); Sodium - POC 140 mmol/L (136-145); Specimen Type - POC Arterial; pH - POC 7.48 (7.35-7.45)
--- NOTE | 2024-10-12 21:33 | W.PN.CT.SURG ---
Addendum entered and electronically signed by Britton Zuñiga MD 10/12/24 21:43:
10,000 units of heparin was given prior to cannulation.
Original Note:
CT Surgery Operative Note
-
Pre-op Diagnosis: Cardiogenic Shock with End Organ Dysfunction / Right Ventricular Failure
Post-op Diagnosis: Same
Procedure Date: 10/12/24
Procedure:
1. Percutaneous femoral artery (19Fr) and vein (25Fr) access under ultrasound guidance using Seldinger technique
2. Institution of venoarterial extracorporeal membrane oxygenation
3. Ultrasound-guided access to the left SFA (5Fr) for distal reperfusion
4. Ultrasound-guided left common femoral vein Cordis placement for resuscitation
5. Right radial arterial line placement for critical care monitoring
Primary Surgeon: Britton Zuñiga MD
Assisting Surgeons: Joanne Max PA-C, Solomon Haywood PA-C & Briana Rodrigues NP
Perfusion: KAVON Mercado
Specimen: None
Cultures: None
Complications / Blood Loss: 50cc
Findings:
This is a 54-year-old male who is postoperative #13 from a valve sparing root replacement with CABG x 2 [CEDILLO to LAD, RSVG PG to mid RCA] plus left atrial appendage exclusion. He initially required Impella RP support for right ventricular failure
from perioperative STEMI. This morning, he went into a 2-1 atrial flutter/ventricular tachycardia rhythm which he did not tolerate. Following his AV pacer implantation, there was some AV synchrony restored however he again progressed into
ventricular tachycardia with worsening lactate and requirement for additional inotropic and pressor support. Given this finding, I elected to move forward with mean arterial ECMO cannulation for temporary support in order to allow transfer to
higher level of care. The patient was sedated and intubated by anesthesia prior to cannulation. His groins were prepped bilaterally from abdomen down to his knees and using ultrasound and micropuncture with Seldinger technique, his left common
femoral artery was accessed above the bifurcation followed by insertion of a 5 Bulgarian sheath. The same was done with the right common femoral vein using micropuncture and ultrasound-guided Seldinger technique. At this point a long J-wire was
inserted through the sheath with no resistance, the tract was serially dilated and a 25 Bulgarian venous cannula was inserted and de-aired. The same long J-wire was used to access the left common femoral artery which was also serially dilated followed
by insertion of a 19 Bulgarian arterial cannula with the pigtail SideArm. Once cannula were de-aired and the lines were mated to the ECMO machine. We commenced ECMO without issue. At this point ultrasound was used to identify the SFA which was
accessed with micropuncture followed by insertion of 5 Bulgarian cannula which was then de-aired and connected to the SideArm of the 19 Bulgarian cannula. Posterior tibial pulses were able to be identified with Doppler in the left lower extremity. All
lines were secured, reprepped, and covered accordingly. Ultrasound was also used to access the left common femoral vein with a 7.5 Bulgarian Cordis using Seldinger technique for resuscitation purposes. Additional right radial art line was placed for
monitoring.
Britton Zuñiga MD, MS
Cardiac Surgeon
[facility]
[2024-10-12 21:34] LABS: Hematocrit 26.1 % (39.0-52.0); Hemoglobin 8.5 g/dL (13.0-18.0); Mean Corp Hgb Conc. 32.6 g/dL (33.0-37.0); Mean Corpuscular Hgb 30.8 pg (27.0-31.0); Mean Corpuscular Volume 94.6 fL (80.0-94.0); Mean Platelet Volume 11.1 fL (7.4-10.4); Platelet Count 234 10^3/uL (130-400); Red Blood Cell Count 2.76 10^6/uL (4.70-6.10); White Blood Cell Count 17.8 10^3/uL (4.8-10.8)
[2024-10-12 21:47] LABS: PT 68.9 Sec (11.4-14.6)
[2024-10-12 21:51] LABS: Lactic Acid 9.3 mmol/L (0.7-2.0)
[2024-10-12 21:57] LABS: AST (SGOT) 239 U/L (17-59); Albumin 3.7 g/dl (3.5-5.0); Alkaline Phosphatase 133 U/L (38-126); Blood Urea Nitrogen 42 mg/dl (9-20); Calcium 9.3 mg/dl (8.4-10.2); Carbon Dioxide 20 mmol/L (22-30); Chloride 96 mmol/L (98-107); Estimated Creatinine Clearance 82 ml/min; Glucose 155 mg/dl (70-99); Magnesium 2.1 mg/dl (1.6-2.3); Potassium 3.8 mmol/L (3.5-5.1); Sodium 136 mmol/L (135-145); Total Bilirubin 9.5 mg/dl (0.2-1.3); Total Protein 6.2 g/dl (6.3-8.2); eGFR > 60.00
[2024-10-12 21:58] LABS: LDH 695 U/L (120-246)
[2024-10-12 22:00] LABS: APTT > 200 Sec (23.4-35.0); INR > 8.0
[2024-10-12] MEDS: DIPRIVAN 100 IV (22:00)
[2024-10-12 22:05] LABS: ALT (SGPT) 343 U/L (0-50)
[2024-10-12 22:31] LABS: ACT-LR - POC 216 Seconds (116-155)
[2024-10-12 22:36] LABS: B.E. - POC 0.7 mmol/L; Glucose - POC 177 mg/dl (70-99); HCO3 - POC 22 mmol/L (21-28); Hematocrit - POC 35 % PCV (42-52); Hemodilution- POC Yes; Hemoglobin Calculated - POC 11.8; Ionized Calcium - POC 1.11 mmol/L (1.15-1.33); PCO2 - POC 25 mmHg (35-48); PO2 - POC 349 mmHg (83-108); POC Comment OXYGENATOR; Potassium - POC 3.4 mmol/L (3.5-5.1); Sodium - POC 141 mmol/L (136-145); Specimen Type - POC Arterial; pH - POC 7.55 (7.35-7.45)
[2024-10-12 22:45] LABS: Hematocrit 25.3 % (39.0-52.0); Hemoglobin 8.3 g/dL (13.0-18.0); Mean Corp Hgb Conc. 32.8 g/dL (33.0-37.0); Mean Corpuscular Hgb 30.7 pg (27.0-31.0); Mean Corpuscular Volume 93.7 fL (80.0-94.0); Mean Platelet Volume 10.8 fL (7.4-10.4); Platelet Count 233 10^3/uL (130-400); Red Cell Dist. Width 21.4 % (11.5-14.5); White Blood Cell Count 17.1 10^3/uL (4.8-10.8)
[2024-10-12] MEDS: NEURONTIN PO (22:45)
[2024-10-12] MEDS: ANCEF 5 IV (22:51)
[2024-10-12] MEDS: HEPARIN 25000 UNITS/250 ML IV (22:52)
--- NOTE | 2024-10-12 23:01 | PTCARENOTE ---
Addendum entered by Noreen Odonnell RN 10/13/24 05:11:
Left femoral vein cordis C/D/I w/ KVO infusing - NOT left groin arterial cordis.
Original Note:
Pt s/p bedside cannulation of VA ECMO. Per Dr. Zuñiga and CT surgery team at bedside meds given as follows throughout ECMO cannulation;
1939: 1 g calcium
Anesthesia gave meds for intubation.
2002: Pt intubated w/ 8.0 tube, 25 cm 2 right lip. +EtCO2
2014: ECMO procedure started.
2017: 10,000 units heparin.
2022: 1g calcium, 2 amps sodium bicarb.
2030: ECMO bypass.
2051: Levo titrated down to 2.
2053: B/L DP pulses via doppler.
2055: 2 mg versed push.
2056: 50 mcg fentanyl push.
2099: versed drip started @2.
2108: 50 mcg fentanyl push.
2120: 50 mcg fentanyl push.
2126: Versed drip up to 4.
2128: 2 mg versed push.
2134: 50 mcg fentanyl push.
Pt currently intubated and sedated. A-fib on the tele monitor. HR 90s. VA ECMO w/ perfusion at the bedside. Perfusion managing ECMO and collecting ABGs / ACTs. A-line BP 100s/80s. MAP>90. B/L PT pulses present via doppler. Upper/lower extremities
pink & warm - no cyanosis noted. Trace edema. Pt ABG POX 100%. FiO2 60%. RR 16. See worklist for full vent settings. Right groin venous sheath and left groin arterial sheath for ECMO C/D/I and secure. Left groin arterial cordis intact w/ KVO
infusing. Left upper arm triple lumen PICC C/D/I. Left hand #20 C/D/I. Right wrist arterial line leveled/zeroed/flushed. Maki catheter intact and draining large amounts of urine - bumex off per Zara. Labs trending as ordered. Current drips include
Lido, Amio, Dobut, Propofol, Levo, Versed, and heparin infusing as ordered. Bedside x-ray completed. Family updated. Awaiting bed from [facility].
[2024-10-12 23:03] LABS: Lactic Acid 7.1 mmol/L (0.7-2.0)
[2024-10-12 23:08] LABS: Blood Urea Nitrogen 43 mg/dl (9-20); Calcium 8.8 mg/dl (8.4-10.2); Carbon Dioxide 24 mmol/L (22-30); Chloride 97 mmol/L (98-107); Estimated Creatinine Clearance 82 ml/min; Glucose 174 mg/dl (70-99); Potassium 3.7 mmol/L (3.5-5.1); Sodium 140 mmol/L (135-145); eGFR > 60.00
[2024-10-12 23:45] LABS: ACT-LR - POC 178 Seconds (116-155)
[2024-10-13] VITALS (15 sets, daily range): BP systolic 101–127; BP diastolic 57–115
[2024-10-13 00:23] LABS: Triglycerides 98 mg/dl (10-149)
[2024-10-13] MEDS: SUBLIMAZE 100 IV (00:30)
[2024-10-13 00:50] LABS: ACT-LR - POC 234 Seconds (116-155)
[2024-10-13 00:57] LABS: Glucose - POC 211 mg/dl (70-99); HCO3 - POC 27 mmol/L (21-28); Hematocrit - POC 35 % PCV (42-52); Hemodilution- POC Yes; Ionized Calcium - POC 1.13 mmol/L (1.15-1.33); Lactate - POC 5.43 mmol/L (0.36-0.75); O2 Saturation %Calculated-POC 99.9 % (94-98); PCO2 - POC 29 mmHg (35-48); PO2 - POC 252 mmHg (83-108); POC Comment ECMO CIRCUIT; Sodium - POC 143 mmol/L (136-145); Specimen Type - POC Arterial; pH - POC 7.58 (7.35-7.45)
[2024-10-13] MEDS: KCL 100 IV ×2 (01:29→05:14)
[2024-10-13] MEDS: VERSED 50 IV ×2 (02:07→09:28)
[2024-10-13 02:10] LABS: ACT-LR - POC 174 Seconds (116-155)
[2024-10-13 02:25] LABS: B.E. - POC 8.2 mmol/L; Glucose - POC 177 mg/dl (70-99); HCO3 - POC 28 mmol/L (21-28); Hematocrit - POC 30 % PCV (42-52); Hemodilution- POC Yes; Hemoglobin Calculated - POC 10.2; Ionized Calcium - POC 1.07 mmol/L (1.15-1.33); Lactate - POC 4.67 mmol/L (0.36-0.75); O2 Saturation %Calculated-POC 99.3 % (94-98); PCO2 - POC 23 mmHg (35-48); PO2 - POC 112 mmHg (83-108); POC Comment RT RADIAL SOURCE; Potassium - POC 3.1 mmol/L (3.5-5.1); Sodium - POC 145 mmol/L (136-145); Specimen Type - POC Arterial; pH - POC 7.69 (7.35-7.45)
--- NOTE | 2024-10-13 03:07 | DOWNTIME ---
There was a [employer] Client [employer] Downtime on 10/13/2024 from 0100 to 10/13/2023 at 0205 . Downtime documentation of patient's care, including medication administrations, has been reconciled in the electronic record per guidelines. Refer to the
patient's paper chart under the miscellaneous tab to see printed paper medication records and downtime forms.
[2024-10-13] MEDS: MERREM 500 MG IV (03:11)
[2024-10-13] MEDS: STERILE WATER FOR INJECTION 10 ML IV (03:11)
[2024-10-13] MEDS: DIPRIVAN 100 IV (03:16)
--- NOTE | 2024-10-13 03:24 | PTCARENOTE ---
Pt reassessed. Pt on VA ECMO. Perfusion at the bedside managing ECMO and various labwork. Pt a-fib on the monitor. HR 80-90s. BP 90-100s/70-80s. B/L DP pulses palpable. B/L upper and lower extremities pink and warm. Pt intubated. POX 98-100%. FiO2
60%. See worklist for full vent settings. Right groin venous sheath and left groin arterial sheath for ECMO C/D/I and secure. Left femoral vein cordis C/D/I w/ KVO infusing. Right radial arterial line leveled, zeroed, and flushed. Maki catheter
intact and draining yellow urine well over 30 ml/hr. Pt current temp 98.3. Current drips include fentanyl, versed, propofol, amiodarone, lidocaine, heparin, dobutamine, and levo. Labs drawn as ordered. Drip titrations as documented in the worklist.
Awaiting bed placement at [facility].
[2024-10-13 04:22] LABS: B.E. 8.3 mmol/L; HCO3 29.5 mmol/L (21-28); Ionized Calcium 1.09 mMOL/L (1.15-1.33); O2 Saturation % 99.9 % (94-98); PCO2 28 mmHg (35-48); PO2 162 mmHg (83-108)
[2024-10-13 04:23] LABS: pH 7.63 (7.35-7.45)
[2024-10-13 04:24] LABS: Mixed Venous O2 Saturation 83.8 %
[2024-10-13 04:28] LABS: Hematocrit 26.1 % (39.0-52.0); Hemoglobin 8.7 g/dL (13.0-18.0); Mean Corp Hgb Conc. 33.3 g/dL (33.0-37.0); Mean Corpuscular Hgb 30.9 pg (27.0-31.0); Mean Corpuscular Volume 92.6 fL (80.0-94.0); Mean Platelet Volume 10.6 fL (7.4-10.4); Platelet Count 246 10^3/uL (130-400); Red Blood Cell Count 2.82 10^6/uL (4.70-6.10); White Blood Cell Count 13.4 10^3/uL (4.8-10.8)
[2024-10-13 04:31] LABS: INR 2.95; PT 30.7 Sec (11.4-14.6)
[2024-10-13] MEDS: XYLOCAINE 2 GRAM 500 IV (04:31)
[2024-10-13 04:32] LABS: APTT 67.5 Sec (23.4-35.0)
[2024-10-13 04:36] LABS: Lactic Acid 3.1 mmol/L (0.7-2.0)
[2024-10-13 04:41] LABS: ACT-LR - POC 165 Seconds (116-155)
[2024-10-13 04:45] LABS: ALT (SGPT) 311 U/L (0-50); AST (SGOT) 219 U/L (17-59); Albumin 3.6 g/dl (3.5-5.0); Alkaline Phosphatase 117 U/L (38-126); Blood Urea Nitrogen 43 mg/dl (9-20); Calcium 8.3 mg/dl (8.4-10.2); Carbon Dioxide 31 mmol/L (22-30); Chloride 100 mmol/L (98-107); Direct Bilirubin 5.7 mg/dl (0.0-0.4); Estimated Creatinine Clearance 82 ml/min; Glucose 138 mg/dl (70-99); Potassium 3.6 mmol/L (3.5-5.1); Sodium 142 mmol/L (135-145); Total Bilirubin 8.5 mg/dl (0.2-1.3); eGFR > 60.00
[2024-10-13 04:52] LABS: B.E. - POC 7.9 mmol/L; Glucose - POC 157 mg/dl (70-99); HCO3 - POC 32 mmol/L (21-28); Hematocrit - POC 38 % PCV (42-52); Hemodilution- POC Yes; Ionized Calcium - POC 1.13 mmol/L (1.15-1.33); Lactate - POC 4.13 mmol/L (0.36-0.75); O2 Saturation %Calculated-POC 99.8 % (94-98); PCO2 - POC 41 mmHg (35-48); PO2 - POC 194 mmHg (83-108); POC Comment ECMO CIRCUIT; Potassium - POC 3.4 mmol/L (3.5-5.1); Sodium - POC 145 mmol/L (136-145); Specimen Type - POC Arterial
[2024-10-13] MEDS: CALCIUM GLUCONATE 290 MG IV (05:06)
[2024-10-13] MEDS: ANCEF 5 IV (05:23)
[2024-10-13 05:34] LABS: Magnesium 2.1 mg/dl (1.6-2.3)
--- NOTE | 2024-10-13 06:00 | PTCARENOTE ---
Spoke to Shad from [facility] transfer team. Pt has bed available for him at [facility]. 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 ~[phone] and then fly to [facility]. [facility] will call when they are on their way and to get
updated information on the patient. Tentative arrival time to [facility] ~[phone].
--- NOTE | 2024-10-13 06:10 | W.PN.UPDATE ---
Update Note
Progress Note Update
Late Documentation:
On the evening of 10/12/24, I felt Mr. Bo Nvoa was deteriorating given the worsening lactic acid, change in liver function tests, altered mental status, and his continued progression into ventricular tachycardia with loss of capture of his
dual chamber PPM. I had a multidisciplinary call with Drs. Faustin and Osvaldo from [facility] and we all agreed that loss of A-V synchrony earlier that day likely is resulting in worsening RV failure. I therefore discussed with Mrs. Nova about the need
for escalation of care and mechanical support while he was in an abnormal rhythm. We discussed the risks/benefits of VA-ECMO and need for transfer for further EP evaluation and while on ECMO. She understood and verbally agreed to proceeding with
cannulation for ECMO.
[2024-10-13 06:14] LABS: B.E. 8.5 mmol/L; HCO3 31.6 mmol/L (21-28); Ionized Calcium 1.22 mMOL/L (1.15-1.33); O2 Saturation % 99.1 % (94-98); PCO2 37 mmHg (35-48); PO2 115 mmHg (83-108); pH 7.54 (7.35-7.45)
[2024-10-13 06:17] LABS: Hematocrit 25.7 % (39.0-52.0); Hemoglobin 8.7 g/dL (13.0-18.0); Mean Corp Hgb Conc. 33.9 g/dL (33.0-37.0); Mean Corpuscular Hgb 31.6 pg (27.0-31.0); Mean Corpuscular Volume 93.5 fL (80.0-94.0); Mean Platelet Volume 10.8 fL (7.4-10.4); Platelet Count 230 10^3/uL (130-400); Red Blood Cell Count 2.75 10^6/uL (4.70-6.10); Red Cell Dist. Width 20.9 % (11.5-14.5); White Blood Cell Count 12.9 10^3/uL (4.8-10.8)
[2024-10-13 06:17] LABS: ACT-LR - POC 170 Seconds (116-155)
[2024-10-13 06:36] LABS: ALT (SGPT) 297 U/L (0-50); AST (SGOT) 205 U/L (17-59); Albumin 3.5 g/dl (3.5-5.0); Alkaline Phosphatase 113 U/L (38-126); Blood Urea Nitrogen 42 mg/dl (9-20); Calcium 8.8 mg/dl (8.4-10.2); Carbon Dioxide 33 mmol/L (22-30); Chloride 102 mmol/L (98-107); Direct Bilirubin 5.2 mg/dl (0.0-0.4); Estimated Creatinine Clearance 82 ml/min; Glucose 120 mg/dl (70-99); Magnesium 2.1 mg/dl (1.6-2.3); Potassium 3.6 mmol/L (3.5-5.1); Sodium 143 mmol/L (135-145); Total Bilirubin 7.7 mg/dl (0.2-1.3); Total Protein 5.8 g/dl (6.3-8.2); eGFR > 60.00
[2024-10-13 06:44] LABS: B.E. - POC 6.2 mmol/L; Glucose - POC 117 mg/dl (70-99); HCO3 - POC 32 mmol/L (21-28); Hematocrit - POC 30 % PCV (42-52); Hemodilution- POC Yes; Hemoglobin Calculated - POC 10.2; Ionized Calcium - POC 1.32 mmol/L (1.15-1.33); Lactate - POC 1.68 mmol/L (0.36-0.75); O2 Saturation %Calculated-POC 99.9 % (94-98); PCO2 - POC 53 mmHg (35-48); PO2 - POC 331 mmHg (83-108); POC Comment ECMO CIRCUIT; Potassium - POC 3.6 mmol/L (3.5-5.1); Sodium - POC 147 mmol/L (136-145); Specimen Type - POC Arterial; pH - POC 7.39 (7.35-7.45)
[2024-10-13] MEDS: FLOVENT 110 MCG INHALER 2 PUFF INH (07:06)
--- NOTE | 2024-10-13 07:12 | W.PN.CT ---
Today's Communication / Plan
-
-Pt's condition deteriorated yesterday 10/12/24, necessitating PPM placement and subsequently ECMO placement for transfer to tertiary hospital for higher level of care
-Pt noted to be in a-fib/flutter/VT yesterday 10/12/24 with hemodynamic instability
-Intubated, current vent settings: A/C, 550, 10, 5, 40%
-Current drips: Dobutamine @ 3, Levophed @ 2, Lidocaine @ 1, Amiodarone @ 0.5, Heparin @ 1350, Fentanyl @ 50, Propofol @ 25, Versed @ 4
-Pt expected to be transferred to [facility] by 9AM today
-Will replete electrolytes
Assessment / Plan
-
Assessment:
-Multivessel CAD/Ao aneurysm - s/p Valve sparing aortic root replacement with reimplantation of bishop paiute aortic valve [Gregory Procedure]; Reimplantation of left and right coronary buttons into their respective neosinus; CABG x 2 [bishop paiute CEDILLO in situ to
LAD, RSVG to proximal RCA]; Left atrial appendage exclusion (35mm clip) by Dr. Zuñiga on 09/29/24, pod #14
-Intraop ROBERTA: LVEF preoperatively 60% with no significant regional wall motion abnormalities. He does have diastolic dysfunction with thick left ventricle. Following surgery his EF was the same with no significant regional wall motion
abnormalities aside from some paradoxical motion of his septum. He is aortic valve was spared and reimplanted inside of 32 mm cardio root Valsalva graft. Following surgery, his AI that was initially mild and central went to none. He had a mean
gradient of 3 across his bishop paiute aortic valve with a good coaptation height. Due to the long clamp around, he was a little bit sluggish coming off of cardiopulmonary bypass but did not require any inotropic support. His cardiac index was
approximately 1.7 to on just a low-dose Levophed. There is no residual flow into the left atrial appendage, and only a small residual stump was visualized.
s/p Impellla RP placed 10/01/24 and removed 10/07/24
-NSTEMI (High-sensitivity trop 67 @ [facility])
-[place]
-Aortic root aneurysm (5.8 cm, mid ascending aorta 4.5 cm)
-HTN
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
-Spermatocele/Hydrocele S/P b/l spermatocelectomies, 05/26/2015
-S/P LHC
-S/P Vasectomy, 2008
-Acute postop ventricular bigeminy/ R on T phenomenon with v-fib arrest X2 - s/p shocks x2, CPR, low-dose Epi, Amio 300 mg bolus and drip- Rosc achieved. Pt woke up post code and followed commands
-NSVTs
-Bedside ROBERTA revealed no pericardial effusion, valves ok. Lateral wall had some stunning
-Acute postop hypovolemia
-Acute postop cardiogenic shock
-Acute postop atelectasis
-Acute postop blood loss anemia - transfused 7u PRBCs
-Acute postop coagulopathy - s/p 2 FFPs and 2 unit platelets
-ROBERTA
-Shock liver - holding Tylenol - follow
-Acute postop RV failure, taken to laboratory sample carrier for angiography (grafts patent), Impella RP placed
-Acute postop paroxysmal a-fib
-Acute postop metabolic alkalosis, likely d/t diuresis
-Acute postop shock liver
-Acute postop fever, procalcitonin 0.97 - blood cx sent and started on Zosyn and Vanco 10/05
-Acute postop RUE cephalic vein thrombosis
-LUE picc placement 10/06/24
-Acute postop VDRF, required reintubation
-Acute postop cardiogenic shock, RV failure S/P ECMO
Discussed patient care with: Cardiology, Nursing, Respiratory Therapy, Pharmacy and Care Team
Subjective
Procedure
s/p Valve sparing aortic root replacement with reimplantation of bishop paiute aortic valve [Gregory Procedure]; Reimplantation of left and right coronary buttons into their respective neosinus; CABG x 2 [bishop paiute CEDILLO in situ to LAD, RSVG to proximal RCA];
Left atrial appendage exclusion (35mm clip) by Dr. Zuñiga on 09/29/24
s/p Impellla RP placed 10/01/24
-
Date of Service: October 13, 2024
Pt currently sedated on versed gtt, propofol, and fentanyl
Objective Data
-
Lab Results
10/13/24 06:02
10/13/24 06:02
PT Cancelled 10/13/24 06:00
INR Cancelled 10/13/24 06:00
APTT 67.5 Sec (23.4-35.0) H 10/13/24 04:07
Vital Signs
Vital Signs
Temp Pulse Resp BP Pulse Ox
97.8 F 86 10 122/106 100
10/13/24 06:00 10/13/24 07:10 10/13/24 07:10 10/13/24 07:00 10/13/24 07:10
CT Intake/Output/Weight
10/12/24 10/13/24 10/13/24
18:59 06:59 18:59
Intake Total 172.1 / 2070.8 1898.7 / 2070.8
Output Total 650 / 5045 4395 / 5045
Balance -477.9 / -2974.2 -2496.3 / -2974.2
SaO2: 100 (A/C, 550, 10, 5, 40%)
Physical Exam
-
General: Other (sedated and intubated)
Cardiovascular: Irregular rate & rhythm (rate controlled a-fib)
Respiratory: Decreased Breath Sounds
Incision: Clean, Dry, Intact and Dressing Intact
Extremities: Edema +1
Data Reviewed
-
Lab Results: Results Reviewed
Medications: Active Meds Reviewed
Chest X-Ray: Report Reviewed and Image Reviewed
ECG: Report Reviewed and Image Reviewed
[2024-10-13 08:01] LABS: ACT-LR - POC 168 Seconds (116-155)
[2024-10-13 08:54] LABS: ACT-LR - POC 168 Seconds (116-155)
[2024-10-13] MEDS: NOVOLOG FLEXPEN-MODERATE RESISTANCE SC (09:33)
[2024-10-13] MEDS: SENOKOT-S PO (09:34)
[2024-10-13] MEDS: TOPROL XL PO (09:34)
[2024-10-13] MEDS: VITAMIN C PO (09:34)
[2024-10-13] MEDS: PROTONIX PO (09:34)
[2024-10-13] MEDS: ROBITUSSIN TUBE (09:34)
[2024-10-13] MEDS: LOW STRENGTH ASPIRIN PO (09:34)
[2024-10-13] MEDS: NEURONTIN PO (09:34)
[2024-10-13] MEDS: MIRALAX PO (09:34)
[2024-10-13 09:49] LABS: ACT-LR - POC 161 Seconds (116-155)
--- NOTE | 2024-10-13 10:15 | W.DCSUMMARY ---
Discharge Summary
Discharge Data
Date of Admission: 09/27/24
Date of Discharge: 10/13/24
-
Pending Results: No
Hospital Course
Primary care physician: Beverley Marsh
Outpatient leasing specialist: Dr Gotti
Inpatient consultants: [facility], pulmonary senior software developer, infectious diseases
Procedures:
1. Aortic valve sparing root replacement, CABG, left atrial appendage clip
2. cardiac cath
3. RP Impella insertion (10/01/2024)
4. Left upper extremity PICC insertion
5. Medtronic pacemaker insertion (10/12/2024)
6. V-A ECMO femoral cannulation (10/12/24)
Primary Diagnosis:
1. Aortic root aneurysm measuring 5.8 cm with mild aortic valve insufficiency, NSTEMI
Secondary Diagnoses:
1. Hypertension
2. Herpes (on PRN Acyclovir for outbreaks)
3. Spermatocele/Hydrocele S/P b/l spermatocelectomies, 05/26/2015
4. Vasectomy, 2008
5. Acute postop ventricular bigeminy/ R on T phenomenon with v-fib arrest X2 - s/p shocks x2, CPR
6. Acute postop hypovolemia
7. Acute postop cardiogenic shock
8. Acute postop blood loss anemia
9. Acute postop coagulopathy
10. ROBERTA
11. Acute post op Shock liver
12. Acute postop RV failure, taken to [facility] laboratory assistant for angiography (grafts patent), Impella RP placed
13. Acute postop paroxysmal a-fib
14. Acute postop metabolic alkalosis
15. Klebsiella oxytoca pneumonia
16. Acute postop RUE cephalic vein thrombosis
17. Acute postop VDRF, required reintubation
18. Acute postop cardiogenic shock, RV failure S/P ECMO
19. Acute post-op Right cephalic vein thrombus
20. Acute post-op delerium
HPI: 54y/o male with PMH of HTN presented to [facility] 09/26/24 with complaints of chest pain with associated shortness of breath while he was laying down playing with his dog. Patient ruled in for NSTEMI with HS troponin of 48-->67. He
underwent LHC on 09/27/24 which revealed MVCAD, and noted to have a significantly dilated aortic root. Pt was transferred to [facility] on 09/27/2024 for evaluation for valve sparing root replacement + CABG.
Hospital course: On 07/30, patient underwent aortic valve sparing root replacement (#32mm Valsalva graft) with reimplantation of [place] aortic valve [Gregory Procedure], CABG x 2 (CEDILLO to LAD, stenting of distal RCA), exclusion of left atrial appendage
with #[address] Britton Zuñiga. Patient received 2 pulses platelets IntraOp and returned to CVICU. He began having episodes of increasing ectopy developed oral intubated for A-fib addressed while attempted to pace. CPR and ACLS measures
were initiated with ROSC achieved pacing wires were again tested with second arm to episode occurring. Amiodarone was initiated and rhythm settled. A ROBERTA was completed and showed no pericardial effusions and valves functioning normally. Lateral
wall had some stunning. Patient was extubated on postop day #1 started on dobutamine. He continued to have runs of nonsustained VT and was continued on amiodarone. Later that evening on postoperative day #1, patient showed evidence of right
ventricular failure with SHARON of 0.8 and increasing pressor demands. On postoperative day #2, liver function tests were elevating and patient was brought back to the [facility]. Coronaries were clean and Bumex drip and milrinone were added. Patient
converted from sinus tach cardia to atrial fibrillation resulting in hypotensive and need to escalate Levophed dosing up to 12 with vasopressin added. Decision was made for mechanical cardiac support with a RP Impella placed in the [facility].
Patient was aggressively diuresed with Bumex and a TTE completed on 10/03 reported a small left ventricle with moderate LVH, basal and mid inferior hypokinesis and EF 50-55%, and right ventricular hypokinesis with normal RV size. Flolan was
initiated discontinued on postoperative day #6 due to bleeding from ET tube. Postoperative day #7, patient developed leukocytosis and was evaluated by infectious disease team and started on Zosyn. The Impella RP was removed on 10/[address] Zuñiga.
Patient extubated on 10/09 but continued to have intermittent runs of nonsustained VT and bigeminy. [place] catheter, right IJ cordis, nasogastric tube, and Maki were removed on 10/10. Patient's mental status was improving and patient passed
bedside swallow evaluation. Sputum culture grew Klebsiella oxytoca and antibiotics were changed to meropenem. On 10/11, heparin infusion was discontinued and patient was initiated on Eliquis. Patient again developed atrial fibrillation overnight
requiring amiodarone bolus and infusion. On 10/12, patient developed increasing metabolic acidosis with lactic acid level of 4. Twelve-lead ECG showed a flutter with aberrancy alternated with VT. Subsequent lactic acid level increased to 8.3 and
patient was brought to [facility] for cardioversion and Medtronic pacer implant. During cardioversion, rhythm slowed and was determined to be VT. Amiodarone bolus and lidocaine were initiated. A Maki was inserted to adequately measure urine
output. Patient initially felt better after overdrive a pacing but developed acute delirium with hypotension and rising lactate level to 10. Patient was placed on femoral VA ECMO at bedside by Dr. Britton Zuñiga and consultation with Dr. Mariah Faustin
from [facility] team ensued. No bed available during the night for transfer to [facility] and patient maintained in CVICU on Levophed, Amiodarone, Lidocaine, Dobutamine. Patient remained stable overnight and was transferred to [facility] via ground
transportation with [facility] team.
Home medication changes:
Home Meds:
Losartan 25mg daily
Infusions on transfer: Levo, Amiodarone, Lidocaine, Dobutamine
Discharge Plan
-
Patient Disposition: Acute Care Hospital
Condition: Critical
Discharge Orders:
Discharge Patient (As Directed); Ordered 10/13/24
Ordered By: Briana Rodrigues
Discharge Date and Time
Discharge Date/Time: 10/13/24 12:56
Print Language: PANAMANIAN
--- NOTE | 2024-10-13 10:30 | PTCARENOTE ---
[place] transport team here to take pt to [facility].
[2024-10-13 11:08] LABS: Glucose - POC 102 mg/dl (70-99); HCO3 - POC 28 mmol/L (21-28); Hematocrit - POC 22 % PCV (42-52); Hemodilution- POC No; Hemoglobin Calculated - POC 7.4; Ionized Calcium - POC 1.09 mmol/L (1.15-1.33); O2 Saturation %Calculated-POC 99.8 % (94-98); PCO2 - POC 27 mmHg (35-48); PO2 - POC 191 mmHg (83-108); Potassium - POC 3.4 mmol/L (3.5-5.1); Sodium - POC 144 mmol/L (136-145); Specimen Type - POC Arterial; pH - POC 7.63 (7.35-7.45)
--- NOTE | 2024-10-13 11:45 | W.PN.UPDATE ---
Update Note
Progress Note Update
Device reprogrammed to DDD 70 prior to transfer to the emergency [place]. Lead parameters remain relatively stable. Elevated atrial lead thresholds was noted at implant despite interrogation of multiple areas of the right atrium. Values
today are relatively stable and programmed outputs for stable atrial capture. Sensing is also stable. Chest x-ray demonstrates no pneumothorax and leads in stable right atrial and right ventricular apical positions. Site is clean dry and intact
without any evidence of hematoma or ecchymosis.
== END 2024-10-13 12:56 | disposition short-term general hospital (02) | DRG 3 ==
LOC: CVICU 17:17
PROVIDERS: Anesthesiology; Clinical Nurse Specialist Acute Care; Internal Medicine Cardiovascular Disease; Internal Medicine Interventional Cardiology; Nurse Practitioner; Nurse Practitioner Family; Physician Assistant; Physician Assistant Medical; Thoracic Surgery (Cardiothoracic Vascular Surgery); ADMITTING PHYSICIAN Thoracic Surgery (Cardiothoracic Vascular Surgery); CONSULT PHYSICIAN Internal Medicine; CONSULT PHYSICIAN Internal Medicine Cardiovascular Disease; CONSULT PHYSICIAN Student in an Organized Health Care Education/Training Program; FAMILY PHYSICIAN Family Medicine
PROC: 02100Z9 Bypass Coronary Artery, One Artery from Left Internal Mammary, Open Approach (ICD-10-PCS; 2024-09-29)
PROC: 30233K1 Transfusion of Nonautologous Frozen Plasma into Peripheral Vein, Percutaneous Approach (ICD-10-PCS; 2024-09-29)
PROC: 05HN33Z Insertion of Infusion Device into Left Internal Jugular Vein, Percutaneous Approach (ICD-10-PCS; 2024-09-29)
PROC: 03HY32Z Insertion of Monitoring Device into Upper Artery, Percutaneous Approach (ICD-10-PCS; 2024-09-29)
PROC: 06BP4ZZ Excision of Right Saphenous Vein, Percutaneous Endoscopic Approach (ICD-10-PCS; 2024-09-29)
PROC: 5A1221Z Performance of Cardiac Output, Continuous (ICD-10-PCS; 2024-09-29)
PROC: B24BZZ4 Ultrasonography of Heart with Aorta, Transesophageal (ICD-10-PCS; 2024-09-29)
PROC: 02RX0JZ Replacement of Thoracic Aorta, Ascending/Arch with Synthetic Substitute, Open Approach (ICD-10-PCS; 2024-09-29)
PROC: 02L70CK Occlusion of Left Atrial Appendage with Extraluminal Device, Open Approach (ICD-10-PCS; 2024-09-29)
PROC: 30233R1 Transfusion of Nonautologous Platelets into Peripheral Vein, Percutaneous Approach (ICD-10-PCS; 2024-09-29)
PROC: 021009W Bypass Coronary Artery, One Artery from Aorta with Autologous Venous Tissue, Open Approach (ICD-10-PCS; 2024-09-29)
PROC: B2121ZZ Fluoroscopy of Single Coronary Artery Bypass Graft using Low Osmolar Contrast (ICD-10-PCS; 2024-10-01)
PROC: 5A09357 Assistance with Respiratory Ventilation, Less than 24 Consecutive Hours, Continuous Positive Airway Pressure (ICD-10-PCS; 2024-10-01)
PROC: 02HA3RZ Insertion of Short-term External Heart Assist System into Heart, Percutaneous Approach (ICD-10-PCS; 2024-10-01)
PROC: B2181ZZ Fluoroscopy of Left Internal Mammary Bypass Graft using Low Osmolar Contrast (ICD-10-PCS; 2024-10-01)
PROC: B2111ZZ Fluoroscopy of Multiple Coronary Arteries using Low Osmolar Contrast (ICD-10-PCS; 2024-10-01)
PROC: 30233N1 Transfusion of Nonautologous Red Blood Cells into Peripheral Vein, Percutaneous Approach (ICD-10-PCS; 2024-10-01)
PROC: 5A0221D Assistance with Cardiac Output using Impeller Pump, Continuous (ICD-10-PCS; 2024-10-01)
PROC: 4A023N7 Measurement of Cardiac Sampling and Pressure, Left Heart, Percutaneous Approach (ICD-10-PCS; 2024-10-01)
PROC: B2151ZZ Fluoroscopy of Left Heart using Low Osmolar Contrast (ICD-10-PCS; 2024-10-01)
PROC: 02WAXRZ Revision of Short-term External Heart Assist System in Heart, External Approach (ICD-10-PCS; 2024-10-02)
PROC: 05QY0ZZ Repair Upper Vein, Open Approach (ICD-10-PCS; 2024-10-03)
PROC: 5A1955Z Respiratory Ventilation, Greater than 96 Consecutive Hours (ICD-10-PCS; 2024-10-04)
PROC: 0BH17EZ Insertion of Endotracheal Airway into Trachea, Via Natural or Artificial Opening (ICD-10-PCS; 2024-10-04)
PROC: 02HV33Z Insertion of Infusion Device into Superior Vena Cava, Percutaneous Approach (ICD-10-PCS; 2024-10-06)
PROC: 02PA3RZ Removal of Short-term External Heart Assist System from Heart, Percutaneous Approach (ICD-10-PCS; 2024-10-07)
PROC: 4B02XSZ Measurement of Cardiac Pacemaker, External Approach (ICD-10-PCS; 2024-10-12)
PROC: 02H63JZ Insertion of Pacemaker Lead into Right Atrium, Percutaneous Approach (ICD-10-PCS; 2024-10-12)
PROC: 5A1935Z Respiratory Ventilation, Less than 24 Consecutive Hours (ICD-10-PCS; 2024-10-12)
PROC: 3E0102A Introduction of Anti-Infective Envelope into Subcutaneous Tissue, Open Approach (ICD-10-PCS; 2024-10-12)
PROC: 0JH606Z Insertion of Pacemaker, Dual Chamber into Chest Subcutaneous Tissue and Fascia, Open Approach (ICD-10-PCS; 2024-10-12)
PROC: 02HK3JZ Insertion of Pacemaker Lead into Right Ventricle, Percutaneous Approach (ICD-10-PCS; 2024-10-12)
PROC: 5A1522G Extracorporeal Oxygenation, Membrane, Peripheral Veno-arterial (ICD-10-PCS; 2024-10-12)
PROC: 5A2204Z Restoration of Cardiac Rhythm, Single (ICD-10-PCS; 2024-10-12)
DX: I21.4 Non-ST elevation (NSTEMI) myocardial infarction (principal); I49.01 Ventricular fibrillation; T81.11XA Postprocedural cardiogenic shock, initial encounter; J81.0 Acute pulmonary edema; K72.00 Acute and subacute hepatic failure without coma; J95.821 Acute postprocedural respiratory failure; J69.0 Pneumonitis due to inhalation of food and vomit; J15.8 Pneumonia due to other specified bacteria; D62 Acute posthemorrhagic anemia; Q25.43 Congenital aneurysm of aorta; I47.20 Ventricular tachycardia, unspecified; T82.838A Hemorrhage due to vascular prosthetic devices, implants and grafts, initial encounter; I97.190 Other postprocedural cardiac functional disturbances following cardiac surgery; I48.92 Unspecified atrial flutter; I82.611 Acute embolism and thrombosis of superficial veins of right upper extremity; I47.19 Other supraventricular tachycardia; I97.120 Postprocedural cardiac arrest following cardiac surgery; D68.8 Other specified coagulation defects; N17.9 Acute kidney failure, unspecified; E87.4 Mixed disorder of acid-base balance; I97.130 Postprocedural heart failure following cardiac surgery; R04.2 Hemoptysis; J98.11 Atelectasis; E87.1 Hypo-osmolality and hyponatremia; I21.A9 Other myocardial infarction type; I50.811 Acute right heart failure; I77.810 Thoracic aortic ectasia; I11.0 Hypertensive heart disease with heart failure; I25.10 Atherosclerotic heart disease of native coronary artery without angina pectoris; I35.1 Nonrheumatic aortic (valve) insufficiency; I48.0 Paroxysmal atrial fibrillation; Y82.8 Other medical devices associated with adverse incidents; Y83.8 Other surgical procedures as the cause of abnormal reaction of the patient, or of later complication, without mention of misadventure at the time of the procedure; R00.1 Bradycardia, unspecified; E83.51 Hypocalcemia; E87.6 Hypokalemia; I44.1 Atrioventricular block, second degree; B00.9 Herpesviral infection, unspecified; R00.8 Other abnormalities of heart beat; E86.1 Hypovolemia; R41.0 Disorientation, unspecified; T50.1X5A Adverse effect of loop [high-ceiling] diuretics, initial encounter; D69.6 Thrombocytopenia, unspecified; Z11.52 Encounter for screening for COVID-19
CPT/HCPCS: 88305; 93308; 33208; 33947; 33952; 33990; 36600; 70355; 71045; 71275; 74018; 74174; 76700; 80048; 80053; 80061; 80076; 80202; 81003; 81015; 82140; 82248; 82330; 82565; 82805; 82810; 82947; 82962; 83010; 83036; 83605; 83615; 83735; 83880; 84100; 84132; 84134; 84145; 84302; 84443; 84478; 84484; 84520; 85014; 85018; 85025; 85027; 85049; 85347; 85379; 85384; 85576; 85610; 85730; 86850; 86900; 86901; 86920; 87040; 87070; 87077; 87086; 87186; 87205; 87502; 87641; 87811; 92526; 92610; 93005; 93312; 93320; 93321; 93325; 93459; 93880; 93971; 94002; 94003; 94640; 94660; 97163; 97167; 97530; 97535; C1760; C1768; C1785; C1892; C1894; C1898; J1325; J2260; J2916; P9016; P9045; P9047; P9058; P9059; P9073; Q9967

== ENCOUNTER → 2025-07-14 07:31 | Outpatient (REF) | payer BC, SELFPAY | LOC: RAD 07:31 | PROVIDERS: ATTENDING PHYSICIAN Internal Medicine Cardiovascular Disease; FAMILY PHYSICIAN Family Medicine | DX: I73.9 Peripheral vascular disease, unspecified (principal) | CPT/HCPCS: 93923 ==